=== PATIENT | male | born 1930 | race Caucasian/White ===

== ENCOUNTER 2017-12-06 13:15 | Inpatient (IN) | payer OTHER ==
--- NOTE | 2017-12-06 15:36 | RAD REPORT ---
EXAM DESCRIPTION: RAD - Chest Single View - 12/06/2017 3:27 pm CLINICAL HISTORY: Chest pain. COMPARISON: None. FINDINGS: Portable technique limits examination quality. The lungs are mildly emphysematous but grossly clear. The heart is mildly prominent in size. No displ aced fractures. IMPRESSION: Mild COPD.
[2017-12-06] MEDS ORDERED: FUROSEMIDE 100 MG/10 ML VIAL IV ONE (16:06)
[2017-12-06 16:14] LABS: Absolute Lymphocytes (CBC) 0.7 K/uL (0.7-4.9); Absolute Monocytes 0.7 K/uL (0.1-1.3); Absolute Neutrophil 2.5 K/uL (1.8-8.0); Basophils % 0.4 % (0-1.3); Eosinophils % 3.6 % (0-4.4); Hematocrit 34.5 % (39.6-49.0); Lymphocytes % 17.1 % (15.3-44.8); MCH 34.1 pg (27.0-35.0); MCV 105.1 fL (80-100); MPV 9.7 fL (7.6-11.3); Monocytes % 17.1 % (3.3-12.3); RBC Red Blood Cell Count 3.28 M/uL (4.33-5.43)
[2017-12-06 16:17] LABS: Protime INR 1.94
[2017-12-06 16:19] LABS: Potassium 4.2 mEq/L (3.6-5.0)
[2017-12-06 16:25] LABS: Albumin 4.3 g/dL (3.2-5.5); Bilirubin Direct 0.5 mg/dL (0-0.2); Bilirubin Total 1.6 mg/dL (0.3-1.2); Protein, Total 7.6 g/dL (6.0-8.3)
[2017-12-06 16:30] LABS: CKMB Creatine Kinase MB 3.9 ng/ml (0.3-4.0)
[2017-12-06 17:02] LABS: Urine Blood NEGATIVE (NEG); Urine Glucose NEGATIVE (NEG); Urine Protein NEGATIVE (NEG)
--- NOTE | 2017-12-06 17:49 | ER ---
Nurse's Notes [facility] Name: Kavon Gregg Sr Age: 87 yrs Sex: Male : 1930 Arrival Date: 12/06/2017 Time: 13:17 Bed 20 Private MD: Diagnosis: Acute on chronic combined systolic (congestive) and diastolic (congestive) heart failure Presentation: 12/06 13:25 Presenting complaint: Patient states: I have been having swelling in my penis and la1 testicles for one week but it just keeps getting worse, pt reports he can still urinate, report increasing swelling in TANISHA LE. Transition of care: patient was not received from another setting of care. Onset of symptoms was December 06, 2017. Initial Sepsis Screen: Does the patient meet any 2 criteria? No. Patient's initial sepsis screen is negative. Does the patient have a suspected source of infection? No. Patient's initial sepsis screen is negative. Care prior to arrival: None. 13:25 Method Of Arrival: Ambulatory la1 13:25 Acuity: TEO 3 la1 Historical: - Allergies: 13:27 PENICILLINS; la1 - Home Meds: 14:10 lisinopril 20 mg Oral tab 1 tab once daily [Active]; furosemide 40 mg Oral tab 1 tab rb1 once daily [Active]; carvedilol 3.125 mg oral tab 1 tab 2 times per day [Active]; simvastatin 20 mg Oral tab 1 tab 2 times per day [Active]; pantoprazole 20 mg oral TbEC 1 tab 2 times per day [Active]; warfarin 5 mg Oral tab 1 tab once daily [Active]; Iron CR Oral [Active]; Complete Multivitamin oral oral [Active]; - PMHx: 13:27 Hypertension; CHF; la1 14:10 skin cancer; rb1 - PSHx: 14:10 skin cancer removed left leg; rb1 - Immunization history:: Adult Immunizations up to date. - Social history:: Smoking status: Patient/guardian denies using tobacco. Screenin:10 Abuse screen: Denies threats or abuse. Nutritional screening: No deficits noted. rb1 Tuberculosis screening: No symptoms or risk factors identified. Fall Risk None identified. Assessment: 14:05 General: Appears in no apparent distress. comfortable, Behavior is calm, cooperative. rb1 General: Denies fever. Pain: Denies pain. Neuro: Level of Consciousness is awake, alert, obeys commands, Oriented to person, place, time, situation. Cardiovascular: Capillary refill < 3 seconds is brisk in bilateral fingers. Respiratory: Airway is patent Respiratory effort is even, unlabored, Respiratory pattern is regular, symmetrical. GI: No signs and/or symptoms were reported involving the gastrointestinal system. : Reports feeling bloated. Derm: Skin is pink, warm \T\ dry. Musculoskeletal: Swelling present in right leg and left leg. 14:10 Musculoskeletal: Swelling present in genitalia. rb1 14:20 General: Pt. 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 . 14:45 Reassessment: Family decided to take the pt. to [place]. And to sign out AMA. rb1 15:05 Reassessment: Pt. daughter spoke to the pt. son and they decided to stay here instead rb1 of going to [place]. 15:10 Reassessment: Patient appears in no apparent distress at this time. No changes from rb1 previously documented assessment. Pt. daughter told me that we could start treatment at this point. 16:09 Reassessment: Patient appears in no apparent distress at this time. Patient and/or rb1 family updated on plan of care and expected duration. Pain level reassessed. Patient is alert, oriented x 3, equal unlabored respirations, skin warm/dry/pink. Daughters at bedside. 17:00 Reassessment: Patient appears in no apparent distress at this time. No changes from rb1 previously documented assessment. 17:39 Reassessment: Urine output 1400 ml via Perez. rb1 18:20 Reassessment: Patient appears in no apparent distress at this time. Patient and/or rb1 family updated on plan of care and expected duration. Pain level reassessed. Patient is alert, oriented x 3, equal unlabored respirations, skin warm/dry/pink. Pt. is having dinner with family at the bedside. 19:20 General: Appears in no apparent distress. comfortable, Behavior is calm, cooperative, ao Denies fever. Pain: Denies pain. Neuro: Level of Consciousness is awake, alert, obeys commands, Oriented to person, place, time, situation. Cardiovascular: Capillary refill < 3 seconds is brisk in bilateral fingers. Respiratory: Airway is patent Respiratory effort is even, unlabored, Respiratory pattern is regular, symmetrical. GI: No signs and/or symptoms were reported involving the gastrointestinal system. Abdomen is obese. : Perez in place Urine is. EENT: No signs and/or symptoms were reported regarding the EENT system. Derm: Skin is pink, warm \T\ dry. Musculoskeletal: Swelling present in right leg and left leg. Vital Signs: 13:27 BP 125 / 74; Pulse 90; Resp 19; Temp 97.6; Pulse Ox 100% on R/A; Weight 81.65 kg; la1 Height 5 ft. 9 in. (175.26 cm); 14:30 BP 133 / 74; Pulse 71; Resp 18; Pulse Ox 99% on R/A; Pain 0/10; rb1 15:30 BP 123 / 85; Pulse 69; Resp 16; Pulse Ox 97% on R/A; rb1 16:15 BP 126 / 74; Pulse 71; Resp 17; Pulse Ox 97% on R/A; rb1 17:30 BP 126 / 67; Pulse 63; Resp 16; Pulse Ox 98% on R/A; rb1 18:15 BP 129 / 92; Pulse 69; Resp 18; Pulse Ox 97% ; Pain 0/10; rb1 19:45 BP 118 / 66; Pulse 78; Resp 18; Pulse Ox 75% ; Pain 0/10; ao 13:27 Body Mass Index 26.58 (81.65 kg, 175.26 cm) la1 ED Course: 13:17 Patient arrived in ED. as 13:26 Triage completed. la1 13:27 Arm band placed on right wrist. la1 14:10 Patient has correct armband on for positive identification. Placed in gown. Bed in low rb1 position. Call light in reach. Side rails up X 1. quality assurance monitor final on. Pulse ox on. NIBP on. 14:18 Lee Tran NP is PHCP. pm1 14:18 Jose Antonio Faria MD is Attending Physician. pm1 14:35 Nuria Ag, DAVID is Primary Nurse. rb1 15:24 X-ray completed. Portable x-ray completed in exam room. Patient tolerated procedure ag1 well. 15:27 XRAY Chest (1 view) In Process Unspecified. EDMS 15:52 Initial lab(s) drawn, by me, sent to lab. Urine collected: Perez catheter specimen, jb1 clear, sohan colored, EKG done, by ED staff, reviewed by Jose Antonio Faria MD. Inserted saline lock: 20 gauge in left antecubital area, using aseptic technique. Blood collected. 15:53 Perez cath inserted, using sterile technique, 16 Fr., by me, balloon inflated, to jb1 gravity drainage, urine specimen collected. 17:48 Claudia Zuniga MD is Hospitalizing Provider. pm1 19:00 Report given to DAVID Voss. rb1 19:45 No provider procedures requiring assistance completed. Patient admitted, IV remains in ao place. Administered Medications: 14:15 Drug: Lasix 80 mg {Note: BP 126/74 P71.} Route: IVP; Site: left antecubital; rb1 14:40 Follow up: Response: No adverse reaction rb1 Output: 17:39 Urine: 1400ml (Perez); Total: 1400ml. rb1 Outcome: 17:49 Decision to Hospitalize by Provider. pm1 19:46 Admitted to Tele accompanied by tech, room 408, with chart, Report called to Betsy Tinsley 19:46 Condition: stable 19:57 Patient left the ED. ao Signatures: Dispatcher [employer] EDMS Gregg Mae jb1 Vickie Fowler Lee, RN RN Laura Arzate ag1 Nuria Ag, RN RN Bipin Madera RN RN ao Marinas, Patrick, ADOLPH COMPUTER LABORATORY TECHNICIAN pm1 Corrections: (The following items were deleted from the chart) 16:22 15:10 Reassessment: Pt. daughter told me that we could start treatment at this point. rb1 rb1
--- NOTE | 2017-12-06 17:50 | EDPHYS ---
Physician Documentation [facility] Name: Kavon Gregg Sr Age: 87 yrs Sex: Male : 1930 Arrival Date: 12/06/2017 Time: 13:17 Bed 20 Private MD: ED Physician Jose Antonio Faria HPI: 12/06 14:57 This 87 yrs old Male presents to ER via Ambulatory with complaints of pm1 Testicular Swelling, Penile Swelling. 14:57 The patient has shortness of breath with light activity. Onset: The symptoms/episode pm1 began/occurred 1 week(s) ago. Duration: The symptoms are continuous, and are steadily getting worse. The patient's shortness of breath is aggravated by light activity, is alleviated by nothing. Associated signs and symptoms: Pertinent positives: Swelling to genitalia , Pertinent negatives: chest pain, non-productive cough, productive cough, fever, nausea, vomiting. Severity of symptoms: in the emergency department the symptoms are worse. The patient has not experienced similar symptoms in the past. Historical: - Allergies: 13:27 PENICILLINS; la1 - Home Meds: 14:10 lisinopril 20 mg Oral tab 1 tab once daily [Active]; furosemide 40 mg Oral tab 1 tab rb1 once daily [Active]; carvedilol 3.125 mg oral tab 1 tab 2 times per day [Active]; simvastatin 20 mg Oral tab 1 tab 2 times per day [Active]; pantoprazole 20 mg oral TbEC 1 tab 2 times per day [Active]; warfarin 5 mg Oral tab 1 tab once daily [Active]; Iron CR Oral [Active]; Complete Multivitamin oral oral [Active]; - PMHx: 13:27 Hypertension; CHF; la1 14:10 skin cancer; rb1 - PSHx: 14:10 skin cancer removed left leg; rb1 - Immunization history:: Adult Immunizations up to date. - Social history:: Smoking status: Patient/guardian denies using tobacco. ROS: 17:44 Constitutional: Negative for fever, chills, and weight loss, Eyes: Negative for injury, pm1 pain, redness, and discharge, ENT: Negative for injury, pain, and discharge, Neck: Negative for injury, pain, and swelling. 17:44 Abdomen/GI: Negative for abdominal pain, nausea, vomiting, diarrhea, and constipation, Back: Negative for injury and pain, MS/Extremity: Negative for injury and deformity, Skin: Negative for injury, rash, and discoloration, Neuro: Negative for headache, weakness, numbness, tingling, and seizure. 17:44 Cardiovascular: Positive for edema, Negative for chest pain, palpitations. 17:44 Respiratory: Positive for shortness of breath, Negative for cough, dyspnea on exertion, wheezing. 17:44 : Positive for Swelling to testicles and penis, Negative for burning with urination, penile pain, testicular pain Exam: 17:44 Constitutional: This is a well developed, well nourished patient who is awake, alert, pm1 and in no acute distress. Head/Face: Normocephalic, atraumatic. Eyes: Pupils equal round and reactive to light, extra-ocular motions intact. Lids and lashes normal. Conjunctiva and sclera are non-icteric and not injected. Cornea within normal limits. Periorbital areas with no swelling, redness, or edema. ENT: Nares patent. No nasal discharge, no septal abnormalities noted. Tympanic membranes are normal and external auditory canals are clear. Oropharynx with no redness, swelling, or masses, exudates, or evidence of obstruction, uvula midline. Mucous membranes moist. Neck: Trachea midline, no thyromegaly or masses palpated, and no cervical lymphadenopathy. Supple, full range of motion without nuchal rigidity, or vertebral point tenderness. No Meningismus. Chest/axilla: Normal chest wall appearance and motion. Nontender with no deformity. No lesions are appreciated. 17:44 Abdomen/GI: Soft, non-tender, with normal bowel sounds. No distension or tympany. No guarding or rebound. No evidence of tenderness throughout. Back: No spinal tenderness. No costovertebral tenderness. Full range of motion. Skin: Warm, dry with normal turgor. Normal color with no rashes, no lesions, and no evidence of cellulitis. MS/ Extremity: Pulses equal, no cyanosis. Neurovascular intact. Full, normal range of motion. 17:44 Cardiovascular: Rate: normal, Rhythm: irregular, Edema: pedal edema, that is marked, Edema present to penis and testicles. Trace to lower abdomen. 17:44 Respiratory: the patient does not display signs of respiratory distress, Respirations: normal, Breath sounds: decreased breath sounds, are located in both bases. 17:44 Neuro: Orientation: is normal, Mentation: is normal, Motor: moves all fours, Sensation: is normal, no obvious gross deficits, Gait: is steady, without difficulty, Slow. Vital Signs: 13:27 BP 125 / 74; Pulse 90; Resp 19; Temp 97.6; Pulse Ox 100% on R/A; Weight 81.65 kg; la1 Height 5 ft. 9 in. (175.26 cm); 14:30 BP 133 / 74; Pulse 71; Resp 18; Pulse Ox 99% on R/A; Pain 0/10; rb1 15:30 BP 123 / 85; Pulse 69; Resp 16; Pulse Ox 97% on R/A; rb1 16:15 BP 126 / 74; Pulse 71; Resp 17; Pulse Ox 97% on R/A; rb1 17:30 BP 126 / 67; Pulse 63; Resp 16; Pulse Ox 98% on R/A; rb1 18:15 BP 129 / 92; Pulse 69; Resp 18; Pulse Ox 97% ; Pain 0/10; rb1 19:45 BP 118 / 66; Pulse 78; Resp 18; Pulse Ox 75% ; Pain 0/10; ao 13:27 Body Mass Index 26.58 (81.65 kg, 175.26 cm) la1 MDM: 14:19 Patient medically screened. pm1 16:26 Data reviewed: vital signs. Data interpreted: Pulse oximetry: on room air is 97 %. pm1 Interpretation: normal. 17:48 Physician consultation: Claudia Zuniga MD was called at 17:48, was contacted at 17:48, pm1 regarding admission, patient's condition, and will see patient. 12/06 14:33 Order name: Basic Metabolic Panel pm1 12/06 14:33 Order name: BNP pm1 12/06 14:33 Order name: CBC with Diff pm1 12/06 14:33 Order name: Ckmb pm1 12/06 14:33 Order name: CPK pm1 12/06 14:33 Order name: LFT's pm1 12/06 14:33 Order name: Magnesium pm1 12/06 14:33 Order name: PT-INR; Complete Time: 17:16 pm1 12/06 14:33 Order name: Ptt, Activated; Complete Time: 17:16 pm1 12/06 14:33 Order name: Troponin (emerg Dept Use Only); Complete Time: 17:16 pm1 12/06 14:33 Order name: Basic Metabolic Panel; Complete Time: 17:16 EDMS 12/06 14:33 Order name: BNP B-Type Natriuretic Peptide; Complete Time: 17:16 EDWI 12/06 14:33 Order name: CBC with Automated Diff; Complete Time: 16:26 EDMS 12/06 14:33 Order name: CKMB Creatine Kinase MB; Complete Time: 17:16 EDWI 12/06 14:33 Order name: XRAY Chest (1 view); Complete Time: 16:04 pm1 12/06 14:33 Order name: EKG; Complete Time: 14:33 pm1 12/06 14:33 Order name: Creatine Phosphokinase; Complete Time: 17:16 EDWI 12/06 14:33 Order name: Liver (Hepatic) Function; Complete Time: 17:16 EDWI 12/06 14:33 Order name: Magnesium; Complete Time: 17:16 [facility] 12/06 16:04 Order name: Urine Dipstick--Ancillary (enter results) 12/06 16:04 Order name: Urine Dipstick-Ancillary; Complete Time: 17:16 [facility] 12/06 18:00 Order name: Physical Therapy Consult [facility] 12/06 18:00 Order name: Basic Metabolic Panel [facility] 12/06 18:00 Order name: Basic Metabolic Panel [facility] 12/06 18:00 Order name: Protime (+INR) [facility] 12/06 18:00 Order name: Protime (+INR) [facility] 12/06 18:01 Order name: Echo with Doppler [facility] 12/06 18:01 Order name: CBC with Automated Diff [facility] 12/06 18:01 Order name: CBC with Automated Diff [facility] 12/06 14:33 Order name: Cardiac monitoring; Complete Time: 15:22 pm12/06 14:33 Order name: EKG - Nurse/Tech; Complete Time: 15:22 pm12/06 14:33 Order name: IV Saline Lock; Complete Time: 15:52 pm1 12/06 14:33 Order name: Labs collected and sent; Complete Time: 15:53 pm1 12/06 14:33 Order name: O2 Per Protocol; Complete Time: 15:22 pm12/06 14:33 Order name: O2 Sat Monitoring; Complete Time: 15:22 pm1 12/06 14:33 Order name: Urine Dipstick-Ancillary (obtain specimen); Complete Time: 15:52 pm1 12/06 15:01 Order name: Perez; Complete Time: 15:52 pm1 12/06 18:01 Order name: Heart Healthy EDWI Administered Medications: 14:15 Drug: Lasix 80 mg {Note: BP 126/74 P71.} Route: IVP; Site: left antecubital; rb1 14:40 Follow up: Response: No adverse reaction rb1 Disposition: 12/07 09:16 Co-signature as Attending Physician, Jose Antonio Faria MD I agree with the assessment and cathy plan of care. Disposition: 12/06/17 17:49 Hospitalization ordered by Claudia Zuniga for Inpatient Admission. Preliminary diagnosis is Acute on chronic combined systolic (congestive) and diastolic (congestive) heart failure. - Bed requested for Telemetry/MedSurg (Inpatient). - Status is Inpatient Admission. ao - Condition is Stable. - Problem is new. - Symptoms have improved. UTI on Admission? No Signatures: Dispatcher [employer] [facility] Jose Antonio Faria MD MD cha Attema, Lee RN RN la1 Nuria Ag RN RN rb1 Bipin Kyle RN RN ao Marinas, Patrick, COOKER SULFITE COOKER SULFITE pm1 Roberta Canales RN RN Chasity Grace
[2017-12-06] MEDS ORDERED: ONDANSETRON 4 MG/2 ML VIAL IV PRN (17:53)
[2017-12-06] MEDS ORDERED: ACETAMINOPHEN 500 MG TAB PO PRN (17:53)
[2017-12-06 20:16] VITALS: BMI 26.5
--- NOTE | 2017-12-06 20:42 | P.HP ---
Certification for Inpatient Patient admitted to: Inpatient With expected LOS: >2 Midnights Practitioner: I am a practitioner with admitting privileges, knowledge of patient current condition, hospital course, and medical plan of care. Services: Services provided to patient in accordance with Admission requirements found in Title 42 Section 412.3 of the Code of Federal Regulations Patient History Date of Service: 12/06/17 Reason for admission: CHF exacerbation History of Present Illness: Mr Gregg is an 87 years old male with history of HTN, chronic A.Fib, CHF, who usually has as baseline some degree of lower extremity edema, that at night he put his legs to rest over a pillow, and the next morning the swelling decrease significantly, however, since 1 week ago he has noticed more swelling in his legs, and also the edema progressed to his testes and penis. He denied chest pain. He also noticed more SOB than usual in the last week. No history of fever , chills or cough. His landing scaler is Dr Bacon in [place]. Lab work in ED remarkable for worsening kidney function, elevated trop I 0.07, EKG shows A.Fib at 67 bpm. He is hemodynamically stable. Allergies Penicillins Allergy (Verified 09/11/16 13:57) Rash - Past Medical/Surgical History -: HTN -: CHF -: Chronic A.Fib -: skin cancer romove - Family History Family History: Reviewed- Non-Contributory - Social History Smoking Status: Never smoker Alcohol use: No CD- Drugs: No Place of Residence: Home Review of Systems 10-point ROS is otherwise unremarkable Physical Examination - Vital Signs Temperature: 97.6 F Blood Pressure: 123/73 Pulse: 77 Respirations: 18 Pulse Ox (%): 94 - Physical Exam General: Alert, In no apparent distress HEENT: Atraumatic, PERRLA, Mucous membr. moist/pink, EOMI, Sclerae nonicteric Neck: Supple, 2+ carotid pulse no bruit, No LAD, Without JVD or thyroid abnormality Respiratory: Clear to auscultation bilaterally, Normal air movement Cardiovascular: Normal S1 S2, Edema, Irregular heart rate/rhythm Gastrointestinal: Normal bowel sounds, No tenderness Musculoskeletal: No tenderness, Swelling (LE edema 3+, up to genitalia) Integumentary: No rashes Neurological: Normal speech, Normal strength at 5/5 x4 extr, Normal tone, Normal affect Lymphatics: No axilla or inguinal lymphadenopathy - Studies Laboratory Data (last 24 hrs) 12/06/17 15:50: PT 23.0 H, INR 1.94, APTT 35.3 12/06/17 15:50: WBC 4.0 L, Hgb 11.2 L, Hct 34.5 L, Plt Count 166 12/06/17 15:50: B-Natriuretic Peptide 477 H 12/06/17 15:50: Sodium 137, Potassium 4.2, BUN 31 H, Creatinine 1.85 H, Glucose 101, Magnesium 2.0, Total Bilirubin 1.6 H, AST 35, ALT 25, Alkaline Phosphatase 152 H Assessment and Plan - Problems (Diagnosis) (1) CHF exacerbation Current Visit: Yes Status: Acute Qualifiers: Heart failure type: unspecified Qualified Code(s): I50.9 - Heart failure, unspecified (2) Chronic a-fib Current Visit: Yes Status: Acute (3) HTN (hypertension) Current Visit: Yes Status: Acute Qualifiers: Hypertension type: essential hypertension Qualified Code(s): I10 - Essential (primary) hypertension (4) Acute renal injury Current Visit: Yes Status: Acute - Plan The patient will be admitted to the hospital due to CHF exacerbation. No ECHO in our records, will order one for tomorrow. Will continue with IV Lasix, electrolyte monitor, consult cardiology team for evaluation and recommendations. Continue Coumadin for A.Fib, rate is well controlled. Trop I elevated, likely due to CHF. No chest pain or acute ST-T abnomralities on EKG. - Advance Directives Does patient have a Living Will: No Does patient have a Durable POA for Healthcare: No - Code Status/Comfort Care Code Status Assessed: Yes Code Status: Full Code
[2017-12-06] MEDS ORDERED: METOPROLOL TAR 25 MG TAB PO SCH (21:00)
[2017-12-06] MEDS: CARVEDILOL 3.125 MG TAB PO SCH (23:16)
[2017-12-06 23:35] LABS: Protime INR 1.93
[2017-12-07 05:53] LABS: Absolute Lymphocytes (CBC) 0.7 K/uL (0.7-4.9); Absolute Monocytes 0.9 K/uL (0.1-1.3); Absolute Neutrophil 3.9 K/uL (1.8-8.0); Basophils % 0.4 % (0-1.3); Eosinophils % 2.1 % (0-4.4); Hematocrit 31.9 % (39.6-49.0); Lymphocytes % 12.9 % (15.3-44.8); MCH 34.5 pg (27.0-35.0); MCV 104.6 fL (80-100); MPV 9.6 fL (7.6-11.3); Monocytes % 16.1 % (3.3-12.3); RBC Red Blood Cell Count 3.05 M/uL (4.33-5.43)
[2017-12-07 06:14] LABS: Potassium 3.7 mEq/L (3.6-5.0); Protime INR 1.91
[2017-12-07] MEDS ORDERED: POTASSIUM 25 MEQ EFFERV TAB PO ONE (06:35)
[2017-12-07 06:58] LABS: Blood Morphology Comment NOT SEEN (NOT SEEN); Platelet Estimate ADEQ
--- NOTE | 2017-12-07 07:05 | EKG ---
Test Date: 2017-12-06 Test Time: 15:25:58 Spray Drier Operator Helper: EMT MEASUREMENT RESULTS: Intervals: Rate: 67 RI: QRSD: 74 QT: 416 QTc: 439 [place]: P: RI: QRS: 228 T: 36 INTERPRETIVE STATEMENTS: Atrial fibrillation Right superior axis deviation Low voltage QRS Cannot rule out Anterior infarct, age undetermined Abnormal ECG Compared to ECG 09/11/2016 12:34:46 Right superior axis now present Left-axis deviation no longer present Myocardial infarct finding still present Electronically Signed On 12-07-17 07:04:16 CDT by Chris Delgado
[2017-12-07] MEDS ORDERED: PANTOPRAZOLE 40MG TABLET PO SCH (09:00)
[2017-12-07] MEDS ORDERED: FUROSEMIDE 40 MG/4 ML VIAL IV SCH (09:00)
[2017-12-07] MEDS ORDERED: WARFARIN SODIUM 4 MG TAB PO SCH ×2 (09:00→17:30)
[2017-12-07] MEDS ORDERED: LISINOPRIL 20 MG TAB PO SCH (09:00)
[2017-12-07] MEDS: CARVEDILOL 3.125 MG TAB PO SCH (11:19)
[2017-12-07 12:37] VITALS: BP 110/59; TEMP 98.1
--- NOTE | 2017-12-07 12:38 | ECHO ---
HEIGHT: 5 ft 9 in WEIGHT: 179 lb 8 oz DATE OF STUDY: 12/07/[address]: Claudia Zuniga MD 2-DIMENSIONAL: YES M.MODE: YES DOPPLER: YES COLOR FLOW: YES TDS: NO PORTABLE: NO DEFINITY: NO BUBBLE STUDY: NO DIAGNOSIS: CONGESTIVE HEART FAILURE CARDIAC HISTORY: CATHERIZATION: YES SURGERY: CABG PROSTHETIC VALVE: NO PACEMAKER: NO MEASUREMENTS (cm) DIASTOLIC (NORMALS) SYSTOLIC (NORMALS) IVSd 1.5 (0.6-1.2) LA Diam 4.4 (1.9-4.0) LVEF 65% LVIDd 3.7 (3.5-5.7) LVIDs 2.4 (2.0-3.5) %FS 35% LVPWd 1.3 (0.6-1.2) Ao Diam 2.6 (2.0-3.7) 2 DIMENSIONAL ASSESSMENT: RIGHT ATRIUM: DILATED LEFT ATRIUM: DILATED RIGHT VENTRICLE: DILATED LEFT VENTRICLE: NORMAL TRICUSPID VALVE: NORMAL MITRAL VALVE: NORMAL PULMONIC VALVE: NORMAL AORTIC VALVE: NORMAL PERICARDIAL EFFUSION: NONE AORTIC ROOT: NORMAL LEFT VENTRICULAR WALL MOTION: NORMAL. DOPPLER/COLOR FLOW: MILD AORTIC, MITRAL AND TRICUSPID REGURGITATION. MODERATE PULMONARY HYPERTENSION. ESTIMATED RIGHT VENTRICULAR SYSTOLIC PRESSURE 52mmHg. ESTIMATED RIGHT ATRIAL PRESSURE 15mmHg. COMMENTS: NORMAL LEFT VENTRICULAR EJECTION FRACTION. DILATED LEFT AND RIGHT ATRIUM. DILATED RIGHT VENTRICLE. MILD AORTIC, MITRAL AND TRICUSPID REGURGITATION. MODERATE PULMONARY HYPERTENSION. ATRIAL FIBRILLATION. TECHNOLOGIST: CAMI JACKSON [facility]
[2017-12-07 12:41] VITALS: O2SAT 94
--- NOTE | 2017-12-07 13:36 | CON ---
History Of Present Illness: Mr. Gregg came to the hospital because his feet were swelling more derrek n usual. There was no dyspnea or chest pain. He has chronic atrial fib, chronic diastolic heart yasmin lure. Normally sees Dr. Joshua. Came to our hospital and for the last few weeks he has been notici ng a steady weight gain. He noticed when he took his Lasix, it did not seem to do anything. Home Medications: Coumadin 4 mg a day, simvastatin 20, lisinopril 20, Lasix 40, Coreg 3.125 b.i.d., and Protonix 40. Dr. Joshua in his office manages all the prothrombin times and INRs. Physical Examination: General: He appears to be his stated age of 87, alert, oriented, pleasant, not in distress. Lungs: Clear. Heart: Irregularly irregular. Extremities: 2+ edema. Distal pulses palpable. The patient's electrocardiogram shows atrial fibrillation, 67 beats per minute, pulmonary disease pat tern, right superior axis, poor R-wave progression, possible anterior MS, looks just like EKGs from t he past we have in our hospital. Laboratory Data: Reveals he is mildly anemic. Hemoglobin 11.2. His creatinine is 1.89. His tropon in is 0.07. Blood sugars 101 and 106. Impression: I believe the patient has stable condition of heart failure that got a little bit out of line. He did not have pulmonary edema and at this point with IV diuretics, he has lost a few pounds . His edema has gone down and I would think, he would be ready to be discharged today some time toda y, had an echocardiogram and another dose of IV Lasix. When he goes home, he can be discharged on 80 mg of Lasix a day, see Dr. Joshua, and decide about long-term Lasix dose. He will probably need to be on a sliding scale for Lasix from this point on. I have also recommended he reduce his sodium intake. He did not seem to think, he was eat ing a high sodium diet. SH/MODL Voice ID: [id number] Report ID: [id number]
--- NOTE | 2017-12-07 15:00 | P.DS ---
Admission Date: 12/06/17 Discharge Date: 12/07/17 Discharge Condition: GOOD Reason for Admission: CHF exacerbation Procedures: patient admitted for swelling of the legs. Had a normal echo. Responded well to diuresis. Was seen by Dr. Delgado. His daughter is with him He has another daughter in the room in him. Will have him follow up with Dr. Mcpherson Brief History of Present Illness: Patient was admitted for increased swelling in his legs. No shortness of breath , no PND, no orthopnea. Hospital Course: Patient is doing much better after diuresis. Has good social support. Plan to discharge patient on 80mg of lasix and follow up with Dr. Nuñez and Sylvia Rossi. Vital Signs/Physical Exam: Temp Pulse Resp BP Pulse Ox 98.1 F 80 18 110/59 L 94 12/07/17 12:00 12/07/17 12:00 12/07/17 12:00 12/07/17 12:00 12/07/17 12:00 General: Alert, In no apparent distress HEENT: Atraumatic, PERRLA, EOMI Neck: Supple, JVD not distended Respiratory: Clear to auscultation bilaterally, Normal air movement Cardiovascular: Regular rate/rhythm, Normal S1 S2, Edema (1+, much improved from yesterday) Gastrointestinal: Normal bowel sounds, No tenderness Musculoskeletal: No tenderness Integumentary: No rashes Neurological: Normal speech, Normal tone, Normal affect Lymphatics: No axilla or inguinal lymphadenopathy Laboratory Data at Discharge: WBC 5.6 K/uL (4.3-10.9) D 12/07/17 05:29 Hgb 10.5 g/dL (13.6-17.9) L 12/07/17 05:29 Hct 31.9 % (39.6-49.0) L 12/07/17 05:29 Plt Count 147 K/uL (152-406) L 12/07/17 05:29 PT 22.7 SECONDS (9.5-12.5) H 12/07/17 05:29 INR 1.91 12/07/17 05:29 APTT 35.3 SECONDS (24.3-36.9) 12/06/17 15:50 Sodium 138 mEq/L (135-145) 12/07/17 05:29 Potassium 3.7 mEq/L (3.6-5.0) 12/07/17 05:29 BUN 31 mg/dL (6-20) H 12/07/17 05:29 Creatinine 1.89 mg/dL (0.61-1.24) H 12/07/17 05:29 Glucose 106 mg/dL (65-120) 12/07/17 05:29 Magnesium 2.0 mg/dL (1.8-2.5) 12/06/17 15:50 Total Bilirubin 1.6 mg/dL (0.3-1.2) H 12/06/17 15:50 AST 35 IU/L (10-42) 12/06/17 15:50 ALT 25 IU/L (10-60) 12/06/17 15:50 Alkaline Phosphatase 152 IU/L (42-121) H 12/06/17 15:50 B-Natriuretic Peptide 477 pg/ml (<=100) H 12/06/17 15:50 Home Medications: Carvedilol [Coreg*] 3.125 mg PO BID 12/06/17 Lisinopril 20 mg PO DAILY 12/06/17 Pantoprazole [Protonix Tab*] 20 mg PO DAILY 12/06/17 Simvastatin 20 mg PO DAILY 12/06/17 Warfarin Sodium [Coumadin*] 4 mg PO DAILY 12/06/17 Furosemide [Lasix] 80 mg PO DAILY 30 Days #30 tablet 12/07/17 New Medications: Furosemide [Lasix] 80 mg PO DAILY 30 Days #30 tablet Diet: AHA Activity: Ad tracy Followup: EDWARD MCPHERSON [UNKNOWN] - 1 Week Sylvia Rossi NP [Primary Care Provider] - 1-2 Weeks Time spent managing pt's care (in minutes): 40
[2017-12-07] MEDS ORDERED: ATORVASTATIN 10 MG TAB PO SCH (21:00)
== END 2017-12-07 16:59 | disposition home or self-care (01) | DRG 292 ==
LOC: ER 13:15 → ERHOLD 18:03 → 4TH 19:33
PROVIDERS: ADMIT Family Medicine; ATTEND Internal Medicine
DX: I11.0 Hypertensive heart disease with heart failure (principal); N17.9 Acute kidney failure, unspecified; I50.33 Acute on chronic diastolic (congestive) heart failure; I48.2 Chronic atrial fibrillation; Z79.01 Long term (current) use of anticoagulants
CPT/HCPCS: 36415; 51702; 71045; 80048; 80076; 81003; 82550; 82553; 83735; 83880; 84484; 85025; 85610; 85730; 93005; 93306; 94760; 96374; 97163; 99285

== ENCOUNTER 2017-12-10 11:46 | Inpatient (IN) | payer OTHER ==
[2017-12-10] MEDS ORDERED: ONDANSETRON 4 MG/2 ML VIAL ONE (12:16)
[2017-12-10] MEDS ORDERED: Morphine 2 MG/2 ML SYR ONE ×2 (12:18→14:00)
[2017-12-10 12:43] LABS: Absolute Lymphocytes (CBC) 0.6 K/uL (0.7-4.9); Absolute Monocytes 0.9 K/uL (0.1-1.3); Absolute Neutrophil 4.1 K/uL (1.8-8.0); Basophils % 0.3 % (0-1.3); Eosinophils % 1.4 % (0-4.4); Hematocrit 31.2 % (39.6-49.0); Lymphocytes % 10.4 % (15.3-44.8); MCH 34.6 pg (27.0-35.0); MCV 104.3 fL (80-100); MPV 9.6 fL (7.6-11.3); Monocytes % 15.2 % (3.3-12.3); RBC Red Blood Cell Count 2.99 M/uL (4.33-5.43)
[2017-12-10 12:44] LABS: Protime INR 2.13
--- NOTE | 2017-12-10 13:43 | RAD REPORT ---
EXAM DESCRIPTION: RAD - Pelvis - 12/10/2017 1:38 pm CLINICAL HISTORY: Right hip pain status post fall FINDINGS: A comminuted intertrochanteric fracture involves the right femur with varus angulation pre sent at the fracture site. The lesser trochanter is avulsed. The fracture involves the greater trocha nter. The fracture extends inferiorly 4 centimeters involving the femoral shaft. No dislocation is seen.
--- NOTE | 2017-12-10 13:44 | RAD REPORT ---
EXAM DESCRIPTION: RAD - Femur Right - 12/10/2017 1:38 pm CLINICAL HISTORY: Right leg pain status post fall FINDINGS: A comminuted intertrochanteric fracture involves the right femur with varus angulation pre sent at the fracture site. The lesser trochanter is avulsed. The fracture involves the greater trocha nter. The fracture extends inferiorly 4 centimeters involving the femoral shaft. No dislocation is seen
--- NOTE | 2017-12-10 13:44 | RAD REPORT ---
EXAM DESCRIPTION: RAD - Hip Right 2 View - 12/10/2017 1:38 pm CLINICAL HISTORY: Right hip pain status post fall FINDINGS: A comminuted intertrochanteric fracture involves the right femur with varus angulation pre sent at the fracture site. The lesser trochanter is avulsed. The fracture involves the greater trocha nter. The fracture extends inferiorly 4 centimeters involving the femoral shaft. No dislocation is seen
--- NOTE | 2017-12-10 13:45 | RAD REPORT ---
EXAM DESCRIPTION: Marlin Single View12/10/2017 1:38 pm CLINICAL HISTORY: Chest pain COMPARISON: November 2017 FINDINGS: The lungs appear clear of acute infiltrate. The heart is moderately enlarged IMPRESSION: No acute abnormalities displayed
[2017-12-10] MEDS ORDERED: LORazepam 2 MG/ML VIAL ONE (13:57)
[2017-12-10 13:59] LABS: Blood Morphology Comment NOT SEEN (NOT SEEN); Platelet Estimate ADEQ; Urine White Blood Cell Casts OK
--- NOTE | 2017-12-10 14:25 | ER ---
Nurse's Notes [facility] Name: Kavon Gregg Sr Age: 87 yrs Sex: Male : 1930 Arrival Date: 12/10/2017 Time: 12:07 Bed 8 Private MD: Diagnosis: Intertrochanteric fracture of femur-Right;Other slipping, tripping and stumbling and falls Presentation: 12/10 12:08 Presenting complaint: EMS states: Fell yesterday from a standing position and now c/o R ss hip pain when repositioning. R leg appears shortened and externally rotated. Transition of care: patient was not received from another setting of care. Onset of symptoms was December 10, 2017. Initial Sepsis Screen: Does the patient meet any 2 criteria? No. Patient's initial sepsis screen is negative. Does the patient have a suspected source of infection? No. Patient's initial sepsis screen is negative. Care prior to arrival: Medication(s) given: fentanyl 50 mcg given IVP IV initiated. 20 GA, in the left antecubital area. 12:08 Method Of Arrival: EMS: [facility] 12:08 Acuity: TEO 3 ss Historical: - Allergies: 12:13 PENICILLINS; ss - Home Meds: 15:31 warfarin 5 mg Oral tab 1 tab once daily [Active]; carvedilol 3.125 mg Oral tab 1 tab 2 sg times per day [Active]; Complete Multivitamin Oral [Active]; furosemide 40 mg Oral tab 1 tab once daily [Active]; Iron CR Oral [Active]; lisinopril 20 mg Oral tab 1 tab once daily [Active]; pantoprazole 20 mg Oral TbEC 1 tab 2 times per day [Active]; simvastatin 20 mg Oral tab 1 tab 2 times per day [Active]; - PMHx: 12:13 CHF; Hypertension; skin cancer; ss - PSHx: 12:13 skin cancer removed left leg; L hip repair; ss - Immunization history:: Adult Immunizations. - Social history:: Smoking status: Patient/guardian denies using tobacco. Screenin:20 Abuse screen: Denies threats or abuse. Denies injuries from another. Nutritional sg screening: No deficits noted. Tuberculosis screening: No symptoms or risk factors identified. Never had TB. Fall Risk None identified. Assessment: 12:10 Reassessment: pt son at bedside at this time, awaiting Xray. sg 12:20 General: Appears in no apparent distress. uncomfortable, well groomed, well developed, sg well nourished, Behavior is calm, cooperative, appropriate for age. Pain: Complains of pain in right hip Pain radiates to right leg. Neuro: Level of Consciousness is awake, alert, obeys commands, Oriented to person, place, time, Relief Mate are equal bilaterally Moves all extremities. Full function Gait is steady, Speech is normal, Facial symmetry appears normal. Cardiovascular: Heart tones S1 S2 present Capillary refill is brisk in bilateral fingers toes Patient's skin is warm and dry. Pulses are palpable in right radial artery, right femoral artery, right posterior tibial artery, right dorsalis pedis artery, left radial artery, left femoral artery, left posterior tibial artery and left dorsalis pedis artery Edema is 1+ to right upper thigh, right lower thigh, right midcalf, right ankle, right foot and right toes Chest pain is denied. Respiratory: Airway is patent Respiratory effort is even, unlabored, Respiratory pattern is regular, symmetrical, Breath sounds are clear bilaterally. GI: Abdomen is round non-distended, Bowel sounds present X 4 quads. Reports normal bowel habits, tolerance of fluids, tolerance of food. : Swelling noted on scrotum. EENT: No signs and/or symptoms were reported regarding the EENT system. Derm: Skin is pink, warm \T\ dry. Musculoskeletal: Capillary refill is brisk, in bilateral fingers. toes. Range of motion: limited in right hip right leg noted to shortened and externally rotated Swelling present in right leg. 13:00 Cardiovascular: Heart tones S1 S2 present Chest pain is denied. Respiratory: Airway is sv patent Respiratory effort is even, unlabored, Respiratory pattern is regular, symmetrical. Derm: Skin is pink, warm \T\ dry. Musculoskeletal: Capillary refill is brisk, in bilateral fingers. toes. Swelling present in right leg. 13:10 Reassessment: Xray at bedside at this time. sg 14:00 Reassessment: Patient appears in no apparent distress at this time. No changes from sg previously documented assessment. Patient is alert, oriented x 3, equal unlabored respirations, skin warm/dry/pink. awaiting CT scan, pt to be medicated prior to CT scan, orders received to repeat morphine 2 mg IVP,VS obtained, pt medicated as ordered, see EMAR. 15:00 Reassessment: Patient appears in no apparent distress at this time. No changes from sg previously documented assessment. 16:10 Reassessment: Patient appears in no apparent distress at this time. No changes from sg previously documented assessment. ORTHO Surgeon at bedside with pt at this time. Vital Signs: 12:13 BP 128 / 95; Pulse 83; Resp 18; Pulse Ox 97% on R/A; Weight 83.91 kg; Height 5 ft. 9 ss in. (175.26 cm); Pain 0/10; 13:00 BP 107 / 60; Pulse 81; Resp 17; Pulse Ox 98% on R/A; Pain 0/10; sv 14:00 BP 124 / 70; Pulse 77; Resp 18; Pulse Ox 98% on R/A; Pain 5/10; sg 14:59 BP 116 / 60; Pulse 93; Resp 18; Pulse Ox 94% ; sv 15:55 BP 112 / 62; Pulse 89; Resp 17; Pulse Ox 98% on R/A; Pain 0/10; sg 12:13 Body Mass Index 27.32 (83.91 kg, 175.26 cm) ss [place] Coma Score: 13:00 Eye Response: spontaneous(4). Verbal Response: oriented(5). Motor Response: obeys sg commands(6). Total: 15. 15:55 Eye Response: spontaneous(4). Verbal Response: oriented(5). Motor Response: obeys sg commands(6). Total: 15. Trauma Score (Adult): 13:00 Eye Response: spontaneous(1); Verbal Response: oriented(1); Motor Response: obeys sg commands(2); Systolic BP: > 89 mm Hg(4); Respiratory Rate: 10 to 29 per min(4); [place] Score: 15; Trauma Score: 12 15:55 Eye Response: spontaneous(1); Verbal Response: oriented(1); Motor Response: obeys sg commands(2); Systolic BP: > 89 mm Hg(4); Respiratory Rate: 10 to 29 per min(4); [place] Score: 15; Trauma Score: 12 ED Course: 12:07 Patient arrived in ED. sg 12:07 Jose Antonio Wayne PA is PHCP. cp 12:07 Andrea Jorgensen MD is Attending Physician. cp 12:10 Onel Moreno, RN is Primary Nurse. sg 12:11 Triage completed. ss 12:13 Arm band placed on right wrist. ss 12:20 Patient has correct armband on for positive identification. Bed in low position. Call sg light in reach. Side rails up X2. Adult w/ patient. computer laboratory technician on. Pulse ox on. NIBP on. Head of bed elevated. 12:20 Perez cath inserted, using sterile technique, 16 Fr., by nv, balloon inflated, to sg gravity drainage, urine specimen collected. returned clear yellow urine. 12:20 Initial lab(s) drawn, by ED staff, sent to lab. Maintain EMS IV. Dressing intact. Good sg blood return noted. Site clean \T\ dry. Gauge \T\ site: 20 G in the LAC. Patient maintains SpO2 saturation greater than 95% on room air. 13:38 X-ray completed. Portable x-ray completed in exam room. Patient tolerated procedure sw well. 13:38 XRAY Chest (1 view) In Process Unspecified. EDMS 13:38 XRAY Femur RIGHT In Process Unspecified. EDMS 13:38 XRAY Hip RIGHT 2 view In Process Unspecified. EDMS 13:38 XRAY Pelvis In Process Unspecified. EDMS 14:08 EKG done, by technical designer. reviewed by Andrea Jorgensen MD. tc 14:[address] via stretcher. sg 14:19 CT completed. Patient tolerated procedure well. Patient moved to CT via stretcher. sj Patient moved back from CT. 14:21 CT Head C Spine In Process Unspecified. EDMS 14:23 Vicki Fuentes MD is Hospitalizing Provider. cp 14:29 Warm blanket given. Head of bed elevated. sg 15:24 Diet: Patient given a heart healthy meal tray. sg 16:20 No provider procedures requiring assistance completed. Patient admitted, IV remains in sv place. intact. Administered Medications: 12:20 Drug: morphine 2 mg Route: IVP; Site: left antecubital; sg 13:00 Follow up: Response: No adverse reaction; Pain is decreased sg 12:20 Drug: Zofran 4 mg Route: IVP; Site: left antecubital; sg 13:20 Follow up: Response: No adverse reaction; Nausea is decreased sg 14:05 Drug: morphine 2 mg Route: IVP; Site: left antecubital; sg 15:24 Follow up: Response: No adverse reaction; Pain is decreased sg Outcome: 14:24 Decision to Hospitalize by Provider. cp 16:21 Admitted to Med/surg accompanied by tech, via stretcher, room 410, with chart, Report sv called to Stephen HERNANDEZ 16:21 Condition: stable 16:21 Instructed on the need for admit. 16:46 Patient left the ED. sv Signatures: Dispatcher MedHo Ailsia Stein RN RN sv Onel Moreno RN RN sg Jones, Susan sj Smirch, Shelby, RN RN ss Socorro Rodas, instructor correspondence school EKG Isabell Paez Corey, PA PA cp
--- NOTE | 2017-12-10 14:26 | EDPHYS ---
Physician Documentation [facility] Name: Kavon Gregg Sr Age: 87 yrs Sex: Male : 1930 Arrival Date: 12/10/2017 Time: 12:07 Bed 8 Private MD: ED Physician Andrea Jorgensen HPI: 12/10 12:15 This 87 yrs old Male presents to ER via EMS with complaints of Hip Injury. cp 12:15 The patient or guardian reports decreased range of motion, deformity, an injury, pain. cp that occurred at home, sustained from a fall, while walking. 12:15 The complaints affect the right hip. Onset: The symptoms/episode began/occurred last cp night. 12:15 Associated signs and symptoms: Loss of consciousness: the patient experienced no loss cp of consciousness. Historical: - Allergies: 12:13 PENICILLINS; ss - Home Meds: 15:31 warfarin 5 mg Oral tab 1 tab once daily [Active]; carvedilol 3.125 mg Oral tab 1 tab 2 sg times per day [Active]; Complete Multivitamin Oral [Active]; furosemide 40 mg Oral tab 1 tab once daily [Active]; Iron CR Oral [Active]; lisinopril 20 mg Oral tab 1 tab once daily [Active]; pantoprazole 20 mg Oral TbEC 1 tab 2 times per day [Active]; simvastatin 20 mg Oral tab 1 tab 2 times per day [Active]; - PMHx: 12:13 CHF; Hypertension; skin cancer; ss - PSHx: 12:13 skin cancer removed left leg; L hip repair; ss - Immunization history:: Adult Immunizations. - Social history:: Smoking status: Patient/guardian denies using tobacco. ROS: 12:30 Constitutional: Negative for body aches, chills, fever, poor PO intake. cp 12:30 Eyes: Negative for injury, pain, redness, and discharge. cp 12:30 ENT: Negative for drainage from ear(s), ear pain, sore throat, difficulty swallowing, difficulty handling secretions. 12:30 Neck: Negative for pain with movement, pain at rest, stiffness, bony tenderness. 12:30 Cardiovascular: Positive for edema, Negative for chest pain, palpitations. 12:30 Respiratory: Negative for cough, shortness of breath, wheezing. 12:30 Abdomen/GI: Negative for abdominal pain, nausea, vomiting, and diarrhea, constipation, black/tarry stool, rectal bleeding. 12:30 Back: Negative for pain at rest, pain with movement, radiated pain. 12:30 MS/extremity: Positive for injury or acute deformity, decreased range of motion, pain, of the right hip. 12:30 Neuro: Negative for altered mental status, headache, loss of consciousness, syncope, near syncope, weakness. 12:30 All other systems are negative. Exam: 12:33 Constitutional: The patient appears in no acute distress, alert, awake, cp non-diaphoretic, non-toxic, well developed, well nourished. 12:33 Head/Face: Normocephalic, atraumatic. cp 12:33 Eyes: Periorbital structures: appear normal, Pupils: equal, round, and reactive to light and accomodation, Extraocular movements: intact throughout, Conjunctiva: normal, no exudate, no injection, Sclera: no appreciated abnormality, Lids and lashes: appear normal, bilaterally. 12:33 ENT: External ear(s): are unremarkable, Ear canal(s): are normal, clear, TM's: dullness, bilaterally, Nose: is normal, Mouth: Lips: moist, Oral mucosa: moist, Posterior pharynx: is normal, airway is patent, no erythema, no exudate, Voice: is normal. 12:33 Neck: ROM/movement: is normal, is supple, without pain, no range of motions limitations, no nuchal rigidity. 12:33 Chest/axilla: Inspection: normal, Palpation: is normal, no crepitus, no tenderness. 12:33 Cardiovascular: Rate: normal, Rhythm: irregularly irregular, Edema: mild bilateral lower extremities, JVD: is not appreciated. 12:33 Respiratory: the patient does not display signs of respiratory distress, Respirations: normal, no use of accessory muscles, no retractions, no splinting, no tachypnea, labored breathing, is not present, Breath sounds: decreased breath sounds, that are mild, are located in both bases, stridor, is not appreciated, wheezing: is not appreciated. 12:33 Abdomen/GI: Inspection: abdomen appears normal, Bowel sounds: active, all quadrants, Palpation: abdomen is soft and non-tender, in all quadrants, rebound tenderness, is not appreciated, voluntary guarding, is not appreciated, involuntary guarding, is not appreciated. 12:33 Back: pain, is absent, ROM is normal. 12:33 Musculoskeletal/extremity: Joints: All joints are normal except the right hip displays deformity, limited range of motion, pain at rest, painful range of motion, tenderness. 12:33 Skin: cellulitis, is not appreciated, no rash present. 12:33 Neuro: Orientation: to person, place \T\ time. Mentation: lucid, able to follow commands, Cerebellar function: is grossly normal, Motor: moves all fours, strength is normal. 13:35 ECG was reviewed by the Attending Physician. cp Vital Signs: 12:13 BP 128 / 95; Pulse 83; Resp 18; Pulse Ox 97% on R/A; Weight 83.91 kg; Height 5 ft. 9 ss in. (175.26 cm); Pain 0/10; 13:00 BP 107 / 60; Pulse 81; Resp 17; Pulse Ox 98% on R/A; Pain 0/10; sv 14:00 BP 124 / 70; Pulse 77; Resp 18; Pulse Ox 98% on R/A; Pain 5/10; sg 14:59 BP 116 / 60; Pulse 93; Resp 18; Pulse Ox 94% ; sv 15:55 BP 112 / 62; Pulse 89; Resp 17; Pulse Ox 98% on R/A; Pain 0/10; sg 12:13 Body Mass Index 27.32 (83.91 kg, 175.26 cm) ss [place] Coma Score: 13:00 Eye Response: spontaneous(4). Verbal Response: oriented(5). Motor Response: obeys sg commands(6). Total: 15. 15:55 Eye Response: spontaneous(4). Verbal Response: oriented(5). Motor Response: obeys sg commands(6). Total: 15. Trauma Score (Adult): 13:00 Eye Response: spontaneous(1); Verbal Response: oriented(1); Motor Response: obeys sg commands(2); Systolic BP: > 89 mm Hg(4); Respiratory Rate: 10 to 29 per min(4); [place] Score: 15; Trauma Score: 12 15:55 Eye Response: spontaneous(1); Verbal Response: oriented(1); Motor Response: obeys sg commands(2); Systolic BP: > 89 mm Hg(4); Respiratory Rate: 10 to 29 per min(4); [place] Score: 15; Trauma Score: 12 MDM: 12:13 Patient medically screened. cp 13:00 Differential diagnosis: hip fracture, intertrochanteric fracture, femoral neck cp fracture, femoral shaft fracture, bursitis. 14:30 Data reviewed: vital signs, nurses notes, lab test result(s), EKG, radiologic studies, cp plain films. 14:30 Counseling: I had a detailed discussion with the patient and/or guardian regarding: the cp historical points, exam findings, and any diagnostic results supporting the discharge/admit diagnosis, the need for further work-up and treatment in the hospital. 12/10 12:11 Order name: Basic Metabolic Panel; Complete Time: 16:37 cp 12/10 12:11 Order name: BNP; Complete Time: 13:36 cp 12/10 12:11 Order name: CBC with Diff; Complete Time: 16:37 cp 12/10 13:36 Interpretation: Normal except: RBC 2.99; HGB 10.4; HCT 31.2; MCV 104.3; LYM% 10.4; MN% cp 15.2; LYMA 0.6. 12/10 12:11 Order name: LFT's; Complete Time: 16:37 cp 12/10 12:11 Order name: Magnesium; Complete Time: 16:37 cp 12/10 12:11 Order name: PT-INR; Complete Time: 13:36 cp 12/10 12:11 Order name: Ptt, Activated; Complete Time: 13:36 cp 12/10 12:11 Order name: XRAY Chest (1 view); Complete Time: 16:37 cp 12/10 12:11 Order name: XRAY Femur RIGHT; Complete Time: 16:37 cp 12/10 12:11 Order name: XRAY Hip RIGHT 2 view; Complete Time: 16:37 cp 12/10 12:11 Order name: XRAY Pelvis; Complete Time: 16:37 cp 12/10 12:52 Order name: CBC Smear Scan; Complete Time: 16:37 EDMS 12/10 13:38 Order name: CT Head C Spine; Complete Time: 16:37 cp 12/10 12:11 Order name: EKG; Complete Time: 12:11 cp 12/10 12:11 Order name: Cardiac monitoring; Complete Time: 12:37 cp 12/10 12:11 Order name: EKG - Nurse/Tech; Complete Time: 12:38 cp 12/10 12:11 Order name: IV Saline Lock; Complete Time: 12:37 cp 12/10 12:11 Order name: Labs collected and sent; Complete Time: 12:37 cp 12/10 12:11 Order name: O2 Per Protocol; Complete Time: 12:37 cp 12/10 12:11 Order name: O2 Sat Monitoring; Complete Time: 12:37 cp 12/10 12:11 Order name: Urine Dipstick-Ancillary (obtain specimen); Complete Time: 12:37 12/10 12:40 Order name: Perez; Complete Time: 12:40 12/10 14:43 Order name: Diet Heart Healthy; Complete Time: 14:43 12/10 14:45 Order name: CONS Physician Consult EDND EC:35 Rate is 84 beats/min. Rhythm is irregularly irregular. QRS interval is normal. QT cp interval is normal. No ST changes noted. Interpreted by me. Reviewed by me. Administered Medications: 12:20 Drug: morphine 2 mg Route: IVP; Site: left antecubital; sg 13:00 Follow up: Response: No adverse reaction; Pain is decreased sg 12:20 Drug: Zofran 4 mg Route: IVP; Site: left antecubital; sg 13:20 Follow up: Response: No adverse reaction; Nausea is decreased sg 14:05 Drug: morphine 2 mg Route: IVP; Site: left antecubital; sg 15:24 Follow up: Response: No adverse reaction; Pain is decreased sg Disposition: 12/10/17 14:24 Hospitalization ordered by Vicki Fuentes for Inpatient Admission. Preliminary diagnosis are Intertrochanteric fracture of femur - Right, Other slipping, tripping and stumbling and falls. - Bed requested for Telemetry/MedSurg (Inpatient). - Status is Inpatient Admission. sv - Condition is Stable. - Problem is new. - Symptoms have improved. UTI on Admission? No Addendum: 12/14/2017 12:44 Co-signature as Attending Physician, Andrea Jorgensen MD. g s Signatures: Dispatcher MedHo EDND Risa George, BIJU-Chanda IVY-Alisia Escobar RN RN Onel Malcolm RN RN Stacy Henry RN RN ss Johana Manning Corey, PA PA cp Starr, Gregory, MD MD gs
--- NOTE | 2017-12-10 14:32 | RAD REPORT ---
EXAM DESCRIPTION: CT - Head C Spine Mpr Wo Con - 12/10/2017 2:21 pm CLINICAL HISTORY: Head and neck injury status post fall. Head and neck pain COMPARISON: None. TECHNIQUE: Computed axial tomography of the head and cervical spine was obtained. Sagittal and coronal reconstruction was performed. All CT scans are performed using dose optimization technique as appropriate and may include automated exposure control or mA/KV adjustment according to patient size. FINDINGS: An intracranial bleed is not seen. The ventricles are normal in caliber. An extra-axial fl uid collection is not noted.Fluid within the visualized sinuses and mastoids is not seen A cervical fracture is not visualized. No dislocation is noted. IMPRESSION: No acute intracranial abnormality is seen. A cervical fracture is not visualized. If the patient continues to have symptoms to suggest intracra nial /spinal cord pathology then MRI would be recommended
--- NOTE | 2017-12-10 15:29 | P.HP ---
Certification for Inpatient Patient admitted to: Inpatient With expected LOS: >2 Midnights Practitioner: I am a practitioner with admitting privileges, knowledge of patient current condition, hospital course, and medical plan of care. Services: Services provided to patient in accordance with Admission requirements found in Title 42 Section 412.3 of the Code of Federal Regulations Patient History Date of Service: 12/10/17 Reason for admission: hip fracture History of Present Illness: Mr Gregg is an 87 years old male with history of chronic diastolic CHF, chronic A.Fib anticoagulated with Warfarin who was recently admitted to the hospital due to CHF exacerbation, came to the hospital complaining of right hip pain. The patient was at home yesterday when he tripped and fell to the floor. He landed on the right side. Immediately he start feeling severe right hip pain , and he was unable to bear weight on his right foot. XR report that there is a comminuted intertrochanteric fracture involving the right femur with varus angulation present at the fracture site. The lesser trochanter is avulsed. The fracture involves also the greater trochanter Allergies Penicillins Allergy (Verified 09/11/16 13:57) Rash Home Medications: Carvedilol [Coreg*] 3.125 mg PO BID 12/06/17 Lisinopril 20 mg PO DAILY 12/06/17 Pantoprazole [Protonix Tab*] 20 mg PO DAILY 12/06/17 Simvastatin 20 mg PO DAILY 12/06/17 Warfarin Sodium [Coumadin*] 4 mg PO DAILY 12/06/17 Furosemide [Lasix] 80 mg PO DAILY 30 Days #30 tablet 12/07/17 - Past Medical/Surgical History Diabetic: No -: HTN -: Chronic diastolic CHF -: Chronic A.Fib -: moderate pulmonary HTN -: skin cancer romove -: PROSTATE REMOVAL FROM [place] -: L FX HIP REPAIR -: HERNIA REPAIR - Family History Father -: Heart disease Mother -: Heart disease Brother -: Heart disease Notes: [place] - Social History Smoking Status: Never smoker Alcohol use: Yes CD- Drugs: No Caffeine use: Yes Place of Residence: Home Review of Systems 10-point ROS is otherwise unremarkable Physical Examination - Physical Exam General: Alert, In no apparent distress HEENT: Atraumatic, PERRLA, Mucous membr. moist/pink, EOMI, Sclerae nonicteric Neck: Supple, 2+ carotid pulse no bruit, No LAD, JVD distended Respiratory: Clear to auscultation bilaterally, Normal air movement Cardiovascular: Regular rate/rhythm, Normal S1 S2, No gallops Gastrointestinal: Normal bowel sounds, No tenderness Musculoskeletal: Tenderness (right hip) Integumentary: No rashes Neurological: Normal speech, Normal tone, Normal affect Lymphatics: No axilla or inguinal lymphadenopathy - Studies Laboratory Data (last 24 hrs) 12/10/17 12:28: PT 25.3 H, INR 2.13, APTT 34.4 12/10/17 12:28: WBC 5.6, Hgb 10.4 L, Hct 31.2 L, Plt Count 170 12/10/17 12:28: B-Natriuretic Peptide 394 H Assessment and Plan - Problems (Diagnosis) (1) Closed right hip fracture Current Visit: Yes Status: Acute Qualifiers: Encounter type: initial encounter Qualified Code(s): S72.001A - Fracture of unspecified part of neck of right femur, initial encounter for closed fracture (2) Warfarin-induced coagulopathy Current Visit: Yes Status: Acute (3) Chronic diastolic CHF (congestive heart failure) Current Visit: Yes Status: Acute (4) Chronic a-fib Onset Date: 12/07/17 Current Visit: No Status: Acute (5) HTN (hypertension) Onset Date: 12/07/17 Current Visit: No Status: Acute Qualifiers: Hypertension type: essential hypertension Qualified Code(s): I10 - Essential (primary) hypertension - Plan The patient will be admitted due to right hip fracture. Dr Meyer was consulted as preference of the patient. INR is 2.13, in order to have the patient ready for surgery will order Vitamin K. Will resume his home medication once verified. - Advance Directives Does patient have a Living Will: Yes Does patient have a Durable POA for Healthcare: Yes - Code Status/Comfort Care Code Status Assessed: Yes Code Status: Full Code
--- NOTE | 2017-12-10 15:38 | EKG ---
Test Date: 2017-12-10 Test Time: 13:28:27 Weatherization Coordinator: OBI MEASUREMENT RESULTS: Intervals: Rate: 84 [place]: QRSD: 80 QT: 410 QTc: [address]: P: [place]: QRS: 262 T: 104 INTERPRETIVE STATEMENTS: Atrial fibrillation Right superior axis deviation Low voltage QRS Cannot rule out Inferior infarct, age undetermined Cannot rule out Anterior infarct, age undetermined Abnormal ECG Compared to ECG 12/06/2017 15:25:58 No significant changes Electronically Signed On 12-10-17 15:37:32 CDT by Miguel Christian
[2017-12-10] MEDS ORDERED: VITAMIN K (ADULT) 10 MG/ML IVP SCH ×3 (16:00→18:00)
[2017-12-10 16:18] LABS: Potassium 3.8 mEq/L (3.6-5.0)
[2017-12-10 16:24] LABS: Albumin 3.9 g/dL (3.2-5.5); Bilirubin Direct 0.6 mg/dL (0-0.2); Bilirubin Total 1.8 mg/dL (0.3-1.2); Protein, Total 7.1 g/dL (6.0-8.3)
[2017-12-10] MEDS ORDERED: ACETAMINOPHEN 500 MG TAB PO PRN (17:00)
[2017-12-10] MEDS ORDERED: Morphine 2 MG/2 ML SYR IV PRN (17:00)
[2017-12-10 17:37] VITALS: BMI 27.3
[2017-12-11 06:38] LABS: Potassium 4.1 mEq/L (3.6-5.0)
[2017-12-11 06:41] LABS: Absolute Lymphocytes (CBC) 0.8 K/uL (0.7-4.9); Absolute Monocytes 1.2 K/uL (0.1-1.3); Absolute Neutrophil 3.9 K/uL (1.8-8.0); Basophils % 0.2 % (0-1.3); Eosinophils % 1.6 % (0-4.4); Lymphocytes % 13.7 % (15.3-44.8); MCH 34.4 pg (27.0-35.0); MCV 104.1 fL (80-100); MPV 10.2 fL (7.6-11.3); RBC Red Blood Cell Count 2.89 M/uL (4.33-5.43)
[2017-12-11 07:10] LABS: Protime INR 1.37
[2017-12-11 09:12] LABS: Urine Appearance CLEAR; Urine Bilirubin NEGATIVE (NEG); Urine Blood 1+ (NEG); Urine Color YELLOW; Urine Glucose NEGATIVE (NEG); Urine Protein TRACE (NEG); Urine Specific Gravity 1.015 (1.005-1.030); Urine pH 6.5 (5.0-7.0)
[2017-12-11 09:14] LABS: Urine Microscopic Reflex ORDER UMIC
[2017-12-11 09:27] LABS: Urine Bacteria <20 /HPF (NONE SEEN); Urine Culture Reflex Order REFLEXED; Urine Mucus 1+ /HPF (NONE SEEN)
[2017-12-11] MEDS ORDERED: Ringers Lactate 1,000 ML IV ONE ×2 (13:09→16:28)
[2017-12-11] MEDS ORDERED: LIDOCAINE 2% MPF 5 ML VIAL ONE (14:01)
[2017-12-11] MEDS ORDERED: PROPOFOL 200 MG/20 ML VIAL IV ONE (14:01)
[2017-12-11] MEDS ORDERED: FENTANYL CITR 100 MCG/2 ML ONE (14:01)
[2017-12-11] MEDS ORDERED: CLINDAMYCIN INJ 900 MG in NA CHLORIDE 0.9% 50 ML IV ONE (14:15)
[2017-12-11] MEDS ORDERED: Phenylephrine HCl 10 MG/ML 1 ML VIAL ONE ×2 (14:18→16:00)
[2017-12-11] MEDS ORDERED: DEXAMETHASONE 10 MG/ML VIAL ONE (15:54)
[2017-12-11] MEDS ORDERED: ONDANSETRON 4 MG/2 ML VIAL ONE (15:54)
--- NOTE | 2017-12-11 16:55 | CON ---
Date of Consultation: 12/10/2017 I have seen this patient in the past, however, completely without problem. He underwent reduction an d fixation of a left femoral neck fracture by me at another hospital sometime in the past. He did we ll with that. Unfortunately, he fell this morning injuring his right lower extremity. He was seen a nd examined in the emergency department, was ruled out for other injuries, but x-rays were taken, whi ch demonstrated a complex comminuted intertrochanteric femur fracture with subtrochanteric extension. On speaking with the family, he was ambulatory, but unfortunately tripped. They also relates that he was recently admitted to the hospital for CHF and has been taking water pills and he is also on an ticoagulation. Physical Examination: All his long bones and joints were palpated without pain or crepitation with the exception of his rig ht hip, which is painful with any movement. Review of x-rays do demonstrate a displaced comminuted intertrochanteric femur fracture with subtroch anteric extension. His INR is 2.1. At this time, I have spoken with Mr. Gregg and his family with regarding risks, benefits, and alter natives to different procedures and the plan is for have him be admitted to the hospitalist with plan for intramedullary fixation of this femur fracture when his INR is more normalized and he has been c leared. I also spoke with the hospitalist who admitted him and he said he will give him vitamin K. At this point, our plan will be to obtain a PT, INR in the morning and if it is 1.5 or below, we most likely move forward with intramedullary fixation tomorrow. If it is not 1.5 or below, most likely, we will let him in hopes that the following day his INR will be acceptable and we will be able to com plete his surgery on Thursday. If his INR is still not good Thursday morning, we will most likely move forward with transfusion of fresh frozen pl asma to allow for fixation of his hip. /MODL Voice ID: [id number] Report ID: [id number]
--- NOTE | 2017-12-11 16:55 | P.PN ---
Subjective Date of Service: 12/11/17 Primary Care Provider: unknown Chief Complaint: hip fracture Subjective: Doing well Physical Examination - Vital Signs Temperature: 97.3 F Blood Pressure: 113/60 Pulse: 82 Respirations: 18 Pulse Ox (%): 98 - Physical Exam General: Alert, In no apparent distress, Oriented x3, Cooperative HEENT: Atraumatic Neck: Supple Respiratory: Clear to auscultation bilaterally, Normal air movement Cardiovascular: Irregular heart rate/rhythm (Atrial fibrillation) Gastrointestinal: Normal bowel sounds, Soft and benign, Non-distended, No tenderness, No masses, No rebound, No guarding Musculoskeletal: No erythema, No tenderness, No warmth Integumentary: No tenderness/swelling, No erythema, No warmth, No cyanosis Neurological: Normal speech, Normal strength at 5/5 x4 extr, Normal tone - Studies Medications List Reviewed: Yes Assessment & Plan - Problems (Diagnosis) (1) Chronic anticoagulation Current Visit: Yes Status: Chronic Plan: Patient on chronic anti coagulation. Patient received vitamin K yesterday anticipation for surgery today. (2) Chronic a-fib Onset Date: 12/07/17 Current Visit: Yes Status: Chronic Plan: Will continue with above plan of care. Patient to have surgery today. (3) Chronic diastolic CHF (congestive heart failure) Onset Date: 12/11/17 Current Visit: Yes Status: Chronic Plan: Overall stable. Will continue monitor closely. (4) Closed right hip fracture Onset Date: 12/11/17 Current Visit: Yes Status: Acute Plan: Patient will likely have surgery today. Patient would benefit with inpatient rehab at discharge Qualifiers: Encounter type: initial encounter Qualified Code(s): S72.001A - Fracture of unspecified part of neck of right femur, initial encounter for closed fracture (5) HTN (hypertension) Onset Date: 12/07/17 Current Visit: Yes Status: Chronic Plan: Will continue with medication. Qualifiers: Hypertension type: essential hypertension Qualified Code(s): I10 - Essential (primary) hypertension Discharge Plan: Other (Inpatient rehab) Plan to discharge in: Greater than 2 days Time Spent Managing Pts Care (In Minutes): 55
--- NOTE | 2017-12-11 16:57 | P.BOP ---
Preoperative diagnosis: right complex proximal femur fracture Postoperative diagnosis: same Primary procedure: im lanie fixation of right femur Estimated blood loss: 250 Anesthesia: General Transferred to: Recovery Room Condition: Good
--- NOTE | 2017-12-11 17:36 | RAD REPORT ---
EXAM DESCRIPTION: RAD - Hip In Or - 12/11/2017 4:44 pm FINDINGS: Right hip fluoroscopy performed. Multiple portable C-arm views were obtained during fluoroscopic assisted placement of fracture fixati on hardware. No suspicious or unexpected finding.
[2017-12-11] MEDS ORDERED: WARFARIN SODIUM 4 MG TAB PO SCH (19:00)
[2017-12-11 19:14] LABS: Hematocrit 27.8 % (39.6-49.0)
[2017-12-11] MEDS: WARFARIN SODIUM 4 MG TAB PO SCH (20:57)
[2017-12-11] MEDS: ATORVASTATIN 10 MG TAB PO SCH (20:57)
[2017-12-11] MEDS: CARVEDILOL 3.125 MG TAB PO SCH (20:58)
[2017-12-11] MEDS: CLINDAMYCIN INJ 900 MG in NA CHLORIDE 0.9% 50 ML IV SCH (21:00)
--- NOTE | 2017-12-12 03:59 | OP ---
Date of Procedure: 12/11/2017 Surgeon: Onel Meyer MD Postoperative Diagnosis: Right complex proximal femur fracture. Postop Diagnosis: Right complex proximal femur fracture. Procedure: Right open and closed reduction with intramedullary lanie fixation of the proximal femur. Implant: Long intramedullary nail. Estimated Blood Loss: 250 cc. Complications: There were no complications. Specimen: No pathology specimens sent. Indications For Operation: Mr. Gregg is an 87-year-old gentleman who unfortunately fell from stand ing, injuring his right lower extremity. He was seen in the emergency department, where he was ruled out for other injuries; however, x-rays demonstrated a complex comminuted proximal femur fracture. All risks, benefits, and alternatives to this very challenging fracture were discussed with the patie nt and family. They state they understand things presented and wished to proceed. Description Of Procedure: The patient was taken to the operating room and replaced in supine positio n. General anesthesia obtained by staff. Following this, he was then placed on the fracture table. He was appropriately positioned on the fracture table. Closed reduction maneuvers using the fractur e table were not effective to establish a very good reduction. However, the traditional standard red uction maneuvers were performed. Decision was made to proceed and most likely necessitating an open manipulation reduction. As the right lower extremity was then prepped and draped in the usual steril e fashion for the procedure and draped down the knee as we were anticipating using a longer nail. Fo llowing this, C-arm was used to andrez out the position of the greater trochanter and a vertical incisi on made directly above the greater trochanter. This was taken down through the fascia and divided. Following this, the greater trochanter was palpated with a finger and the 120 degree guide was then p laced with the tip of the guide being positioned at the tip of the greater trochanter. This allowed for visualization of where the cephalomedullary screws would eventually be placed and the decision wa s made to make this incision now. This was taken down carefully through skin, soft tissues. Meticul ous hemostasis maintained. It was down through the fascia and this allowed positioning of a bone cla mp. The bone clamp was used and this combined with rotational traction as well as elevating techniqu es did not really change the position of the fracture. It was felt that most likely he did have inte rposed fracture fragment which was keeping the reduction. This was gently removed using a bone hook, which allowed for better reduction. Decision was made to reduce as well as we could with a bone rigoberto k and proceed with the placement of the guide lanie. This was placed as medial as possible. Unfortuna tely, placing on the medial neck further displaced the fracture. Therefore, it was made as medial as possible, which was still more lateral than and I would, however, it is placed. The guide pin was t hen placed across the fracture. The materials handling coordinator was then used to hopefully ream out some medially to displace down past the fracture site. The bullet-tipped guide reamers were then used to ream to a s ize 11. Therefore, we could comfortably pass the lanie. The lanie was then placed and it significantly displaced the fracture as I anticipated, however, with the use of a Wu as well as the bone hook we were able to maneuver the fracture fragment back down out of flexure and approximate it better. T his allowed for placement of a guide lanie and once it was more or less past the isthmus, it was much m ore easy to control the fracture. With manual traction with the bone hook, 2 cephalomedullary guide pins were then placed to hold the rotation. They were checked under biplanar C-arm radiography. The y appear to hold the reduction as well as we could make it. This was followed by placement of the ce phalomedullary screw. There was some compression done here, however, not much. The derotation screw was then placed above it. The guide was then removed and it appeared to maintain good position of t samy femur or at least as good as we could manage. The rotation was assessed before the placement of t he distal interlock. However, did not know if we could really change at that point, as his lateral w all is intact. We did get the best reduction possible. Attempts were made to confirm rotation as be st as possible and a perfect unga technique was used to place the distal interlocking screw. Follo wing this, wounds were irrigated. Fascia was closed using heavy Vicryl sutures, followed by closure of skin with Vicryl followed by closure of the skin with vesna. The patient was then placed in Aquacel dressing and taken to recovery room. NADIA Voice ID: [id number] Report ID: [id number]
[2017-12-12 05:03] LABS: Protime INR 1.17
[2017-12-12 05:09] LABS: Absolute Lymphocytes (CBC) 0.3 K/uL (0.7-4.9); Absolute Monocytes 0.7 K/uL (0.1-1.3); Hematocrit 25.1 % (39.6-49.0); Lymphocytes % 5.3 % (15.3-44.8); MCH 34.8 pg (27.0-35.0); MPV 10.1 fL (7.6-11.3); Monocytes % 12.1 % (3.3-12.3); RBC Red Blood Cell Count 2.39 M/uL (4.33-5.43)
[2017-12-12 05:17] LABS: Magnesium 2.1 mg/dL (1.8-2.5); Potassium 4.4 mEq/L (3.6-5.0)
[2017-12-12] MEDS: HYDROCODONE/APAP 10/325 TAB PO PRN ×2 (05:42→14:35)
[2017-12-12] MEDS: CLINDAMYCIN INJ 900 MG in NA CHLORIDE 0.9% 50 ML IV SCH (05:42)
[2017-12-12] MEDS ORDERED: HOME MED 1 EA UNK (Simvastatin [Simvastatin] 20 MG) PO SCH (09:00)
[2017-12-12] MEDS: LISINOPRIL 20 MG TAB PO SCH ×2 (09:00→16:53)
[2017-12-12] MEDS: CARVEDILOL 3.125 MG TAB PO SCH ×2 (09:00→21:19)
[2017-12-12] MEDS: FUROSEMIDE 40 MG TABLET PO SCH (09:54)
[2017-12-12] MEDS ORDERED: POLYETHYL GLY 3350 17 GM/DOSE PO PRN (09:56)
[2017-12-12] MEDS: DOCUSATE NA 100 MG CAP PO SCH ×2 (10:51→21:19)
--- NOTE | 2017-12-12 11:18 | RAD REPORT ---
EXAM DESCRIPTION: RAD - Chest Single View - 12/12/2017 6:10 am CLINICAL HISTORY: CHF COMPARISON: 12/10/2017 FINDINGS: Portable technique limits examination quality. Lungs are mildly emphysematous but clear. The heart is moderately enlarged in size. No displaced frac tures. IMPRESSION: Mild COPD.
--- NOTE | 2017-12-12 11:50 | PN ---
Date of Progress Note: 12/12/2017 Subjective: The patient seen and examined, chart reviewed, and case discussed with RN. The patient states he is having some pain with movement. Son at the bedside. Treatment plan explained. All que stions answered. Review of Systems: Negative except as above. Medications: Reviewed. Physical Examination: Vital Signs: Temperature 99.7, heart rate 87, blood pressure 92/64, respirations 16, O2 97% on room air. General: Awake, alert, oriented x3. Elderly male, somewhat in distress due to pain. CV: S1, S2. Peripheral pulses present. Irregularly irregular. Respiratory: Moving air well bilaterally. No wheezing. No stridor. No use of accessory muscles. Gastrointestinal: Abdomen is soft, nontender, nondistended. Positive bowel sounds. Extremities: No clubbing, cyanosis, edema. Musculoskeletal: Right hip incision site clean, dry, intact, bandaged. Neurologic: Nonfocal. Laboratory Data: Sodium 131, potassium 4.4, chloride 101, CO2 28, BUN 34, creatinine 1.65, glucose 1 96, calcium 8.8, magnesium 2.1. WBC 6, H and H 8.3 and 25.1, platelets 127, neutrophils 82.6. INR 1 .17. Chest x-ray, personally reviewed, shows mild COPD. Assessment And Plan: An 87-year-old male with: 1.Closed right hip fracture, initial encounter, status post open reduction and internal fixation. T he patient is doing well. We will continue with deep venous thrombosis prophylaxis. Rehab referral. 2.Chronic diastolic heart failure, compensated. We will continue home medications. 3.Essential hypertension. The patient is currently hypotensive. We will hold blood pressure medica tions. 4.Chronic atrial fibrillation. Restart anticoagulation and monitor INR. 5.Gastrointestinal and deep venous thrombosis prophylaxis addressed. Plan: Rehab referral. CINDY Voice ID: [id number] Report ID: [id number]
[2017-12-12] MEDS: WARFARIN SODIUM 4 MG TAB PO SCH (16:54)
[2017-12-12] MEDS: ATORVASTATIN 10 MG TAB PO SCH (21:19)
[2017-12-13 05:28] LABS: Protime INR 1.28
[2017-12-13 05:29] LABS: Absolute Lymphocytes (CBC) 0.6 K/uL (0.7-4.9); Absolute Monocytes 1.2 K/uL (0.1-1.3); Absolute Neutrophil 4.9 K/uL (1.8-8.0); Basophils % 0.2 % (0-1.3); Eosinophils % 0.3 % (0-4.4); Hematocrit 22.8 % (39.6-49.0); Lymphocytes % 9.3 % (15.3-44.8); MCH 34.6 pg (27.0-35.0); MCV 104.7 fL (80-100); MPV 9.9 fL (7.6-11.3); RBC Red Blood Cell Count 2.18 M/uL (4.33-5.43)
[2017-12-13 05:50] LABS: Magnesium 2.1 mg/dL (1.8-2.5); Potassium 4.2 mEq/L (3.6-5.0)
[2017-12-13 08:56] LABS: Platelet Estimate ADEQ; Urine White Blood Cell Casts OK
[2017-12-13 08:57] LABS: Blood Morphology Comment NOT SEEN (NOT SEEN)
[2017-12-13] MEDS: CARVEDILOL 3.125 MG TAB PO SCH ×2 (09:00→21:00)
[2017-12-13] MEDS: LISINOPRIL 20 MG TAB PO SCH (09:00)
[2017-12-13] MEDS ORDERED: BISACODYL 10 MG RECTAL SUPP PR ONE (09:40)
[2017-12-13] MEDS: DOCUSATE NA 100 MG CAP PO SCH ×2 (10:32→21:01)
[2017-12-13] MEDS: FUROSEMIDE 40 MG TABLET PO SCH (10:33)
[2017-12-13] MEDS: HYDROCODONE/APAP 10/325 TAB PO PRN (10:36)
[2017-12-13 12:41] LABS: Absolute Lymphocytes (CBC) 0.7 K/uL (0.7-4.9); Absolute Monocytes 1.4 K/uL (0.1-1.3); Absolute Neutrophil 5.6 K/uL (1.8-8.0); Basophils % 0.1 % (0-1.3); Hematocrit 22.8 % (39.6-49.0); Lymphocytes % 9.1 % (15.3-44.8); MCH 34.5 pg (27.0-35.0); MCV 103.6 fL (80-100); MPV 9.5 fL (7.6-11.3); Monocytes % 17.6 % (3.3-12.3)
--- NOTE | 2017-12-13 14:15 | PN ---
Date of Progress Note: 12/13/2017 Subjective: The patient seen and examined. Chart reviewed and case discussed with RN. The patient states his pain is well controlled. Review of Systems: Negative except as above. Medications: Reviewed. Physical Examination: Vital Signs: Temperature 97.6, heart rate 83, blood pressure 106/66, respirations 18, O2 97% on room air. General: Awake, alert, oriented x3, in some mild distress due to pain. Elderly male. CV: S1, S2. Irregularly irregular. Peripheral pulses present. Respiratory: Moving air well bilaterally. No wheezing. Gastrointestinal: Abdomen is soft, nontender, and nondistended. Positive bowel sounds. Extremities: No clubbing, cyanosis. Trace pedal edema. Neurologic: Nonfocal. Musculoskeletal: Right hip incision site clean, dry, and intact. Laboratory Data: Sodium 134, potassium 4.2, chloride 101, CO2 29, BUN 40, creatinine 1.57, glucose 1 47, calcium 8.4. WBC 6.8, H and H 7.5 and 22.8, platelets 143. INR 1.28. Chest x-ray 12/12/2017, p ersonally reviewed, shows mild COPD. Assessment: An 87-year-old male with: 1.Closed right hip fracture, initial encounter, status post open reduction and internal fixation. T he patient is doing well. The patient on deep venous thrombosis prophylaxis. We have referral joann fox. 2.Acute anemia. H and H dropped from 8.3 to 7.5, likely related to procedure. We will continue to monitor. We will recheck H and H in the afternoon. May need transfusion if close or below 7. 3.Chronic diastolic heart failure, compensated. We will continue home medications. 4.Essential hypertension. The patient's blood pressure in the hypertensive to normotensive side. W e will monitor. 5.Chronic atrial fibrillation, on anticoagulation. INR subtherapeutic at 1.28. We will need to mon itor closely due to anemia. 6.Gastrointestinal and deep venous thrombosis prophylaxis addressed. Plan: Monitor H and H, transfuse as needed. May need to stop warfarin if continues to have anemia. SA/MODL Voice ID: [id number] Report ID: [id number]
[2017-12-13] MEDS: WARFARIN SODIUM 4 MG TAB PO SCH (17:05)
[2017-12-13] MEDS: ATORVASTATIN 10 MG TAB PO SCH (21:01)
[2017-12-14] MEDS: HYDROCODONE/APAP 10/325 TAB PO PRN ×2 (04:48→13:30)
[2017-12-14 04:50] LABS: Absolute Lymphocytes (CBC) 0.9 K/uL (0.7-4.9); Absolute Monocytes 1.1 K/uL (0.1-1.3); Absolute Neutrophil 4.9 K/uL (1.8-8.0); Basophils % 0.2 % (0-1.3); Eosinophils % 2.6 % (0-4.4); Hematocrit 24.2 % (39.6-49.0); Lymphocytes % 12.8 % (15.3-44.8); MCH 34.5 pg (27.0-35.0); MCV 104.2 fL (80-100); MPV 9.2 fL (7.6-11.3); Monocytes % 14.9 % (3.3-12.3); Protime INR 1.39; RBC Red Blood Cell Count 2.32 M/uL (4.33-5.43)
[2017-12-14 05:15] LABS: Magnesium 2.3 mg/dL (1.8-2.5); Potassium 4.2 mEq/L (3.6-5.0)
--- NOTE | 2017-12-14 08:07 | PN ---
Date of Progress Note: 12/13/2017 Mr. Gregg is seen today. He is alert and oriented. He is not complaining of any significant pain. He is complaining of a little bit of swollen right lower extremity. Also says he has not had a bowel movement. He says he has worked with physical therapy and they have had him sitting up on the side of the bed and also standing, touchdown weightbearing. His dressings are clean, dry, and intact. His heels are nontender. Review of his laboratory reveals that he has hemoglobin of 7.5, which is decreased, but not unexpected as a result from his injury. He has had a slight increase of temperature of 99 yesterday. I do not feel that this represents necessarily any sort of change other than perhaps atelectasis. Assessment: asked nursing to make sure that hospitalist is seen today. There is a probability and consider blood transfusion. Also working on his bowels. Otherwise, he appears to be doing well. /PIO Voice ID: [id number] Report ID: [id number] CINDY
[2017-12-14] MEDS: DOCUSATE NA 100 MG CAP PO SCH ×2 (08:40→21:49)
[2017-12-14] MEDS: LISINOPRIL 20 MG TAB PO SCH (08:40)
[2017-12-14] MEDS: CARVEDILOL 3.125 MG TAB PO SCH ×2 (08:41→21:49)
[2017-12-14] MEDS: FUROSEMIDE 40 MG TABLET PO SCH (08:42)
--- NOTE | 2017-12-14 13:52 | PN ---
Date of Progress Note: 12/14/2017 Subjective: The patient seen and examined. Chart reviewed and case discussed with RN. The patient is doing well. He states that he is working with physical therapy without any significant difficulty . Review of Systems: Negative except as above. Medications: Reviewed. Physical Examination: Vital Signs: Temperature 98.7, heart rate 77, blood pressure 97/60, respirations 18, O2 96% on room air. General: Awake, alert, oriented x3, not in any acute distress, elderly male. CV: S1, S2, irregularly irregular. Peripheral pulses present. Respiratory: Moving air well bilaterally. No wheezing. Gastrointestinal: Abdomen is soft, nontender, and nondistended. Positive bowel sounds. No guarding or rigidity. Extremities: No clubbing, cyanosis. Mild pedal edema. Neurologic: Nonfocal. Musculoskeletal: Right hip incision site clean, dry, and intact. Laboratory Data: Sodium 135, potassium 4.2, chloride 99, CO2 31, BUN 43, creatinine 1.56, glucose 11 1, calcium 8.8, magnesium 2.3. WBC 7.1, H and H 8 and 24.2, platelets 196. Assessment And Plan: An 87-year-old male with: 1.Closed right hip fracture, initial encounter, status post open reduction and internal fixation, do ing well. Continue with deep venous thrombosis prophylaxis. Rehab referral pending. 2.Acute anemia. H and H stable. We will continue to monitor and transfuse if less than 7. 3.Chronic diastolic heart failure, compensated. Continue with home medications. 4.Essential hypertension. The patient is currently hypotensive. We will monitor. 5.Chronic atrial fibrillation, on anticoagulation. Monitor INR, currently subtherapeutic. May need to adjust Coumadin dose. 6.Gastrointestinal and deep venous thrombosis prophylaxis addressed. Plan: Discharge planning. Rehab placement. CINDY Voice ID: [id number] Report ID: [id number]
[2017-12-14] MEDS: WARFARIN SODIUM 4 MG TAB PO SCH (16:14)
[2017-12-14] MEDS: ATORVASTATIN 10 MG TAB PO SCH (21:48)
[2017-12-15 02:32] VITALS: O2SAT 98
[2017-12-15 04:53] LABS: Absolute Lymphocytes (CBC) 0.9 K/uL (0.7-4.9); Absolute Monocytes 0.9 K/uL (0.1-1.3); Absolute Neutrophil 4.2 K/uL (1.8-8.0); Basophils % 0.5 % (0-1.3); Eosinophils % 3.4 % (0-4.4); Hematocrit 24.4 % (39.6-49.0); Lymphocytes % 14.4 % (15.3-44.8); MCV 103.1 fL (80-100); MPV 8.6 fL (7.6-11.3); Monocytes % 14.7 % (3.3-12.3); RBC Red Blood Cell Count 2.37 M/uL (4.33-5.43)
[2017-12-15 05:29] LABS: Protime INR 1.39
[2017-12-15 08:27] VITALS: TEMP 98.1
[2017-12-15] MEDS: CARVEDILOL 3.125 MG TAB PO SCH (09:00)
[2017-12-15] MEDS: LISINOPRIL 20 MG TAB PO SCH (09:00)
[2017-12-15] MEDS: DOCUSATE NA 100 MG CAP PO SCH (09:06)
[2017-12-15] MEDS ORDERED: PANTOPRAZOLE 40MG TABLET PO SCH (11:00)
[2017-12-15] MEDS: HYDROCODONE/APAP 10/325 TAB PO PRN (12:28)
[2017-12-15] MEDS: FUROSEMIDE 40 MG TABLET PO SCH (12:29)
[2017-12-15 12:30] VITALS: BP 100/59
--- NOTE | 2017-12-15 15:04 | PN ---
Date of Progress Note: 12/14/2017 The patient is seen today. His dressing is clean, dry, and intact. His heels are nontender. He now has hemoglobin of 8.0, which is slightly higher than yesterday; however, he is still anemic. We weston l defer that decision to transfuse to the hospitalist. He has had his Perez discontinued. Otherwise , he is doing well. He is taking Coumadin. He is on anticoagulation. He will continue working with Physical Therapy. /PIO Voice ID: [id number] Report ID: [id number]
--- NOTE | 2017-12-16 13:33 | DS ---
Date of Discharge: 12/15/2017 Consultants: Dr. Meyer with Orthopedics. Procedures: On 12/11/2017, right open and closed reduction with intramedullary lanie fixation of the p roximal femur. Postoperative Diagnosis: Right complex proximal femur fracture. Admitting Diagnoses: 1.Right femur fracture, closed initial encounter. 2.Warfarin-induced coagulopathy. 3.Chronic diastolic heart failure. 4.Chronic atrial fibrillation. 5.Essential hypertension. Discharge Diagnoses: 1.Closed right hip fracture, initial encounter, status post open reduction and internal fixation. 2.Anemia, H and H stable. 3.Chronic diastolic heart failure, compensated. 4.Essential hypertension. 5.Chronic atrial fibrillation, on warfarin. INR subtherapeutic. Hospital Course: The patient is an 87-year-old male with history of CHF, atrial fibrillation, on war farin, who comes in with hip fracture. The patient had a mechanical fall and was found to have femur fracture with varus angulation. The patient was seen by Dr. Meyer, who took the patient to the OR for hip surgery as documented above. The patient did well. He did not have a complicated surgery . The patient initially had some coagulopathy, which was reversed. The patient tolerated the proced ure well. His warfarin was resumed. INR is still subtherapeutic at 1.4. The patient did have some drop in his hemoglobin; however, did not require any blood transfusion. Kidney function remained sta ble at his baseline. The patient was then referred for rehab and discharged after being accepted. Medications: As per medication reconciliation list. Diet: Low-sodium fluid-restricted diet, 1500 mL. Activity: As per rehab and Ortho recommendations. Followup: Follow up with primary care physician in 1-2 weeks. Follow up with Orthopedic surgeon, Dr Raf Meyer in 10 days. Return to ER for worsening condition. Total time spent discharging the patient was 37 minutes. Physical Examination: General: Awake, alert, oriented, no acute distress. Elderly male. CV: S1, S2. Irregularly irregular. Peripheral pulses present. Respiratory: Moving air well bilaterally. Abdomen: Soft, nontender, and nondistended. Positive bowel sounds. Extremities: No clubbing, cyanosis, edema. Musculoskeletal: Right hip incision site clean, dry, and intact. Neurologic: Nonfocal. SA/MODL Voice ID: [id number] Report ID: [id number]
== END 2017-12-15 15:30 | DRG 481 ==
LOC: ER 11:46 → ERHOLD 14:42 → 4TH 16:25
PROVIDERS: ADMIT Internal Medicine; ATTEND Family Medicine
PROC: 0T9B70Z Drainage of Bladder with Drainage Device, Via Natural or Artificial Opening (ICD-10-PCS; 2017-12-10)
PROC: 0QS606Z Reposition Right Upper Femur with Intramedullary Internal Fixation Device, Open Approach (ICD-10-PCS; principal; 2017-12-11 12:30)
DX: S72.001A Fracture of unspecified part of neck of right femur, initial encounter for closed fracture (principal); I50.32 Chronic diastolic (congestive) heart failure; D64.9 Anemia, unspecified; I10 Essential (primary) hypertension; I48.2 Chronic atrial fibrillation; I27.20 Pulmonary hypertension, unspecified; W18.30XA Fall on same level, unspecified, initial encounter; Z79.01 Long term (current) use of anticoagulants
CPT/HCPCS: 36415; 51702; 70450; 71045; 72125; 72170; 73530; 80048; 80076; 81003; 81015; 83735; 83880; 85014; 85018; 85025; 85610; 85730; 87086; 87088; 93005; 96374; 96375; 97163; 99285; J1100; J2270; J2370; J2405; J3010; J3430

== ENCOUNTER 2017-12-15 15:31 | Inpatient (IN) | payer OTHER ==
--- NOTE | 2017-12-15 14:24 | R.PREADM ---
SCREENING DATE AND TIME 12/14/2017 16:52 (CDT) ANTICIPATED REHAB ADMISSION DATE 12/16/2017 REFERRING FACILITY [facility] REFERRAL DATE AND TIME 12/14/2017 16:52 (CDT) ACUTE ADMIT DATE 12/10/2017 Previous Rehabilitation(s): No. REFERRING PHYSICIAN Claudia Zuniga REHAB FACILITY [facility] CLINICAL LIAISON Lior Fink PHYSICIAN REVIEWER Dr. Sunday Goldberg M.D. MR# [id number] NAME OLIVA MARCOS ADDRESS [address] [place] [address] PHONE [facility] [id number] DATE OF 1930 AGE 87 SSN# [id number] GENDER male MARITAL STATUS RACE white ADMIT FROM 02 - [facility] PRE-HOSPITAL LIVING SETTING 01 - Home (private home/apt. board/care, assisted living, detention, transitional living) HOME TYPE AND DETAILS Type of home: single family house # of levels in the residence: 1 # of steps within the residence: 0 # of steps to enter the residence: 0 PRE-HOSPITAL LIVING WITH Alone FAMILY SUPPORT No PRIMARY FAMILY CONTACT NAME Carla Jc PRIMARY FAMILY CONTACT PHONE PHONE PRIMARY FAMILY CONTACT ON ADM.? no IS PRIMARY FAMILY CONTACT AUTH. REP.? no 1ST EMERGENCY CONTACT Carla Jc 1ST CONTACT PHONE PHONE 1ST CONTACT ON ADM. no IS 1ST CONTACT AUTH. REP.? no PHONE 2ND CONTACT ON ADM.? no PATIENT EMPLOYMENT STATUS Retired (for age) PATIENT EMPLOYER No Employer PAYOR INFORMATION: 1ST PAYOR NAME Medicare 1ST PAYOR PHONE [phone] 1ST PAYOR INJURY/ILLNESS DUE TO ACCIDENT? No ANOTHER [employer] RESPONSIBLE? No PRIMARY REHAB/ACUTE DIAGNOSIS: Right hip fracture ONSET DATE 12/10/2017 REHAB IMPAIRMENT CATEGORY (RED): 07 Fracture of LE (FracLE) MEETS 60% rule AFFECTED EXTREMITIES: RLE PRIMARY DIAGNOSIS-RELATED SURGERIES: R hip femoral roding COMORBID REHAB/ACUTE DIAGNOSES: - Tier 3 Chronic diastolic (congestive) heart failure [I5032] - N/A HTN, Chronic A. fib, moderate pulmonary HTN, prostate cancer SUMMARY OF ACUTE HOSPITALIZATION: Pt. is a 87 yo Right-handed white male. On 12/10/2017 he was admitted to [facility] with diagnosis Right hip fracture. His impairment category is Orthopaedic Disorders 08 - Unilateral Hip Fracture (08.11). Pre-morbidly, Pt. was independent/mod-I in Transfers Control, Communication, Social Cognition, Self-C are, Locomotion, and Sphincter Control; and he had good Sphincter Control. Currently, he has deficits of Safety Awareness, Transfers Control, Balance, Locomotion, Endurance, an d Self-Care. Pt. is now referred to [facility] for acute in-patient rehabilitation in order to maximize patient's functional independence in activities of daily living, strength, ROM, and mobi lity. Patient has realistic goal of being discharged at assistance level 6-Soren to reside at Home with Fam soumya/Relatives. PAST MEDICAL HISTORY Chronic diastolic (congestive) heart failure [I5032] HTN, Chronic A. fib, moderate pulmonary HTN, prostate cancer PAST SURGICAL HISTORY: L fracture hip repair, hernia repair, prostate removal MEDICATION ALLERGIES: Penicillin ENVIRONMENTAL ALLERGIES: None Known - Substance Allergies None Known - Other Allergies None Known CODE STATUS: Full code WEIGHT/HEIGHT/BMI: WEIGHT 185 lbs HEIGHT 5' 9" BMI 27.3 DIET: - Diet Type Regular - Diet - Solid Texture Regular - Diet - Liquid Texture Regular - Tube Feed N/A SKIN DIAGRAM: Incision on Right hip; extent - small; stage - NS(Not Stageable). Treatment - Per Physician's Orders. REVIEW OF SYSTEMS: - Gen Alert and awake Lying in bed No apparent distress Oriented to: person, time, and place - Vital Signs Temperature: 98.9 F SBP/DBP: 99/64 Pulse: 94 Resp: 18 Vital signs stable, afebrile - CVS RRR VITAL SIGNS Temperature: 98.9 F SBP/DBP: 99/64 Pulse: 94 Resp: 18 Vital signs stable, afebrile CURRENT SPHINCTER CONTROL: Pre-hospital bladder status: continent # of bladder accidents in the last 7 days prior to screenin Pre-hospital bowel status: continent # of bowel accidents in the last 7 days prior to screenin Last Bowel Movement Date: DETAILED CURRENT FUNCTIONAL STATUS: - Bladder accident frequency: Ind - No accidents in the past 7 days - Bowel accident frequency: Ind - No accidents in the past 7 days - Walking score based on distance walked: 1(<=50ft) - Wheelchair score based on distance traveled: 0(N/A) FUNCTIONAL STATUS: - Self-Care A. Eating Ind Ind B. Grooming Ind Soren C. Bathing Ind Ind D. Dressing - Upper Ind Soren E. Dressing - Lower Ind Reza F. Toileting Ind maxA - Sphincter Control G: Bladder control Ind Dep H: Bowel control Ind Ind - Transfers Control I. Bed/Chair/Wheelchair Ind maxA J. Toilet Ind maxA K. Tub/Shower Ind ADNO - Locomotion L. Walk/Wheelchair (C) Soren maxA L. Walk/Wheelchair (W) Soren Ind M. Stairs Soren ADNO - Communication N. Comprehension (B) Soren Soren O. Expression (B) Soren Soren - Social Cognition P. Social Interaction Soren Soren Q. Problem Solving Soren Soren R. Memory Soren Soren - Endurance Fair - Balance Fair - Safety Awareness Fair CURRENT FUNC. DEFICITS: Safety Awareness, Transfers Control, Balance, Locomotion, Endurance, and Self-Care THERAPY NOTES FROM ACUTE CARE: Attached. SPECIAL NEEDS: - Safety Concerns Skin breakdown precautions needed due to skin breakdown risk PRECAUTIONS: - Weight Bearing Precaution TTWB right LE - Fall Precaution Bed and chair alarm PATIENT NEEDS ACTIVE AND ONGOING THERAPEUTIC INTERVENTION OF MULTIPLE THERAPY DISCIPLINES, INCLUDING: - Occupational Therapy Evaluate and Treat. - Physical Therapy Evaluate and Treat. PATIENT NEEDS CLOSE MEDICAL SUPERVISION BY A REHABILITATION PHYSICIAN FOR: Bowel and Bladder Management Coordination of Treatment Team Medical and Co-Morbidity Management Wound Care Pain Management DVT Management PATIENT REQUIRES 24X7 REHAB NURSING FOR MEDICAL AND FUNCTIONAL MGT. OF THE FOLLOWING DEFICITS: ADL's Ambulation Bowel and Bladder Management Cognition Communication Disease Management Medication Management Patient/Family Education Providing Safe Environment Skin Integrity Transfers Pain Management PATIENT REQUIRES INTENSIVE, COORDINATED INTERDISCIPLINARY APPROACH TO REHAB: Arranging Home Equipment/Services Discharge Planning Family Intervention/Training Chemistry Instructor/Case Management PATIENT REHAB POTENTIAL: Expected level of measurable improvement will be of a practical value to patient's functional capacit y or adaptations to impairments Has a viable Discharge Plan Medically appropriate; condition is sufficiently stable to participate in intensive rehab program Patient is able and expected to receive 3 hours of individualized therapy daily on at least 5 of ever y 7 days Patient's prognosis for significant practical improvement within a reasonable period of time appears Good DISCHARGE PLAN: - Estimated Length of Stay (days) 14. - Consensus on plan Discharge plan has been discussed with primary caregiver. Patient/Family is in agreement with the michelle n. Primary caregiver is in agreement with the plan. - Patient/Family Goals Return home with assistance. - Planned Living Setting Upon Discharge Home, to live with Family/Relatives. RECOMMENDED CARE LEVEL: IRF RECOMMENDATION DETAILS: Recommended Admission to Comprehensive Rehabilitation Program to Increase Functional Rains SCREENER'S COMPLETENESS CONFIRMATION: - Screening Confirmation The patient data collection on this preadmission screening form is finished PHYSICIANS REVIEW AND ADMISSION DETERMINATION Admit - Based on my review of the Pre-Admission Screening results, in my medical judgment and experie nce, I concur with the findings and recommend admission to [facility], as this patient requires an IRF level of care. SIGNATURE PANEL: Clinical Liaison - [electronically] signed by Lior Fink on 12/14/2017 at 17:33 (CDT) Physician Reviewer - [electronically] signed by Dr. Sunday Goldberg M.D. on 12/15/2017 at 13:26 (CDT )
[2017-12-15] MEDS ORDERED: POLYETHYL GLY 3350 17 GM/DOSE PO PRN (16:22)
[2017-12-15] MEDS ORDERED: WARFARIN SODIUM 4 MG TAB PO SCH (17:00)
[2017-12-15] MEDS: CARVEDILOL 3.125 MG TAB PO SCH (17:01)
[2017-12-15 18:58] LABS: Urine Appearance CLEAR; Urine Bilirubin NEGATIVE (NEG); Urine Blood NEGATIVE (NEG); Urine Color YELLOW; Urine Glucose NEGATIVE (NEG); Urine Protein NEGATIVE (NEG); Urine Specific Gravity <=1.005 (1.005-1.030)
[2017-12-15 19:33] LABS: Urine Bacteria NONE SEEN /HPF (NONE SEEN); Urine Culture Reflex Order NOT NEEDED; Urine RBC NONE SEEN /HPF (NONE SEEN)
[2017-12-15] MEDS: ATORVASTATIN 10 MG TAB PO SCH (21:18)
[2017-12-15] MEDS: DOCUSATE NA 100 MG CAP PO SCH (21:19)
--- NOTE | 2017-12-16 04:31 | FAST ---
SHIFT START DATE/TIME: 12/15/2017 19:00 (CDT) SHIFT END DATE/TIME: 12/16/2017 07:00 (CDT) NAME OLIVA MARCOS DATE OF : 1930 DATE OF ADMISSION: 12/15/2017 15:31 (CDT) PHONE: AGE: 87 N# [id number] GENDER: Male ENCOUNTER PHYSICIAN: Dr. Sunday Goldberg M.D. ADMISSION DIAGNOSIS: - Orthopaedic Disorders 08 - Unilateral Hip Fracture (08.11) Right hip fracture. EATING: Activity did not occur on this shift EATING - SCORE: 0-UNK GROOMING: Activity did not occur on this shift GROOMING - SCORE: 0-UNK BATHING: Activity did not occur on this shift BATHING - SCORE: 0-UNK DRESSING - UPPER BODY: Patient is not dressing in public clothing ARTICLES SCORE Total number of steps: 0 DRESSING - UPPER BODY - SCORE: 0-UNK DRESSING - LOWER BODY: Patient is not dressing in public clothing ARTICLES SCORE Total number of steps: 0 DRESSING - LOWER BODY - SCORE: 0-UNK TOILETING: TOILETING - STEP 1: Does the patient require assistance with toileting? Yes. TOILETING - STEP 2: Does the patient require the assistance of a helper? Yes. TOILETING - STEP 3: How much assistance does the patient require from the helper? Hands-on assistance from the helper TOILETING - STEP 4: Of the 3 tasks: 1) Adjusting clothing prior to use, 2) Cleansing of perineal area, 3) Adjusting clot mackenzie after use; How many tasks does the patient perform WITHOUT assistance of the helper? Three tasks with steadying assistance from the helper TOILETING - SCORE: 4-MIN BLADDER MANAGEMENT: BLADDER MANAGEMENT - STEP 1: Does the patient control the bladder completely and intentionally without equipment or devices or med ications, and is always continent? No. BLADDER MANAGEMENT - STEP 2: Does the patient require the assistance of a helper? Yes. BLADDER MANAGEMENT - STEP 3: How much assistance does the patient require from the helper? Only set-up of equipment - such as plac ing it within reach of the patient or emptying a device - to maintain either satisfactory voiding pat tern or managing an external device, such as an absorbent pad, ileal device, or catheter BLADDER MANAGEMENT - SCORE: 5-SUP BOWEL MANAGEMENT: Activity did not occur on this shift BOWEL MANAGEMENT - SCORE: 7-IND TRANSFERS: BED, CHAIR, WHEELCHAIR: Activity did not occur on this shift TRANSFERS: BED, CHAIR, WHEELCHAIR - SCORE: 0-UNK TRANSFERS: TOILET: Activity did not occur on this shift TRANSFERS: TOILET - SCORE: 0-UNK TRANSFERS: SHOWER: Activity did not occur on this shift TRANSFERS: SHOWER - SCORE: 0-UNK TRANSFERS: TUB: Activity did not occur on this shift TRANSFERS: TUB - SCORE: 0-UNK LOCOMOTION: WALK: Activity did not occur on this shift LOCOMOTION: WALK - SCORE: 0-UNK LOCOMOTION: WHEELCHAIR: Activity did not occur on this shift LOCOMOTION: WHEELCHAIR - SCORE: 0-UNK COMPREHENSION: COMPREHENSION - STEP 1: Does the patient require help to understand complex and abstract ideas (such as current events, finan paola, discharge planning, medical issues, relationships, etc)? Yes. COMPREHENSION - STEP 2: Does the patient require help to understand questions or statements about basic needs or ideas (such as hunger, thirst, sleep, safety, daily schedule, room location, or discomfort) half or more of the t ana? No. COMPREHENSION - STEP 3: How often does the patient need help to understand directions and conversation about basic needs? Les s than 10% of the time COMPREHENSION - SCORE: 5-SUP EXPRESSION EXPRESSION - STEP 1: Does the patient require help expressing complex and abstract ideas (such as current events, finances , discharge planning, medical issues, relationships, etc)? No. EXPRESSION - STEP 2: Does the patient need extra time, require an assistive device (such as augmentive communication syste m or a communication board), OR does s/he have mild difficulty expressing complex and abstract ideas (including mild dysarthria or mild word-find problems)? No. EXPRESSION - SCORE: 7-IND SOCIAL INTERACTION: SOCIAL INTERACTION - STEP 1: Does the patient require a helper to interact with others in social and therapeutic situations? No. SOCIAL INTERACTION - STEP 2: Does the patient need extra time in social situations, OR does s/he interact with staff, other patien ts, and family members ONLY in structured environments, OR does s/he require medication for social in teraction? No. SOCIAL INTERACTION - SCORE: 7-IND PROBLEM SOLVING: PROBLEM SOLVING - STEP 1: Does the patient need help to solve complex problems such as managing a checking account or confronti ng interpersonal problems? No. PROBLEM SOLVING - STEP 2: Does the patient require extra time to make decisions or solve problems, OR does s/he have slight dif ficulty reading, initiating, or self-correcting in unfamiliar situations? Yes, patient needs extra ti me. PROBLEM SOLVING - SCORE: 6-PORTER MEMORY: MEMORY - STEP 1: Does the patient need help to remember frequently encountered people, daily routines, and executing r equests? No. MEMORY - STEP 2: Does the patient have slight difficulty recognizing frequently encountered people, daily routines, or executing requests without the need for repetition or using self-initiated or environmental cues to remember? Yes. MEMORY - SCORE: 6-PORTER SIGNATURE PANEL: The following modified sections: Eating - Score, Grooming - Score, Dressing - Upper Body - Score, Oniel ssing - Lower Body - Score, Toileting - Score, Bladder Management - Score, Bowel Management - Score, Transfers: Bed, Chair, Wheelchair - Score, Transfers: Toilet - Score, Transfers: Shower - Score, Ann sfers: Tub - Score, Locomotion: Walk - Score, Locomotion: Wheelchair - Score, Comprehension - Score, Expression - Score, Social Interaction - Score, Problem Solving - Score, Memory - Score were [electro nically] signed by Zoey Hancock CNA on ThuDec 16 2017 02:18:48 GMT-0500 (Central Daylight Time)
[2017-12-16] MEDS: CARVEDILOL 3.125 MG TAB PO SCH ×2 (05:09→17:08)
[2017-12-16 06:29] LABS: Absolute Lymphocytes (CBC) 0.8 K/uL (0.7-4.9); Absolute Neutrophil 4.6 K/uL (1.8-8.0); Basophils % 0.4 % (0-1.3); Eosinophils % 2.7 % (0-4.4); Hematocrit 25.8 % (39.6-49.0); Lymphocytes % 12.6 % (15.3-44.8); MCH 34.7 pg (27.0-35.0); MPV 8.3 fL (7.6-11.3)
[2017-12-16 06:40] LABS: Protime INR 1.39
[2017-12-16 07:04] LABS: Magnesium 2.3 mg/dL (1.8-2.5); Potassium 4.1 mEq/L (3.6-5.0); Prealbumin 13.3 mg/dl (18-38)
[2017-12-16] MEDS ORDERED: PANTOPRAZOLE 40MG TABLET PO SCH (07:30)
[2017-12-16] MEDS ORDERED: FUROSEMIDE 40 MG TABLET PO SCH (08:00)
[2017-12-16] MEDS: LISINOPRIL 20 MG TAB PO SCH (08:00)
[2017-12-16] MEDS: HYDROCODONE/APAP 10/325 TAB PO PRN ×2 (08:09→12:38)
[2017-12-16] MEDS: DOCUSATE NA 100 MG CAP PO SCH (08:09)
[2017-12-16] MEDS: PANTOPRAZOLE 40MG TABLET PO SCH (08:10)
[2017-12-16 15:01] LABS: Protime INR 1.36
--- NOTE | 2017-12-16 15:26 | R.HP ---
FACILITY: [facility] ENCOUNTER DATE AND TIME: 12/16/2017 14:25 (CDT) MR#: [id number] NAME OLIVA MARCOS ADDRESS: [address] [place] [address] [address] [facility] CITY: [place]IP [address] PHONE: DATE OF : 1930 AGE: 87 SSN# [id number] GENDER: Male DEXTERITY Right-handed MARITAL STATUS RACE White PRE-HOSPITAL LIVING SETTING 01 - Home (private home/apt. board/care, assisted living, jail, transitional living) PRE-HOSPITAL LIVING WITH Alone ENCOUNTER PHYSICIAN: Dr. Sunday Goldberg M.D. REFERRING DOCTOR: daniel Zuniga DATE OF ADMISSION: 12/15/2017 15:31 (CDT) REFERRING FACILITY [facility] HOME TYPE AND DETAILS: Type of home: single family house # of levels in the residence: 1 # of steps within the residence: 0 # of steps to enter the residence: 0 ADMISSION DIAGNOSIS: Right hip fracture ONSET DATE: 12/10/2017 PRIMARY DIAGNOSIS-RELATED SURGERIES: R hip femoral roding SECONDARY/COMORBID DIAGNOSES (TIERED): - Tier 3 Chronic diastolic (congestive) heart failure [I5032] - N/A HTN, Chronic A. fib, moderate pulmonary HTN, prostate cancer HISTORY OF PRESENT ILLNESS (HPI): Pt. is a 87 yo Right-handed white male. On 12/10/2017 he was admitted to [facility] with diagnosis Right hip fracture. His impairment category is Orthopaedic Disorders 08 - Unilateral Hip Fracture (08.11). Pre-morbidly, Pt. was independent/mod-I in Transfers Control, Communication, Social Cognition, Self-C are, Locomotion, and Sphincter Control; and he had good Sphincter Control. Currently, he has deficits of Safety Awareness, Transfers Control, Balance, Locomotion, Endurance, an d Self-Care. Pt. is now referred to [facility] for acute in-patient rehabilitation in order to maximize patient's functional independence in activities of daily living, strength, ROM, and mobi lity. Patient has realistic goal of being discharged at assistance level 6-Soren to reside at Home with Fam soumya/Relatives. MEDICATION ALLERGIES: Penicillin ENVIRONMENTAL ALLERGIES: None Known - Substance Allergies None Known - Other Allergies None Known PAST MEDICAL HISTORY: Chronic diastolic (congestive) heart failure [I5032] HTN, Chronic A. fib, moderate pulmonary HTN, prostate cancer PAST SURGICAL HISTORY: L fracture hip repair, hernia repair, prostate removal FAMILY HISTORY: Family history is not contributory. SOCIAL HISTORY: - Home Living Alone REVIEW OF SYSTEMS: - Gen No Chills No Fatigue No Fever - Eyes No Double Vision No itchiness - ENMT No Difficulty Swallowing - CVS No Chest Discomfort No Chest Pain No Fatigue No Weight Gain - Resp No Cough No Shortness of Breath - GI Continent No Abdominal Pain No Constipation No Diarrhea - Continent No Kidney Pain No Painful Urination No Urinary Urgency - MSK No Joint Pain No Muscle Cramps No Stiffness - Skin No Itching No Rash No Suspicious Lesions - Neuro No Coordination Difficulty No Difficulty with Concentration No Memory Loss No Seizures No Weakness - Psych No Anxiety No Depression No HIV Exposure No Persistent Infections No Seasonal Allergies - Endo No Cold/Heat Intolerance No Excessive Hunger No Excessive Thirst No Excessive Urination PHYSICAL EXAM - Gen Alert and awake Lying in bed No apparent distress Oriented to: person, time, and place - Vital Signs Temperature: 98.9 F SBP/DBP: 99/64 Pulse: 94 Resp: 18 - Skin No skin breakdown. Normacephalic - Eyes No abnormalities - ENMT No abnormalities - Neck No abnormalities - CVS RRR - Chest Clear - Abd Soft - GI Non distended Deferred - No abnormalities - Ext No significant edema - MSK Unremarkable - Neuro No focal deficits - Psych No abnormalities VITAL SIGNS Temperature: 98.9 F SBP/DBP: 99/64 Pulse: 94 Resp: 18 NURSING: - Shower allowing shower - Skin care per protocol PRECAUTIONS: - Weight Bearing Precaution TTWB right LE - Fall Precaution Bed and chair alarm ACTIVITIES OOB only with supervision FUNCTIONAL STATUS: - Self-Care A. Eating Ind Ind B. Grooming Ind Soren C. Bathing Ind Ind D. Dressing - Upper Ind Soren E. Dressing - Lower Ind Reza F. Toileting Ind maxA - Sphincter Control G: Bladder control Ind Dep H: Bowel control Ind Ind - Transfers Control I. Bed/Chair/Wheelchair Ind maxA J. Toilet Ind maxA K. Tub/Shower Ind ADNO - Locomotion L. Walk/Wheelchair (C) Soren maxA L. Walk/Wheelchair (W) Soren Ind M. Stairs Soren ADNO - Communication N. Comprehension (B) Soren Soren O. Expression (B) Soren Soren - Social Cognition P. Social Interaction Soren Soren Q. Problem Solving Soren Soren R. Memory Soren Soren - Endurance Fair - Balance Fair - Safety Awareness Fair CURRENT [facility]. DEFICITS: Safety Awareness, Transfers Control, Balance, Locomotion, Endurance, and Self-Care ASSESSMENT: Pt. is a 87 yo Right-handed white male.On 12/10/2017 he was admitted to [facility] with diagnosis Right hip fracture.His impairment category is Orthopaedic Disorders 08 - Unilater al Hip Fracture (03.27).Pre-morbidly, Pt. was independent/mod-I in Transfers Control, Communication, Social Cognition, Self-Care, Locomotion, and Sphincter Control; and he had good Sphincter Control.Cur rently, he has deficits of Safety Awareness, Transfers Control, Balance, Locomotion, Endurance, and S elf-Care.Pt. is now referred to [facility] for acute in-patient rehabilitation in order to maximize patient's functional independence in activities of daily living, strength, ROM, and mobility.- Rehab Goal Patient has realistic goal of being discharged at assistance level 6-Soren to reside at Home with Fam soumya/Relatives. REHAB PLAN: - Physical Therapy Decreased range of motion - to improve, our physical therapists will perform initial evaluation of pt 's status upon admission and devise an individualized program for increasing patient's Range of Motio n. Gait dysfunction - to improve, our physical therapists will perform initial evaluation of pt's status upon admission and devise an individualized program for Gait Training, and Wheel Chair mobility Inability to transfer - to improve, our physical therapists will perform initial evaluation of pt's s tatus upon admission and devise an individualized program for Bed mobility Need for home safety evaluation - to improve, our physical therapists will perform initial evaluation of pt's status upon admission and devise an individualized program for Home Evaluation Need in caregiver upon discharge - to improve, our physical therapists will perform initial evaluatio n of pt's status upon admission and devise an individualized program for Caregiver Training New precaution - to improve, our physical therapists will perform initial evaluation of pt's status u michael admission and devise an individualized program for Patient precaution education Edema - to improve, our physical therapists will perform initial evaluation of pt's status upon admi ssion and devise an individualized program for Elevation Training, and Lymphedema Therapy Poor balance - to improve, our physical therapists will perform initial evaluation of pt's status upo n admission and devise an individualized program for Balance Training Poor endurance - to improve, our physical therapists will perform initial evaluation of pt's status u michael admission and devise an individualized program for Endurance Training Weakness - to improve, our physical therapists will perform initial evaluation of pt's status upon ad mission and devise an individualized program for Aquatic Therapy, Neuromuscular Reeducation, and Stre ngthening Achieving independence - to improve, our physical therapists will perform initial evaluation of pt's status upon admission and devise an individualized program for Community Reintegration Activities - Occupational Therapy ADL deficits - to improve, our occupation therapists will perform initial evaluation of pt's status u michael admission and devise an individualized program for Bathing, Bed mobility, Community Reintegration , Cooking, Dressing, Eating, Fine Motor Skills, Grooming, Homemaking, Kitchen Mobility, Laundry, Margie ent Education, Safety Awareness, Splinting - Positioning, Transfers(Toilet, Tub, Shower), and Wheel C hair Management Need for ocular care technician - to improve, our occupation therapists will perform initial evaluation of pt's s tatus upon admission and devise an individualized program for Caregiver Training Weakness - to improve, our occupation therapists will perform initial evaluation of pt's status upon admission and devise an individualized program for Aquatic Therapy, Balance, Endurance, UE ROM, and U E strengthening MEDICAL PLAN: - Anterior Hip Precaution No abduction No active extension No adduction across midline No external rotation No hip flexion >90 degrees No internal rotation - Diet - Liquid Texture Start Regular - Tube Feed Start N/A - Diet Type Start Regular - Posterior Hip Precaution No adduction across midline No external rotation No hip flexion >90 degrees No internal rotation No wheel chair propulsion - Weight Bearing Precaution TTWB right LE - Fall Precaution Bed and chair alarm - Skin care per protocol - Diet - Solid Texture Regular - Shower shower DISCHARGE PLAN: - Estimated Length of Stay (days) 14. - Consensus on plan Discharge plan has been discussed with primary caregiver. Patient/Family is in agreement with the michelle n. Primary caregiver is in agreement with the plan. - Patient/Family Goals Return home with assistance. - Planned Living Setting Upon Discharge Home, to live with Family/Relatives. SIGNATURE PANEL: (CDT)
--- NOTE | 2017-12-16 15:28 | PAPE ---
PATIENT: [facility] MR# [id number] REFERRING DOCTOR daniel Zuniga EVALUATION DATE AND TIME 12/16/2017 14:28 (CDT) NAME OLIVA MARCOS DATE OF 1930 AGE 87 PHONE N# [id number] GENDER male EVALUATING PHYSICIAN Dr. Sunday Goldberg M.D. ADMISSION DIAGNOSIS: Right hip fracture ONSET DATE 12/10/2017 SECONDARY/COMORBID DIAGNOSES TIERED: - Tier 3 Chronic diastolic (congestive) heart failure [I5032] - N/A HTN, Chronic A. fib, moderate pulmonary HTN, prostate cancer POST-ADMISSION FUNCTIONAL/MEDICAL STATUS: - Bladder Same accident frequency: Ind - No accidents in the past 7 days - Bowel Same accident frequency: Ind - No accidents in the past 7 days - Walking Same score based on distance walked: 1(<=50ft) - Wheelchair Same score based on distance traveled: 0(N/A) STATUS CHANGE EVALUATION: No change in Functional or Medical Status is identified compared with Pre-Admission screening. PATIENT NEEDS CLOSE MEDICAL SUPERVISION BY A REHABILITATION PHYSICIAN FOR: Bowel and Bladder Management Coordination of Treatment Team Medical and Co-Morbidity Management Wound Care Pain Management DVT Management PATIENT REQUIRES 24X7 REHAB NURSING FOR MEDICAL AND FUNCTIONAL MGT. OF THE FOLLOWING DEFICITS: ADL's Ambulation Bowel and Bladder Management Cognition Communication Disease Management Medication Management Patient/Family Education Providing Safe Environment Skin Integrity Transfers Pain Management PATIENT REQUIRES INTENSIVE, COORDINATED INTERDISCIPLINARY APPROACH TO REHAB: Arranging Home Equipment/Services Discharge Planning Family Intervention/Training Manager Air/Case Management LIST OF IDENTIFIED AND POTENTIAL PROBLEMS: Alteration in leisure activities Bladder, Incontinence Bowel, Incontinence Infection, Actual or Potential Mobility Impaired Pain, Alteration in Comfort Self Care Deficit Skin Integrity, Actual or Potential Urinary Tract Infection (UTI), Actual or Potential PATIENT COULD BE AT RISK FOR COMPLICATIONS FROM ADVERSE MEDICAL CONDITIONS DUE TO HIS/HER COMORBIDITI ES AND THE RIGORS OF THE INTENSIVE REHABILLITATION PROGRAM. METHODS OR INTERVENTIONS TO AVOID COMPLIC ATIONS INCLUDE: - Deep Vein Thrombosis (DVT) Prophylaxis therapy for prevention . Sequential Compression Device (SCD). TE D Hose. - Bleeding Assess lab values and manage abnormalities. Nursing to teach precautions for anti-coagulation therapy . Wound to be assessed every shift. - Infection Clinical staff to assess and manage the signs and symptoms of infection including fever, redness, war mth, etc. - Urinary Tract Infection - Falls Patient will be evaluated for Fall Precautions and will be placed on Fall Precautions as indicated pe r protocol. - Skin Breakdown Nursing will assess skin daily using assessment tool and will place on Skin Breakdown Precautions as indicated per protocol. - Pain Clinical staff may employ non-medication methods such as massage, distraction, decrease stimulus, etc . as needed. Clinical staff will assess patient's pain level every shift per protocol to assess and e nsure pain management effectiveness. Medications will be given and the pain level re-assessed. PRELIMINARY PLAN OF CARE: - Physical Therapy Patient needs Physical Therapy for a daily minimum of 1.5 hours at least 5 out of 7 days, to improve: Mobility, Strengthening, Transfers, Stretching, ROM, Endurance, Ability to manage stairs, Gait, and Balance. - Rehabilitation Nursing Patient requires 24x7 Rehabilitation Nursing for: Pain Issues, Identifying and preventing risk factor s, Monitoring and reporting current medical conditions, Assisting with ambulation and transfer, Garry ting with all ADL-s, Teaching patients about disease process and medications, Family teaching, Provid ing safe environment, Bowel and Bladder Issues, Skin Integrity, and Medication Management. Patient needs Manager Air and/or Case Management for: Discharge Planning, Arranging Home Equipmen t or Services, and Family Interventions. - Dietary and Nutrition Services Patient needs Dietary and Nutrition Services for: Adequate Nutrition, Nutritional Supplements, and Nu tritional Education. - Occupational Therapy Patient needs Occupational Therapy for a daily minimum of 1.5 hours at least 5 out of 7 days, to impr ove Activities of Daily Living, including: Eating, Grooming, Bathing, Dressing, Toileting, Toilet Tra nsfers, Community Reintegration, Higher functional activities, Adaptive Equipment, Splinting, Househo ld Tasks, and Other activities as determined. POTENTIAL FUNCTIONAL GOALS FOR PATIENT TO ACHIEVE BY DISCHARGE: - Safety Precaution Patient will remain free from falls or injury at time of discharge. - Bed Mobility Patient will perform bed mobility at 4-Reza level of assistance. - Transfers Patient will complete transfers from bed to chair at 4-Reza level of assistance. - Mobility Patient will ambulate 150 ft with 4-Reza level of assistance with RW. PATIENT REHAB POTENTIAL Expected level of measurable improvement will be of a practical value to patient's functional capacit y or adaptations to impairments Has a viable Discharge Plan Medically appropriate; condition is sufficiently stable to participate in intensive rehab program Patient is able and expected to receive 3 hours of individualized therapy daily on at least 5 of ever y 7 days Patient's prognosis for significant practical improvement within a reasonable period of time appears Good DISCHARGE PLAN: - Estimated Length of Stay (days) 14. - Consensus on plan Discharge plan has been discussed with primary caregiver. Patient/Family is in agreement with the michelle n. Primary caregiver is in agreement with the plan. - Patient/Family Goals Return home with assistance. - Planned Living Setting Upon Discharge Home, to live with Family/Relatives. CONCLUSION ON REHABILITATION NECESSITY: I have evaluated patient's pre-admission functional status and, comparing it to the patient's post-ad mission functional status now, I conclude that the pre-admission assessment was accurate. Patient's c ondition on admission supports the medical necessity of admission to IRF. It is safe to proceed with patient's therapy program. SIGNATURE PANEL: (CDT)
--- NOTE | 2017-12-16 16:47 | FAST ---
ENCOUNTER DATE AND TIME: 12/16/2017 08:00 (CDT) NAME OLIVA MARCOS DATE OF : 1930 DATE OF ADMISSION: 12/15/2017 15:31 (CDT) PHONE: AGE: 87 N# [id number] GENDER: Male ENCOUNTER PHYSICIAN: Dr. Sunday Goldberg M.D. ADMISSION DIAGNOSIS: - Orthopaedic Disorders 08 - Unilateral Hip Fracture (08.11) Right hip fracture. EATING: Activity did not occur on this shift EATING - SCORE: 0-UNK GROOMING: Activity did not occur on this shift GROOMING - SCORE: 0-UNK BATHING: Activity did not occur on this shift BATHING - SCORE: 0-UNK DRESSING - UPPER BODY: Activity did not occur on this shift Patient is not dressing in public clothing ARTICLES SCORE Total number of steps: 0 DRESSING - UPPER BODY - SCORE: 0-UNK DRESSING - LOWER BODY: Activity did not occur on this shift Patient is not dressing in public clothing ARTICLES SCORE Total number of steps: 0 DRESSING - LOWER BODY - SCORE: 0-UNK TOILETING: Activity did not occur on this shift TOILETING - SCORE: 0-UNK BLADDER MANAGEMENT: Activity did not occur on this shift BLADDER MANAGEMENT - SCORE: 7-IND BOWEL MANAGEMENT: Activity did not occur on this shift BOWEL MANAGEMENT - SCORE: 7-IND TRANSFERS: BED, CHAIR, WHEELCHAIR: TRANSFERS: BED, CHAIR, WHEELCHAIR - STEP 1: Does the patient require assistance with bed, chair, or wheelchair transfers? Yes. TRANSFERS: BED, CHAIR, WHEELCHAIR - STEP 2: Does the patient require the assistance of a helper? Yes. TRANSFERS: BED, CHAIR, WHEELCHAIR - STEP 3: How much assistance does the patient require from the helper? Lifting of the legs TRANSFERS: BED, CHAIR, WHEELCHAIR - STEP 4: How many legs does the patient require the helper to lift? both legs TRANSFERS: BED, CHAIR, WHEELCHAIR - SCORE: 3-MOD TRANSFERS: TOILET: Activity did not occur on this shift TRANSFERS: TOILET - SCORE: 0-UNK TRANSFERS: SHOWER: Activity did not occur on this shift TRANSFERS: SHOWER - SCORE: 0-UNK TRANSFERS: TUB: Activity did not occur on this shift TRANSFERS: TUB - SCORE: 0-UNK LOCOMOTION: WALK: Activity did not occur on this shift LOCOMOTION: WALK - SCORE: 0-UNK LOCOMOTION: WHEELCHAIR: Activity did not occur on this shift LOCOMOTION: WHEELCHAIR - SCORE: 0-UNK LOCOMOTION: STAIRS: Activity did not occur on this shift LOCOMOTION: STAIRS - SCORE: 0-UNK COMPREHENSION: COMPREHENSION - SCORE: 0-UNK EXPRESSION EXPRESSION - SCORE: 0-UNK SOCIAL INTERACTION: SOCIAL INTERACTION - SCORE: 0-UNK PROBLEM SOLVING: PROBLEM SOLVING - SCORE: 0-UNK MEMORY: MEMORY - SCORE: 0-UNK SIGNATURE PANEL: The following modified sections: Transfers: Bed, Chair, Wheelchair - Score, Transfers: Toilet - Score , Locomotion: Walk - Score, Locomotion: Wheelchair - Score, Locomotion: Stairs - Score were [electron ically] signed by Randy Montgomery PTA on ThuDec 16 2017 15:49:27 GMT-0500 (Central Daylight Time)
[2017-12-16] MEDS: WARFARIN SODIUM 6 MG TAB PO SCH (17:20)
[2017-12-16] MEDS: DOCUSATE NA/SENNA CONC 1 TAB PO SCH (20:29)
[2017-12-16] MEDS: ATORVASTATIN 10 MG TAB PO SCH (20:29)
[2017-12-16] MEDS: MAGNESIUM OXIDE 400 MG TAB PO SCH (20:29)
--- NOTE | 2017-12-17 04:18 | FAST ---
SHIFT START DATE/TIME: 12/16/2017 19:00 (CDT) SHIFT END DATE/TIME: 12/17/2017 07:00 (CDT) NAME OLIVA MARCOS DATE OF : 1930 DATE OF ADMISSION: 12/15/2017 15:31 (CDT) PHONE: AGE: 87 N# [id number] GENDER: Male ENCOUNTER PHYSICIAN: Dr. Sunday Goldberg M.D. ADMISSION DIAGNOSIS: - Orthopaedic Disorders 08 - Unilateral Hip Fracture (08.11) Right hip fracture. EATING: Activity did not occur on this shift EATING - SCORE: 0-UNK GROOMING: Activity did not occur on this shift GROOMING - SCORE: 0-UNK BATHING: Activity did not occur on this shift BATHING - SCORE: 0-UNK DRESSING - UPPER BODY: Patient is not dressing in public clothing ARTICLES SCORE Total number of steps: 0 DRESSING - UPPER BODY - SCORE: 0-UNK DRESSING - LOWER BODY: Patient is not dressing in public clothing ARTICLES SCORE Total number of steps: 0 DRESSING - LOWER BODY - SCORE: 0-UNK TOILETING: TOILETING - STEP 1: Does the patient require assistance with toileting? Yes. TOILETING - STEP 2: Does the patient require the assistance of a helper? Yes. TOILETING - STEP 3: How much assistance does the patient require from the helper? Hands-on assistance from the helper TOILETING - STEP 4: Of the 3 tasks: 1) Adjusting clothing prior to use, 2) Cleansing of perineal area, 3) Adjusting clot mackenzie after use; How many tasks does the patient perform WITHOUT assistance of the helper? Three tasks with steadying assistance from the helper TOILETING - SCORE: 4-MIN BLADDER MANAGEMENT: BLADDER MANAGEMENT - STEP 1: Does the patient control the bladder completely and intentionally without equipment or devices or med ications, and is always continent? No. BLADDER MANAGEMENT - STEP 2: Does the patient require the assistance of a helper? Yes. BLADDER MANAGEMENT - STEP 3: How much assistance does the patient require from the helper? Only set-up of equipment - such as plac ing it within reach of the patient or emptying a device - to maintain either satisfactory voiding pat tern or managing an external device, such as an absorbent pad, ileal device, or catheter BLADDER MANAGEMENT - SCORE: 5-SUP BOWEL MANAGEMENT: BOWEL MANAGEMENT - STEP 1: Does the patient control bowels completely and intentionally without equipment devices or medications AND is always continent? No. BOWEL MANAGEMENT - STEP 2: Does the patient require the assistance of a helper? Yes. BOWEL MANAGEMENT - STEP 3: How much assistance does the patient require from the helper? Patient requires supervision, stand by, cueing, coaxing, or setup of equipment - placing within reach of patient and emptying device / bedpa nd or BSC bucket - to maintain either satisfactory bowel pattern or managing an external device such as an absorbent pad, colostomy bag / ileostomy bag BOWEL MANAGEMENT - SCORE: 5-SUP TRANSFERS: BED, CHAIR, WHEELCHAIR: TRANSFERS: BED, CHAIR, WHEELCHAIR - STEP 1: Does the patient require assistance with bed, chair, or wheelchair transfers? Yes. TRANSFERS: BED, CHAIR, WHEELCHAIR - STEP 2: Does the patient require the assistance of a helper? Yes. TRANSFERS: BED, CHAIR, WHEELCHAIR - STEP 3: How much assistance does the patient require from the helper? Lifting of the legs TRANSFERS: BED, CHAIR, WHEELCHAIR - STEP 4: How many legs does the patient require the helper to lift? both legs TRANSFERS: BED, CHAIR, WHEELCHAIR - SCORE: 3-MOD TRANSFERS: TOILET: Activity did not occur on this shift TRANSFERS: TOILET - SCORE: 0-UNK TRANSFERS: SHOWER: Activity did not occur on this shift TRANSFERS: SHOWER - SCORE: 0-UNK TRANSFERS: TUB: Activity did not occur on this shift TRANSFERS: TUB - SCORE: 0-UNK LOCOMOTION: WALK: Activity did not occur on this shift LOCOMOTION: WALK - SCORE: 0-UNK LOCOMOTION: WHEELCHAIR: Activity did not occur on this shift LOCOMOTION: WHEELCHAIR - SCORE: 0-UNK COMPREHENSION: COMPREHENSION - STEP 1: Does the patient require help to understand complex and abstract ideas (such as current events, finan paola, discharge planning, medical issues, relationships, etc)? Yes. COMPREHENSION - STEP 2: Does the patient require help to understand questions or statements about basic needs or ideas (such as hunger, thirst, sleep, safety, daily schedule, room location, or discomfort) half or more of the t ana? No. COMPREHENSION - STEP 3: How often does the patient need help to understand directions and conversation about basic needs? 10% - 24% of the time COMPREHENSION - SCORE: 4-MIN EXPRESSION EXPRESSION - STEP 1: Does the patient require help expressing complex and abstract ideas (such as current events, finances , discharge planning, medical issues, relationships, etc)? No. EXPRESSION - STEP 2: Does the patient need extra time, require an assistive device (such as augmentive communication syste m or a communication board), OR does s/he have mild difficulty expressing complex and abstract ideas (including mild dysarthria or mild word-find problems)? Yes. EXPRESSION - SCORE: 6-PORTER SOCIAL INTERACTION: SOCIAL INTERACTION - STEP 1: Does the patient require a helper to interact with others in social and therapeutic situations? No. SOCIAL INTERACTION - STEP 2: Does the patient need extra time in social situations, OR does s/he interact with staff, other patien ts, and family members ONLY in structured environments, OR does s/he require medication for social in teraction? Yes, patient needs extra time SOCIAL INTERACTION - SCORE: 6-PORTER PROBLEM SOLVING: PROBLEM SOLVING - STEP 1: Does the patient need help to solve complex problems such as managing a checking account or confronti ng interpersonal problems? Yes. PROBLEM SOLVING - STEP 2: Does the patient solve basic routine problems half or more of the time? Yes. PROBLEM SOLVING - STEP 3: How often does the patient need help to solve basic routine problems? 10%-24% of the time PROBLEM SOLVING - SCORE: 4-MIN MEMORY: MEMORY - STEP 1: Does the patient need help to remember frequently encountered people, daily routines, and executing r equests? No. MEMORY - STEP 2: Does the patient have slight difficulty recognizing frequently encountered people, daily routines, or executing requests without the need for repetition or using self-initiated or environmental cues to remember? Yes. MEMORY - SCORE: 6-PORTER SIGNATURE PANEL: The following modified sections: Eating - Score, Grooming - Score, Dressing - Upper Body - Score, Oniel ssing - Lower Body - Score, Toileting - Score, Bladder Management - Score, Bowel Management - Score, Transfers: Bed, Chair, Wheelchair - Score, Transfers: Toilet - Score, Transfers: Shower - Score, Ann sfers: Tub - Score, Locomotion: Walk - Score, Locomotion: Wheelchair - Score, Comprehension - Score, Expression - Score, Social Interaction - Score, Problem Solving - Score, Memory - Score were [electro nically] signed by Zoey Santi, [facility] on ThuDec 17 2017 03:20:13 GMT-0500 (Central Daylight Time)
[2017-12-17] MEDS: CARVEDILOL 3.125 MG TAB PO SCH ×2 (05:18→17:22)
[2017-12-17 06:19] LABS: Absolute Lymphocytes (CBC) 0.8 K/uL (0.7-4.9); Absolute Monocytes 0.9 K/uL (0.1-1.3); Absolute Neutrophil 3.9 K/uL (1.8-8.0); Basophils % 0.5 % (0-1.3); Eosinophils % 3.7 % (0-4.4); Hematocrit 24.2 % (39.6-49.0); Lymphocytes % 13.7 % (15.3-44.8); MCH 35.7 pg (27.0-35.0); MPV 8.2 fL (7.6-11.3); Monocytes % 15.6 % (3.3-12.3); RBC Red Blood Cell Count 2.38 M/uL (4.33-5.43)
[2017-12-17 06:28] LABS: Protime INR 1.59
[2017-12-17 06:40] LABS: Potassium 4.3 mEq/L (3.6-5.0)
[2017-12-17 07:31] LABS: Blood Morphology Comment NOT SEEN (NOT SEEN); Platelet Estimate ADEQ
[2017-12-17] MEDS: FUROSEMIDE 40 MG TABLET PO SCH (08:00)
[2017-12-17] MEDS: LISINOPRIL 20 MG TAB PO SCH (08:00)
[2017-12-17] MEDS: PANTOPRAZOLE 40MG TABLET PO SCH (08:08)
[2017-12-17] MEDS: HYDROCODONE/APAP 10/325 TAB PO PRN ×2 (08:08→12:54)
[2017-12-17] MEDS: FE SULF/FA/VIT B COMP & C TAB PO SCH (08:08)
[2017-12-17] MEDS: MAGNESIUM OXIDE 400 MG TAB PO SCH ×2 (08:08→20:14)
[2017-12-17] MEDS: FERROUS SULFATE 325 MG TAB PO SCH (08:08)
[2017-12-17] MEDS ORDERED: WARFARIN SODIUM 2 MG TAB PO ONE (17:00)
--- NOTE | 2017-12-17 17:12 | FAST ---
ENCOUNTER DATE AND TIME: 12/17/2017 08:00 (CDT) NAME OLIVA MARCOS DATE OF : 1930 DATE OF ADMISSION: 12/15/2017 15:31 (CDT) PHONE: AGE: 87 N# [id number] GENDER: Male ENCOUNTER PHYSICIAN: Dr. Sunday Goldberg M.D. ADMISSION DIAGNOSIS: - Orthopaedic Disorders 08 - Unilateral Hip Fracture (08.11) Right hip fracture. EATING: Activity did not occur on this shift EATING - SCORE: 0-UNK GROOMING: Activity did not occur on this shift GROOMING - SCORE: 0-UNK BATHING: Activity did not occur on this shift BATHING - SCORE: 0-UNK DRESSING - UPPER BODY: Activity did not occur on this shift ARTICLES SCORE Total number of steps: 0 DRESSING - UPPER BODY - SCORE: 0-UNK DRESSING - LOWER BODY: Activity did not occur on this shift ARTICLES SCORE Total number of steps: 0 DRESSING - LOWER BODY - SCORE: 0-UNK TOILETING: Activity did not occur on this shift TOILETING - SCORE: 0-UNK BLADDER MANAGEMENT: Activity did not occur on this shift BLADDER MANAGEMENT - SCORE: 7-IND BOWEL MANAGEMENT: Activity did not occur on this shift BOWEL MANAGEMENT - SCORE: 7-IND TRANSFERS: BED, CHAIR, WHEELCHAIR: Activity did not occur on this shift TRANSFERS: BED, CHAIR, WHEELCHAIR - SCORE: 0-UNK TRANSFERS: TOILET: Activity did not occur on this shift TRANSFERS: TOILET - SCORE: 0-UNK TRANSFERS: SHOWER: Activity did not occur on this shift TRANSFERS: SHOWER - SCORE: 0-UNK TRANSFERS: TUB: Activity did not occur on this shift TRANSFERS: TUB - SCORE: 0-UNK LOCOMOTION: WALK: Activity did not occur on this shift LOCOMOTION: WALK - SCORE: 0-UNK LOCOMOTION: WHEELCHAIR: Activity did not occur on this shift LOCOMOTION: WHEELCHAIR - SCORE: 0-UNK LOCOMOTION: STAIRS: Activity did not occur on this shift LOCOMOTION: STAIRS - SCORE: 0-UNK COMPREHENSION: COMPREHENSION - STEP 1: Does the patient require help to understand complex and abstract ideas (such as current events, finan paola, discharge planning, medical issues, relationships, etc)? No. COMPREHENSION - STEP 2: Does the patient need extra time, require an assistive device (such as glasses, hearing aids, or an a ugmentative communication system), OR does s/he have mild difficulty expressing complex and abstract ideas (including mild dysarthria or mild word-finding problems)? No. COMPREHENSION - SCORE: 7-IND EXPRESSION EXPRESSION: TYPE: Non-Vocal EXPRESSION - STEP 1: Does the patient require help expressing complex and abstract ideas (such as current events, finances , discharge planning, medical issues, relationships, etc)? No. EXPRESSION - STEP 2: Does the patient need extra time, require an assistive device (such as augmentive communication syste m or a communication board), OR does s/he have mild difficulty expressing complex and abstract ideas (including mild dysarthria or mild word-find problems)? No. EXPRESSION - SCORE: 7-IND SOCIAL INTERACTION: SOCIAL INTERACTION - STEP 1: Does the patient require a helper to interact with others in social and therapeutic situations? No. SOCIAL INTERACTION - STEP 2: Does the patient need extra time in social situations, OR does s/he interact with staff, other patien ts, and family members ONLY in structured environments, OR does s/he require medication for social in teraction? No. SOCIAL INTERACTION - SCORE: 7-IND PROBLEM SOLVING: PROBLEM SOLVING - STEP 1: Does the patient need help to solve complex problems such as managing a checking account or confronti ng interpersonal problems? No. PROBLEM SOLVING - STEP 2: Does the patient require extra time to make decisions or solve problems, OR does s/he have slight dif ficulty reading, initiating, or self-correcting in unfamiliar situations? No. PROBLEM SOLVING - SCORE: 7-IND MEMORY: MEMORY - STEP 1: Does the patient need help to remember frequently encountered people, daily routines, and executing r equests? No. MEMORY - STEP 2: Does the patient have slight difficulty recognizing frequently encountered people, daily routines, or executing requests without the need for repetition or using self-initiated or environmental cues to remember? No. MEMORY - SCORE: 7-IND SIGNATURE PANEL: The following modified sections: Eating - Score, Grooming - Score, Bathing - Score, Dressing - Upper Body - Score, Dressing - Lower Body - Score, Toileting - Score, Transfers: Bed, Chair, Wheelchair - S core, Transfers: Toilet - Score, Transfers: Shower - Score, Transfers: Tub - Score, Comprehension - S core, Expression - Score, Social Interaction - Score, Problem Solving - Score, Memory - Score were [e lectronically] signed by STEPHANIE Dougherty on ThuDec 17 2017 16:14:42 [facility]-0500 (Count includes the [facility] Time)
[2017-12-17] MEDS: WARFARIN SODIUM 6 MG TAB PO SCH (17:21)
--- NOTE | 2017-12-17 17:46 | FAST ---
ENCOUNTER DATE AND TIME: 12/17/2017 08:00 (CDT) NAME OLIVA MARCOS DATE OF : 1930 DATE OF ADMISSION: 12/15/2017 15:31 (CDT) PHONE: AGE: 87 N# [id number] GENDER: Male ENCOUNTER PHYSICIAN: Dr. Sunday Goldberg M.D. ADMISSION DIAGNOSIS: - Orthopaedic Disorders 08 - Unilateral Hip Fracture (08.11) Right hip fracture. EATING: Activity did not occur on this shift EATING - SCORE: 0-UNK GROOMING: Activity did not occur on this shift GROOMING - SCORE: 0-UNK BATHING: Activity did not occur on this shift BATHING - SCORE: 0-UNK DRESSING - UPPER BODY: Activity did not occur on this shift Patient is not dressing in public clothing ARTICLES SCORE Total number of steps: 0 DRESSING - UPPER BODY - SCORE: 0-UNK DRESSING - LOWER BODY: Activity did not occur on this shift Patient is not dressing in public clothing ARTICLES SCORE Total number of steps: 0 DRESSING - LOWER BODY - SCORE: 0-UNK TOILETING: Activity did not occur on this shift TOILETING - SCORE: 0-UNK BLADDER MANAGEMENT: Activity did not occur on this shift BLADDER MANAGEMENT - SCORE: 7-IND BOWEL MANAGEMENT: Activity did not occur on this shift BOWEL MANAGEMENT - SCORE: 7-IND TRANSFERS: BED, CHAIR, WHEELCHAIR: Activity did not occur on this shift TRANSFERS: BED, CHAIR, WHEELCHAIR - SCORE: 0-UNK TRANSFERS: TOILET: Activity did not occur on this shift TRANSFERS: TOILET - SCORE: 0-UNK TRANSFERS: SHOWER: Activity did not occur on this shift TRANSFERS: SHOWER - SCORE: 0-UNK TRANSFERS: TUB: Activity did not occur on this shift TRANSFERS: TUB - SCORE: 0-UNK LOCOMOTION: WALK: Activity did not occur on this shift LOCOMOTION: WALK - SCORE: 0-UNK LOCOMOTION: WHEELCHAIR: LOCOMOTION: WHEELCHAIR - STEP 1: Does the patient need help to go 150 feet in a wheelchair? Yes. LOCOMOTION: WHEELCHAIR - STEP 2: How much assistance does the patient need from the helper? Only supervision, cuing, or coaxing LOCOMOTION: WHEELCHAIR - SCORE: 5-SUP LOCOMOTION: STAIRS: Activity did not occur on this shift LOCOMOTION: STAIRS - SCORE: 0-UNK COMPREHENSION: COMPREHENSION - SCORE: 0-UNK EXPRESSION EXPRESSION - SCORE: 0-UNK SOCIAL INTERACTION: SOCIAL INTERACTION - SCORE: 0-UNK PROBLEM SOLVING: PROBLEM SOLVING - SCORE: 0-UNK MEMORY: MEMORY - SCORE: 0-UNK SIGNATURE PANEL: The following modified sections: Transfers: Bed, Chair, Wheelchair - Score, Transfers: Toilet - Score , Locomotion: Walk - Score, Locomotion: Wheelchair - Score, Locomotion: Stairs - Score were [electron ically] signed by Terrell Collazo PT on ThuDec 17 2017 16:47:51 T-0500 (Central Daylight Time)
[2017-12-17] MEDS: ENSURE HIGH PROTEIN 237 ML CAN PO SCH (20:14)
[2017-12-17] MEDS: ATORVASTATIN 10 MG TAB PO SCH (20:14)
[2017-12-17] MEDS: DOCUSATE NA/SENNA CONC 1 TAB PO SCH (20:16)
--- NOTE | 2017-12-17 20:34 | R.PN ---
ENCOUNTER DATE AND TIME: 12/17/2017 19:30 (CDT) NAME OLIVA MARCOS DATE OF : 1930 DATE OF ADMISSION: 12/15/2017 15:31 (CDT) Right hip fractureCHIEF COMPLAINT: Right hip fracture SUBJECTIVE: Pt denied any Shortness of Breath. Pt denied any depression. Pushed wheelchair 250' with with standby assistance. VITAL SIGNS Temperature: 98.9 F SBP/DBP: 110/55 Pulse: 80 Resp: 16 MEDICATION ALLERGIES: Penicillin ENVIRONMENTAL ALLERGIES: None Known - Substance Allergies None Known - Other Allergies None Known NURSING: - Shower allowing shower - Skin care per protocol PRECAUTIONS: - Weight Bearing Precaution TTWB right LE - Fall Precaution Bed and chair alarm ACTIVITIES OOB only with supervision THERAPIES: - Occupational Therapy Evaluate and Treat. - Physical Therapy Evaluate and Treat. PHYSICAL EXAM - Gen Alert and awake Lying in bed No apparent distress Oriented to: person, time, and place - Vital Signs Temperature: 98.9 F SBP/DBP: 110/55 Pulse: 80 Resp: 16 - Skin No skin breakdown. Normacephalic - Eyes No abnormalities - ENMT No abnormalities - Neck No abnormalities - CVS RRR - Chest Clear - Abd Soft - GI Non distended Deferred - No abnormalities - Ext No significant edema - MSK Unremarkable - Neuro No focal deficits - Psych No abnormalities ASSESSMENT: Pt. is a 87 yo Right-handed white male.On 12/10/2017 he was admitted to [facility] with diagnosis Right hip fracture.His impairment category is Orthopaedic Disorders 08 - Unilater al Hip Fracture (08.11).Pre-morbidly, Pt. was independent/mod-I in Transfers Control, Communication, Social Cognition, Self-Care, Locomotion, and Sphincter Control; and he had good Sphincter Control.Cur rently, he has deficits of Safety Awareness, Transfers Control, Balance, Locomotion, Endurance, and S elf-Care.Pt. is now referred to [facility] for acute in-patient rehabilitation in order to maximize patient's functional independence in activities of daily living, strength, ROM, and mobility.- Rehab Goal Patient has realistic goal of being discharged at assistance level 6-Soren to reside at Home with Fam soumya/Relatives. MDM/PLAN: - Anterior Hip Precaution No abduction No active extension No adduction across midline No external rotation No hip flexion >90 degrees No internal rotation - Physical Therapy Decreased range of motion - to improve, our physical therapists will perform initial evaluation of p t's status upon admission and devise an individualized program for increasing patient's Range of Marciano on. Gait dysfunction - to improve, our physical therapists will perform initial evaluation of pt's statu s upon admission and devise an individualized program for Gait Training, and Wheel Chair mobility Inability to transfer - to improve, our physical therapists will perform initial evaluation of pt's status upon admission and devise an individualized program for Bed mobility Need for home safety evaluation - to improve, our physical therapists will perform initial evaluatio n of pt's status upon admission and devise an individualized program for Home Evaluation Need in caregiver upon discharge - to improve, our physical therapists will perform initial evaluati on of pt's status upon admission and devise an individualized program for Caregiver Training New precaution - to improve, our physical therapists will perform initial evaluation of pt's status upon admission and devise an individualized program for Patient precaution education Edema - to improve, our physical therapists will perform initial evaluation of pt's status upon admis charlie and devise an individualized program for Elevation Training, and Lymphedema Therapy Poor balance - to improve, our physical therapists will perform initial evaluation of pt's status up on admission and devise an individualized program for Balance Training Poor endurance - to improve, our physical therapists will perform initial evaluation of pt's status upon admission and devise an individualized program for Endurance Training Weakness - to improve, our physical therapists will perform initial evaluation of pt's status upon a dmission and devise an individualized program for Aquatic Therapy, Neuromuscular Reeducation, and Str engthening Achieving independence - to improve, our physical therapists will perform initial evaluation of pt's status upon admission and devise an individualized program for Community Reintegration Activities - Diet - Liquid Texture Continue Regular - Tube Feed Continue N/A - Diet Type Continue Regular - Posterior Hip Precaution No adduction across midline No external rotation No hip flexion >90 degrees No internal rotation No wheel chair propulsion - Occupational Therapy ADL deficits - to improve, our occupation therapists will perform initial evaluation of pt's status upon admission and devise an individualized program for Bathing, Bed mobility, Community Reintegratio n, Cooking, Dressing, Eating, Fine Motor Skills, Grooming, Homemaking, Kitchen Mobility, Laundry, Pat ient Education, Safety Awareness, Splinting - Positioning, Transfers(Toilet, Tub, Shower), and Wheel Chair Management Need for certified social workers in health care - to improve, our occupation therapists will perform initial evaluation of pt's status upon admission and devise an individualized program for Caregiver Training Weakness - to improve, our occupation therapists will perform initial evaluation of pt's status upon admission and devise an individualized program for Aquatic Therapy, Balance, Endurance, UE ROM, and UE strengthening - Weight Bearing Precaution TTWB right LE - Fall Precaution Bed and chair alarm - Skin care per protocol - Diet - Solid Texture Continue Regular - Shower allowing shower FUNCTIONAL STATUS: UPDATED AT WEEKLY TEAM CONFERENCE - Bladder Same accident frequency: 7-Ind - No accidents in the past 7 days - Bowel Same accident frequency: 7-Ind - No accidents in the past 7 days - Walking Same score based on distance walked: 1(<=50ft) - Wheelchair Same score based on distance traveled: 0(N/A) FUNCTIONAL STATUS: - Self-Care A. Eating Ind B. Grooming Soren C. Bathing Ind D. Dressing - Upper Soren E. Dressing - Lower Reza F. Toileting maxA - Sphincter Control G: Bladder control Dep H: Bowel control Ind - Transfers Control I. Bed/Chair/Wheelchair maxA J. Toilet maxA K. Tub/Shower ADNO - Locomotion L. Walk/Wheelchair (C) maxA L. Walk/Wheelchair (W) Ind M. Stairs ADNO - Communication N. Comprehension (B) Soren O. Expression (B) Soren - Social Cognition P. Social Interaction Soren Q. Problem Solving Soren R. Memory Soren - Endurance Fair - Balance Fair - Safety Awareness Fair CURRENT FUNC. DEFICITS: Safety Awareness, Transfers Control, Balance, Locomotion, Endurance, and Self-Care SIGNATURE PANEL: (CDT)
[2017-12-18] MEDS: HYDROCODONE/APAP 10/325 TAB PO PRN ×3 (02:46→21:08)
--- NOTE | 2017-12-18 03:11 | FAST ---
SHIFT START DATE/TIME: 12/17/2017 19:00 (CDT) SHIFT END DATE/TIME: 12/18/2017 07:00 (CDT) NAME OLIVA MARCOS DATE OF : 1930 DATE OF ADMISSION: 12/15/2017 15:31 (CDT) PHONE: AGE: 87 N# [id number] GENDER: Male ENCOUNTER PHYSICIAN: Dr. Sunday Goldberg M.D. ADMISSION DIAGNOSIS: - Orthopaedic Disorders 08 - Unilateral Hip Fracture (08.11) Right hip fracture. EATING: Activity did not occur on this shift EATING - SCORE: 0-UNK GROOMING: Activity did not occur on this shift GROOMING - SCORE: 0-UNK BATHING: Activity did not occur on this shift BATHING - SCORE: 0-UNK DRESSING - UPPER BODY: Patient is not dressing in public clothing ARTICLES SCORE Total number of steps: 0 DRESSING - UPPER BODY - SCORE: 0-UNK DRESSING - LOWER BODY: Patient is not dressing in public clothing ARTICLES SCORE Total number of steps: 0 DRESSING - LOWER BODY - SCORE: 0-UNK TOILETING: TOILETING - STEP 1: Does the patient require assistance with toileting? Yes. TOILETING - STEP 2: Does the patient require the assistance of a helper? Yes. TOILETING - STEP 3: How much assistance does the patient require from the helper? Hands-on assistance from the helper TOILETING - STEP 4: Of the 3 tasks: 1) Adjusting clothing prior to use, 2) Cleansing of perineal area, 3) Adjusting clot mackenzie after use; How many tasks does the patient perform WITHOUT assistance of the helper? Three tasks with steadying assistance from the helper TOILETING - SCORE: 4-MIN BLADDER MANAGEMENT: BLADDER MANAGEMENT - STEP 1: Does the patient control the bladder completely and intentionally without equipment or devices or med ications, and is always continent? No. BLADDER MANAGEMENT - STEP 2: Does the patient require the assistance of a helper? Yes. BLADDER MANAGEMENT - STEP 3: How much assistance does the patient require from the helper? Only set-up of equipment - such as plac ing it within reach of the patient or emptying a device - to maintain either satisfactory voiding pat tern or managing an external device, such as an absorbent pad, ileal device, or catheter BLADDER MANAGEMENT - SCORE: 5-SUP BOWEL MANAGEMENT: BOWEL MANAGEMENT - STEP 1: Does the patient control bowels completely and intentionally without equipment devices or medications AND is always continent? No. BOWEL MANAGEMENT - STEP 2: Does the patient require the assistance of a helper? Yes. BOWEL MANAGEMENT - STEP 3: How much assistance does the patient require from the helper? Patient requires moderate assistance - performs 50% to 74% of bowel management tasks BOWEL MANAGEMENT - SCORE: 3-MOD TRANSFERS: BED, CHAIR, WHEELCHAIR: TRANSFERS: BED, CHAIR, WHEELCHAIR - STEP 1: Does the patient require assistance with bed, chair, or wheelchair transfers? Yes. TRANSFERS: BED, CHAIR, WHEELCHAIR - STEP 2: Does the patient require the assistance of a helper? Yes. TRANSFERS: BED, CHAIR, WHEELCHAIR - STEP 3: How much assistance does the patient require from the helper? Lifting of the legs TRANSFERS: BED, CHAIR, WHEELCHAIR - STEP 4: How many legs does the patient require the helper to lift? both legs TRANSFERS: BED, CHAIR, WHEELCHAIR - SCORE: 3-MOD TRANSFERS: TOILET: TRANSFERS: TOILET - STEP 1: Does the patient require assistance with toilet transfers? Yes. TRANSFERS: TOILET - STEP 2: Does the patient require the assistance of a helper? Yes. TRANSFERS: TOILET - STEP 3: How much assistance does the patient require from the helper? Patient performs half or more of the tr ansferring tasks TRANSFERS: TOILET - STEP 4: Does the patient need only incidental help such as contact guard or steadying during toilet transfer? No. Patient needs more than incidental help TRANSFERS: TOILET - SCORE: 3-MOD TRANSFERS: SHOWER: Activity did not occur on this shift TRANSFERS: SHOWER - SCORE: 0-UNK TRANSFERS: TUB: Activity did not occur on this shift TRANSFERS: TUB - SCORE: 0-UNK LOCOMOTION: WALK: Activity did not occur on this shift LOCOMOTION: WALK - SCORE: 0-UNK LOCOMOTION: WHEELCHAIR: Activity did not occur on this shift LOCOMOTION: WHEELCHAIR - SCORE: 0-UNK COMPREHENSION: COMPREHENSION - STEP 1: Does the patient require help to understand complex and abstract ideas (such as current events, finan paola, discharge planning, medical issues, relationships, etc)? Yes. COMPREHENSION - STEP 2: Does the patient require help to understand questions or statements about basic needs or ideas (such as hunger, thirst, sleep, safety, daily schedule, room location, or discomfort) half or more of the t ana? No. COMPREHENSION - STEP 3: How often does the patient need help to understand directions and conversation about basic needs? Les s than 10% of the time COMPREHENSION - SCORE: 5-SUP EXPRESSION EXPRESSION - STEP 1: Does the patient require help expressing complex and abstract ideas (such as current events, finances , discharge planning, medical issues, relationships, etc)? No. EXPRESSION - STEP 2: Does the patient need extra time, require an assistive device (such as augmentive communication syste m or a communication board), OR does s/he have mild difficulty expressing complex and abstract ideas (including mild dysarthria or mild word-find problems)? No. EXPRESSION - SCORE: 7-IND SOCIAL INTERACTION: SOCIAL INTERACTION - STEP 1: Does the patient require a helper to interact with others in social and therapeutic situations? No. SOCIAL INTERACTION - STEP 2: Does the patient need extra time in social situations, OR does s/he interact with staff, other patien ts, and family members ONLY in structured environments, OR does s/he require medication for social in teraction? No. SOCIAL INTERACTION - SCORE: 7-IND PROBLEM SOLVING: PROBLEM SOLVING - STEP 1: Does the patient need help to solve complex problems such as managing a checking account or confronti ng interpersonal problems? No. PROBLEM SOLVING - STEP 2: Does the patient require extra time to make decisions or solve problems, OR does s/he have slight dif ficulty reading, initiating, or self-correcting in unfamiliar situations? Yes, patient needs extra ti me. PROBLEM SOLVING - SCORE: 6-PORTER MEMORY: MEMORY - STEP 1: Does the patient need help to remember frequently encountered people, daily routines, and executing r equests? No. MEMORY - STEP 2: Does the patient have slight difficulty recognizing frequently encountered people, daily routines, or executing requests without the need for repetition or using self-initiated or environmental cues to remember? No. MEMORY - SCORE: 7-IND SIGNATURE PANEL: The following modified sections: Eating - Score, Grooming - Score, Dressing - Upper Body - Score, Oniel ssing - Lower Body - Score, Toileting - Score, Bladder Management - Score, Bowel Management - Score, Transfers: Bed, Chair, Wheelchair - Score, Transfers: Toilet - Score, Transfers: Shower - Score, Ann sfers: Tub - Score, Locomotion: Walk - Score, Locomotion: Wheelchair - Score, Comprehension - Score, Expression - Score, Social Interaction - Score, Problem Solving - Score, Memory - Score were [electro nically] signed by Zoey Hancock CNA on ThuDec 18 2017 02:13:12 GMT-0500 (Central Daylight Time)
[2017-12-18] MEDS: CARVEDILOL 3.125 MG TAB PO SCH ×2 (05:28→17:09)
[2017-12-18 07:22] LABS: Protime INR 1.91
[2017-12-18] MEDS: LISINOPRIL 20 MG TAB PO SCH (08:00)
[2017-12-18] MEDS: PANTOPRAZOLE 40MG TABLET PO SCH (08:30)
[2017-12-18] MEDS: FUROSEMIDE 40 MG TABLET PO SCH (08:33)
[2017-12-18] MEDS: FE SULF/FA/VIT B COMP & C TAB PO SCH (08:33)
[2017-12-18] MEDS: ENSURE HIGH PROTEIN 237 ML CAN PO SCH ×2 (08:33→21:02)
[2017-12-18] MEDS: MAGNESIUM OXIDE 400 MG TAB PO SCH ×2 (08:33→21:01)
[2017-12-18] MEDS: FERROUS SULFATE 325 MG TAB PO SCH (08:33)
--- NOTE | 2017-12-18 09:53 | P.RH.PN ---
Estimated Length of Stay: 11 Expected Discharge Date: 12/25/17 Discharge Disposition Plan: Home Family Support: Yes Vital Signs: Last Vital Signs Temp 97.6 F 12/18/17 08:00 Pulse 77 12/18/17 08:33 Resp 16 12/18/17 08:00 BP 106/59 L 12/18/17 08:33 Pulse Ox 96 12/18/17 08:00 Laboratory: Laboratory Last Values WBC 5.9 K/uL (4.3-10.9) 12/17/17 05:53 RBC 2.38 M/uL (4.33-5.43) L 12/17/17 05:53 Hgb 8.5 g/dL (13.6-17.9) L 12/17/17 05:53 Hct 24.2 % (39.6-49.0) L 12/17/17 05:53 MCV 102.0 fL (80-100) H 12/17/17 05:53 MCH 35.7 pg (27.0-35.0) H 12/17/17 05:53 MCHC 35.0 g/dL (32.0-36.0) 12/17/17 05:53 RDW 13.2 % (12.1-15.2) 12/17/17 05:53 Plt Count 282 K/uL (152-406) 12/17/17 05:53 MPV 8.2 fL (7.6-11.3) 12/17/17 05:53 Neutrophils % 66.5 % (41.7-73.7) 12/17/17 05:53 Lymphocytes % 13.7 % (15.3-44.8) L 12/17/17 05:53 Monocytes % 15.6 % (3.3-12.3) H 12/17/17 05:53 Eosinophils % 3.7 % (0-4.4) 12/17/17 05:53 Basophils % 0.5 % (0-1.3) 12/17/17 05:53 Absolute Neutrophils 3.9 K/uL (1.8-8.0) 12/17/17 05:53 Segmented Neutrophils 69 % (40-80) 12/17/17 05:53 Absolute Lymphocytes 0.8 K/uL (0.7-4.9) 12/17/17 05:53 Lymphocytes 19 % (15-42) 12/17/17 05:53 Monocytes 10 % (0-10) 12/17/17 05:53 Absolute Monocytes 0.9 K/uL (0.1-1.3) 12/17/17 05:53 Eosinophils 2 % (0-3) 12/17/17 05:53 Absolute Eosinophils 0.2 K/uL (0-0.5) 12/17/17 05:53 Absolute Basophils 0.0 K/uL (0-0.5) 12/17/17 05:53 Morphology Comment Not seen (NOT SEEN) 12/17/17 05:53 PT 22.7 SECONDS (9.5-12.5) H 12/18/17 06:16 INR 1.91 12/18/17 06:16 Sodium 131 mEq/L (135-145) L 12/17/17 05:55 Potassium 4.3 mEq/L (3.6-5.0) 12/17/17 05:55 Chloride 93 mEq/L (101-111) L 12/17/17 05:55 Carbon Dioxide 32 mEq/L (21-31) H 12/17/17 05:55 BUN 40 mg/dL (6-20) H 12/17/17 05:55 Creatinine 1.55 mg/dL (0.61-1.24) H 12/17/17 05:55 Estimated GFR 43 mL/min (=/>90) L 12/17/17 05:55 Glucose 113 mg/dL (65-120) 12/17/17 05:55 POC Glucose 138 mg/dl (65-120) H 12/16/17 16:20 Calcium 8.8 mg/dL (8.5-10.5) 12/17/17 05:55 Magnesium 2.3 mg/dL (1.8-2.5) 12/16/17 06:06 Albumin 3.0 g/dL (3.2-5.5) L 12/16/17 06:06 Prealbumin 13.3 mg/dl (18-38) L 12/16/17 06:06 Urine Color Yellow 12/15/17 17:30 Urine Appearance Clear 12/15/17 17:30 Urine pH 7.0 (5.0-7.0) 12/15/17 17:30 Ur Specific [place] <=1.005 (1.005-1.030) 12/15/17 17:30 Urine Ketones Negative (NEG) 12/15/17 17:30 Urine Blood Negative (NEG) 12/15/17 17:30 Urine Nitrite Negative (NEG) 12/15/17 17:30 Urine Bilirubin Negative (NEG) 12/15/17 17:30 Urine Urobilinogen 1.0 mg/dL (0.2-1.0) 12/15/17 17:30 Ur Leukocyte Esterase Negative (NEG) 12/15/17 17:30 Urine RBC None seen /HPF (NONE SEEN) 12/15/17 17:30 Urine WBC None seen /HPF (<5) 12/15/17 17:30 Ur Squamous Epith Cells <5 /HPF (NONE SEEN) 12/15/17 17:30 Urine Bacteria None seen /HPF (NONE SEEN) 12/15/17 17:30 Urine Culture Reflexed Not needed 12/15/17 17:30 Urine Glucose Negative (NEG) 12/15/17 17:30 Urine Total Protein Negative (NEG) 12/15/17 17:30 Weight: 173 lb 8 oz Wound Present: No Closed Surgical Incision Present: Yes Negative Pressure Wound Therapy Present: No Physician Update: Hgb is low at 8.5. Patient is taking hemocyte plus and ferrous sulfate. Also on high protein supplement. He is making slow progress with physical therapy due to upper body weakness and easy fatigue. Will work on upper body strength. He will likely still require 24 hour care at discharge at home due ti his weight bearing status and current level of functioning. Will reevaluate his progress in the next week. He will require a wheelchair at home due to his weigth bearing status, poor balance, decreased endurance and high fall risk. His is able to manipulate a standard wheelchair with standby assistance. Therefore, a wheelchair will be recommended at discharge home. Pain Issues: on Lyons 10/325mg Q4 PRN Functional Improvement: pt is demonstrating improvement. pt continues to rapidly fatigue and requires assist for safety during functional mobility. Skilled PT services continue to be necessary. Functional Improvement Occupational Therapy: PATIENT HAS GREAT REHAB POTENTIAL AND IS VERY MOTIVATED TO PARTICIPATE IN THERAPY. Summary: Patient's care plan and fci goals have been reviewed and revised as necessary. Please see the Rehabilitation Signature page for all necessary signatures.
--- NOTE | 2017-12-18 14:21 | RAD REPORT ---
EXAM DESCRIPTION: RAD - Barium Swallow Modified - 12/18/2017 2:10 pm CLINICAL HISTORY: Dysphagia COMPARISON: None. TECHNIQUE: The patient was given liquid, semi-solid and solid forms of barium. Lateral view fluorosc opic imaging was performed in conjunction with [facility]. FINDINGS: LARYNGEAL PENETRATION CLEARED ASPIRATION COUGH WITH THIN LIQUIDS PHARYNGEAL RESIDUE - VALLECULAR PYRIFORM POSTERIOR WALL REDUCED OPENING OF THE UES BACK FLOW INTO THE PHARYNX SIGNIFICANT ESPHAGEAL STASIS PILL REMAINED IN ESPHAGUS AFTER SEVERAL SWALLOWS
--- NOTE | 2017-12-18 16:13 | FAST ---
ENCOUNTER DATE AND TIME: 12/18/2017 08:00 (CDT) NAME OLIVA MARCOS DATE OF : 1930 DATE OF ADMISSION: 12/15/2017 15:31 (CDT) PHONE: AGE: 87 N# [id number] GENDER: Male ENCOUNTER PHYSICIAN: Dr. Sunday Goldberg M.D. ADMISSION DIAGNOSIS: - Orthopaedic Disorders 08 - Unilateral Hip Fracture (08.11) Right hip fracture. EATING: Activity did not occur on this shift EATING - SCORE: 0-UNK GROOMING: Activity did not occur on this shift GROOMING - SCORE: 0-UNK BATHING: Activity did not occur on this shift BATHING - SCORE: 0-UNK DRESSING - UPPER BODY: Activity did not occur on this shift Patient is not dressing in public clothing ARTICLES SCORE Total number of steps: 0 DRESSING - UPPER BODY - SCORE: 0-UNK DRESSING - LOWER BODY: Activity did not occur on this shift Patient is not dressing in public clothing ARTICLES SCORE Total number of steps: 0 DRESSING - LOWER BODY - SCORE: 0-UNK TOILETING: Activity did not occur on this shift TOILETING - SCORE: 0-UNK BLADDER MANAGEMENT: Activity did not occur on this shift BLADDER MANAGEMENT - SCORE: 7-IND BOWEL MANAGEMENT: Activity did not occur on this shift BOWEL MANAGEMENT - SCORE: 7-IND TRANSFERS: BED, CHAIR, WHEELCHAIR: Activity did not occur on this shift TRANSFERS: BED, CHAIR, WHEELCHAIR - SCORE: 0-UNK TRANSFERS: TOILET: Activity did not occur on this shift TRANSFERS: TOILET - SCORE: 0-UNK TRANSFERS: SHOWER: Activity did not occur on this shift TRANSFERS: SHOWER - SCORE: 0-UNK TRANSFERS: TUB: Activity did not occur on this shift TRANSFERS: TUB - SCORE: 0-UNK LOCOMOTION: WALK: Activity did not occur on this shift LOCOMOTION: WALK - SCORE: 0-UNK LOCOMOTION: WHEELCHAIR: Activity did not occur on this shift LOCOMOTION: WHEELCHAIR - SCORE: 0-UNK LOCOMOTION: STAIRS: Activity did not occur on this shift LOCOMOTION: STAIRS - SCORE: 0-UNK COMPREHENSION: COMPREHENSION - STEP 1: Does the patient require help to understand complex and abstract ideas (such as current events, finan paola, discharge planning, medical issues, relationships, etc)? Yes. COMPREHENSION - STEP 2: Does the patient require help to understand questions or statements about basic needs or ideas (such as hunger, thirst, sleep, safety, daily schedule, room location, or discomfort) half or more of the t ana? No. COMPREHENSION - STEP 3: How often does the patient need help to understand directions and conversation about basic needs? 10% - 24% of the time COMPREHENSION - SCORE: 4-MIN EXPRESSION EXPRESSION - STEP 1: Does the patient require help expressing complex and abstract ideas (such as current events, finances , discharge planning, medical issues, relationships, etc)? No. EXPRESSION - STEP 2: Does the patient need extra time, require an assistive device (such as augmentive communication syste m or a communication board), OR does s/he have mild difficulty expressing complex and abstract ideas (including mild dysarthria or mild word-find problems)? Yes. EXPRESSION - SCORE: 6-PORTER SOCIAL INTERACTION: SOCIAL INTERACTION - STEP 1: Does the patient require a helper to interact with others in social and therapeutic situations? No. SOCIAL INTERACTION - STEP 2: Does the patient need extra time in social situations, OR does s/he interact with staff, other patien ts, and family members ONLY in structured environments, OR does s/he require medication for social in teraction? Yes, patient needs extra time SOCIAL INTERACTION - SCORE: 6-PORTER PROBLEM SOLVING: PROBLEM SOLVING - STEP 1: Does the patient need help to solve complex problems such as managing a checking account or confronti ng interpersonal problems? Yes. PROBLEM SOLVING - STEP 2: Does the patient solve basic routine problems half or more of the time? Yes. PROBLEM SOLVING - STEP 3: How often does the patient need help to solve basic routine problems? 10%-24% of the time PROBLEM SOLVING - SCORE: 4-MIN MEMORY: MEMORY - STEP 1: Does the patient need help to remember frequently encountered people, daily routines, and executing r equests? Yes. MEMORY - STEP 2: How often does the patient need help to remember frequently encountered people, daily routines, and e xecuting requests? 10% - 24% of the time MEMORY - SCORE: 4-MIN SIGNATURE PANEL: The following modified sections: Comprehension - Score, Expression - Score, Social Interaction - Scor e, Problem Solving - Score, Memory - Score were [electronically] signed by ST Jane thu 15:15:57 T-0500 (Central Daylight Time)
--- NOTE | 2017-12-18 16:27 | FAST ---
ENCOUNTER DATE AND TIME: 12/18/2017 08:00 (CDT) NAME OLIVA MARCOS DATE OF : 1930 DATE OF ADMISSION: 12/15/2017 15:31 (CDT) PHONE: AGE: 87 N# [id number] GENDER: Male ENCOUNTER PHYSICIAN: Dr. Sunday Goldberg M.D. ADMISSION DIAGNOSIS: - Orthopaedic Disorders 08 - Unilateral Hip Fracture (08.11) Right hip fracture. EATING: Activity did not occur on this shift EATING - SCORE: 0-UNK GROOMING: Activity did not occur on this shift GROOMING - SCORE: 0-UNK BATHING: Activity did not occur on this shift BATHING - SCORE: 0-UNK DRESSING - UPPER BODY: Activity did not occur on this shift Patient is not dressing in public clothing ARTICLES SCORE Total number of steps: 0 DRESSING - UPPER BODY - SCORE: 0-UNK DRESSING - LOWER BODY: Activity did not occur on this shift Patient is not dressing in public clothing ARTICLES SCORE Total number of steps: 0 DRESSING - LOWER BODY - SCORE: 0-UNK TOILETING: Activity did not occur on this shift TOILETING - SCORE: 0-UNK BLADDER MANAGEMENT: Activity did not occur on this shift BLADDER MANAGEMENT - SCORE: 7-IND BOWEL MANAGEMENT: Activity did not occur on this shift BOWEL MANAGEMENT - SCORE: 7-IND TRANSFERS: BED, CHAIR, WHEELCHAIR: TRANSFERS: BED, CHAIR, WHEELCHAIR - STEP 1: Does the patient require assistance with bed, chair, or wheelchair transfers? Yes. TRANSFERS: BED, CHAIR, WHEELCHAIR - STEP 2: Does the patient require the assistance of a helper? Yes. TRANSFERS: BED, CHAIR, WHEELCHAIR - STEP 3: How much assistance does the patient require from the helper? Lifting of the patient TRANSFERS: BED, CHAIR, WHEELCHAIR - STEP 4: Does the helper lift the patient ONLY up? ONLY down? Up AND Down? ONLY up. TRANSFERS: BED, CHAIR, WHEELCHAIR - SCORE: 3-MOD TRANSFERS: TOILET: Activity did not occur on this shift TRANSFERS: TOILET - SCORE: 0-UNK TRANSFERS: SHOWER: Activity did not occur on this shift TRANSFERS: SHOWER - SCORE: 0-UNK TRANSFERS: TUB: Activity did not occur on this shift TRANSFERS: TUB - SCORE: 0-UNK LOCOMOTION: WALK: Activity did not occur on this shift LOCOMOTION: WALK - SCORE: 0-UNK LOCOMOTION: WHEELCHAIR: LOCOMOTION: WHEELCHAIR - STEP 1: Does the patient need help to go 150 feet in a wheelchair? Yes. LOCOMOTION: WHEELCHAIR - STEP 2: How much assistance does the patient need from the helper? Only supervision, cuing, or coaxing LOCOMOTION: WHEELCHAIR - SCORE: 5-SUP LOCOMOTION: STAIRS: Activity did not occur on this shift LOCOMOTION: STAIRS - SCORE: 0-UNK COMPREHENSION: COMPREHENSION - SCORE: 0-UNK EXPRESSION EXPRESSION - SCORE: 0-UNK SOCIAL INTERACTION: SOCIAL INTERACTION - SCORE: 0-UNK PROBLEM SOLVING: PROBLEM SOLVING - SCORE: 0-UNK MEMORY: MEMORY - SCORE: 0-UNK SIGNATURE PANEL: The following modified sections: Transfers: Bed, Chair, Wheelchair - Score, Transfers: Toilet - Score , Locomotion: Walk - Score, Locomotion: Wheelchair - Score, Locomotion: Stairs - Score were [electron icakerrie] signed by Terrell Collazo PT on ThuDec 18 2017 15:29:33 T-0500 (Central Daylight Time)
--- NOTE | 2017-12-18 16:51 | FAST ---
ENCOUNTER DATE AND TIME: 12/18/2017 08:00 (CDT) NAME OLIVA MARCOS DATE OF : 1930 DATE OF ADMISSION: 12/15/2017 15:31 (CDT) PHONE: AGE: 87 N# [id number] GENDER: Male ENCOUNTER PHYSICIAN: Dr. Sunday Goldberg M.D. ADMISSION DIAGNOSIS: - Orthopaedic Disorders 08 - Unilateral Hip Fracture (08.11) Right hip fracture. EATING: Activity did not occur on this shift EATING - SCORE: 0-UNK GROOMING: Wash, rinse, and dry face Wash, rinse, and dry hands GROOMING - STEP 1: Does the patient require assistance when grooming? No. GROOMING - SCORE: 7-IND BATHING: Abdomen Buttocks Chest Left arm Left lower leg and foot Left upper leg Perineal area Right arm Right lower leg and foot Right upper leg BATHING - STEP 1: Does the patient require assistance when bathing? Yes. BATHING - STEP 2: Does the patient require the assistance of a helper? Yes. BATHING - STEP 3: How much assistance does the patient require from the helper? Only incidental help such as placement of a wash cloth in his/her hand a few times as s/he bathes OR help to bathe just one or two areas of the body BATHING - SCORE: 4-MIN DRESSING - UPPER BODY: T-shirt/pullover shirt (four steps) ARTICLES SCORE Total number of steps: 4 DRESSING - UPPER BODY - STEP 1: Does the patient require help when dressing above the waist? No. DRESSING - UPPER BODY - SCORE: 7-IND DRESSING - LOWER BODY: Sock - Left foot (one step) Sock - Right foot (one step) Underwear (three steps) ARTICLES SCORE Total number of steps: 5 DRESSING - LOWER BODY - STEP 1: Does the patient require help when dressing below the waist? Yes. DRESSING - LOWER BODY - STEP 2: Does the patient require the assistance of a helper? Yes. DRESSING - LOWER BODY - STEP 3: Does the helper touch the patient while dressing? Yes. DRESSING - LOWER BODY - STEP 4: How many of the total steps does the patient complete on his/her own? 2 DRESSING - LOWER BODY - STEP 5: Does patient require total assistance for dressing below the waist such as the helper holding clothin g and performing basically all the activities? No. DRESSING - LOWER BODY - SCORE: 2-MAX TOILETING: Activity did not occur on this shift TOILETING - SCORE: 0-UNK BLADDER MANAGEMENT: Activity did not occur on this shift BLADDER MANAGEMENT - SCORE: 7-IND BOWEL MANAGEMENT: Activity did not occur on this shift BOWEL MANAGEMENT - SCORE: 7-IND TRANSFERS: BED, CHAIR, WHEELCHAIR: Activity did not occur on this shift TRANSFERS: BED, CHAIR, WHEELCHAIR - SCORE: 0-UNK TRANSFERS: TOILET: Activity did not occur on this shift TRANSFERS: TOILET - SCORE: 0-UNK TRANSFERS: SHOWER: Activity did not occur on this shift TRANSFERS: SHOWER - SCORE: 0-UNK TRANSFERS: TUB: TRANSFERS: TUB - STEP 1: Does the patient require assistance with tub transfers? Yes. TRANSFERS: TUB - STEP 2: Does the patient require the assistance of a helper? Yes. TRANSFERS: TUB - STEP 3: How much assistance does the patient require from the helper? More than incidental help TRANSFERS: TUB - STEP 4: How much more help does the patient require from the helper? [place] lifts patient up out of the wheel chair AND down onto the tub bench TRANSFERS: TUB - SCORE: 2-MAX LOCOMOTION: WALK: Activity did not occur on this shift LOCOMOTION: WALK - SCORE: 0-UNK LOCOMOTION: WHEELCHAIR: Activity did not occur on this shift LOCOMOTION: WHEELCHAIR - SCORE: 0-UNK LOCOMOTION: STAIRS: Activity did not occur on this shift LOCOMOTION: STAIRS - SCORE: 0-UNK COMPREHENSION: COMPREHENSION - STEP 1: Does the patient require help to understand complex and abstract ideas (such as current events, finan paola, discharge planning, medical issues, relationships, etc)? No. COMPREHENSION - STEP 2: Does the patient need extra time, require an assistive device (such as glasses, hearing aids, or an a ugmentative communication system), OR does s/he have mild difficulty expressing complex and abstract ideas (including mild dysarthria or mild word-finding problems)? Yes. COMPREHENSION - SCORE: 6-PORTER EXPRESSION EXPRESSION: TYPE: Non-Vocal EXPRESSION - STEP 1: Does the patient require help expressing complex and abstract ideas (such as current events, finances , discharge planning, medical issues, relationships, etc)? No. EXPRESSION - STEP 2: Does the patient need extra time, require an assistive device (such as augmentive communication syste m or a communication board), OR does s/he have mild difficulty expressing complex and abstract ideas (including mild dysarthria or mild word-find problems)? No. EXPRESSION - SCORE: 7-IND SOCIAL INTERACTION: SOCIAL INTERACTION - STEP 1: Does the patient require a helper to interact with others in social and therapeutic situations? No. SOCIAL INTERACTION - STEP 2: Does the patient need extra time in social situations, OR does s/he interact with staff, other patien ts, and family members ONLY in structured environments, OR does s/he require medication for social in teraction? No. SOCIAL INTERACTION - SCORE: 7-IND PROBLEM SOLVING: PROBLEM SOLVING - STEP 1: Does the patient need help to solve complex problems such as managing a checking account or confronti ng interpersonal problems? Yes. PROBLEM SOLVING - STEP 2: Does the patient solve basic routine problems half or more of the time? Yes. PROBLEM SOLVING - STEP 3: How often does the patient need help to solve basic routine problems? Less than 10% of the time PROBLEM SOLVING - SCORE: 5-SUP MEMORY: MEMORY - STEP 1: Does the patient need help to remember frequently encountered people, daily routines, and executing r equests? Yes. MEMORY - STEP 2: How often does the patient need help to remember frequently encountered people, daily routines, and e xecuting requests? Less than 10% of the time MEMORY - SCORE: 5-SUP SIGNATURE PANEL: The following modified sections: Eating - Score, Grooming - Score, Bathing - Score, Dressing - Upper Body - Score, Dressing - Lower Body - Score, Toileting - Score, Transfers: Bed, Chair, Wheelchair - S core, Transfers: Toilet - Score, Transfers: Shower - Score, Transfers: Tub - Score, Comprehension - S core, Expression - Score, Social Interaction - Score, Problem Solving - Score, Memory - Score were [e lectronically] signed by STEPHANIE Dougherty on ThuDec 18 2017 15:53:23 T-0500 ([facility] Time)
[2017-12-18] MEDS: WARFARIN SODIUM 6 MG TAB PO SCH (17:16)
--- NOTE | 2017-12-18 20:06 | RAD REPORT ---
EXAM DESCRIPTION: RAD - Chest Pa And Lat (2 Views) - 12/18/2017 7:46 pm CLINICAL HISTORY: Shortness of breath COMPARISON: 12/12/2017 FINDINGS: The lungs are hyperexpanded compatible with COPD. No evidence of aspiration or focal infil trate. The heart is mildly enlarged in size. Diffuse osteopenia is seen. A small amount contrast is s een in the stomach. IMPRESSION: Diffuse COPD.
[2017-12-18] MEDS: PROMOD 30 ML DOSE PO SCH (21:03)
[2017-12-18] MEDS: ATORVASTATIN 10 MG TAB PO SCH (21:03)
[2017-12-18] MEDS: DOCUSATE NA/SENNA CONC 1 TAB PO SCH (21:03)
--- NOTE | 2017-12-19 03:11 | FAST ---
SHIFT START DATE/TIME: 12/18/2017 19:00 (CDT) SHIFT END DATE/TIME: 12/19/2017 07:00 (CDT) NAME OLIVA MARCOS DATE OF : 1930 DATE OF ADMISSION: 12/15/2017 15:31 (CDT) PHONE: AGE: 87 N# [id number] GENDER: Male ENCOUNTER PHYSICIAN: Dr. Sunday Goldberg M.D. ADMISSION DIAGNOSIS: - Orthopaedic Disorders 08 - Unilateral Hip Fracture (08.11) Right hip fracture. EATING: Activity did not occur on this shift EATING - SCORE: 0-UNK GROOMING: Activity did not occur on this shift GROOMING - SCORE: 0-UNK BATHING: Activity did not occur on this shift BATHING - SCORE: 0-UNK DRESSING - UPPER BODY: Patient is not dressing in public clothing ARTICLES SCORE Total number of steps: 0 DRESSING - UPPER BODY - SCORE: 0-UNK DRESSING - LOWER BODY: Patient is not dressing in public clothing ARTICLES SCORE Total number of steps: 0 DRESSING - LOWER BODY - SCORE: 0-UNK TOILETING: TOILETING - STEP 1: Does the patient require assistance with toileting? Yes. TOILETING - STEP 2: Does the patient require the assistance of a helper? Yes. TOILETING - STEP 3: How much assistance does the patient require from the helper? Hands-on assistance from the helper TOILETING - STEP 4: Of the 3 tasks: 1) Adjusting clothing prior to use, 2) Cleansing of perineal area, 3) Adjusting clot m[place] after use; How many tasks does the patient perform WITHOUT assistance of the helper? Three tasks with steadying assistance from the helper TOILETING - SCORE: 4-MIN BLADDER MANAGEMENT: BLADDER MANAGEMENT - STEP 1: Does the patient control the bladder completely and intentionally without equipment or devices or med ications, and is always continent? No. BLADDER MANAGEMENT - STEP 2: Does the patient require the assistance of a helper? Yes. BLADDER MANAGEMENT - STEP 3: How much assistance does the patient require from the helper? Only set-up of equipment - such as plac ing it within reach of the patient or emptying a device - to maintain either satisfactory voiding pat tern or managing an external device, such as an absorbent pad, ileal device, or catheter BLADDER MANAGEMENT - SCORE: 5-SUP BLADDER MANAGEMENT - FREQUENCY OF ACCIDENTS: BLADDER MANAGEMENT(FA) - STEP 1: How many accidents has the patient had during the current shift? 1 BOWEL MANAGEMENT: Activity did not occur on this shift BOWEL MANAGEMENT - SCORE: 7-IND TRANSFERS: BED, CHAIR, WHEELCHAIR: TRANSFERS: BED, CHAIR, WHEELCHAIR - STEP 1: Does the patient require assistance with bed, chair, or wheelchair transfers? Yes. TRANSFERS: BED, CHAIR, WHEELCHAIR - STEP 2: Does the patient require the assistance of a helper? Yes. TRANSFERS: BED, CHAIR, WHEELCHAIR - STEP 3: How much assistance does the patient require from the helper? Lifting of the legs TRANSFERS: BED, CHAIR, WHEELCHAIR - STEP 4: How many legs does the patient require the helper to lift? both legs TRANSFERS: BED, CHAIR, WHEELCHAIR - SCORE: 3-MOD TRANSFERS: TOILET: Activity did not occur on this shift TRANSFERS: TOILET - SCORE: 0-UNK TRANSFERS: SHOWER: Activity did not occur on this shift TRANSFERS: SHOWER - SCORE: 0-UNK TRANSFERS: TUB: Activity did not occur on this shift TRANSFERS: TUB - SCORE: 0-UNK LOCOMOTION: WALK: Activity did not occur on this shift LOCOMOTION: WALK - SCORE: 0-UNK LOCOMOTION: WHEELCHAIR: Activity did not occur on this shift LOCOMOTION: WHEELCHAIR - SCORE: 0-UNK COMPREHENSION: COMPREHENSION: TYPE: Both COMPREHENSION - STEP 1: Does the patient require help to understand complex and abstract ideas (such as current events, finan paola, discharge planning, medical issues, relationships, etc)? Yes. COMPREHENSION - STEP 2: Does the patient require help to understand questions or statements about basic needs or ideas (such as hunger, thirst, sleep, safety, daily schedule, room location, or discomfort) half or more of the t ana? No. COMPREHENSION - STEP 3: How often does the patient need help to understand directions and conversation about basic needs? Les s than 10% of the time COMPREHENSION - SCORE: 5-SUP EXPRESSION EXPRESSION: TYPE: Both EXPRESSION - STEP 1: Does the patient require help expressing complex and abstract ideas (such as current events, finances , discharge planning, medical issues, relationships, etc)? No. EXPRESSION - STEP 2: Does the patient need extra time, require an assistive device (such as augmentive communication syste m or a communication board), OR does s/he have mild difficulty expressing complex and abstract ideas (including mild dysarthria or mild word-find problems)? No. EXPRESSION - SCORE: 7-IND SOCIAL INTERACTION: SOCIAL INTERACTION - STEP 1: Does the patient require a helper to interact with others in social and therapeutic situations? No. SOCIAL INTERACTION - STEP 2: Does the patient need extra time in social situations, OR does s/he interact with staff, other patien ts, and family members ONLY in structured environments, OR does s/he require medication for social in teraction? No. SOCIAL INTERACTION - SCORE: 7-IND PROBLEM SOLVING: PROBLEM SOLVING - STEP 1: Does the patient need help to solve complex problems such as managing a checking account or confronti ng interpersonal problems? No. PROBLEM SOLVING - STEP 2: Does the patient require extra time to make decisions or solve problems, OR does s/he have slight dif ficulty reading, initiating, or self-correcting in unfamiliar situations? Yes, patient needs extra ti me. PROBLEM SOLVING - SCORE: 6-PORTER MEMORY: MEMORY - STEP 1: Does the patient need help to remember frequently encountered people, daily routines, and executing r equests? No. MEMORY - STEP 2: Does the patient have slight difficulty recognizing frequently encountered people, daily routines, or executing requests without the need for repetition or using self-initiated or environmental cues to remember? No. MEMORY - SCORE: 7-IND
[2017-12-19] MEDS: CARVEDILOL 3.125 MG TAB PO SCH ×2 (05:02→17:24)
[2017-12-19 06:30] LABS: Protime INR 2.15
[2017-12-19] MEDS: PANTOPRAZOLE 40MG TABLET PO SCH (06:32)
[2017-12-19] MEDS: HYDROCODONE/APAP 10/325 TAB PO PRN ×3 (06:32→20:42)
[2017-12-19] MEDS: LISINOPRIL 20 MG TAB PO SCH (08:00)
[2017-12-19] MEDS: ENSURE HIGH PROTEIN 237 ML CAN PO SCH ×2 (08:00→20:44)
[2017-12-19] MEDS: MAGNESIUM OXIDE 400 MG TAB PO SCH ×2 (08:07→20:43)
[2017-12-19] MEDS: FERROUS SULFATE 325 MG TAB PO SCH (08:07)
[2017-12-19] MEDS: FE SULF/FA/VIT B COMP & C TAB PO SCH (08:07)
[2017-12-19] MEDS: FUROSEMIDE 40 MG TABLET PO SCH ×2 (08:08→19:00)
[2017-12-19] MEDS: PROMOD 30 ML DOSE PO SCH ×2 (08:09→20:44)
--- NOTE | 2017-12-19 09:21 | FAST ---
ENCOUNTER DATE AND TIME: 12/19/2017 08:00 (CDT) NAME OLIVA MARCOS DATE OF : 1930 DATE OF ADMISSION: 12/15/2017 15:31 (CDT) PHONE: AGE: 87 N# [id number] GENDER: Male ENCOUNTER PHYSICIAN: Dr. Sunday Goldberg M.D. ADMISSION DIAGNOSIS: - Orthopaedic Disorders 08 - Unilateral Hip Fracture (08.11) Right hip fracture. EATING: Activity did not occur on this shift EATING - SCORE: 0-UNK GROOMING: Comb/brush hair Oral care Wash, rinse, and dry face Wash, rinse, and dry hands GROOMING - STEP 1: Does the patient require assistance when grooming? No. GROOMING - SCORE: 7-IND BATHING: Activity did not occur on this shift BATHING - SCORE: 0-UNK DRESSING - UPPER BODY: T-shirt/pullover shirt (four steps) ARTICLES SCORE Total number of steps: 4 DRESSING - UPPER BODY - STEP 1: Does the patient require help when dressing above the waist? No. DRESSING - UPPER BODY - SCORE: 7-IND DRESSING - LOWER BODY: Elastic waist pants (three steps) ARTICLES SCORE Total number of steps: 3 DRESSING - LOWER BODY - STEP 1: Does the patient require help when dressing below the waist? Yes. DRESSING - LOWER BODY - STEP 2: Does the patient require the assistance of a helper? Yes. DRESSING - LOWER BODY - STEP 3: Does the helper touch the patient while dressing? Yes. DRESSING - LOWER BODY - STEP 4: How many of the total steps does the patient complete on his/her own? 2 DRESSING - LOWER BODY - SCORE: 3-MOD TOILETING: Activity did not occur on this shift TOILETING - SCORE: 0-UNK BLADDER MANAGEMENT: Activity did not occur on this shift BLADDER MANAGEMENT - SCORE: 7-IND BOWEL MANAGEMENT: Activity did not occur on this shift BOWEL MANAGEMENT - SCORE: 7-IND TRANSFERS: BED, CHAIR, WHEELCHAIR: TRANSFERS: BED, CHAIR, WHEELCHAIR - STEP 1: Does the patient require assistance with bed, chair, or wheelchair transfers? Yes. TRANSFERS: BED, CHAIR, WHEELCHAIR - STEP 2: Does the patient require the assistance of a helper? Yes. TRANSFERS: BED, CHAIR, WHEELCHAIR - STEP 3: How much assistance does the patient require from the helper? Steadying/guiding assistance TRANSFERS: BED, CHAIR, WHEELCHAIR - SCORE: 4-MIN TRANSFERS: TOILET: Activity did not occur on this shift TRANSFERS: TOILET - SCORE: 0-UNK TRANSFERS: SHOWER: Activity did not occur on this shift TRANSFERS: SHOWER - SCORE: 0-UNK TRANSFERS: TUB: Activity did not occur on this shift TRANSFERS: TUB - SCORE: 0-UNK LOCOMOTION: WALK: Activity did not occur on this shift LOCOMOTION: WALK - SCORE: 0-UNK LOCOMOTION: WHEELCHAIR: LOCOMOTION: WHEELCHAIR - STEP 1: Does the patient need help to go 150 feet in a wheelchair? No. LOCOMOTION: WHEELCHAIR - SCORE: 6-PORTER LOCOMOTION: STAIRS: Activity did not occur on this shift LOCOMOTION: STAIRS - SCORE: 0-UNK COMPREHENSION: COMPREHENSION: TYPE: Both COMPREHENSION - STEP 1: Does the patient require help to understand complex and abstract ideas (such as current events, finan paola, discharge planning, medical issues, relationships, etc)? No. COMPREHENSION - STEP 2: Does the patient need extra time, require an assistive device (such as glasses, hearing aids, or an a ugmentative communication system), OR does s/he have mild difficulty expressing complex and abstract ideas (including mild dysarthria or mild word-finding problems)? No. COMPREHENSION - SCORE: 7-IND EXPRESSION EXPRESSION: TYPE: Both EXPRESSION - STEP 1: Does the patient require help expressing complex and abstract ideas (such as current events, finances , discharge planning, medical issues, relationships, etc)? No. EXPRESSION - STEP 2: Does the patient need extra time, require an assistive device (such as augmentive communication syste m or a communication board), OR does s/he have mild difficulty expressing complex and abstract ideas (including mild dysarthria or mild word-find problems)? No. EXPRESSION - SCORE: 7-IND SOCIAL INTERACTION: SOCIAL INTERACTION - STEP 1: Does the patient require a helper to interact with others in social and therapeutic situations? No. SOCIAL INTERACTION - STEP 2: Does the patient need extra time in social situations, OR does s/he interact with staff, other patien ts, and family members ONLY in structured environments, OR does s/he require medication for social in teraction? No. SOCIAL INTERACTION - SCORE: 7-IND PROBLEM SOLVING: PROBLEM SOLVING - STEP 1: Does the patient need help to solve complex problems such as managing a checking account or confronti ng interpersonal problems? No. PROBLEM SOLVING - STEP 2: Does the patient require extra time to make decisions or solve problems, OR does s/he have slight dif ficulty reading, initiating, or self-correcting in unfamiliar situations? No. PROBLEM SOLVING - SCORE: 7-IND MEMORY: MEMORY - STEP 1: Does the patient need help to remember frequently encountered people, daily routines, and executing r equests? No. MEMORY - STEP 2: Does the patient have slight difficulty recognizing frequently encountered people, daily routines, or executing requests without the need for repetition or using self-initiated or environmental cues to remember? No. MEMORY - SCORE: 7-IND SIGNATURE PANEL: The following modified sections: Eating - Score, Grooming - Score, Bathing - Score, Dressing - Upper Body - Score, Dressing - Lower Body - Score, Toileting - Score, Bladder Management - Score, Transfers : Bed, Chair, Wheelchair - Score, Transfers: Toilet - Score, Transfers: Shower - Score, Transfers: Tu b - Score, Locomotion: Wheelchair - Score, Comprehension - Score, Expression - Score, Social Interact ion - Score, Problem Solving - Score, Memory - Score were [electronically] signed by Chanda Iniguez on Sat Dec 19 2017 08:23:26 T-0500 ([place] Day[place] Time)
--- NOTE | 2017-12-19 11:05 | FAST ---
SHIFT START DATE/TIME: 12/19/2017 07:00 (CDT) SHIFT END DATE/TIME: 12/19/2017 19:00 (CDT) NAME OLIVA MARCOS DATE OF : 1930 DATE OF ADMISSION: 12/15/2017 15:31 (CDT) PHONE: AGE: 87 [facility]# [id number] GENDER: Male ENCOUNTER PHYSICIAN: Dr. Sunday Goldberg M.D. ADMISSION DIAGNOSIS: - Orthopaedic Disorders 08 - Unilateral Hip Fracture (08.11) Right hip fracture. EATING: EATING - STEP 1: Does the patient require assistance when eating? Yes. EATING - STEP 2: Does the patient require the assistance of a helper? No, patient only requires an assistive device, O R s/he takes more than reasonable time to eat, OR there is a safety concern, OR s/he requires modifie d food consistency EATING - SCORE: 6-PORTER GROOMING: Comb/brush hair Oral care Wash, rinse, and dry face Wash, rinse, and dry hands GROOMING - STEP 1: Does the patient require assistance when grooming? Yes. GROOMING - STEP 2: Does the patient require the assistance of a helper? No. The patient only requires an assistive devic e, OR takes more than reasonable time to groom, OR there is a concern for safety as the patient groom s GROOMING - SCORE: 6-PORTER BATHING: Activity did not occur on this shift BATHING - SCORE: 0-UNK DRESSING - UPPER BODY: Activity did not occur on this shift ARTICLES SCORE Total number of steps: 0 DRESSING - UPPER BODY - SCORE: 0-UNK DRESSING - LOWER BODY: Activity did not occur on this shift ARTICLES SCORE Total number of steps: 0 DRESSING - LOWER BODY - SCORE: 0-UNK TOILETING: TOILETING - STEP 1: Does the patient require assistance with toileting? Yes. TOILETING - STEP 2: Does the patient require the assistance of a helper? Yes. TOILETING - STEP 3: How much assistance does the patient require from the helper? Hands-on assistance from the helper TOILETING - STEP 4: Of the 3 tasks: 1) Adjusting clothing prior to use, 2) Cleansing of perineal area, 3) Adjusting clot mackenzie after use; How many tasks does the patient perform WITHOUT assistance of the helper? Three tasks with steadying assistance from the helper TOILETING - SCORE: 4-MIN BLADDER MANAGEMENT: BLADDER MANAGEMENT - STEP 1: Does the patient control the bladder completely and intentionally without equipment or devices or med ications, and is always continent? No. BLADDER MANAGEMENT - STEP 2: Does the patient require the assistance of a helper? No, patient requires and independently uses an a ssistive device, such as a urinal, bedpan, bedside commode, catheter, absorbent pad, or collecting de vice BLADDER MANAGEMENT - SCORE: 6-PORTER BOWEL MANAGEMENT: BOWEL MANAGEMENT - STEP 1: Does the patient control bowels completely and intentionally without equipment devices or medications AND is always continent? No. BOWEL MANAGEMENT - STEP 2: Does the patient require the assistance of a helper? No, patient requires and manages independently a n assistive device such as a bedpan, bedside commode, absorbent pad, incontinent device, or collectin g device BOWEL MANAGEMENT - SCORE: 6-PORTER TRANSFERS: BED, CHAIR, WHEELCHAIR: TRANSFERS: BED, CHAIR, WHEELCHAIR - STEP 1: Does the patient require assistance with bed, chair, or wheelchair transfers? Yes. TRANSFERS: BED, CHAIR, WHEELCHAIR - STEP 2: Does the patient require the assistance of a helper? Yes. TRANSFERS: BED, CHAIR, WHEELCHAIR - STEP 3: How much assistance does the patient require from the helper? Steadying/guiding assistance TRANSFERS: BED, CHAIR, WHEELCHAIR - SCORE: 4-MIN TRANSFERS: TOILET: TRANSFERS: TOILET - STEP 1: Does the patient require assistance with toilet transfers? Yes. TRANSFERS: TOILET - STEP 2: Does the patient require the assistance of a helper? Yes. TRANSFERS: TOILET - STEP 3: How much assistance does the patient require from the helper? Patient performs half or more of the tr ansferring tasks TRANSFERS: TOILET - STEP 4: Does the patient need only incidental help such as contact guard or steadying during toilet transfer? Yes. TRANSFERS: TOILET - SCORE: 4-MIN TRANSFERS: SHOWER: Activity did not occur on this shift TRANSFERS: SHOWER - SCORE: 0-UNK TRANSFERS: TUB: Activity did not occur on this shift TRANSFERS: TUB - SCORE: 0-UNK LOCOMOTION: WALK: Activity did not occur on this shift LOCOMOTION: WALK - SCORE: 0-UNK LOCOMOTION: WHEELCHAIR: Activity did not occur on this shift LOCOMOTION: WHEELCHAIR - SCORE: 0-UNK COMPREHENSION: COMPREHENSION - STEP 1: Does the patient require help to understand complex and abstract ideas (such as current events, finan paola, discharge planning, medical issues, relationships, etc)? No. COMPREHENSION - STEP 2: Does the patient need extra time, require an assistive device (such as glasses, hearing aids, or an a ugmentative communication system), OR does s/he have mild difficulty expressing complex and abstract ideas (including mild dysarthria or mild word-finding problems)? Yes. COMPREHENSION - SCORE: 6-PORTER EXPRESSION EXPRESSION - STEP 1: Does the patient require help expressing complex and abstract ideas (such as current events, finances , discharge planning, medical issues, relationships, etc)? No. EXPRESSION - STEP 2: Does the patient need extra time, require an assistive device (such as augmentive communication syste m or a communication board), OR does s/he have mild difficulty expressing complex and abstract ideas (including mild dysarthria or mild word-find problems)? Yes. EXPRESSION - SCORE: 6-PORTER SOCIAL INTERACTION: SOCIAL INTERACTION - STEP 1: Does the patient require a helper to interact with others in social and therapeutic situations? No. SOCIAL INTERACTION - STEP 2: Does the patient need extra time in social situations, OR does s/he interact with staff, other patien ts, and family members ONLY in structured environments, OR does s/he require medication for social in teraction? Yes, patient needs extra time SOCIAL INTERACTION - SCORE: 6-PORTER PROBLEM SOLVING: PROBLEM SOLVING - STEP 1: Does the patient need help to solve complex problems such as managing a checking account or confronti ng interpersonal problems? No. PROBLEM SOLVING - STEP 2: Does the patient require extra time to make decisions or solve problems, OR does s/he have slight dif ficulty reading, initiating, or self-correcting in unfamiliar situations? Yes, patient needs extra ti me. PROBLEM SOLVING - SCORE: 6-PORTER MEMORY: MEMORY - STEP 1: Does the patient need help to remember frequently encountered people, daily routines, and executing r equests? No. MEMORY - STEP 2: Does the patient have slight difficulty recognizing frequently encountered people, daily routines, or executing requests without the need for repetition or using self-initiated or environmental cues to remember? Yes. MEMORY - SCORE: 6-PORTER SIGNATURE PANEL: The following modified sections: Eating - Score, Grooming - Score, Bathing - Score, Dressing - Upper Body - Score, Dressing - Lower Body - Score, Toileting - Score, Bladder Management - Score, Bowel Man agement - Score, Transfers: Bed, Chair, Wheelchair - Score, Transfers: Toilet - Score, Transfers: Melissa wer - Score, Transfers: Tub - Score, Locomotion: Walk - Score, Locomotion: Wheelchair - Score, Compre hension - Score, Expression - Score, Social Interaction - Score, Problem Solving - Score, Memory - Sc ore were [electronically] signed by Jonah Figueroa on ThuDec 19 2017 10:06:53 GMT-0500 (Central Daylight Time)
--- NOTE | 2017-12-19 13:23 | FAST ---
ENCOUNTER DATE AND TIME: 12/19/2017 08:00 (CDT) NAME OLIVA MARCOS DATE OF : 1930 DATE OF ADMISSION: 12/15/2017 15:31 (CDT) PHONE: AGE: 87 N# [id number] GENDER: Male ENCOUNTER PHYSICIAN: Dr. Sunday Goldberg M.D. ADMISSION DIAGNOSIS: - Orthopaedic Disorders 08 - Unilateral Hip Fracture (08.11) Right hip fracture. EATING: Activity did not occur on this shift EATING - SCORE: 0-UNK GROOMING: Activity did not occur on this shift GROOMING - SCORE: 0-UNK BATHING: Activity did not occur on this shift BATHING - SCORE: 0-UNK DRESSING - UPPER BODY: Activity did not occur on this shift Patient is not dressing in public clothing ARTICLES SCORE Total number of steps: 0 DRESSING - UPPER BODY - SCORE: 0-UNK DRESSING - LOWER BODY: Activity did not occur on this shift Patient is not dressing in public clothing ARTICLES SCORE Total number of steps: 0 DRESSING - LOWER BODY - SCORE: 0-UNK TOILETING: Activity did not occur on this shift TOILETING - SCORE: 0-UNK BLADDER MANAGEMENT: Activity did not occur on this shift BLADDER MANAGEMENT - SCORE: 7-IND BOWEL MANAGEMENT: Activity did not occur on this shift BOWEL MANAGEMENT - SCORE: 7-IND TRANSFERS: BED, CHAIR, WHEELCHAIR: TRANSFERS: BED, CHAIR, WHEELCHAIR - STEP 1: Does the patient require assistance with bed, chair, or wheelchair transfers? Yes. TRANSFERS: BED, CHAIR, WHEELCHAIR - STEP 2: Does the patient require the assistance of a helper? Yes. TRANSFERS: BED, CHAIR, WHEELCHAIR - STEP 3: How much assistance does the patient require from the helper? Steadying/guiding assistance TRANSFERS: BED, CHAIR, WHEELCHAIR - SCORE: 4-MIN TRANSFERS: TOILET: TRANSFERS: TOILET - STEP 1: Does the patient require assistance with toilet transfers? Yes. TRANSFERS: TOILET - STEP 2: Does the patient require the assistance of a helper? Yes. TRANSFERS: TOILET - STEP 3: How much assistance does the patient require from the helper? Patient performs half or more of the tr ansferring tasks TRANSFERS: TOILET - STEP 4: Does the patient need only incidental help such as contact guard or steadying during toilet transfer? Yes. TRANSFERS: TOILET - SCORE: 4-MIN TRANSFERS: SHOWER: Activity did not occur on this shift TRANSFERS: SHOWER - SCORE: 0-UNK TRANSFERS: TUB: Activity did not occur on this shift TRANSFERS: TUB - SCORE: 0-UNK LOCOMOTION: WALK: LOCOMOTION: WALK - STEP 1: Does the patient need help to walk 150 feet? Yes. LOCOMOTION: WALK - STEP 2: How much assistance does the patient require to walk a minimum of 150 feet? Only incidental help such as contact guarding or steadying LOCOMOTION: WALK - SCORE: 4-MIN LOCOMOTION: WHEELCHAIR: LOCOMOTION: WHEELCHAIR - STEP 1: Does the patient need help to go 150 feet in a wheelchair? Yes. LOCOMOTION: WHEELCHAIR - STEP 2: How much assistance does the patient need from the helper? Only supervision, cuing, or coaxing LOCOMOTION: WHEELCHAIR - SCORE: 5-SUP LOCOMOTION: STAIRS: Activity did not occur on this shift LOCOMOTION: STAIRS - SCORE: 0-UNK COMPREHENSION: COMPREHENSION - SCORE: 0-UNK EXPRESSION EXPRESSION - SCORE: 0-UNK SOCIAL INTERACTION: SOCIAL INTERACTION - SCORE: 0-UNK PROBLEM SOLVING: PROBLEM SOLVING - SCORE: 0-UNK MEMORY: MEMORY - SCORE: 0-UNK SIGNATURE PANEL: The following modified sections: Transfers: Bed, Chair, Wheelchair - Score, Transfers: Toilet - Score , Locomotion: Walk - Score, Locomotion: Wheelchair - Score, Locomotion: Stairs - Score were [rito miguel] signed by Nuria Briceno PTA on Sat Dec 19 2017 12:25:04 GMT-0500 (Central Daylight Time)
[2017-12-19] MEDS: WARFARIN SODIUM 6 MG TAB PO SCH (17:24)
[2017-12-19] MEDS: ATORVASTATIN 10 MG TAB PO SCH (20:43)
[2017-12-19] MEDS: DOCUSATE NA/SENNA CONC 1 TAB PO SCH (20:45)
--- NOTE | 2017-12-20 05:10 | FAST ---
SHIFT START DATE/TIME: 12/19/2017 19:00 (CDT) SHIFT END DATE/TIME: 12/20/2017 07:00 (CDT) NAME OLIVA MARCOS DATE OF : 1930 DATE OF ADMISSION: 12/15/2017 15:31 (CDT) PHONE: AGE: 87 N# [id number] GENDER: Male ENCOUNTER PHYSICIAN: Dr. Sunday Goldberg M.D. ADMISSION DIAGNOSIS: - Orthopaedic Disorders 08 - Unilateral Hip Fracture (08.11) Right hip fracture. EATING: EATING - STEP 1: Does the patient require assistance when eating? Yes. EATING - STEP 2: Does the patient require the assistance of a helper? Yes. EATING - STEP 3: Does the patient perform half or more of the eating tasks? Yes. EATING - STEP 4: Does the patient need only supervision, cuing, coaxing OR help to apply an orthosis OR help to cut fo od, open containers, pour liquids, or butter bread? Yes. EATING - SCORE: 5-SUP GROOMING: Comb/brush hair Oral care Wash, rinse, and dry face Wash, rinse, and dry hands GROOMING - STEP 1: Does the patient require assistance when grooming? Yes. GROOMING - STEP 2: Does the patient require the assistance of a helper? Yes. GROOMING - STEP 3: How much assistance does the patient require from the helper? Only prior equipment preparation/set up from the helper GROOMING - SCORE: 5-SUP BATHING: Activity did not occur on this shift BATHING - SCORE: 0-UNK DRESSING - UPPER BODY: Patient is not dressing in public clothing ARTICLES SCORE Total number of steps: 0 DRESSING - UPPER BODY - SCORE: 0-UNK DRESSING - LOWER BODY: Patient is not dressing in public clothing ARTICLES SCORE Total number of steps: 0 DRESSING - LOWER BODY - SCORE: 0-UNK TOILETING: TOILETING - STEP 1: Does the patient require assistance with toileting? Yes. TOILETING - STEP 2: Does the patient require the assistance of a helper? Yes. TOILETING - STEP 3: How much assistance does the patient require from the helper? Hands-on assistance from the helper TOILETING - STEP 4: Of the 3 tasks: 1) Adjusting clothing prior to use, 2) Cleansing of perineal area, 3) Adjusting clot mackenzie after use; How many tasks does the patient perform WITHOUT assistance of the helper? Three tasks with steadying assistance from the helper TOILETING - SCORE: 4-MIN BLADDER MANAGEMENT: BLADDER MANAGEMENT - STEP 1: Does the patient control the bladder completely and intentionally without equipment or devices or med ications, and is always continent? No. BLADDER MANAGEMENT - STEP 2: Does the patient require the assistance of a helper? Yes. BLADDER MANAGEMENT - STEP 3: How much assistance does the patient require from the helper? Patient requires contact assistance fro m the helper BLADDER MANAGEMENT - STEP 4: How much contact assistance does the patient require from the helper? Patient requires minimal assist ance to maintain an external device - by positioning, and the patient performs 75% or more of bladder management tasks, while the helper provides less than 25% of the assistance to position patient on / off bedpan BLADDER MANAGEMENT - SCORE: 4-MIN BLADDER MANAGEMENT - FREQUENCY OF ACCIDENTS: BLADDER MANAGEMENT(FA) - STEP 1: How many accidents has the patient had during the current shift? 0 BOWEL MANAGEMENT: Activity did not occur on this shift BOWEL MANAGEMENT - SCORE: 7-IND TRANSFERS: BED, CHAIR, WHEELCHAIR: Activity did not occur on this shift TRANSFERS: BED, CHAIR, WHEELCHAIR - SCORE: 0-UNK TRANSFERS: TOILET: Activity did not occur on this shift TRANSFERS: TOILET - SCORE: 0-UNK TRANSFERS: SHOWER: Activity did not occur on this shift TRANSFERS: SHOWER - SCORE: 0-UNK TRANSFERS: TUB: Activity did not occur on this shift TRANSFERS: TUB - SCORE: 0-UNK LOCOMOTION: WALK: Activity did not occur on this shift LOCOMOTION: WALK - SCORE: 0-UNK LOCOMOTION: WHEELCHAIR: Activity did not occur on this shift LOCOMOTION: WHEELCHAIR - SCORE: 0-UNK COMPREHENSION: COMPREHENSION: TYPE: Both COMPREHENSION - STEP 1: Does the patient require help to understand complex and abstract ideas (such as current events, finan paola, discharge planning, medical issues, relationships, etc)? No. COMPREHENSION - STEP 2: Does the patient need extra time, require an assistive device (such as glasses, hearing aids, or an a ugmentative communication system), OR does s/he have mild difficulty expressing complex and abstract ideas (including mild dysarthria or mild word-finding problems)? Yes. COMPREHENSION - SCORE: 6-PORTER EXPRESSION EXPRESSION: TYPE: Both EXPRESSION - STEP 1: Does the patient require help expressing complex and abstract ideas (such as current events, finances , discharge planning, medical issues, relationships, etc)? No. EXPRESSION - STEP 2: Does the patient need extra time, require an assistive device (such as augmentive communication syste m or a communication board), OR does s/he have mild difficulty expressing complex and abstract ideas (including mild dysarthria or mild word-find problems)? Yes. EXPRESSION - SCORE: 6-PORTER SOCIAL INTERACTION: SOCIAL INTERACTION - STEP 1: Does the patient require a helper to interact with others in social and therapeutic situations? No. SOCIAL INTERACTION - STEP 2: Does the patient need extra time in social situations, OR does s/he interact with staff, other patien ts, and family members ONLY in structured environments, OR does s/he require medication for social in teraction? Yes, patient needs extra time SOCIAL INTERACTION - SCORE: 6-PORTER PROBLEM SOLVING: PROBLEM SOLVING - STEP 1: Does the patient need help to solve complex problems such as managing a checking account or confronti ng interpersonal problems? No. PROBLEM SOLVING - STEP 2: Does the patient require extra time to make decisions or solve problems, OR does s/he have slight dif ficulty reading, initiating, or self-correcting in unfamiliar situations? Yes, patient needs extra ti me. PROBLEM SOLVING - SCORE: 6-PORTER MEMORY: MEMORY - STEP 1: Does the patient need help to remember frequently encountered people, daily routines, and executing r equests? No. MEMORY - STEP 2: Does the patient have slight difficulty recognizing frequently encountered people, daily routines, or executing requests without the need for repetition or using self-initiated or environmental cues to remember? Yes. MEMORY - SCORE: 6-PORTER SIGNATURE PANEL: The following modified sections: Eating - Score, Grooming - Score, Bathing - Score, Dressing - Upper Body - Score, Dressing - Lower Body - Score, Toileting - Score, Bladder Management - Score, Bowel Man agement - Score, Transfers: Bed, Chair, Wheelchair - Score, Transfers: Toilet - Score, Transfers: Melissa wer - Score, Transfers: Tub - Score, Locomotion: Walk - Score, Locomotion: Wheelchair - Score, Compre hension - Score, Expression - Score, Social Interaction - Score, Problem Solving - Score, Memory - Sc ore were [electronically] signed by Aileen Vargas C.N.A. on ThuDec 20 2017 04:12:48 GMT-0500 ( Central Daylight Time)
[2017-12-20] MEDS: CARVEDILOL 3.125 MG TAB PO SCH (05:32)
[2017-12-20 06:32] LABS: Protime INR 2.54
[2017-12-20] MEDS: HYDROCODONE/APAP 10/325 TAB PO PRN ×2 (07:52→18:36)
[2017-12-20] MEDS: FE SULF/FA/VIT B COMP & C TAB PO SCH (07:52)
[2017-12-20] MEDS: FERROUS SULFATE 325 MG TAB PO SCH (07:53)
[2017-12-20] MEDS: MAGNESIUM OXIDE 400 MG TAB PO SCH ×2 (07:53→20:37)
[2017-12-20] MEDS: PANTOPRAZOLE 40MG TABLET PO SCH (07:54)
[2017-12-20] MEDS: LISINOPRIL 20 MG TAB PO SCH ×2 (07:54→13:00)
[2017-12-20] MEDS: ENSURE HIGH PROTEIN 237 ML CAN PO SCH ×2 (07:54→20:00)
[2017-12-20] MEDS: FUROSEMIDE 40 MG TABLET PO SCH (07:55)
[2017-12-20] MEDS: PROMOD 30 ML DOSE PO SCH ×3 (07:56→20:00)
--- NOTE | 2017-12-20 16:07 | FAST ---
SHIFT START DATE/TIME: 12/20/2017 07:00 (CDT) SHIFT END DATE/TIME: 12/20/2017 19:00 (CDT) NAME OLIVA MARCOS DATE OF : 1930 DATE OF ADMISSION: 12/15/2017 15:31 (CDT) PHONE: AGE: 87 N# [id number] GENDER: Male ENCOUNTER PHYSICIAN: Dr. Sundya Goldberg M.D. ADMISSION DIAGNOSIS: - Orthopaedic Disorders 08 - Unilateral Hip Fracture (08.11) Right hip fracture. EATING: EATING - STEP 1: Does the patient require assistance when eating? Yes. EATING - STEP 2: Does the patient require the assistance of a helper? Yes. EATING - STEP 3: Does the patient perform half or more of the eating tasks? Yes. EATING - STEP 4: Does the patient need only supervision, cuing, coaxing OR help to apply an orthosis OR help to cut fo od, open containers, pour liquids, or butter bread? Yes. EATING - SCORE: 5-SUP GROOMING: Activity did not occur on this shift Comb/brush hair Oral care Wash, rinse, and dry face Wash, rinse, and dry hands GROOMING - SCORE: 0-UNK BATHING: Activity did not occur on this shift BATHING - SCORE: 0-UNK DRESSING - UPPER BODY: Patient is not dressing in public clothing ARTICLES SCORE Total number of steps: 0 DRESSING - UPPER BODY - SCORE: 0-UNK DRESSING - LOWER BODY: Patient is not dressing in public clothing ARTICLES SCORE Total number of steps: 0 DRESSING - LOWER BODY - SCORE: 0-UNK TOILETING: TOILETING - STEP 1: Does the patient require assistance with toileting? Yes. TOILETING - STEP 2: Does the patient require the assistance of a helper? Yes. TOILETING - STEP 3: How much assistance does the patient require from the helper? Hands-on assistance from the helper TOILETING - STEP 4: Of the 3 tasks: 1) Adjusting clothing prior to use, 2) Cleansing of perineal area, 3) Adjusting clot mackenzie after use; How many tasks does the patient perform WITHOUT assistance of the helper? Two tasks TOILETING - SCORE: 3-MOD BLADDER MANAGEMENT: BLADDER MANAGEMENT - STEP 1: Does the patient control the bladder completely and intentionally without equipment or devices or med ications, and is always continent? No. BLADDER MANAGEMENT - STEP 2: Does the patient require the assistance of a helper? No, patient requires and independently uses an a ssistive device, such as a urinal, bedpan, bedside commode, catheter, absorbent pad, or collecting de vice BLADDER MANAGEMENT - SCORE: 6-PORTER BOWEL MANAGEMENT: Activity did not occur on this shift BOWEL MANAGEMENT - SCORE: 7-IND TRANSFERS: BED, CHAIR, WHEELCHAIR: TRANSFERS: BED, CHAIR, WHEELCHAIR - STEP 1: Does the patient require assistance with bed, chair, or wheelchair transfers? Yes. TRANSFERS: BED, CHAIR, WHEELCHAIR - STEP 2: Does the patient require the assistance of a helper? Yes. TRANSFERS: BED, CHAIR, WHEELCHAIR - STEP 3: How much assistance does the patient require from the helper? Steadying/guiding assistance TRANSFERS: BED, CHAIR, WHEELCHAIR - SCORE: 4-MIN TRANSFERS: TOILET: TRANSFERS: TOILET - STEP 1: Does the patient require assistance with toilet transfers? Yes. TRANSFERS: TOILET - STEP 2: Does the patient require the assistance of a helper? Yes. TRANSFERS: TOILET - STEP 3: How much assistance does the patient require from the helper? Patient performs half or more of the tr ansferring tasks TRANSFERS: TOILET - STEP 4: Does the patient need only incidental help such as contact guard or steadying during toilet transfer? No. Patient needs more than incidental help TRANSFERS: TOILET - SCORE: 3-MOD TRANSFERS: SHOWER: Activity did not occur on this shift TRANSFERS: SHOWER - SCORE: 0-UNK TRANSFERS: TUB: Activity did not occur on this shift TRANSFERS: TUB - SCORE: 0-UNK LOCOMOTION: WALK: Activity did not occur on this shift LOCOMOTION: WALK - SCORE: 0-UNK LOCOMOTION: WHEELCHAIR: Activity did not occur on this shift LOCOMOTION: WHEELCHAIR - SCORE: 0-UNK COMPREHENSION: COMPREHENSION - STEP 1: Does the patient require help to understand complex and abstract ideas (such as current events, finan paola, discharge planning, medical issues, relationships, etc)? No. COMPREHENSION - STEP 2: Does the patient need extra time, require an assistive device (such as glasses, hearing aids, or an a ugmentative communication system), OR does s/he have mild difficulty expressing complex and abstract ideas (including mild dysarthria or mild word-finding problems)? Yes. COMPREHENSION - SCORE: 6-PORTER EXPRESSION EXPRESSION - STEP 1: Does the patient require help expressing complex and abstract ideas (such as current events, finances , discharge planning, medical issues, relationships, etc)? No. EXPRESSION - STEP 2: Does the patient need extra time, require an assistive device (such as augmentive communication syste m or a communication board), OR does s/he have mild difficulty expressing complex and abstract ideas (including mild dysarthria or mild word-find problems)? No. EXPRESSION - SCORE: 7-IND SOCIAL INTERACTION: SOCIAL INTERACTION - STEP 1: Does the patient require a helper to interact with others in social and therapeutic situations? No. SOCIAL INTERACTION - STEP 2: Does the patient need extra time in social situations, OR does s/he interact with staff, other patien ts, and family members ONLY in structured environments, OR does s/he require medication for social in teraction? No. SOCIAL INTERACTION - SCORE: 7-IND PROBLEM SOLVING: PROBLEM SOLVING - STEP 1: Does the patient need help to solve complex problems such as managing a checking account or confronti ng interpersonal problems? No. PROBLEM SOLVING - STEP 2: Does the patient require extra time to make decisions or solve problems, OR does s/he have slight dif ficulty reading, initiating, or self-correcting in unfamiliar situations? Yes, patient needs extra ti me. PROBLEM SOLVING - SCORE: 6-PORTER MEMORY: MEMORY - STEP 1: Does the patient need help to remember frequently encountered people, daily routines, and executing r equests? No. MEMORY - STEP 2: Does the patient have slight difficulty recognizing frequently encountered people, daily routines, or executing requests without the need for repetition or using self-initiated or environmental cues to remember? Yes. MEMORY - SCORE: 6-PORTER SIGNATURE PANEL: The following modified sections: Eating - Score, Grooming - Score, Bathing - Score, Dressing - Upper Body - Score, Dressing - Lower Body - Score, Toileting - Score, Bladder Management - Score, Bowel Man agement - Score, Transfers: Bed, Chair, Wheelchair - Score, Transfers: Toilet - Score, Transfers: Melissa wer - Score, Transfers: Tub - Score, Locomotion: Walk - Score, Locomotion: Wheelchair - Score, Compre hension - Score, Expression - Score, Social Interaction - Score, Problem Solving - Score, Memory - Sc ore were [electronically] signed by Jonah Figueroa on ThuDec 20 2017 15:09:16 GMT-0500 (Central Daylight Time)
[2017-12-20] MEDS: WARFARIN SODIUM 6 MG TAB PO SCH (16:38)
[2017-12-20] MEDS: DOCUSATE NA/SENNA CONC 1 TAB PO SCH (20:38)
[2017-12-20] MEDS: ATORVASTATIN 10 MG TAB PO SCH (20:38)
[2017-12-20] MEDS ORDERED: PANTOPRAZOLE 40MG TABLET PO ONE (20:51)
--- NOTE | 2017-12-21 04:06 | FAST ---
SHIFT START DATE/TIME: 12/20/2017 19:00 (CDT) SHIFT END DATE/TIME: 12/21/2017 07:00 (CDT) NAME OLIVA MARCOS DATE OF : 1930 DATE OF ADMISSION: 12/15/2017 15:31 (CDT) PHONE: AGE: 87 N# [id number] GENDER: Male ENCOUNTER PHYSICIAN: Dr. Sunday Goldberg M.D. ADMISSION DIAGNOSIS: - Orthopaedic Disorders 08 - Unilateral Hip Fracture (08.11) Right hip fracture. EATING: EATING - STEP 1: Does the patient require assistance when eating? Yes. EATING - STEP 2: Does the patient require the assistance of a helper? Yes. EATING - STEP 3: Does the patient perform half or more of the eating tasks? Yes. EATING - STEP 4: Does the patient need only supervision, cuing, coaxing OR help to apply an orthosis OR help to cut fo od, open containers, pour liquids, or butter bread? Yes. EATING - SCORE: 5-SUP GROOMING: Comb/brush hair Oral care Wash, rinse, and dry face Wash, rinse, and dry hands GROOMING - STEP 1: Does the patient require assistance when grooming? Yes. GROOMING - STEP 2: Does the patient require the assistance of a helper? Yes. GROOMING - STEP 3: How much assistance does the patient require from the helper? Only prior equipment preparation/set up from the helper GROOMING - SCORE: 5-SUP BATHING: Activity did not occur on this shift BATHING - SCORE: 0-UNK DRESSING - UPPER BODY: Patient is not dressing in public clothing ARTICLES SCORE Total number of steps: 0 DRESSING - UPPER BODY - SCORE: 0-UNK DRESSING - LOWER BODY: Patient is not dressing in public clothing ARTICLES SCORE Total number of steps: 0 DRESSING - LOWER BODY - SCORE: 0-UNK TOILETING: TOILETING - STEP 1: Does the patient require assistance with toileting? Yes. TOILETING - STEP 2: Does the patient require the assistance of a helper? Yes. TOILETING - STEP 3: How much assistance does the patient require from the helper? Only supervision TOILETING - SCORE: 5-SUP BLADDER MANAGEMENT: BLADDER MANAGEMENT - STEP 1: Does the patient control the bladder completely and intentionally without equipment or devices or med ications, and is always continent? No. BLADDER MANAGEMENT - STEP 2: Does the patient require the assistance of a helper? Yes. BLADDER MANAGEMENT - STEP 3: How much assistance does the patient require from the helper? Only set-up of equipment - such as plac ing it within reach of the patient or emptying a device - to maintain either satisfactory voiding pat tern or managing an external device, such as an absorbent pad, ileal device, or catheter BLADDER MANAGEMENT - SCORE: 5-SUP BLADDER MANAGEMENT - FREQUENCY OF ACCIDENTS: BLADDER MANAGEMENT(FA) - STEP 1: How many accidents has the patient had during the current shift? 0 BOWEL MANAGEMENT: Activity did not occur on this shift BOWEL MANAGEMENT - SCORE: 7-IND TRANSFERS: BED, CHAIR, WHEELCHAIR: TRANSFERS: BED, CHAIR, WHEELCHAIR - STEP 1: Does the patient require assistance with bed, chair, or wheelchair transfers? Yes. TRANSFERS: BED, CHAIR, WHEELCHAIR - STEP 2: Does the patient require the assistance of a helper? Yes. TRANSFERS: BED, CHAIR, WHEELCHAIR - STEP 3: How much assistance does the patient require from the helper? Lifting of the legs TRANSFERS: BED, CHAIR, WHEELCHAIR - STEP 4: How many legs does the patient require the helper to lift? both legs TRANSFERS: BED, CHAIR, WHEELCHAIR - SCORE: 3-MOD TRANSFERS: TOILET: Activity did not occur on this shift TRANSFERS: TOILET - SCORE: 0-UNK TRANSFERS: SHOWER: Activity did not occur on this shift TRANSFERS: SHOWER - SCORE: 0-UNK TRANSFERS: TUB: Activity did not occur on this shift TRANSFERS: TUB - SCORE: 0-UNK LOCOMOTION: WALK: Activity did not occur on this shift LOCOMOTION: WALK - SCORE: 0-UNK LOCOMOTION: WHEELCHAIR: Activity did not occur on this shift LOCOMOTION: WHEELCHAIR - SCORE: 0-UNK COMPREHENSION: COMPREHENSION: TYPE: Both COMPREHENSION - STEP 1: Does the patient require help to understand complex and abstract ideas (such as current events, finan paola, discharge planning, medical issues, relationships, etc)? No. COMPREHENSION - STEP 2: Does the patient need extra time, require an assistive device (such as glasses, hearing aids, or an a ugmentative communication system), OR does s/he have mild difficulty expressing complex and abstract ideas (including mild dysarthria or mild word-finding problems)? Yes. COMPREHENSION - SCORE: 6-PORTER EXPRESSION EXPRESSION: TYPE: Both EXPRESSION - STEP 1: Does the patient require help expressing complex and abstract ideas (such as current events, finances , discharge planning, medical issues, relationships, etc)? No. EXPRESSION - STEP 2: Does the patient need extra time, require an assistive device (such as augmentive communication syste m or a communication board), OR does s/he have mild difficulty expressing complex and abstract ideas (including mild dysarthria or mild word-find problems)? Yes. EXPRESSION - SCORE: 6-PORTER SOCIAL INTERACTION: SOCIAL INTERACTION - STEP 1: Does the patient require a helper to interact with others in social and therapeutic situations? No. SOCIAL INTERACTION - STEP 2: Does the patient need extra time in social situations, OR does s/he interact with staff, other patien ts, and family members ONLY in structured environments, OR does s/he require medication for social in teraction? Yes, patient needs extra time SOCIAL INTERACTION - SCORE: 6-PORTER PROBLEM SOLVING: PROBLEM SOLVING - STEP 1: Does the patient need help to solve complex problems such as managing a checking account or confronti ng interpersonal problems? No. PROBLEM SOLVING - STEP 2: Does the patient require extra time to make decisions or solve problems, OR does s/he have slight dif ficulty reading, initiating, or self-correcting in unfamiliar situations? Yes, patient needs extra ti me. PROBLEM SOLVING - SCORE: 6-PORTER MEMORY: MEMORY - STEP 1: Does the patient need help to remember frequently encountered people, daily routines, and executing r equests? No. MEMORY - STEP 2: Does the patient have slight difficulty recognizing frequently encountered people, daily routines, or executing requests without the need for repetition or using self-initiated or environmental cues to remember? Yes. MEMORY - SCORE: 6-PORTER SIGNATURE PANEL: The following modified sections: Eating - Score, Grooming - Score, Bathing - Score, Dressing - Upper Body - Score, Dressing - Lower Body - Score, Toileting - Score, Bladder Management - Score, Bowel Man agement - Score, Transfers: Bed, Chair, Wheelchair - Score, Transfers: Toilet - Score, Transfers: Melissa wer - Score, Transfers: Tub - Score, Locomotion: Walk - Score, Locomotion: Wheelchair - Score, Compre hension - Score, Expression - Score, Social Interaction - Score, Problem Solving - Score, Memory - Sc ore were [electronically] signed by Aileen Vargas C.N.A. on ThuDec 21 2017 02:40:09 GMT-0500 ( Central Daylight Time)
[2017-12-21 06:32] LABS: Protime INR 2.78
[2017-12-21] MEDS: PROMOD 30 ML DOSE PO SCH (07:40)
[2017-12-21] MEDS: LISINOPRIL 20 MG TAB PO SCH (08:00)
[2017-12-21] MEDS: ENSURE HIGH PROTEIN 237 ML CAN PO SCH ×2 (08:00→20:50)
[2017-12-21] MEDS: FE SULF/FA/VIT B COMP & C TAB PO SCH (08:08)
[2017-12-21] MEDS: MAGNESIUM OXIDE 400 MG TAB PO SCH ×2 (08:08→20:50)
[2017-12-21] MEDS: HYDROCODONE/APAP 10/325 TAB PO PRN ×3 (08:09→20:49)
[2017-12-21] MEDS: FUROSEMIDE 40 MG TABLET PO SCH (08:09)
[2017-12-21] MEDS: FERROUS SULFATE 325 MG TAB PO SCH (08:09)
--- NOTE | 2017-12-21 13:28 | RAD REPORT ---
EXAM DESCRIPTION: RAD - Esophagram Only - 12/21/2017 1:13 pm CLINICAL HISTORY: Dysphagia COMPARISON: None. FINDINGS: Patient shows normal bolus formation and normal initiation swallowing. No aspiration was o bserved on this examination. There was some mild pooling of contrast in the valleculae and piriform s inuses. There is a mild decrease in primary peristalsis. No tertiary contractions or esophageal spasm observed. No intrinsic esophageal mass or stricture. No delay in transit of contrast across an other logan unremarkable GE junction. IMPRESSION: Mild decrease in primary peristalsis. Mild pooling of contrast in the valleculae and piriform sinuses.
--- NOTE | 2017-12-21 15:16 | FAST ---
ENCOUNTER DATE AND TIME: 12/21/2017 08:00 (CDT) NAME OLIVA MARCOS DATE OF : 1930 DATE OF ADMISSION: 12/15/2017 15:31 (CDT) PHONE: AGE: 87 N# [id number] GENDER: Male ENCOUNTER PHYSICIAN: Dr. Sunday Goldberg M.D. ADMISSION DIAGNOSIS: - Orthopaedic Disorders 08 - Unilateral Hip Fracture (08.11) Right hip fracture. EATING: Activity did not occur on this shift EATING - SCORE: 0-UNK GROOMING: Comb/brush hair Wash, rinse, and dry face Wash, rinse, and dry hands GROOMING - STEP 1: Does the patient require assistance when grooming? No. GROOMING - SCORE: 7-IND BATHING: Abdomen Buttocks Chest Left arm Left lower leg and foot Left upper leg Perineal area Right arm Right lower leg and foot Right upper leg BATHING - STEP 1: Does the patient require assistance when bathing? Yes. BATHING - STEP 2: Does the patient require the assistance of a helper? Yes. BATHING - STEP 3: How much assistance does the patient require from the helper? Only supervision, cuing, coaxing, instr uctions, encouragement BATHING - SCORE: 5-SUP DRESSING - UPPER BODY: T-shirt/pullover shirt (four steps) ARTICLES SCORE Total number of steps: 4 DRESSING - UPPER BODY - STEP 1: Does the patient require help when dressing above the waist? No. DRESSING - UPPER BODY - SCORE: 7-IND DRESSING - LOWER BODY: Elastic waist pants (three steps) Sock - Left foot (one step) Sock - Right foot (one step) Underwear (three steps) ARTICLES SCORE Total number of steps: 8 DRESSING - LOWER BODY - STEP 1: Does the patient require help when dressing below the waist? Yes. DRESSING - LOWER BODY - STEP 2: Does the patient require the assistance of a helper? Yes. DRESSING - LOWER BODY - STEP 3: Does the helper touch the patient while dressing? No. DRESSING - LOWER BODY - SCORE: 5-SUP TOILETING: Activity did not occur on this shift TOILETING - SCORE: 0-UNK BLADDER MANAGEMENT: Activity did not occur on this shift BLADDER MANAGEMENT - SCORE: 7-IND BOWEL MANAGEMENT: Activity did not occur on this shift BOWEL MANAGEMENT - SCORE: 7-IND TRANSFERS: BED, CHAIR, WHEELCHAIR: Activity did not occur on this shift TRANSFERS: BED, CHAIR, WHEELCHAIR - SCORE: 0-UNK TRANSFERS: TOILET: Activity did not occur on this shift TRANSFERS: TOILET - SCORE: 0-UNK TRANSFERS: SHOWER: TRANSFERS: SHOWER - STEP 1: Does the patient require assistance with shower transfers? Yes. TRANSFERS: SHOWER - STEP 2: Does the patient require the assistance of a helper? Yes. TRANSFERS: SHOWER - STEP 3: How much assistance does the patient require from the helper? Only incidental help such as contact gu arding or steadying during shower transfers, or help to lift one leg into the shower TRANSFERS: SHOWER - SCORE: 4-MIN TRANSFERS: TUB: Activity did not occur on this shift TRANSFERS: TUB - SCORE: 0-UNK LOCOMOTION: WALK: Activity did not occur on this shift LOCOMOTION: WALK - SCORE: 0-UNK LOCOMOTION: WHEELCHAIR: Activity did not occur on this shift LOCOMOTION: WHEELCHAIR - SCORE: 0-UNK LOCOMOTION: STAIRS: Activity did not occur on this shift LOCOMOTION: STAIRS - SCORE: 0-UNK COMPREHENSION: COMPREHENSION - STEP 1: Does the patient require help to understand complex and abstract ideas (such as current events, finan paola, discharge planning, medical issues, relationships, etc)? No. COMPREHENSION - STEP 2: Does the patient need extra time, require an assistive device (such as glasses, hearing aids, or an a ugmentative communication system), OR does s/he have mild difficulty expressing complex and abstract ideas (including mild dysarthria or mild word-finding problems)? No. COMPREHENSION - SCORE: 7-IND EXPRESSION EXPRESSION: TYPE: Non-Vocal EXPRESSION - STEP 1: Does the patient require help expressing complex and abstract ideas (such as current events, finances , discharge planning, medical issues, relationships, etc)? No. EXPRESSION - STEP 2: Does the patient need extra time, require an assistive device (such as augmentive communication syste m or a communication board), OR does s/he have mild difficulty expressing complex and abstract ideas (including mild dysarthria or mild word-find problems)? No. EXPRESSION - SCORE: 7-IND SOCIAL INTERACTION: SOCIAL INTERACTION - STEP 1: Does the patient require a helper to interact with others in social and therapeutic situations? No. SOCIAL INTERACTION - STEP 2: Does the patient need extra time in social situations, OR does s/he interact with staff, other patien ts, and family members ONLY in structured environments, OR does s/he require medication for social in teraction? No. SOCIAL INTERACTION - SCORE: 7-IND PROBLEM SOLVING: PROBLEM SOLVING - STEP 1: Does the patient need help to solve complex problems such as managing a checking account or confronti ng interpersonal problems? No. PROBLEM SOLVING - STEP 2: Does the patient require extra time to make decisions or solve problems, OR does s/he have slight dif ficulty reading, initiating, or self-correcting in unfamiliar situations? No. PROBLEM SOLVING - SCORE: 7-IND MEMORY: MEMORY - STEP 1: Does the patient need help to remember frequently encountered people, daily routines, and executing r equests? No. MEMORY - STEP 2: Does the patient have slight difficulty recognizing frequently encountered people, daily routines, or executing requests without the need for repetition or using self-initiated or environmental cues to remember? No. MEMORY - SCORE: 7-IND SIGNATURE PANEL: The following modified sections: Eating - Score, Grooming - Score, Bathing - Score, Dressing - Upper Body - Score, Dressing - Lower Body - Score, Toileting - Score, Transfers: Bed, Chair, Wheelchair - S core, Transfers: Toilet - Score, Transfers: Shower - Score, Transfers: Tub - Score, Comprehension - S core, Expression - Score, Social Interaction - Score, Problem Solving - Score, Memory - Score were [e lectronically] signed by STEPHANIE Dougherty on ThuDec 21 2017 14:18:47 T-0500 ([facility])
--- NOTE | 2017-12-21 15:19 | FAST ---
SHIFT START DATE/TIME: 12/21/2017 07:00 (CDT) SHIFT END DATE/TIME: 12/21/2017 19:00 (CDT) NAME OLIVA MARCOS DATE OF : 1930 DATE OF ADMISSION: 12/15/2017 15:31 (CDT) PHONE: AGE: 87 N# [id number] GENDER: Male ENCOUNTER PHYSICIAN: Dr. Sunday Goldberg M.D. ADMISSION DIAGNOSIS: - Orthopaedic Disorders 08 - Unilateral Hip Fracture (08.11) Right hip fracture. EATING: EATING - STEP 1: Does the patient require assistance when eating? Yes. EATING - STEP 2: Does the patient require the assistance of a helper? Yes. EATING - STEP 3: Does the patient perform half or more of the eating tasks? Yes. EATING - STEP 4: Does the patient need only supervision, cuing, coaxing OR help to apply an orthosis OR help to cut fo od, open containers, pour liquids, or butter bread? Yes. EATING - SCORE: 5-SUP GROOMING: Comb/brush hair Wash, rinse, and dry face Wash, rinse, and dry hands GROOMING - STEP 1: Does the patient require assistance when grooming? Yes. GROOMING - STEP 2: Does the patient require the assistance of a helper? No. The patient only requires an assistive devic e, OR takes more than reasonable time to groom, OR there is a concern for safety as the patient groom s GROOMING - SCORE: 6-PORTER BATHING: Activity did not occur on this shift BATHING - SCORE: 0-UNK DRESSING - UPPER BODY: Activity did not occur on this shift ARTICLES SCORE Total number of steps: 0 DRESSING - UPPER BODY - SCORE: 0-UNK DRESSING - LOWER BODY: Activity did not occur on this shift ARTICLES SCORE Total number of steps: 0 DRESSING - LOWER BODY - SCORE: 0-UNK TOILETING: TOILETING - STEP 1: Does the patient require assistance with toileting? Yes. TOILETING - STEP 2: Does the patient require the assistance of a helper? Yes. TOILETING - STEP 3: How much assistance does the patient require from the helper? Only supervision TOILETING - SCORE: 5-SUP BLADDER MANAGEMENT: BLADDER MANAGEMENT - STEP 1: Does the patient control the bladder completely and intentionally without equipment or devices or med ications, and is always continent? No. BLADDER MANAGEMENT - STEP 2: Does the patient require the assistance of a helper? No, patient only requires extra time BLADDER MANAGEMENT - SCORE: 6-PORTER BLADDER MANAGEMENT - FREQUENCY OF ACCIDENTS: BLADDER MANAGEMENT(FA) - STEP 1: How many accidents has the patient had during the current shift? 0 BOWEL MANAGEMENT: Activity did not occur on this shift BOWEL MANAGEMENT - SCORE: 7-IND BOWEL MANAGEMENT - FREQUENCY OF ACCIDENTS: BOWEL MANAGEMENT(FA) - STEP 1: How many accidents has the patient had during the current shift? 0 TRANSFERS: BED, CHAIR, WHEELCHAIR: TRANSFERS: BED, CHAIR, WHEELCHAIR - STEP 1: Does the patient require assistance with bed, chair, or wheelchair transfers? Yes. TRANSFERS: BED, CHAIR, WHEELCHAIR - STEP 2: Does the patient require the assistance of a helper? Yes. TRANSFERS: BED, CHAIR, WHEELCHAIR - STEP 3: How much assistance does the patient require from the helper? Steadying/guiding assistance TRANSFERS: BED, CHAIR, WHEELCHAIR - SCORE: 4-MIN TRANSFERS: TOILET: TRANSFERS: TOILET - STEP 1: Does the patient require assistance with toilet transfers? Yes. TRANSFERS: TOILET - STEP 2: Does the patient require the assistance of a helper? Yes. TRANSFERS: TOILET - STEP 3: How much assistance does the patient require from the helper? Patient performs half or more of the tr ansferring tasks TRANSFERS: TOILET - STEP 4: Does the patient need only incidental help such as contact guard or steadying during toilet transfer? No. Patient needs more than incidental help TRANSFERS: TOILET - SCORE: 3-MOD TRANSFERS: SHOWER: Activity did not occur on this shift TRANSFERS: SHOWER - SCORE: 0-UNK TRANSFERS: TUB: Activity did not occur on this shift TRANSFERS: TUB - SCORE: 0-UNK LOCOMOTION: WALK: Activity did not occur on this shift LOCOMOTION: WALK - SCORE: 0-UNK LOCOMOTION: WHEELCHAIR: LOCOMOTION: WHEELCHAIR - STEP 1: Does the patient need help to go 150 feet in a wheelchair? Yes. LOCOMOTION: WHEELCHAIR - STEP 2: How much assistance does the patient need from the helper? Only supervision, cuing, or coaxing LOCOMOTION: WHEELCHAIR - SCORE: 5-SUP COMPREHENSION: COMPREHENSION: TYPE: Both COMPREHENSION - STEP 1: Does the patient require help to understand complex and abstract ideas (such as current events, finan paola, discharge planning, medical issues, relationships, etc)? No. COMPREHENSION - STEP 2: Does the patient need extra time, require an assistive device (such as glasses, hearing aids, or an a ugmentative communication system), OR does s/he have mild difficulty expressing complex and abstract ideas (including mild dysarthria or mild word-finding problems)? Yes. COMPREHENSION - SCORE: 6-PORTER EXPRESSION EXPRESSION: TYPE: Both EXPRESSION - STEP 1: Does the patient require help expressing complex and abstract ideas (such as current events, finances , discharge planning, medical issues, relationships, etc)? No. EXPRESSION - STEP 2: Does the patient need extra time, require an assistive device (such as augmentive communication syste m or a communication board), OR does s/he have mild difficulty expressing complex and abstract ideas (including mild dysarthria or mild word-find problems)? Yes. EXPRESSION - SCORE: 6-PORTER SOCIAL INTERACTION: SOCIAL INTERACTION - STEP 1: Does the patient require a helper to interact with others in social and therapeutic situations? No. SOCIAL INTERACTION - STEP 2: Does the patient need extra time in social situations, OR does s/he interact with staff, other patien ts, and family members ONLY in structured environments, OR does s/he require medication for social in teraction? Yes, patient needs extra time SOCIAL INTERACTION - SCORE: 6-PORTER PROBLEM SOLVING: PROBLEM SOLVING - STEP 1: Does the patient need help to solve complex problems such as managing a checking account or confronti ng interpersonal problems? No. PROBLEM SOLVING - STEP 2: Does the patient require extra time to make decisions or solve problems, OR does s/he have slight dif ficulty reading, initiating, or self-correcting in unfamiliar situations? Yes, patient needs extra ti me. PROBLEM SOLVING - SCORE: 6-PORTER MEMORY: MEMORY - STEP 1: Does the patient need help to remember frequently encountered people, daily routines, and executing r equests? No. MEMORY - STEP 2: Does the patient have slight difficulty recognizing frequently encountered people, daily routines, or executing requests without the need for repetition or using self-initiated or environmental cues to remember? Yes. MEMORY - SCORE: 6-PORTER SIGNATURE PANEL: The following modified sections: Eating - Score, Grooming - Score, Bathing - Score, Dressing - Upper Body - Score, Dressing - Lower Body - Score, Toileting - Score, Bladder Management - Score, Bowel Man agement - Score, Transfers: Bed, Chair, Wheelchair - Score, Transfers: Toilet - Score, Transfers: Melissa wer - Score, Transfers: Tub - Score, Locomotion: Walk - Score, Locomotion: Wheelchair - Score, Compre hension - Score, Expression - Score, Social Interaction - Score, Problem Solving - Score, Memory - Sc ore were [electronically] signed by Min [email or web address] on ThuDec 21 2017 14:21:18 T-0500 (Centra [place] Daylight Time)
[2017-12-21] MEDS: WARFARIN SODIUM 6 MG TAB PO SCH (17:31)
--- NOTE | 2017-12-21 17:48 | FAST ---
ENCOUNTER DATE AND TIME: 12/21/2017 08:00 (CDT) NAME OLIVA MARCOS DATE OF : 1930 DATE OF ADMISSION: 12/15/2017 15:31 (CDT) PHONE: AGE: 87 N# [id number] GENDER: Male ENCOUNTER PHYSICIAN: Dr. Sunday Goldberg M.D. ADMISSION DIAGNOSIS: - Orthopaedic Disorders 08 - Unilateral Hip Fracture (08.11) Right hip fracture. EATING: Activity did not occur on this shift EATING - SCORE: 0-UNK GROOMING: Activity did not occur on this shift GROOMING - SCORE: 0-UNK BATHING: Activity did not occur on this shift BATHING - SCORE: 0-UNK DRESSING - UPPER BODY: Activity did not occur on this shift Patient is not dressing in public clothing ARTICLES SCORE Total number of steps: 0 DRESSING - UPPER BODY - SCORE: 0-UNK DRESSING - LOWER BODY: Activity did not occur on this shift Patient is not dressing in public clothing ARTICLES SCORE Total number of steps: 0 DRESSING - LOWER BODY - SCORE: 0-UNK TOILETING: Activity did not occur on this shift TOILETING - SCORE: 0-UNK BLADDER MANAGEMENT: Activity did not occur on this shift BLADDER MANAGEMENT - SCORE: 7-IND BOWEL MANAGEMENT: Activity did not occur on this shift BOWEL MANAGEMENT - SCORE: 7-IND TRANSFERS: BED, CHAIR, WHEELCHAIR: Activity did not occur on this shift TRANSFERS: BED, CHAIR, WHEELCHAIR - SCORE: 0-UNK TRANSFERS: TOILET: Activity did not occur on this shift TRANSFERS: TOILET - SCORE: 0-UNK TRANSFERS: SHOWER: Activity did not occur on this shift TRANSFERS: SHOWER - SCORE: 0-UNK TRANSFERS: TUB: Activity did not occur on this shift TRANSFERS: TUB - SCORE: 0-UNK LOCOMOTION: WALK: Activity did not occur on this shift LOCOMOTION: WALK - SCORE: 0-UNK LOCOMOTION: WHEELCHAIR: Activity did not occur on this shift LOCOMOTION: WHEELCHAIR - SCORE: 0-UNK LOCOMOTION: STAIRS: Activity did not occur on this shift LOCOMOTION: STAIRS - SCORE: 0-UNK COMPREHENSION: COMPREHENSION - STEP 1: Does the patient require help to understand complex and abstract ideas (such as current events, finan paola, discharge planning, medical issues, relationships, etc)? Yes. COMPREHENSION - STEP 2: Does the patient require help to understand questions or statements about basic needs or ideas (such as hunger, thirst, sleep, safety, daily schedule, room location, or discomfort) half or more of the t ana? No. COMPREHENSION - STEP 3: How often does the patient need help to understand directions and conversation about basic needs? Les s than 10% of the time COMPREHENSION - SCORE: 5-SUP EXPRESSION EXPRESSION - STEP 1: Does the patient require help expressing complex and abstract ideas (such as current events, finances , discharge planning, medical issues, relationships, etc)? Yes. EXPRESSION - STEP 2: Does the patient require help to express basic necessities or ideas (such as hunger, thirst, sleep, s afety, daily schedule, room location, or discomfort) half or more of the time? No. EXPRESSION - STEP 3: How often does the patient need help to express directions and conversation about basic needs? Less t fairchild 10% of the time EXPRESSION - SCORE: 5-SUP SOCIAL INTERACTION: SOCIAL INTERACTION - STEP 1: Does the patient require a helper to interact with others in social and therapeutic situations? No. SOCIAL INTERACTION - STEP 2: Does the patient need extra time in social situations, OR does s/he interact with staff, other patien ts, and family members ONLY in structured environments, OR does s/he require medication for social in teraction? Yes, patient needs extra time SOCIAL INTERACTION - SCORE: 6-PORTER PROBLEM SOLVING: PROBLEM SOLVING - STEP 1: Does the patient need help to solve complex problems such as managing a checking account or confronti ng interpersonal problems? Yes. PROBLEM SOLVING - STEP 2: Does the patient solve basic routine problems half or more of the time? Yes. PROBLEM SOLVING - STEP 3: How often does the patient need help to solve basic routine problems? 10%-24% of the time PROBLEM SOLVING - SCORE: 4-MIN MEMORY: MEMORY - STEP 1: Does the patient need help to remember frequently encountered people, daily routines, and executing r equests? Yes. MEMORY - STEP 2: How often does the patient need help to remember frequently encountered people, daily routines, and e xecuting requests? 25% - 49% of the time MEMORY - SCORE: 3-MOD SIGNATURE PANEL: The following modified sections: Comprehension - Score, Expression - Score, Social Interaction - Scor e, Problem Solving - Score, Memory - Score were [electronically] signed by KAYLEY Escudero on Thu 16:50:31 GMT-0500 (Central Daylight Time)
[2017-12-21] MEDS: ATORVASTATIN 10 MG TAB PO SCH (20:50)
[2017-12-21] MEDS: PANTOPRAZOLE 40MG TABLET PO SCH (20:50)
[2017-12-21] MEDS: DOCUSATE NA/SENNA CONC 1 TAB PO SCH (20:56)
--- NOTE | 2017-12-21 21:47 | R.PN ---
ENCOUNTER DATE AND TIME: 12/21/2017 20:46 (CDT) NAME OLIVA MARCOS DATE OF : 1930 DATE OF ADMISSION: 12/15/2017 15:31 (CDT) Right hip fractureCHIEF COMPLAINT: Right hip fracture SUBJECTIVE: Pt denied any Shortness of Breath. Pt denied any depression. Pushed wheelchair 500' with with standby assistance. VITAL SIGNS Temperature: 98.9 F SBP/DBP: 107/61 Pulse: 69 Resp: 16 MEDICATION ALLERGIES: Penicillin ENVIRONMENTAL ALLERGIES: None Known - Substance Allergies None Known - Other Allergies None Known NURSING: - Shower allowing shower - Skin care per protocol PRECAUTIONS: - Weight Bearing Precaution TTWB right LE - Fall Precaution Bed and chair alarm ACTIVITIES OOB only with supervision THERAPIES: - Occupational Therapy Evaluate and Treat. - Physical Therapy Evaluate and Treat. PHYSICAL EXAM - Gen Alert and awake Lying in bed No apparent distress Oriented to: person, time, and place - Vital Signs Temperature: 98.9 F SBP/DBP: 110/55 Pulse: 80 Resp: 16 - Skin No skin breakdown. Normacephalic - Eyes No abnormalities - ENMT No abnormalities - Neck No abnormalities - CVS RRR - Chest Clear - Abd Soft - GI Non distended Deferred - No abnormalities - Ext No significant edema - MSK Unremarkable - Neuro No focal deficits - Psych No abnormalities ASSESSMENT: Pt. is a 87 yo Right-handed white male.On 12/10/2017 he was admitted to [facility] with diagnosis Right hip fracture.His impairment category is Orthopaedic Disorders 08 - Unilater al Hip Fracture (08.11).Pre-morbidly, Pt. was independent/mod-I in Transfers Control, Communication, Social Cognition, Self-Care, Locomotion, and Sphincter Control; and he had good Sphincter Control.Cur rently, he has deficits of Safety Awareness, Transfers Control, Balance, Locomotion, Endurance, and S elf-Care.Pt. is now referred to [facility] for acute in-patient rehabilitation in order to maximize patient's functional independence in activities of daily living, strength, ROM, and mobility.- Rehab Goal Patient has realistic goal of being discharged at assistance level 6-Soren to reside at Home with Fam soumya/Relatives. MDM/PLAN: - Anterior Hip Precaution No abduction No active extension No adduction across midline No external rotation No hip flexion >90 degrees No internal rotation - Physical Therapy Decreased range of motion - to improve, our physical therapists will perform initial evaluation of p t's status upon admission and devise an individualized program for increasing patient's Range of Marciano on. Gait dysfunction - to improve, our physical therapists will perform initial evaluation of pt's statu s upon admission and devise an individualized program for Gait Training, and Wheel Chair mobility Inability to transfer - to improve, our physical therapists will perform initial evaluation of pt's status upon admission and devise an individualized program for Bed mobility Need for home safety evaluation - to improve, our physical therapists will perform initial evaluatio n of pt's status upon admission and devise an individualized program for Home Evaluation Need in caregiver upon discharge - to improve, our physical therapists will perform initial evaluati on of pt's status upon admission and devise an individualized program for Caregiver Training New precaution - to improve, our physical therapists will perform initial evaluation of pt's status upon admission and devise an individualized program for Patient precaution education Edema - to improve, our physical therapists will perform initial evaluation of pt's status upon admi ssion and devise an individualized program for Elevation Training, and Lymphedema Therapy Poor balance - to improve, our physical therapists will perform initial evaluation of pt's status up on admission and devise an individualized program for Balance Training Poor endurance - to improve, our physical therapists will perform initial evaluation of pt's status upon admission and devise an individualized program for Endurance Training Weakness - to improve, our physical therapists will perform initial evaluation of pt's status upon a dmission and devise an individualized program for Aquatic Therapy, Neuromuscular Reeducation, and Str engthening Achieving independence - to improve, our physical therapists will perform initial evaluation of pt's status upon admission and devise an individualized program for Community Reintegration Activities - Diet - Liquid Texture Continue Regular - Tube Feed Continue N/A - Diet Type Continue Regular - Posterior Hip Precaution No adduction across midline No external rotation No hip flexion >90 degrees No internal rotation No wheel chair propulsion - Occupational Therapy ADL deficits - to improve, our occupation therapists will perform initial evaluation of pt's status upon admission and devise an individualized program for Bathing, Bed mobility, Community Reintegratio n, Cooking, Dressing, Eating, Fine Motor Skills, Grooming, Homemaking, Kitchen Mobility, Laundry, Pat ient Education, Safety Awareness, Splinting - Positioning, Transfers(Toilet, Tub, Shower), and Wheel Chair Management Need for home health care worker - to improve, our occupation therapists will perform initial evaluation of pt's status upon admission and devise an individualized program for Caregiver Training Weakness - to improve, our occupation therapists will perform initial evaluation of pt's status upon admission and devise an individualized program for Aquatic Therapy, Balance, Endurance, UE ROM, and UE strengthening - Weight Bearing Precaution TTWB right LE - Fall Precaution Bed and chair alarm - Skin care per protocol - Diet - Solid Texture Continue Regular - Shower allowing shower FUNCTIONAL STATUS: UPDATED AT WEEKLY TEAM CONFERENCE - Bladder Same accident frequency: 7-Ind - No accidents in the past 7 days - Bowel Same accident frequency: 7-Ind - No accidents in the past 7 days - Walking Same score based on distance walked: 1(<=50ft) - Wheelchair Same score based on distance traveled: 0(N/A) FUNCTIONAL STATUS: - Self-Care A. Eating Ind B. Grooming Soren C. Bathing Ind D. Dressing - Upper Soren E. Dressing - Lower Reza F. Toileting maxA - Sphincter Control G: Bladder control Dep H: Bowel control Ind - Transfers Control I. Bed/Chair/Wheelchair maxA J. Toilet maxA K. Tub/Shower ADNO - Locomotion L. Walk/Wheelchair (C) maxA L. Walk/Wheelchair (W) Ind M. Stairs ADNO - Communication N. Comprehension (B) Soren O. Expression (B) Soren - Social Cognition P. Social Interaction Soren Q. Problem Solving Soren R. Memory Soren - Endurance Fair - Balance Fair - Safety Awareness Fair CURRENT FUNC. DEFICITS: Safety Awareness, Transfers Control, Balance, Locomotion, Endurance, and Self-Care SIGNATURE PANEL: (CDT)
--- NOTE | 2017-12-22 03:07 | FAST ---
SHIFT START DATE/TIME: 12/21/2017 19:00 (CDT) SHIFT END DATE/TIME: 12/22/2017 07:00 (CDT) NAME OLIVA MARCOS DATE OF : 1930 DATE OF ADMISSION: 12/15/2017 15:31 (CDT) PHONE: AGE: 87 N# [id number] GENDER: Male ENCOUNTER PHYSICIAN: Dr. Sunday Goldberg M.D. ADMISSION DIAGNOSIS: - Orthopaedic Disorders 08 - Unilateral Hip Fracture (08.11) Right hip fracture. EATING: Activity did not occur on this shift EATING - SCORE: 0-UNK GROOMING: Activity did not occur on this shift GROOMING - SCORE: 0-UNK BATHING: Activity did not occur on this shift BATHING - SCORE: 0-UNK DRESSING - UPPER BODY: Patient is not dressing in public clothing ARTICLES SCORE Total number of steps: 0 DRESSING - UPPER BODY - SCORE: 0-UNK DRESSING - LOWER BODY: Patient is not dressing in public clothing ARTICLES SCORE Total number of steps: 0 DRESSING - LOWER BODY - SCORE: 0-UNK TOILETING: TOILETING - STEP 1: Does the patient require assistance with toileting? Yes. TOILETING - STEP 2: Does the patient require the assistance of a helper? Yes. TOILETING - STEP 3: How much assistance does the patient require from the helper? Hands-on assistance from the helper TOILETING - STEP 4: Of the 3 tasks: 1) Adjusting clothing prior to use, 2) Cleansing of perineal area, 3) Adjusting clot mackenzie after use; How many tasks does the patient perform WITHOUT assistance of the helper? Three tasks with steadying assistance from the helper TOILETING - SCORE: 4-MIN BLADDER MANAGEMENT: BLADDER MANAGEMENT - STEP 1: Does the patient control the bladder completely and intentionally without equipment or devices or med ications, and is always continent? No. BLADDER MANAGEMENT - STEP 2: Does the patient require the assistance of a helper? Yes. BLADDER MANAGEMENT - STEP 3: How much assistance does the patient require from the helper? Only set-up of equipment - such as plac ing it within reach of the patient or emptying a device - to maintain either satisfactory voiding pat tern or managing an external device, such as an absorbent pad, ileal device, or catheter BLADDER MANAGEMENT - SCORE: 5-SUP BOWEL MANAGEMENT: Activity did not occur on this shift BOWEL MANAGEMENT - SCORE: 7-IND TRANSFERS: BED, CHAIR, WHEELCHAIR: Activity did not occur on this shift TRANSFERS: BED, CHAIR, WHEELCHAIR - SCORE: 0-UNK TRANSFERS: TOILET: Activity did not occur on this shift TRANSFERS: TOILET - SCORE: 0-UNK TRANSFERS: SHOWER: Activity did not occur on this shift TRANSFERS: SHOWER - SCORE: 0-UNK TRANSFERS: TUB: Activity did not occur on this shift TRANSFERS: TUB - SCORE: 0-UNK LOCOMOTION: WALK: Activity did not occur on this shift LOCOMOTION: WALK - SCORE: 0-UNK LOCOMOTION: WHEELCHAIR: Activity did not occur on this shift LOCOMOTION: WHEELCHAIR - SCORE: 0-UNK COMPREHENSION: COMPREHENSION - STEP 1: Does the patient require help to understand complex and abstract ideas (such as current events, finan paola, discharge planning, medical issues, relationships, etc)? No. COMPREHENSION - STEP 2: Does the patient need extra time, require an assistive device (such as glasses, hearing aids, or an a ugmentative communication system), OR does s/he have mild difficulty expressing complex and abstract ideas (including mild dysarthria or mild word-finding problems)? Yes. COMPREHENSION - SCORE: 6-PORTER EXPRESSION EXPRESSION - STEP 1: Does the patient require help expressing complex and abstract ideas (such as current events, finances , discharge planning, medical issues, relationships, etc)? No. EXPRESSION - STEP 2: Does the patient need extra time, require an assistive device (such as augmentive communication syste m or a communication board), OR does s/he have mild difficulty expressing complex and abstract ideas (including mild dysarthria or mild word-find problems)? No. EXPRESSION - SCORE: 7-IND SOCIAL INTERACTION: SOCIAL INTERACTION - STEP 1: Does the patient require a helper to interact with others in social and therapeutic situations? No. SOCIAL INTERACTION - STEP 2: Does the patient need extra time in social situations, OR does s/he interact with staff, other patien ts, and family members ONLY in structured environments, OR does s/he require medication for social in teraction? No. SOCIAL INTERACTION - SCORE: 7-IND PROBLEM SOLVING: PROBLEM SOLVING - STEP 1: Does the patient need help to solve complex problems such as managing a checking account or confronti ng interpersonal problems? No. PROBLEM SOLVING - STEP 2: Does the patient require extra time to make decisions or solve problems, OR does s/he have slight dif ficulty reading, initiating, or self-correcting in unfamiliar situations? Yes, patient needs extra ti me. PROBLEM SOLVING - SCORE: 6-PORTER MEMORY: MEMORY - STEP 1: Does the patient need help to remember frequently encountered people, daily routines, and executing r equests? No. MEMORY - STEP 2: Does the patient have slight difficulty recognizing frequently encountered people, daily routines, or executing requests without the need for repetition or using self-initiated or environmental cues to remember? Yes. MEMORY - SCORE: 6-PORTER SIGNATURE PANEL: The following modified sections: Eating - Score, Grooming - Score, Dressing - Upper Body - Score, Oniel ssing - Lower Body - Score, Toileting - Score, Bladder Management - Score, Bowel Management - Score, Transfers: Bed, Chair, Wheelchair - Score, Transfers: Toilet - Score, Transfers: Shower - Score, Ann sfers: Tub - Score, Locomotion: Walk - Score, Locomotion: Wheelchair - Score, Comprehension - Score, Expression - Score, Social Interaction - Score, Problem Solving - Score, Memory - Score were [electro nically] signed by Zoey Hancock CNA on ThuDec 22 2017 02:09:43 T-0500 ([facility] Daylight Time)
[2017-12-22 06:36] LABS: Protime INR 2.5
[2017-12-22] MEDS: LISINOPRIL 20 MG TAB PO SCH (08:00)
[2017-12-22] MEDS: ENSURE HIGH PROTEIN 237 ML CAN PO SCH ×2 (08:00→20:12)
[2017-12-22] MEDS: HYDROCODONE/APAP 10/325 TAB PO PRN ×2 (08:20→21:21)
[2017-12-22] MEDS: FE SULF/FA/VIT B COMP & C TAB PO SCH (08:20)
[2017-12-22] MEDS: MAGNESIUM OXIDE 400 MG TAB PO SCH ×2 (08:20→20:12)
[2017-12-22] MEDS: FUROSEMIDE 40 MG TABLET PO SCH (08:20)
[2017-12-22] MEDS: FERROUS SULFATE 325 MG TAB PO SCH (08:20)
--- NOTE | 2017-12-22 11:40 | FAST ---
ENCOUNTER DATE AND TIME: 12/16/2017 08:00 (CDT) NAME OLIVA MARCOS DATE OF : 1930 DATE OF ADMISSION: 12/15/2017 15:31 (CDT) PHONE: AGE: 87 N# [id number] GENDER: Male ENCOUNTER PHYSICIAN: Dr. Sunday Goldberg M.D. ADMISSION DIAGNOSIS: - Orthopaedic Disorders 08 - Unilateral Hip Fracture (08.11) Right hip fracture. EATING: EATING - STEP 1: Does the patient require assistance when eating? No. EATING - SCORE: 7-IND GROOMING: Comb/brush hair Oral care Wash, rinse, and dry face Wash, rinse, and dry hands GROOMING - STEP 1: Does the patient require assistance when grooming? No. GROOMING - SCORE: 7-IND BATHING: Abdomen Buttocks Chest Left arm Left lower leg and foot Left upper leg Perineal area Right arm Right lower leg and foot Right upper leg BATHING - STEP 1: Does the patient require assistance when bathing? Yes. BATHING - STEP 2: Does the patient require the assistance of a helper? Yes. BATHING - STEP 3: How much assistance does the patient require from the helper? More than just incidental help BATHING - STEP 4: What percent of the body parts did the patient bathe WITHOUT the helper? Less than half of the body p arts BATHING - SCORE: 2-MAX DRESSING - UPPER BODY: T-shirt/pullover shirt (four steps) ARTICLES SCORE Total number of steps: 4 DRESSING - UPPER BODY - STEP 1: Does the patient require help when dressing above the waist? Yes. DRESSING - UPPER BODY - STEP 2: Does the patient require the assistance of a helper? Yes. DRESSING - UPPER BODY - STEP 3: Does the helper touch the patient while dressing? No. DRESSING - UPPER BODY - SCORE: 5-SUP DRESSING - LOWER BODY: Sock - Left foot (one step) Sock - Right foot (one step) Underwear (three steps) ARTICLES SCORE Total number of steps: 5 DRESSING - LOWER BODY - STEP 1: Does the patient require help when dressing below the waist? Yes. DRESSING - LOWER BODY - STEP 2: Does the patient require the assistance of a helper? Yes. DRESSING - LOWER BODY - STEP 3: Does the helper touch the patient while dressing? Yes. DRESSING - LOWER BODY - STEP 4: How many of the total steps does the patient complete on his/her own? 0 DRESSING - LOWER BODY - STEP 5: Does patient require total assistance for dressing below the waist such as the helper holding clothin g and performing basically all the activities? Yes. DRESSING - LOWER BODY - SCORE: 1-DEP TOILETING: TOILETING - STEP 1: Does the patient require assistance with toileting? Yes. TOILETING - STEP 2: Does the patient require the assistance of a helper? Yes. TOILETING - STEP 3: How much assistance does the patient require from the helper? Hands-on assistance from the helper TOILETING - STEP 4: Of the 3 tasks: 1) Adjusting clothing prior to use, 2) Cleansing of perineal area, 3) Adjusting clot mackenzie after use; How many tasks does the patient perform WITHOUT assistance of the helper? No tasks; h elper performs all three tasks TOILETING - SCORE: 1-DEP BLADDER MANAGEMENT: Activity did not occur on this shift BLADDER MANAGEMENT - SCORE: 7-IND BOWEL MANAGEMENT: Activity did not occur on this shift BOWEL MANAGEMENT - SCORE: 7-IND TRANSFERS: BED, CHAIR, WHEELCHAIR: Activity did not occur on this shift TRANSFERS: BED, CHAIR, WHEELCHAIR - SCORE: 0-UNK TRANSFERS: TOILET: TRANSFERS: TOILET - STEP 1: Does the patient require assistance with toilet transfers? Yes. TRANSFERS: TOILET - STEP 2: Does the patient require the assistance of a helper? Yes. TRANSFERS: TOILET - STEP 3: How much assistance does the patient require from the helper? Patient performs less than half of the transferring tasks TRANSFERS: TOILET - STEP 4: Does the patient require total assistance for the toilet transfer such as the helper doing basically all the lifting? No. TRANSFERS: TOILET - SCORE: 2-MAX TRANSFERS: SHOWER: TRANSFERS: SHOWER - STEP 1: Does the patient require assistance with shower transfers? Yes. TRANSFERS: SHOWER - STEP 2: Does the patient require the assistance of a helper? Yes. TRANSFERS: SHOWER - STEP 3: How much assistance does the patient require from the helper? More than incidental help TRANSFERS: SHOWER - STEP 4: How much more help does the patient require from the helper? Lifting the patient up AND down from the wheelchair onto the shower chair TRANSFERS: SHOWER - SCORE: 2-MAX TRANSFERS: TUB: Activity did not occur on this shift TRANSFERS: TUB - SCORE: 0-UNK LOCOMOTION: WALK: Activity did not occur on this shift LOCOMOTION: WALK - SCORE: 0-UNK LOCOMOTION: WHEELCHAIR: Activity did not occur on this shift LOCOMOTION: WHEELCHAIR - SCORE: 0-UNK LOCOMOTION: STAIRS: Activity did not occur on this shift LOCOMOTION: STAIRS - SCORE: 0-UNK COMPREHENSION: COMPREHENSION: TYPE: Both COMPREHENSION - STEP 1: Does the patient require help to understand complex and abstract ideas (such as current events, finan paola, discharge planning, medical issues, relationships, etc)? Yes. COMPREHENSION - STEP 2: Does the patient require help to understand questions or statements about basic needs or ideas (such as hunger, thirst, sleep, safety, daily schedule, room location, or discomfort) half or more of the t ana? No. COMPREHENSION - STEP 3: How often does the patient need help to understand directions and conversation about basic needs? Les s than 10% of the time COMPREHENSION - SCORE: 5-SUP EXPRESSION EXPRESSION: TYPE: Both EXPRESSION - STEP 1: Does the patient require help expressing complex and abstract ideas (such as current events, finances , discharge planning, medical issues, relationships, etc)? Yes. EXPRESSION - STEP 2: Does the patient require help to express basic necessities or ideas (such as hunger, thirst, sleep, s afety, daily schedule, room location, or discomfort) half or more of the time? No. EXPRESSION - STEP 3: How often does the patient need help to express directions and conversation about basic needs? Less t [place] 10% of the time EXPRESSION - SCORE: 5-SUP SOCIAL INTERACTION: SOCIAL INTERACTION - STEP 1: Does the patient require a helper to interact with others in social and therapeutic situations? No. SOCIAL INTERACTION - STEP 2: Does the patient need extra time in social situations, OR does s/he interact with staff, other patien ts, and family members ONLY in structured environments, OR does s/he require medication for social in teraction? Yes, patient needs extra time SOCIAL INTERACTION - SCORE: 6-PORTER PROBLEM SOLVING: PROBLEM SOLVING - STEP 1: Does the patient need help to solve complex problems such as managing a checking account or confronti ng interpersonal problems? Yes. PROBLEM SOLVING - STEP 2: Does the patient solve basic routine problems half or more of the time? Yes. PROBLEM SOLVING - STEP 3: How often does the patient need help to solve basic routine problems? Less than 10% of the time PROBLEM SOLVING - SCORE: 5-SUP MEMORY: MEMORY - STEP 1: Does the patient need help to remember frequently encountered people, daily routines, and executing r equests? Yes. MEMORY - STEP 2: How often does the patient need help to remember frequently encountered people, daily routines, and e xecuting requests? Less than 10% of the time MEMORY - SCORE: 5-SUP SIGNATURE PANEL: The following modified sections: Eating - Score, Grooming - Score, Bathing - Score, Dressing - Upper Body - Score, Dressing - Lower Body - Score, Toileting - Score, Transfers: Bed, Chair, Wheelchair - S core, Transfers: Toilet - Score, Transfers: Tub - Score, Transfers: Shower - Score, Comprehension - S core, Expression - Score, Social Interaction - Score, Problem Solving - Score, Memory - Score were [e lectronically] signed by Janeth Ortega OT on ThuDec 22 2017 10:42:44 T-0500 ([facility])
--- NOTE | 2017-12-22 16:03 | FAST ---
ENCOUNTER DATE AND TIME: 12/21/2017 08:00 (CDT) NAME OLIVA MARCOS DATE OF : 1930 DATE OF ADMISSION: 12/15/2017 15:31 (CDT) PHONE: AGE: 87 N# [id number] GENDER: Male ENCOUNTER PHYSICIAN: Dr. Sunday Goldberg M.D. ADMISSION DIAGNOSIS: - Orthopaedic Disorders 08 - Unilateral Hip Fracture (08.11) Right hip fracture. EATING: Activity did not occur on this shift EATING - SCORE: 0-UNK GROOMING: Activity did not occur on this shift GROOMING - SCORE: 0-UNK BATHING: Activity did not occur on this shift BATHING - SCORE: 0-UNK DRESSING - UPPER BODY: Activity did not occur on this shift Patient is not dressing in public clothing ARTICLES SCORE Total number of steps: 0 DRESSING - UPPER BODY - SCORE: 0-UNK DRESSING - LOWER BODY: Activity did not occur on this shift Patient is not dressing in public clothing ARTICLES SCORE Total number of steps: 0 DRESSING - LOWER BODY - SCORE: 0-UNK TOILETING: Activity did not occur on this shift TOILETING - SCORE: 0-UNK BLADDER MANAGEMENT: Activity did not occur on this shift BLADDER MANAGEMENT - SCORE: 7-IND BOWEL MANAGEMENT: Activity did not occur on this shift BOWEL MANAGEMENT - SCORE: 7-IND TRANSFERS: BED, CHAIR, WHEELCHAIR: TRANSFERS: BED, CHAIR, WHEELCHAIR - STEP 1: Does the patient require assistance with bed, chair, or wheelchair transfers? Yes. TRANSFERS: BED, CHAIR, WHEELCHAIR - STEP 2: Does the patient require the assistance of a helper? Yes. TRANSFERS: BED, CHAIR, WHEELCHAIR - STEP 3: How much assistance does the patient require from the helper? Steadying/guiding assistance TRANSFERS: BED, CHAIR, WHEELCHAIR - SCORE: 4-MIN TRANSFERS: TOILET: Activity did not occur on this shift TRANSFERS: TOILET - SCORE: 0-UNK TRANSFERS: SHOWER: Activity did not occur on this shift TRANSFERS: SHOWER - SCORE: 0-UNK TRANSFERS: TUB: Activity did not occur on this shift TRANSFERS: TUB - SCORE: 0-UNK LOCOMOTION: WALK: Patient walks less than 50 feet LOCOMOTION: WALK - SCORE: 1-DEP LOCOMOTION: WHEELCHAIR: LOCOMOTION: WHEELCHAIR - STEP 1: Does the patient need help to go 150 feet in a wheelchair? Yes. LOCOMOTION: WHEELCHAIR - STEP 2: How much assistance does the patient need from the helper? Only supervision, cuing, or coaxing LOCOMOTION: WHEELCHAIR - SCORE: 5-SUP LOCOMOTION: STAIRS: Activity did not occur on this shift LOCOMOTION: STAIRS - SCORE: 0-UNK COMPREHENSION: COMPREHENSION - SCORE: 0-UNK EXPRESSION EXPRESSION - SCORE: 0-UNK SOCIAL INTERACTION: SOCIAL INTERACTION - SCORE: 0-UNK PROBLEM SOLVING: PROBLEM SOLVING - SCORE: 0-UNK MEMORY: MEMORY - SCORE: 0-UNK SIGNATURE PANEL: The following modified sections: Transfers: Bed, Chair, Wheelchair - Score, Transfers: Toilet - Score , Locomotion: Walk - Score, Locomotion: Wheelchair - Score, Locomotion: Stairs - Score were [electron myriam] signed by Randy Montgomery PTA on ThuDec 22 2017 15:05:59 GMT-0500 (Central Daylight Time)
--- NOTE | 2017-12-22 16:22 | FAST ---
SHIFT START DATE/TIME: 12/22/2017 07:00 (CDT) SHIFT END DATE/TIME: 12/22/2017 19:00 (CDT) NAME OLIVA MARCOS DATE OF : 1930 DATE OF ADMISSION: 12/15/2017 15:31 (CDT) PHONE: AGE: 87 N# [id number] GENDER: Male ENCOUNTER PHYSICIAN: Dr. Sunady Goldberg M.D. ADMISSION DIAGNOSIS: - Orthopaedic Disorders 08 - Unilateral Hip Fracture (08.11) Right hip fracture. EATING: EATING - STEP 1: Does the patient require assistance when eating? Yes. EATING - STEP 2: Does the patient require the assistance of a helper? Yes. EATING - STEP 3: Does the patient perform half or more of the eating tasks? Yes. EATING - STEP 4: Does the patient need only supervision, cuing, coaxing OR help to apply an orthosis OR help to cut fo od, open containers, pour liquids, or butter bread? Yes. EATING - SCORE: 5-SUP GROOMING: Comb/brush hair Oral care Wash, rinse, and dry face Wash, rinse, and dry hands GROOMING - STEP 1: Does the patient require assistance when grooming? Yes. GROOMING - STEP 2: Does the patient require the assistance of a helper? No. The patient only requires an assistive devic e, OR takes more than reasonable time to groom, OR there is a concern for safety as the patient groom s GROOMING - SCORE: 6-PORTER BATHING: Activity did not occur on this shift BATHING - SCORE: 0-UNK DRESSING - UPPER BODY: Activity did not occur on this shift ARTICLES SCORE Total number of steps: 0 DRESSING - UPPER BODY - SCORE: 0-UNK DRESSING - LOWER BODY: Activity did not occur on this shift ARTICLES SCORE Total number of steps: 0 DRESSING - LOWER BODY - SCORE: 0-UNK TOILETING: TOILETING - STEP 1: Does the patient require assistance with toileting? Yes. TOILETING - STEP 2: Does the patient require the assistance of a helper? Yes. TOILETING - STEP 3: How much assistance does the patient require from the helper? Only supervision TOILETING - SCORE: 5-SUP BLADDER MANAGEMENT: BLADDER MANAGEMENT - STEP 1: Does the patient control the bladder completely and intentionally without equipment or devices or med ications, and is always continent? No. BLADDER MANAGEMENT - STEP 2: Does the patient require the assistance of a helper? No, patient requires and independently uses an a ssistive device, such as a urinal, bedpan, bedside commode, catheter, absorbent pad, or collecting de vice BLADDER MANAGEMENT - SCORE: 6-PORTER BLADDER MANAGEMENT - FREQUENCY OF ACCIDENTS: BLADDER MANAGEMENT(FA) - STEP 1: How many accidents has the patient had during the current shift? 0 BOWEL MANAGEMENT: Activity did not occur on this shift BOWEL MANAGEMENT - SCORE: 7-IND BOWEL MANAGEMENT - FREQUENCY OF ACCIDENTS: BOWEL MANAGEMENT(FA) - STEP 1: How many accidents has the patient had during the current shift? 0 TRANSFERS: BED, CHAIR, WHEELCHAIR: TRANSFERS: BED, CHAIR, WHEELCHAIR - STEP 1: Does the patient require assistance with bed, chair, or wheelchair transfers? Yes. TRANSFERS: BED, CHAIR, WHEELCHAIR - STEP 2: Does the patient require the assistance of a helper? Yes. TRANSFERS: BED, CHAIR, WHEELCHAIR - STEP 3: How much assistance does the patient require from the helper? Steadying/guiding assistance TRANSFERS: BED, CHAIR, WHEELCHAIR - SCORE: 4-MIN TRANSFERS: TOILET: TRANSFERS: TOILET - STEP 1: Does the patient require assistance with toilet transfers? Yes. TRANSFERS: TOILET - STEP 2: Does the patient require the assistance of a helper? Yes. TRANSFERS: TOILET - STEP 3: How much assistance does the patient require from the helper? Patient performs half or more of the tr ansferring tasks TRANSFERS: TOILET - STEP 4: Does the patient need only incidental help such as contact guard or steadying during toilet transfer? Yes. TRANSFERS: TOILET - SCORE: 4-MIN TRANSFERS: SHOWER: Activity did not occur on this shift TRANSFERS: SHOWER - SCORE: 0-UNK TRANSFERS: TUB: Activity did not occur on this shift TRANSFERS: TUB - SCORE: 0-UNK LOCOMOTION: WALK: Activity did not occur on this shift LOCOMOTION: WALK - SCORE: 0-UNK LOCOMOTION: WHEELCHAIR: LOCOMOTION: WHEELCHAIR - STEP 1: Does the patient need help to go 150 feet in a wheelchair? Yes. LOCOMOTION: WHEELCHAIR - STEP 2: How much assistance does the patient need from the helper? Only supervision, cuing, or coaxing LOCOMOTION: WHEELCHAIR - SCORE: 5-SUP COMPREHENSION: COMPREHENSION: TYPE: Both COMPREHENSION - STEP 1: Does the patient require help to understand complex and abstract ideas (such as current events, finan paola, discharge planning, medical issues, relationships, etc)? No. COMPREHENSION - STEP 2: Does the patient need extra time, require an assistive device (such as glasses, hearing aids, or an a ugmentative communication system), OR does s/he have mild difficulty expressing complex and abstract ideas (including mild dysarthria or mild word-finding problems)? Yes. COMPREHENSION - SCORE: 6-PORTER EXPRESSION EXPRESSION: TYPE: Vocal EXPRESSION - STEP 1: Does the patient require help expressing complex and abstract ideas (such as current events, finances , discharge planning, medical issues, relationships, etc)? No. EXPRESSION - STEP 2: Does the patient need extra time, require an assistive device (such as augmentive communication syste m or a communication board), OR does s/he have mild difficulty expressing complex and abstract ideas (including mild dysarthria or mild word-find problems)? Yes. EXPRESSION - SCORE: 6-PORTER SOCIAL INTERACTION: SOCIAL INTERACTION - STEP 1: Does the patient require a helper to interact with others in social and therapeutic situations? No. SOCIAL INTERACTION - STEP 2: Does the patient need extra time in social situations, OR does s/he interact with staff, other patien ts, and family members ONLY in structured environments, OR does s/he require medication for social in teraction? No. SOCIAL INTERACTION - SCORE: 7-IND PROBLEM SOLVING: PROBLEM SOLVING - STEP 1: Does the patient need help to solve complex problems such as managing a checking account or confronti ng interpersonal problems? No. PROBLEM SOLVING - STEP 2: Does the patient require extra time to make decisions or solve problems, OR does s/he have slight dif ficulty reading, initiating, or self-correcting in unfamiliar situations? Yes, patient needs extra ti me. PROBLEM SOLVING - SCORE: 6-PORTER MEMORY: MEMORY - STEP 1: Does the patient need help to remember frequently encountered people, daily routines, and executing r equests? No. MEMORY - STEP 2: Does the patient have slight difficulty recognizing frequently encountered people, daily routines, or executing requests without the need for repetition or using self-initiated or environmental cues to remember? Yes. MEMORY - SCORE: 6-PORTER SIGNATURE PANEL: The following modified sections: Eating - Score, Grooming - Score, Bathing - Score, Dressing - Upper Body - Score, Dressing - Lower Body - Score, Toileting - Score, Bladder Management - Score, Bowel Man agement - Score, Transfers: Bed, Chair, Wheelchair - Score, Transfers: Toilet - Score, Transfers: Melissa wer - Score, Transfers: Tub - Score, Locomotion: Walk - Score, Locomotion: Wheelchair - Score, Compre hension - Score, Expression - Score, Social Interaction - Score, Problem Solving - Score, Memory - Sc ore were [electronically] signed by Min [email or web address] on ThuDec 22 2017 15:24:50 GMT-0500 ([facility] [place])
[2017-12-22] MEDS: WARFARIN SODIUM 6 MG TAB PO SCH (17:03)
--- NOTE | 2017-12-22 17:32 | FAST ---
ENCOUNTER DATE AND TIME: 12/22/2017 08:00 (CDT) NAME OLIVA MARCOS DATE OF : 1930 DATE OF ADMISSION: 12/15/2017 15:31 (CDT) PHONE: AGE: 87 N# [id number] GENDER: Male ENCOUNTER PHYSICIAN: Dr. Sunday Goldberg M.D. ADMISSION DIAGNOSIS: - Orthopaedic Disorders 08 - Unilateral Hip Fracture (08.11) Right hip fracture. EATING: Activity did not occur on this shift EATING - SCORE: 0-UNK GROOMING: Activity did not occur on this shift GROOMING - SCORE: 0-UNK BATHING: Activity did not occur on this shift BATHING - SCORE: 0-UNK DRESSING - UPPER BODY: Activity did not occur on this shift Patient is not dressing in public clothing ARTICLES SCORE Total number of steps: 0 DRESSING - UPPER BODY - SCORE: 0-UNK DRESSING - LOWER BODY: Activity did not occur on this shift Patient is not dressing in public clothing ARTICLES SCORE Total number of steps: 0 DRESSING - LOWER BODY - SCORE: 0-UNK TOILETING: Activity did not occur on this shift TOILETING - SCORE: 0-UNK BLADDER MANAGEMENT: Activity did not occur on this shift BLADDER MANAGEMENT - SCORE: 7-IND BOWEL MANAGEMENT: Activity did not occur on this shift BOWEL MANAGEMENT - SCORE: 7-IND TRANSFERS: BED, CHAIR, WHEELCHAIR: Activity did not occur on this shift TRANSFERS: BED, CHAIR, WHEELCHAIR - SCORE: 0-UNK TRANSFERS: TOILET: Activity did not occur on this shift TRANSFERS: TOILET - SCORE: 0-UNK TRANSFERS: SHOWER: Activity did not occur on this shift TRANSFERS: SHOWER - SCORE: 0-UNK TRANSFERS: TUB: Activity did not occur on this shift TRANSFERS: TUB - SCORE: 0-UNK LOCOMOTION: WALK: Activity did not occur on this shift LOCOMOTION: WALK - SCORE: 0-UNK LOCOMOTION: WHEELCHAIR: Activity did not occur on this shift LOCOMOTION: WHEELCHAIR - SCORE: 0-UNK LOCOMOTION: STAIRS: Activity did not occur on this shift LOCOMOTION: STAIRS - SCORE: 0-UNK COMPREHENSION: COMPREHENSION - STEP 1: Does the patient require help to understand complex and abstract ideas (such as current events, finan paola, discharge planning, medical issues, relationships, etc)? Yes. COMPREHENSION - STEP 2: Does the patient require help to understand questions or statements about basic needs or ideas (such as hunger, thirst, sleep, safety, daily schedule, room location, or discomfort) half or more of the t ana? No. COMPREHENSION - STEP 3: How often does the patient need help to understand directions and conversation about basic needs? Les s than 10% of the time COMPREHENSION - SCORE: 5-SUP EXPRESSION EXPRESSION - STEP 1: Does the patient require help expressing complex and abstract ideas (such as current events, finances , discharge planning, medical issues, relationships, etc)? No. EXPRESSION - STEP 2: Does the patient need extra time, require an assistive device (such as augmentive communication syste m or a communication board), OR does s/he have mild difficulty expressing complex and abstract ideas (including mild dysarthria or mild word-find problems)? Yes. EXPRESSION - SCORE: 6-PORTER SOCIAL INTERACTION: SOCIAL INTERACTION - STEP 1: Does the patient require a helper to interact with others in social and therapeutic situations? No. SOCIAL INTERACTION - STEP 2: Does the patient need extra time in social situations, OR does s/he interact with staff, other patien ts, and family members ONLY in structured environments, OR does s/he require medication for social in teraction? Yes, patient needs extra time SOCIAL INTERACTION - SCORE: 6-PORTER PROBLEM SOLVING: PROBLEM SOLVING - STEP 1: Does the patient need help to solve complex problems such as managing a checking account or confronti ng interpersonal problems? Yes. PROBLEM SOLVING - STEP 2: Does the patient solve basic routine problems half or more of the time? Yes. PROBLEM SOLVING - STEP 3: How often does the patient need help to solve basic routine problems? 10%-24% of the time PROBLEM SOLVING - SCORE: 4-MIN MEMORY: MEMORY - STEP 1: Does the patient need help to remember frequently encountered people, daily routines, and executing r equests? Yes. MEMORY - STEP 2: How often does the patient need help to remember frequently encountered people, daily routines, and e xecuting requests? 25% - 49% of the time MEMORY - SCORE: 3-MOD SIGNATURE PANEL: The following modified sections: Comprehension - Score, Expression - Score, Social Interaction - Scor e, Problem Solving - Score, Memory - Score were [electronically] signed by KAYLEY Escudero on Thu 16:33:56 GMT-0500 (Central Daylight Time)
[2017-12-22] MEDS: CARVEDILOL 3.125 MG TAB PO SCH (17:37)
--- NOTE | 2017-12-22 18:02 | FAST ---
ENCOUNTER DATE AND TIME: 12/22/2017 08:00 (CDT) NAME OLIVA MARCOS DATE OF : 1930 DATE OF ADMISSION: 12/15/2017 15:31 (CDT) PHONE: AGE: 87 N# [id number] GENDER: Male ENCOUNTER PHYSICIAN: Dr. Sunday Goldberg M.D. ADMISSION DIAGNOSIS: - Orthopaedic Disorders 08 - Unilateral Hip Fracture (08.11) Right hip fracture. EATING: Activity did not occur on this shift EATING - SCORE: 0-UNK GROOMING: Activity did not occur on this shift GROOMING - SCORE: 0-UNK BATHING: Activity did not occur on this shift BATHING - SCORE: 0-UNK DRESSING - UPPER BODY: Activity did not occur on this shift Patient is not dressing in public clothing ARTICLES SCORE Total number of steps: 0 DRESSING - UPPER BODY - SCORE: 0-UNK DRESSING - LOWER BODY: Activity did not occur on this shift Patient is not dressing in public clothing ARTICLES SCORE Total number of steps: 0 DRESSING - LOWER BODY - SCORE: 0-UNK TOILETING: Activity did not occur on this shift TOILETING - SCORE: 0-UNK BLADDER MANAGEMENT: Activity did not occur on this shift BLADDER MANAGEMENT - SCORE: 7-IND BOWEL MANAGEMENT: Activity did not occur on this shift BOWEL MANAGEMENT - SCORE: 7-IND TRANSFERS: BED, CHAIR, WHEELCHAIR: TRANSFERS: BED, CHAIR, WHEELCHAIR - STEP 1: Does the patient require assistance with bed, chair, or wheelchair transfers? Yes. TRANSFERS: BED, CHAIR, WHEELCHAIR - STEP 2: Does the patient require the assistance of a helper? Yes. TRANSFERS: BED, CHAIR, WHEELCHAIR - STEP 3: How much assistance does the patient require from the helper? Steadying/guiding assistance TRANSFERS: BED, CHAIR, WHEELCHAIR - SCORE: 4-MIN TRANSFERS: TOILET: Activity did not occur on this shift TRANSFERS: TOILET - SCORE: 0-UNK TRANSFERS: SHOWER: Activity did not occur on this shift TRANSFERS: SHOWER - SCORE: 0-UNK TRANSFERS: TUB: Activity did not occur on this shift TRANSFERS: TUB - SCORE: 0-UNK LOCOMOTION: WALK: Patient walks less than 50 feet LOCOMOTION: WALK - SCORE: 1-DEP LOCOMOTION: WHEELCHAIR: LOCOMOTION: WHEELCHAIR - STEP 1: Does the patient need help to go 150 feet in a wheelchair? Yes. LOCOMOTION: WHEELCHAIR - STEP 2: How much assistance does the patient need from the helper? Only supervision, cuing, or coaxing LOCOMOTION: WHEELCHAIR - SCORE: 5-SUP LOCOMOTION: STAIRS: Activity did not occur on this shift LOCOMOTION: STAIRS - SCORE: 0-UNK COMPREHENSION: COMPREHENSION - SCORE: 0-UNK EXPRESSION EXPRESSION - SCORE: 0-UNK SOCIAL INTERACTION: SOCIAL INTERACTION - SCORE: 0-UNK PROBLEM SOLVING: PROBLEM SOLVING - SCORE: 0-UNK MEMORY: MEMORY - SCORE: 0-UNK SIGNATURE PANEL: The following modified sections: Transfers: Bed, Chair, Wheelchair - Score, Transfers: Toilet - Score , Locomotion: Walk - Score, Locomotion: Wheelchair - Score, Locomotion: Stairs - Score were [electron myriam] signed by Terrell Collazo PT on ThuDec 22 2017 17:05:13 T-0500 (Central Daylight Time)
--- NOTE | 2017-12-22 19:21 | R.PN ---
ENCOUNTER DATE AND TIME: 12/22/2017 18:19 (CDT) NAME OLIVA MARCOS DATE OF : 1930 DATE OF ADMISSION: 12/15/2017 15:31 (CDT) Right hip fractureCHIEF COMPLAINT: Right hip fracture SUBJECTIVE: Pt denied any Shortness of Breath. Pt denied any depression. Pushed wheelchair 250' with with contact guard assistance. Ambulated 74' with contact guard assistan ce using a rolling walker. VITAL SIGNS Temperature: 98.9 F SBP/DBP: 111/58 Pulse: 86 Resp: 16 MEDICATION ALLERGIES: Penicillin ENVIRONMENTAL ALLERGIES: None Known - Substance Allergies None Known - Other Allergies None Known NURSING: - Shower allowing shower - Skin care per protocol PRECAUTIONS: - Weight Bearing Precaution TTWB right LE - Fall Precaution Bed and chair alarm ACTIVITIES OOB only with supervision THERAPIES: - Occupational Therapy Evaluate and Treat. - Physical Therapy Evaluate and Treat. PHYSICAL EXAM - Gen Alert and awake Lying in bed No apparent distress Oriented to: person, time, and place - Skin No skin breakdown. Normacephalic - Eyes No abnormalities - ENMT No abnormalities - Neck No abnormalities - CVS RRR - Chest Clear - Abd Soft - GI Non distended Deferred - No abnormalities - Ext No significant edema - MSK Unremarkable - Neuro No focal deficits - Psych No abnormalities ASSESSMENT: Pt. is a 87 yo Right-handed white male.On 12/10/2017 he was admitted to [facility] with diagnosis Right hip fracture.His impairment category is Orthopaedic Disorders 08 - Unilater al Hip Fracture (08.11).Pre-morbidly, Pt. was independent/mod-I in Transfers Control, Communication, Social Cognition, Self-Care, Locomotion, and Sphincter Control; and he had good Sphincter Control.Cur rently, he has deficits of Safety Awareness, Transfers Control, Balance, Locomotion, Endurance, and S elf-Care.Pt. is now referred to [facility] for acute in-patient rehabilitation in order to maximize patient's functional independence in activities of daily living, strength, ROM, and mobility.- Rehab Goal Patient has realistic goal of being discharged at assistance level 6-Soren to reside at Home with Fam soumya/Relatives. MDM/PLAN: - Anterior Hip Precaution No abduction No active extension No adduction across midline No external rotation No hip flexion >90 degrees No internal rotation - Physical Therapy Decreased range of motion - to improve, our physical therapists will perform initial evaluation of p t's status upon admission and devise an individualized program for increasing patient's Range of Marciano on. Gait dysfunction - to improve, our physical therapists will perform initial evaluation of pt's statu s upon admission and devise an individualized program for Gait Training, and Wheel Chair mobility Inability to transfer - to improve, our physical therapists will perform initial evaluation of pt's status upon admission and devise an individualized program for Bed mobility Need for home safety evaluation - to improve, our physical therapists will perform initial evaluatio n of pt's status upon admission and devise an individualized program for Home Evaluation Need in caregiver upon discharge - to improve, our physical therapists will perform initial evaluati on of pt's status upon admission and devise an individualized program for Caregiver Training New precaution - to improve, our physical therapists will perform initial evaluation of pt's status upon admission and devise an individualized program for Patient precaution education Edema - to improve, our physical therapists will perform initial evaluation of pt's status upon admi ssion and devise an individualized program for Elevation Training, and Lymphedema Therapy Poor balance - to improve, our physical therapists will perform initial evaluation of pt's status up on admission and devise an individualized program for Balance Training Poor endurance - to improve, our physical therapists will perform initial evaluation of pt's status upon admission and devise an individualized program for Endurance Training Weakness - to improve, our physical therapists will perform initial evaluation of pt's status upon a dmission and devise an individualized program for Aquatic Therapy, Neuromuscular Reeducation, and Str engthening Achieving independence - to improve, our physical therapists will perform initial evaluation of pt's status upon admission and devise an individualized program for Community Reintegration Activities - Diet - Liquid Texture Continue Regular - Tube Feed Continue N/A - Diet Type Continue Regular - Posterior Hip Precaution No adduction across midline No external rotation No hip flexion >90 degrees No internal rotation No wheel chair propulsion - Occupational Therapy ADL deficits - to improve, our occupation therapists will perform initial evaluation of pt's status upon admission and devise an individualized program for Bathing, Bed mobility, Community Reintegratio n, Cooking, Dressing, Eating, Fine Motor Skills, Grooming, Homemaking, Kitchen Mobility, Laundry, Pat ient Education, Safety Awareness, Splinting - Positioning, Transfers(Toilet, Tub, Shower), and Wheel Chair Management Need for child care worker - to improve, our occupation therapists will perform initial evaluation of pt's status upon admission and devise an individualized program for Caregiver Training Weakness - to improve, our occupation therapists will perform initial evaluation of pt's status upon admission and devise an individualized program for Aquatic Therapy, Balance, Endurance, UE ROM, and UE strengthening - Weight Bearing Precaution TTWB right LE - Fall Precaution Bed and chair alarm - Skin care per protocol - Diet - Solid Texture Continue Regular - Shower allowing shower FUNCTIONAL STATUS: UPDATED AT WEEKLY TEAM CONFERENCE - Bladder Same accident frequency: 7-Ind - No accidents in the past 7 days - Bowel Same accident frequency: 7-Ind - No accidents in the past 7 days - Walking Same score based on distance walked: 1(<=50ft) - Wheelchair Same score based on distance traveled: 0(N/A) FUNCTIONAL STATUS: - Self-Care A. Eating Ind B. Grooming Soren C. Bathing Ind D. Dressing - Upper Soren E. Dressing - Lower Reza F. Toileting maxA - Sphincter Control G: Bladder control Dep H: Bowel control Ind - Transfers Control I. Bed/Chair/Wheelchair maxA J. Toilet maxA K. Tub/Shower ADNO - Locomotion L. Walk/Wheelchair (C) maxA L. Walk/Wheelchair (W) Ind M. Stairs ADNO - Communication N. Comprehension (B) Soren O. Expression (B) Soren - Social Cognition P. Social Interaction Soren Q. Problem Solving Soren R. Memory Soren - Endurance Fair - Balance Fair - Safety Awareness Fair CURRENT FUNC. DEFICITS: Safety Awareness, Transfers Control, Balance, Locomotion, Endurance, and Self-Care SIGNATURE PANEL: (CDT)
[2017-12-22] MEDS: PANTOPRAZOLE 40MG TABLET PO SCH (20:12)
[2017-12-22] MEDS: ATORVASTATIN 10 MG TAB PO SCH (20:12)
[2017-12-22] MEDS: DOCUSATE NA/SENNA CONC 1 TAB PO SCH (20:16)
--- NOTE | 2017-12-23 03:09 | FAST ---
SHIFT START DATE/TIME: 12/22/2017 19:00 (CDT) SHIFT END DATE/TIME: 12/23/2017 07:00 (CDT) NAME OLIVA MARCOS DATE OF : 1930 DATE OF ADMISSION: 12/15/2017 15:31 (CDT) PHONE: AGE: 87 [facility]# [id number] GENDER: Male ENCOUNTER PHYSICIAN: Dr. Sunday Goldberg M.D. ADMISSION DIAGNOSIS: - Orthopaedic Disorders 08 - Unilateral Hip Fracture (08.11) Right hip fracture. EATING: Activity did not occur on this shift EATING - SCORE: 0-UNK GROOMING: Wash, rinse, and dry hands GROOMING - STEP 1: Does the patient require assistance when grooming? Yes. GROOMING - STEP 2: Does the patient require the assistance of a helper? Yes. GROOMING - STEP 3: How much assistance does the patient require from the helper? Cuing, coaxing, instructions, or encour agement for completion of grooming GROOMING - SCORE: 5-SUP BATHING: Activity did not occur on this shift BATHING - SCORE: 0-UNK DRESSING - UPPER BODY: Patient is not dressing in public clothing ARTICLES SCORE Total number of steps: 0 DRESSING - UPPER BODY - SCORE: 0-UNK DRESSING - LOWER BODY: Patient is not dressing in public clothing ARTICLES SCORE Total number of steps: 0 DRESSING - LOWER BODY - SCORE: 0-UNK TOILETING: TOILETING - STEP 1: Does the patient require assistance with toileting? Yes. TOILETING - STEP 2: Does the patient require the assistance of a helper? Yes. TOILETING - STEP 3: How much assistance does the patient require from the helper? Only supervision TOILETING - SCORE: 5-SUP BLADDER MANAGEMENT: BLADDER MANAGEMENT - STEP 1: Does the patient control the bladder completely and intentionally without equipment or devices or med ications, and is always continent? No. BLADDER MANAGEMENT - STEP 2: Does the patient require the assistance of a helper? Yes. BLADDER MANAGEMENT - STEP 3: How much assistance does the patient require from the helper? Only set-up of equipment - such as plac ing it within reach of the patient or emptying a device - to maintain either satisfactory voiding pat tern or managing an external device, such as an absorbent pad, ileal device, or catheter BLADDER MANAGEMENT - SCORE: 5-SUP BOWEL MANAGEMENT: Activity did not occur on this shift BOWEL MANAGEMENT - SCORE: 7-IND TRANSFERS: BED, CHAIR, WHEELCHAIR: Activity did not occur on this shift TRANSFERS: BED, CHAIR, WHEELCHAIR - SCORE: 0-UNK TRANSFERS: TOILET: Activity did not occur on this shift TRANSFERS: TOILET - SCORE: 0-UNK TRANSFERS: SHOWER: Activity did not occur on this shift TRANSFERS: SHOWER - SCORE: 0-UNK TRANSFERS: TUB: Activity did not occur on this shift TRANSFERS: TUB - SCORE: 0-UNK LOCOMOTION: WALK: Activity did not occur on this shift LOCOMOTION: WALK - SCORE: 0-UNK LOCOMOTION: WHEELCHAIR: Activity did not occur on this shift LOCOMOTION: WHEELCHAIR - SCORE: 0-UNK COMPREHENSION: COMPREHENSION - STEP 1: Does the patient require help to understand complex and abstract ideas (such as current events, finan paola, discharge planning, medical issues, relationships, etc)? No. COMPREHENSION - STEP 2: Does the patient need extra time, require an assistive device (such as glasses, hearing aids, or an a ugmentative communication system), OR does s/he have mild difficulty expressing complex and abstract ideas (including mild dysarthria or mild word-finding problems)? Yes. COMPREHENSION - SCORE: 6-PORTER EXPRESSION EXPRESSION - STEP 1: Does the patient require help expressing complex and abstract ideas (such as current events, finances , discharge planning, medical issues, relationships, etc)? No. EXPRESSION - STEP 2: Does the patient need extra time, require an assistive device (such as augmentive communication syste m or a communication board), OR does s/he have mild difficulty expressing complex and abstract ideas (including mild dysarthria or mild word-find problems)? No. EXPRESSION - SCORE: 7-IND SOCIAL INTERACTION: SOCIAL INTERACTION - STEP 1: Does the patient require a helper to interact with others in social and therapeutic situations? No. SOCIAL INTERACTION - STEP 2: Does the patient need extra time in social situations, OR does s/he interact with staff, other patien ts, and family members ONLY in structured environments, OR does s/he require medication for social in teraction? No. SOCIAL INTERACTION - SCORE: 7-IND PROBLEM SOLVING: PROBLEM SOLVING - STEP 1: Does the patient need help to solve complex problems such as managing a checking account or confronti ng interpersonal problems? No. PROBLEM SOLVING - STEP 2: Does the patient require extra time to make decisions or solve problems, OR does s/he have slight dif ficulty reading, initiating, or self-correcting in unfamiliar situations? Yes, patient needs extra ti me. PROBLEM SOLVING - SCORE: 6-PORTER MEMORY: MEMORY - STEP 1: Does the patient need help to remember frequently encountered people, daily routines, and executing r equests? No. MEMORY - STEP 2: Does the patient have slight difficulty recognizing frequently encountered people, daily routines, or executing requests without the need for repetition or using self-initiated or environmental cues to remember? Yes. MEMORY - SCORE: 6-PORTER SIGNATURE PANEL: The following modified sections: Eating - Score, Grooming - Score, Dressing - Upper Body - Score, Oniel ssing - Lower Body - Score, Toileting - Score, Bladder Management - Score, Bowel Management - Score, Transfers: Bed, Chair, Wheelchair - Score, Transfers: Toilet - Score, Transfers: Shower - Score, Ann sfers: Tub - Score, Locomotion: Walk - Score, Locomotion: Wheelchair - Score, Comprehension - Score, Expression - Score, Social Interaction - Score, Problem Solving - Score, Memory - Score were [electro nically] signed by Zoey Hancock CNA on ThuDec 23 2017 02:10:57 T-0500 (Central Daylight Time)
[2017-12-23] MEDS: CARVEDILOL 3.125 MG TAB PO SCH ×2 (05:29→17:12)
[2017-12-23 05:54] LABS: Protime INR 2.64
[2017-12-23] MEDS: HYDROCODONE/APAP 10/325 TAB PO PRN ×2 (07:12→20:27)
[2017-12-23] MEDS: LISINOPRIL 10 MG TAB PO SCH (07:36)
[2017-12-23] MEDS: FUROSEMIDE 40 MG TABLET PO SCH (08:00)
[2017-12-23] MEDS: ENSURE HIGH PROTEIN 237 ML CAN PO SCH (08:01)
[2017-12-23] MEDS: FERROUS SULFATE 325 MG TAB PO SCH (08:01)
[2017-12-23] MEDS: FE SULF/FA/VIT B COMP & C TAB PO SCH (08:01)
[2017-12-23] MEDS: MAGNESIUM OXIDE 400 MG TAB PO SCH ×2 (08:01→20:27)
--- NOTE | 2017-12-23 13:01 | FAST ---
ENCOUNTER DATE AND TIME: 12/23/2017 08:00 (CDT) NAME OLIVA MARCOS DATE OF : 1930 DATE OF ADMISSION: 12/15/2017 15:31 (CDT) PHONE: AGE: 87 N# [id number] GENDER: Male ENCOUNTER PHYSICIAN: Dr. Sunday Goldberg M.D. ADMISSION DIAGNOSIS: - Orthopaedic Disorders 08 - Unilateral Hip Fracture (08.11) Right hip fracture. EATING: Activity did not occur on this shift EATING - SCORE: 0-UNK GROOMING: Activity did not occur on this shift GROOMING - SCORE: 0-UNK BATHING: Activity did not occur on this shift BATHING - SCORE: 0-UNK DRESSING - UPPER BODY: Activity did not occur on this shift Patient is not dressing in public clothing ARTICLES SCORE Total number of steps: 0 DRESSING - UPPER BODY - SCORE: 0-UNK DRESSING - LOWER BODY: Activity did not occur on this shift Patient is not dressing in public clothing ARTICLES SCORE Total number of steps: 0 DRESSING - LOWER BODY - SCORE: 0-UNK TOILETING: Activity did not occur on this shift TOILETING - SCORE: 0-UNK BLADDER MANAGEMENT: Activity did not occur on this shift BLADDER MANAGEMENT - SCORE: 7-IND BOWEL MANAGEMENT: Activity did not occur on this shift BOWEL MANAGEMENT - SCORE: 7-IND TRANSFERS: BED, CHAIR, WHEELCHAIR: Activity did not occur on this shift TRANSFERS: BED, CHAIR, WHEELCHAIR - SCORE: 0-UNK TRANSFERS: TOILET: Activity did not occur on this shift TRANSFERS: TOILET - SCORE: 0-UNK TRANSFERS: SHOWER: Activity did not occur on this shift TRANSFERS: SHOWER - SCORE: 0-UNK TRANSFERS: TUB: Activity did not occur on this shift TRANSFERS: TUB - SCORE: 0-UNK LOCOMOTION: WALK: Activity did not occur on this shift LOCOMOTION: WALK - SCORE: 0-UNK LOCOMOTION: WHEELCHAIR: Activity did not occur on this shift LOCOMOTION: WHEELCHAIR - SCORE: 0-UNK LOCOMOTION: STAIRS: Activity did not occur on this shift LOCOMOTION: STAIRS - SCORE: 0-UNK COMPREHENSION: COMPREHENSION - STEP 1: Does the patient require help to understand complex and abstract ideas (such as current events, finan paola, discharge planning, medical issues, relationships, etc)? No. COMPREHENSION - STEP 2: Does the patient need extra time, require an assistive device (such as glasses, hearing aids, or an a ugmentative communication system), OR does s/he have mild difficulty expressing complex and abstract ideas (including mild dysarthria or mild word-finding problems)? Yes. COMPREHENSION - SCORE: 6-PORTER EXPRESSION EXPRESSION - STEP 1: Does the patient require help expressing complex and abstract ideas (such as current events, finances , discharge planning, medical issues, relationships, etc)? No. EXPRESSION - STEP 2: Does the patient need extra time, require an assistive device (such as augmentive communication syste m or a communication board), OR does s/he have mild difficulty expressing complex and abstract ideas (including mild dysarthria or mild word-find problems)? Yes. EXPRESSION - SCORE: 6-PORTER SOCIAL INTERACTION: SOCIAL INTERACTION - STEP 1: Does the patient require a helper to interact with others in social and therapeutic situations? No. SOCIAL INTERACTION - STEP 2: Does the patient need extra time in social situations, OR does s/he interact with staff, other patien ts, and family members ONLY in structured environments, OR does s/he require medication for social in teraction? No. SOCIAL INTERACTION - SCORE: 7-IND PROBLEM SOLVING: PROBLEM SOLVING - STEP 1: Does the patient need help to solve complex problems such as managing a checking account or confronti ng interpersonal problems? Yes. PROBLEM SOLVING - STEP 2: Does the patient solve basic routine problems half or more of the time? Yes. PROBLEM SOLVING - STEP 3: How often does the patient need help to solve basic routine problems? Less than 10% of the time PROBLEM SOLVING - SCORE: 5-SUP MEMORY: MEMORY - STEP 1: Does the patient need help to remember frequently encountered people, daily routines, and executing r equests? Yes. MEMORY - STEP 2: How often does the patient need help to remember frequently encountered people, daily routines, and e xecuting requests? 10% - 24% of the time MEMORY - SCORE: 4-MIN SIGNATURE PANEL: The following modified sections: Comprehension - Score, Expression - Score, Social Interaction - Scor e, Problem Solving - Score, Memory - Score were [electronically] signed by KAYLEY Escudero on Thu 12:03:50 GMT-0500 (Central Daylight Time)
--- NOTE | 2017-12-23 15:09 | FAST ---
SHIFT START DATE/TIME: 12/23/2017 07:00 (CDT) SHIFT END DATE/TIME: 12/23/2017 19:00 (CDT) NAME OLIVA MARCOS DATE OF : 1930 DATE OF ADMISSION: 12/15/2017 15:31 (CDT) PHONE: AGE: 87 N# [id number] GENDER: Male ENCOUNTER PHYSICIAN: Dr. Sunday Goldberg M.D. ADMISSION DIAGNOSIS: - Orthopaedic Disorders 08 - Unilateral Hip Fracture (08.11) Right hip fracture. EATING: EATING - STEP 1: Does the patient require assistance when eating? Yes. EATING - STEP 2: Does the patient require the assistance of a helper? Yes. EATING - STEP 3: Does the patient perform half or more of the eating tasks? Yes. EATING - STEP 4: Does the patient need only supervision, cuing, coaxing OR help to apply an orthosis OR help to cut fo od, open containers, pour liquids, or butter bread? Yes. EATING - SCORE: 5-SUP GROOMING: Comb/brush hair Oral care Wash, rinse, and dry face Wash, rinse, and dry hands GROOMING - STEP 1: Does the patient require assistance when grooming? Yes. GROOMING - STEP 2: Does the patient require the assistance of a helper? No. The patient only requires an assistive devic e, OR takes more than reasonable time to groom, OR there is a concern for safety as the patient groom s GROOMING - SCORE: 6-PORTER BATHING: Activity did not occur on this shift BATHING - SCORE: 0-UNK DRESSING - UPPER BODY: Activity did not occur on this shift ARTICLES SCORE Total number of steps: 0 DRESSING - UPPER BODY - SCORE: 0-UNK DRESSING - LOWER BODY: Activity did not occur on this shift ARTICLES SCORE Total number of steps: 0 DRESSING - LOWER BODY - SCORE: 0-UNK TOILETING: TOILETING - STEP 1: Does the patient require assistance with toileting? Yes. TOILETING - STEP 2: Does the patient require the assistance of a helper? Yes. TOILETING - STEP 3: How much assistance does the patient require from the helper? Only supervision TOILETING - SCORE: 5-SUP BLADDER MANAGEMENT: BLADDER MANAGEMENT - STEP 1: Does the patient control the bladder completely and intentionally without equipment or devices or med ications, and is always continent? No. BLADDER MANAGEMENT - STEP 2: Does the patient require the assistance of a helper? Yes. BLADDER MANAGEMENT - STEP 3: How much assistance does the patient require from the helper? Only set-up of equipment - such as plac ing it within reach of the patient or emptying a device - to maintain either satisfactory voiding pat tern or managing an external device, such as an absorbent pad, ileal device, or catheter BLADDER MANAGEMENT - SCORE: 5-SUP BLADDER MANAGEMENT - FREQUENCY OF ACCIDENTS: BLADDER MANAGEMENT(FA) - STEP 1: How many accidents has the patient had during the current shift? 0 BOWEL MANAGEMENT: BOWEL MANAGEMENT - STEP 1: Does the patient control bowels completely and intentionally without equipment devices or medications AND is always continent? No. BOWEL MANAGEMENT - STEP 2: Does the patient require the assistance of a helper? No, patient requires and manages independently a n assistive device such as a bedpan, bedside commode, absorbent pad, incontinent device, or collectin g device BOWEL MANAGEMENT - SCORE: 6-PORTER BOWEL MANAGEMENT - FREQUENCY OF ACCIDENTS: BOWEL MANAGEMENT(FA) - STEP 1: How many accidents has the patient had during the current shift? 0 TRANSFERS: BED, CHAIR, WHEELCHAIR: TRANSFERS: BED, CHAIR, WHEELCHAIR - STEP 1: Does the patient require assistance with bed, chair, or wheelchair transfers? Yes. TRANSFERS: BED, CHAIR, WHEELCHAIR - STEP 2: Does the patient require the assistance of a helper? No. Patient only requires an assistive device fo r bed, chair, wheelchair transfers such as a sliding board, grab bar, or brace, OR s/he takes more th an reasonable time, OR there is a safety concern when s/he performs the transfers TRANSFERS: BED, CHAIR, WHEELCHAIR - SCORE: 6-PORTER TRANSFERS: TOILET: TRANSFERS: TOILET - STEP 1: Does the patient require assistance with toilet transfers? Yes. TRANSFERS: TOILET - STEP 2: Does the patient require the assistance of a helper? Yes. TRANSFERS: TOILET - STEP 3: How much assistance does the patient require from the helper? Only supervision, cuing, coaxing, OR he lp to set out transfer equipment or to lock brakes and/or lift foot rests TRANSFERS: TOILET - SCORE: 5-SUP TRANSFERS: SHOWER: Activity did not occur on this shift TRANSFERS: SHOWER - SCORE: 0-UNK TRANSFERS: TUB: Activity did not occur on this shift TRANSFERS: TUB - SCORE: 0-UNK LOCOMOTION: WALK: Activity did not occur on this shift LOCOMOTION: WALK - SCORE: 0-UNK LOCOMOTION: WHEELCHAIR: LOCOMOTION: WHEELCHAIR - STEP 1: Does the patient need help to go 150 feet in a wheelchair? Yes. LOCOMOTION: WHEELCHAIR - STEP 2: How much assistance does the patient need from the helper? Only supervision, cuing, or coaxing LOCOMOTION: WHEELCHAIR - SCORE: 5-SUP COMPREHENSION: COMPREHENSION: TYPE: Both COMPREHENSION - STEP 1: Does the patient require help to understand complex and abstract ideas (such as current events, finan paola, discharge planning, medical issues, relationships, etc)? No. COMPREHENSION - STEP 2: Does the patient need extra time, require an assistive device (such as glasses, hearing aids, or an a ugmentative communication system), OR does s/he have mild difficulty expressing complex and abstract ideas (including mild dysarthria or mild word-finding problems)? Yes. COMPREHENSION - SCORE: 6-PORTER EXPRESSION EXPRESSION: TYPE: Both EXPRESSION - STEP 1: Does the patient require help expressing complex and abstract ideas (such as current events, finances , discharge planning, medical issues, relationships, etc)? No. EXPRESSION - STEP 2: Does the patient need extra time, require an assistive device (such as augmentive communication syste m or a communication board), OR does s/he have mild difficulty expressing complex and abstract ideas (including mild dysarthria or mild word-find problems)? Yes. EXPRESSION - SCORE: 6-PORTER SOCIAL INTERACTION: SOCIAL INTERACTION - STEP 1: Does the patient require a helper to interact with others in social and therapeutic situations? No. SOCIAL INTERACTION - STEP 2: Does the patient need extra time in social situations, OR does s/he interact with staff, other patien ts, and family members ONLY in structured environments, OR does s/he require medication for social in teraction? No. SOCIAL INTERACTION - SCORE: 7-IND PROBLEM SOLVING: PROBLEM SOLVING - STEP 1: Does the patient need help to solve complex problems such as managing a checking account or confronti ng interpersonal problems? No. PROBLEM SOLVING - STEP 2: Does the patient require extra time to make decisions or solve problems, OR does s/he have slight dif ficulty reading, initiating, or self-correcting in unfamiliar situations? Yes, patient needs extra ti me. PROBLEM SOLVING - SCORE: 6-PORTER MEMORY: MEMORY - STEP 1: Does the patient need help to remember frequently encountered people, daily routines, and executing r equests? No. MEMORY - STEP 2: Does the patient have slight difficulty recognizing frequently encountered people, daily routines, or executing requests without the need for repetition or using self-initiated or environmental cues to remember? Yes. MEMORY - SCORE: 6-PORTER SIGNATURE PANEL: The following modified sections: Eating - Score, Grooming - Score, Bathing - Score, Dressing - Upper Body - Score, Dressing - Lower Body - Score, Toileting - Score, Bladder Management - Score, Bowel Man agement - Score, Transfers: Bed, Chair, Wheelchair - Score, Transfers: Toilet - Score, Transfers: Melissa wer - Score, Transfers: Tub - Score, Locomotion: Walk - Score, Locomotion: Wheelchair - Score, Compre hension - Score, Expression - Score, Social Interaction - Score, Problem Solving - Score, Memory - Sc ore were [electronically] signed by Lesia Sapp [email or web address] on ThuDec 23 2017 14:12:08 GMT-0500 (Centra l Daylight Time)
--- NOTE | 2017-12-23 15:42 | FAST ---
ENCOUNTER DATE AND TIME: 12/23/2017 08:00 (CDT) NAME OLIVA MARCOS DATE OF : 1930 DATE OF ADMISSION: 12/15/2017 15:31 (CDT) PHONE: AGE: 87 N# [id number] GENDER: Male ENCOUNTER PHYSICIAN: Dr. Sunday Goldberg M.D. ADMISSION DIAGNOSIS: - Orthopaedic Disorders 08 - Unilateral Hip Fracture (08.11) Right hip fracture. EATING: Activity did not occur on this shift EATING - SCORE: 0-UNK GROOMING: Comb/brush hair Oral care Wash, rinse, and dry face Wash, rinse, and dry hands GROOMING - STEP 1: Does the patient require assistance when grooming? No. GROOMING - SCORE: 7-IND BATHING: Abdomen Buttocks Chest Left arm Left lower leg and foot Left upper leg Perineal area Right arm Right lower leg and foot Right upper leg BATHING - STEP 1: Does the patient require assistance when bathing? Yes. BATHING - STEP 2: Does the patient require the assistance of a helper? Yes. BATHING - STEP 3: How much assistance does the patient require from the helper? Only incidental help such as placement of a wash cloth in his/her hand a few times as s/he bathes OR help to bathe just one or two areas of the body BATHING - SCORE: 4-MIN DRESSING - UPPER BODY: T-shirt/pullover shirt (four steps) ARTICLES SCORE Total number of steps: 4 DRESSING - UPPER BODY - STEP 1: Does the patient require help when dressing above the waist? No. DRESSING - UPPER BODY - SCORE: 7-IND DRESSING - LOWER BODY: Elastic waist pants (three steps) Sock - Left foot (one step) Sock - Right foot (one step) Tied or buckled shoe - Left foot (two steps) ARTICLES SCORE Total number of steps: 7 DRESSING - LOWER BODY - STEP 1: Does the patient require help when dressing below the waist? Yes. DRESSING - LOWER BODY - STEP 2: Does the patient require the assistance of a helper? Yes. DRESSING - LOWER BODY - STEP 3: Does the helper touch the patient while dressing? Yes. DRESSING - LOWER BODY - STEP 4: How many of the total steps does the patient complete on his/her own? 4 DRESSING - LOWER BODY - SCORE: 3-MOD TOILETING: Activity did not occur on this shift TOILETING - SCORE: 0-UNK BLADDER MANAGEMENT: Activity did not occur on this shift BLADDER MANAGEMENT - SCORE: 7-IND BOWEL MANAGEMENT: Activity did not occur on this shift BOWEL MANAGEMENT - SCORE: 7-IND TRANSFERS: BED, CHAIR, WHEELCHAIR: Activity did not occur on this shift TRANSFERS: BED, CHAIR, WHEELCHAIR - SCORE: 0-UNK TRANSFERS: TOILET: Activity did not occur on this shift TRANSFERS: TOILET - SCORE: 0-UNK TRANSFERS: SHOWER: Activity did not occur on this shift TRANSFERS: SHOWER - SCORE: 0-UNK TRANSFERS: TUB: TRANSFERS: TUB - STEP 1: Does the patient require assistance with tub transfers? Yes. TRANSFERS: TUB - STEP 2: Does the patient require the assistance of a helper? Yes. TRANSFERS: TUB - STEP 3: How much assistance does the patient require from the helper? More than incidental help TRANSFERS: TUB - STEP 4: How much more help does the patient require from the helper? [place] lifts patient up out of the wheel chair AND down onto the tub bench TRANSFERS: TUB - SCORE: 2-MAX LOCOMOTION: WALK: Activity did not occur on this shift LOCOMOTION: WALK - SCORE: 0-UNK LOCOMOTION: WHEELCHAIR: Activity did not occur on this shift LOCOMOTION: WHEELCHAIR - SCORE: 0-UNK LOCOMOTION: STAIRS: Activity did not occur on this shift LOCOMOTION: STAIRS - SCORE: 0-UNK COMPREHENSION: COMPREHENSION: TYPE: Both COMPREHENSION - STEP 1: Does the patient require help to understand complex and abstract ideas (such as current events, finan paola, discharge planning, medical issues, relationships, etc)? No. COMPREHENSION - STEP 2: Does the patient need extra time, require an assistive device (such as glasses, hearing aids, or an a ugmentative communication system), OR does s/he have mild difficulty expressing complex and abstract ideas (including mild dysarthria or mild word-finding problems)? Yes. COMPREHENSION - SCORE: 6-PORTER EXPRESSION EXPRESSION: TYPE: Both EXPRESSION - STEP 1: Does the patient require help expressing complex and abstract ideas (such as current events, finances , discharge planning, medical issues, relationships, etc)? No. EXPRESSION - STEP 2: Does the patient need extra time, require an assistive device (such as augmentive communication syste m or a communication board), OR does s/he have mild difficulty expressing complex and abstract ideas (including mild dysarthria or mild word-find problems)? No. EXPRESSION - SCORE: 7-IND SOCIAL INTERACTION: SOCIAL INTERACTION - STEP 1: Does the patient require a helper to interact with others in social and therapeutic situations? No. SOCIAL INTERACTION - STEP 2: Does the patient need extra time in social situations, OR does s/he interact with staff, other patien ts, and family members ONLY in structured environments, OR does s/he require medication for social in teraction? No. SOCIAL INTERACTION - SCORE: 7-IND PROBLEM SOLVING: PROBLEM SOLVING - STEP 1: Does the patient need help to solve complex problems such as managing a checking account or confronti ng interpersonal problems? No. PROBLEM SOLVING - STEP 2: Does the patient require extra time to make decisions or solve problems, OR does s/he have slight dif ficulty reading, initiating, or self-correcting in unfamiliar situations? Yes, patient needs extra ti me. PROBLEM SOLVING - SCORE: 6-PORTER MEMORY: MEMORY - STEP 1: Does the patient need help to remember frequently encountered people, daily routines, and executing r equests? No. MEMORY - STEP 2: Does the patient have slight difficulty recognizing frequently encountered people, daily routines, or executing requests without the need for repetition or using self-initiated or environmental cues to remember? Yes. MEMORY - SCORE: 6-PORTER SIGNATURE PANEL: The following modified sections: Eating - Score, Grooming - Score, Bathing - Score, Dressing - Upper Body - Score, Dressing - Lower Body - Score, Toileting - Score, Transfers: Bed, Chair, Wheelchair - S core, Transfers: Toilet - Score, Transfers: Shower - Score, Transfers: Tub - Score, Comprehension - S core, Expression - Score, Social Interaction - Score, Problem Solving - Score, Memory - Score were [e lectronically] signed by Janeth Ortega OT on ThuDec 23 2017 14:45:00 GMT-0500 (Central Daylight T ana)
--- NOTE | 2017-12-23 16:45 | FAST ---
ENCOUNTER DATE AND TIME: 12/23/2017 08:00 (CDT) NAME OLIVA MARCOS DATE OF : 1930 DATE OF ADMISSION: 12/15/2017 15:31 (CDT) PHONE: AGE: 87 N# [id number] GENDER: Male ENCOUNTER PHYSICIAN: Dr. Sunday Goldberg M.D. ADMISSION DIAGNOSIS: - Orthopaedic Disorders 08 - Unilateral Hip Fracture (08.11) Right hip fracture. EATING: Activity did not occur on this shift EATING - SCORE: 0-UNK GROOMING: Activity did not occur on this shift GROOMING - SCORE: 0-UNK BATHING: Activity did not occur on this shift BATHING - SCORE: 0-UNK DRESSING - UPPER BODY: Activity did not occur on this shift Patient is not dressing in public clothing ARTICLES SCORE Total number of steps: 0 DRESSING - UPPER BODY - SCORE: 0-UNK DRESSING - LOWER BODY: Activity did not occur on this shift Patient is not dressing in public clothing ARTICLES SCORE Total number of steps: 0 DRESSING - LOWER BODY - SCORE: 0-UNK TOILETING: Activity did not occur on this shift TOILETING - SCORE: 0-UNK BLADDER MANAGEMENT: Activity did not occur on this shift BLADDER MANAGEMENT - SCORE: 7-IND BOWEL MANAGEMENT: Activity did not occur on this shift BOWEL MANAGEMENT - SCORE: 7-IND TRANSFERS: BED, CHAIR, WHEELCHAIR: TRANSFERS: BED, CHAIR, WHEELCHAIR - STEP 1: Does the patient require assistance with bed, chair, or wheelchair transfers? Yes. TRANSFERS: BED, CHAIR, WHEELCHAIR - STEP 2: Does the patient require the assistance of a helper? Yes. TRANSFERS: BED, CHAIR, WHEELCHAIR - STEP 3: How much assistance does the patient require from the helper? Steadying/guiding assistance TRANSFERS: BED, CHAIR, WHEELCHAIR - SCORE: 4-MIN TRANSFERS: TOILET: Activity did not occur on this shift TRANSFERS: TOILET - SCORE: 0-UNK TRANSFERS: SHOWER: Activity did not occur on this shift TRANSFERS: SHOWER - SCORE: 0-UNK TRANSFERS: TUB: Activity did not occur on this shift TRANSFERS: TUB - SCORE: 0-UNK LOCOMOTION: WALK: LOCOMOTION: WALK - STEP 1: Does the patient need help to walk 150 feet? Yes. LOCOMOTION: WALK - STEP 2: How much assistance does the patient require to walk a minimum of 150 feet? Patient walks less than 1 50 feet - but more than 50 feet - with the assistance of only one helper LOCOMOTION: WALK - SCORE: 2-MAX LOCOMOTION: WHEELCHAIR: LOCOMOTION: WHEELCHAIR - STEP 1: Does the patient need help to go 150 feet in a wheelchair? Yes. LOCOMOTION: WHEELCHAIR - STEP 2: How much assistance does the patient need from the helper? Only supervision, cuing, or coaxing LOCOMOTION: WHEELCHAIR - SCORE: 5-SUP LOCOMOTION: STAIRS: Activity did not occur on this shift LOCOMOTION: STAIRS - SCORE: 0-UNK COMPREHENSION: COMPREHENSION - SCORE: 0-UNK EXPRESSION EXPRESSION - SCORE: 0-UNK SOCIAL INTERACTION: SOCIAL INTERACTION - SCORE: 0-UNK PROBLEM SOLVING: PROBLEM SOLVING - SCORE: 0-UNK MEMORY: MEMORY - SCORE: 0-UNK SIGNATURE PANEL: The following modified sections: Transfers: Bed, Chair, Wheelchair - Score, Transfers: Toilet - Score , Locomotion: Walk - Score, Locomotion: Wheelchair - Score, Locomotion: Stairs - Score were [electron icakerrie] signed by Randy Montgomery PTA on ThuDec 23 2017 15:48:03 GMT-0500 (Central Daylight Time)
[2017-12-23] MEDS: WARFARIN SODIUM 6 MG TAB PO SCH (17:08)
--- NOTE | 2017-12-23 18:56 | R.PN ---
ENCOUNTER DATE AND TIME: 12/23/2017 17:56 (CDT) NAME OLIVA MARCOS DATE OF : 1930 DATE OF ADMISSION: 12/15/2017 15:31 (CDT) Right hip fractureCHIEF COMPLAINT: Right hip fracture SUBJECTIVE: Pt denied any Shortness of Breath. Pt denied any depression. Pushed wheelchair 250' with with standby assistance. Ambulated 153' with contact guard assistance us ing a rolling walker. VITAL SIGNS Temperature: 97 F SBP/DBP: 116/74 Pulse: 80 Resp: 16 MEDICATION ALLERGIES: Penicillin ENVIRONMENTAL ALLERGIES: None Known - Substance Allergies None Known - Other Allergies None Known NURSING: - Shower allowing shower - Skin care per protocol PRECAUTIONS: - Weight Bearing Precaution TTWB right LE - Fall Precaution Bed and chair alarm ACTIVITIES OOB only with supervision THERAPIES: - Occupational Therapy Evaluate and Treat. - Physical Therapy Evaluate and Treat. PHYSICAL EXAM - Gen Alert and awake Lying in bed No apparent distress Oriented to: person, time, and place - Skin No skin breakdown. Normacephalic - Eyes No abnormalities - ENMT No abnormalities - Neck No abnormalities - CVS RRR - Chest Clear - Abd Soft - GI Non distended Deferred - No abnormalities - Ext No significant edema - MSK Unremarkable - Neuro No focal deficits - Psych No abnormalities ASSESSMENT: Pt. is a 87 yo Right-handed white male.On 12/10/2017 he was admitted to [facility] with diagnosis Right hip fracture.His impairment category is Orthopaedic Disorders 08 - Unilater al Hip Fracture (08.11).Pre-morbidly, Pt. was independent/mod-I in Transfers Control, Communication, Social Cognition, Self-Care, Locomotion, and Sphincter Control; and he had good Sphincter Control.Cur rently, he has deficits of Safety Awareness, Transfers Control, Balance, Locomotion, Endurance, and S elf-Care.Pt. is now referred to [facility] for acute in-patient rehabilitation in order to maximize patient's functional independence in activities of daily living, strength, ROM, and mobility.- Rehab Goal Patient has realistic goal of being discharged at assistance level 6-Soren to reside at Home with Fam soumya/Relatives. MDM/PLAN: - Anterior Hip Precaution No abduction No active extension No adduction across midline No external rotation No hip flexion >90 degrees No internal rotation - Physical Therapy Decreased range of motion - to improve, our physical therapists will perform initial evaluation of p t's status upon admission and devise an individualized program for increasing patient's Range of Marciano on. Gait dysfunction - to improve, our physical therapists will perform initial evaluation of pt's statu s upon admission and devise an individualized program for Gait Training, and Wheel Chair mobility Inability to transfer - to improve, our physical therapists will perform initial evaluation of pt's status upon admission and devise an individualized program for Bed mobility Need for home safety evaluation - to improve, our physical therapists will perform initial evaluatio n of pt's status upon admission and devise an individualized program for Home Evaluation Need in caregiver upon discharge - to improve, our physical therapists will perform initial evaluati on of pt's status upon admission and devise an individualized program for Caregiver Training New precaution - to improve, our physical therapists will perform initial evaluation of pt's status upon admission and devise an individualized program for Patient precaution education Edema - to improve, our physical therapists will perform initial evaluation of pt's status upon admi ssion and devise an individualized program for Elevation Training, and Lymphedema Therapy Poor balance - to improve, our physical therapists will perform initial evaluation of pt's status up on admission and devise an individualized program for Balance Training Poor endurance - to improve, our physical therapists will perform initial evaluation of pt's status upon admission and devise an individualized program for Endurance Training Weakness - to improve, our physical therapists will perform initial evaluation of pt's status upon a dmission and devise an individualized program for Aquatic Therapy, Neuromuscular Reeducation, and Str engthening Achieving independence - to improve, our physical therapists will perform initial evaluation of pt's status upon admission and devise an individualized program for Community Reintegration Activities - Diet - Liquid Texture Continue Regular - Tube Feed Continue N/A - Diet Type Continue Regular - Posterior Hip Precaution No adduction across midline No external rotation No hip flexion >90 degrees No internal rotation No wheel chair propulsion - Occupational Therapy ADL deficits - to improve, our occupation therapists will perform initial evaluation of pt's status upon admission and devise an individualized program for Bathing, Bed mobility, Community Reintegratio n, Cooking, Dressing, Eating, Fine Motor Skills, Grooming, Homemaking, Kitchen Mobility, Laundry, Pat ient Education, Safety Awareness, Splinting - Positioning, Transfers(Toilet, Tub, Shower), and Wheel Chair Management Need for career development manager - to improve, our occupation therapists will perform initial evaluation of pt's status upon admission and devise an individualized program for Caregiver Training Weakness - to improve, our occupation therapists will perform initial evaluation of pt's status upon admission and devise an individualized program for Aquatic Therapy, Balance, Endurance, UE ROM, and UE strengthening - Weight Bearing Precaution TTWB right LE - Fall Precaution Bed and chair alarm - Skin care per protocol - Diet - Solid Texture Continue Regular - Shower allowing shower FUNCTIONAL STATUS: UPDATED AT WEEKLY TEAM CONFERENCE - Bladder Same accident frequency: 7-Ind - No accidents in the past 7 days - Bowel Same accident frequency: 7-Ind - No accidents in the past 7 days - Walking Same score based on distance walked: 1(<=50ft) - Wheelchair Same score based on distance traveled: 0(N/A) FUNCTIONAL STATUS: - Self-Care A. Eating Ind B. Grooming Soren C. Bathing Ind D. Dressing - Upper Soren E. Dressing - Lower Reza F. Toileting maxA - Sphincter Control G: Bladder control Dep H: Bowel control Ind - Transfers Control I. Bed/Chair/Wheelchair maxA J. Toilet maxA K. Tub/Shower ADNO - Locomotion L. Walk/Wheelchair (C) maxA L. Walk/Wheelchair (W) Ind M. Stairs ADNO - Communication N. Comprehension (B) Soren O. Expression (B) Soren - Social Cognition P. Social Interaction Soren Q. Problem Solving Soren R. Memory Soren - Endurance Fair - Balance Fair - Safety Awareness Fair CURRENT FUNC. DEFICITS: Safety Awareness, Transfers Control, Balance, Locomotion, Endurance, and Self-Care SIGNATURE PANEL: (CDT)
[2017-12-23] MEDS: DOCUSATE NA/SENNA CONC 1 TAB PO SCH (20:26)
[2017-12-23] MEDS: ENSURE ENLIVE 237 ML CAN PO SCH (20:26)
[2017-12-23] MEDS: ATORVASTATIN 10 MG TAB PO SCH (20:27)
[2017-12-23] MEDS: PANTOPRAZOLE 40MG TABLET PO SCH (20:27)
--- NOTE | 2017-12-24 05:07 | FAST ---
SHIFT START DATE/TIME: 12/23/2017 19:00 (CDT) SHIFT END DATE/TIME: 12/24/2017 07:00 (CDT) NAME OLIVA MARCOS DATE OF : 1930 DATE OF ADMISSION: 12/15/2017 15:31 (CDT) PHONE: AGE: 87 N# [id number] GENDER: Male ENCOUNTER PHYSICIAN: Dr. Sunday Goldberg M.D. ADMISSION DIAGNOSIS: - Orthopaedic Disorders 08 - Unilateral Hip Fracture (08.11) Right hip fracture. EATING: EATING - STEP 1: Does the patient require assistance when eating? Yes. EATING - STEP 2: Does the patient require the assistance of a helper? No, patient only requires an assistive device, O R s/he takes more than reasonable time to eat, OR there is a safety concern, OR s/he requires modifie d food consistency EATING - SCORE: 6-PORTER GROOMING: Oral care Wash, rinse, and dry face Wash, rinse, and dry hands GROOMING - STEP 1: Does the patient require assistance when grooming? Yes. GROOMING - STEP 2: Does the patient require the assistance of a helper? Yes. GROOMING - STEP 3: How much assistance does the patient require from the helper? Only prior equipment preparation/set up from the helper GROOMING - SCORE: 5-SUP BATHING: Activity did not occur on this shift BATHING - SCORE: 0-UNK DRESSING - UPPER BODY: Patient is not dressing in public clothing ARTICLES SCORE Total number of steps: 0 DRESSING - UPPER BODY - SCORE: 0-UNK DRESSING - LOWER BODY: Patient is not dressing in public clothing ARTICLES SCORE Total number of steps: 0 DRESSING - LOWER BODY - SCORE: 0-UNK TOILETING: TOILETING - STEP 1: Does the patient require assistance with toileting? Yes. TOILETING - STEP 2: Does the patient require the assistance of a helper? Yes. TOILETING - STEP 3: How much assistance does the patient require from the helper? Only supervision TOILETING - SCORE: 5-SUP BLADDER MANAGEMENT: BLADDER MANAGEMENT - STEP 1: Does the patient control the bladder completely and intentionally without equipment or devices or med ications, and is always continent? No. BLADDER MANAGEMENT - STEP 2: Does the patient require the assistance of a helper? Yes. BLADDER MANAGEMENT - STEP 3: How much assistance does the patient require from the helper? Only set-up of equipment - such as plac ing it within reach of the patient or emptying a device - to maintain either satisfactory voiding pat tern or managing an external device, such as an absorbent pad, ileal device, or catheter BLADDER MANAGEMENT - SCORE: 5-SUP BLADDER MANAGEMENT - FREQUENCY OF ACCIDENTS: BLADDER MANAGEMENT(FA) - STEP 1: How many accidents has the patient had during the current shift? 1 BOWEL MANAGEMENT: Activity did not occur on this shift BOWEL MANAGEMENT - SCORE: 7-IND TRANSFERS: BED, CHAIR, WHEELCHAIR: TRANSFERS: BED, CHAIR, WHEELCHAIR - STEP 1: Does the patient require assistance with bed, chair, or wheelchair transfers? Yes. TRANSFERS: BED, CHAIR, WHEELCHAIR - STEP 2: Does the patient require the assistance of a helper? Yes. TRANSFERS: BED, CHAIR, WHEELCHAIR - STEP 3: How much assistance does the patient require from the helper? Steadying/guiding assistance TRANSFERS: BED, CHAIR, WHEELCHAIR - SCORE: 4-MIN TRANSFERS: TOILET: Activity did not occur on this shift TRANSFERS: TOILET - SCORE: 0-UNK TRANSFERS: SHOWER: Activity did not occur on this shift TRANSFERS: SHOWER - SCORE: 0-UNK TRANSFERS: TUB: Activity did not occur on this shift TRANSFERS: TUB - SCORE: 0-UNK LOCOMOTION: WALK: Activity did not occur on this shift LOCOMOTION: WALK - SCORE: 0-UNK LOCOMOTION: WHEELCHAIR: Activity did not occur on this shift LOCOMOTION: WHEELCHAIR - SCORE: 0-UNK COMPREHENSION: COMPREHENSION: TYPE: Both COMPREHENSION - STEP 1: Does the patient require help to understand complex and abstract ideas (such as current events, finan paola, discharge planning, medical issues, relationships, etc)? No. COMPREHENSION - STEP 2: Does the patient need extra time, require an assistive device (such as glasses, hearing aids, or an a ugmentative communication system), OR does s/he have mild difficulty expressing complex and abstract ideas (including mild dysarthria or mild word-finding problems)? Yes. COMPREHENSION - SCORE: 6-PORTER EXPRESSION EXPRESSION: TYPE: Both EXPRESSION - STEP 1: Does the patient require help expressing complex and abstract ideas (such as current events, finances , discharge planning, medical issues, relationships, etc)? No. EXPRESSION - STEP 2: Does the patient need extra time, require an assistive device (such as augmentive communication syste m or a communication board), OR does s/he have mild difficulty expressing complex and abstract ideas (including mild dysarthria or mild word-find problems)? Yes. EXPRESSION - SCORE: 6-PORTER SOCIAL INTERACTION: SOCIAL INTERACTION - STEP 1: Does the patient require a helper to interact with others in social and therapeutic situations? No. SOCIAL INTERACTION - STEP 2: Does the patient need extra time in social situations, OR does s/he interact with staff, other patien ts, and family members ONLY in structured environments, OR does s/he require medication for social in teraction? Yes, patient needs extra time SOCIAL INTERACTION - SCORE: 6-PORTER PROBLEM SOLVING: PROBLEM SOLVING - STEP 1: Does the patient need help to solve complex problems such as managing a checking account or confronti ng interpersonal problems? No. PROBLEM SOLVING - STEP 2: Does the patient require extra time to make decisions or solve problems, OR does s/he have slight dif ficulty reading, initiating, or self-correcting in unfamiliar situations? Yes, patient needs extra ti me. PROBLEM SOLVING - SCORE: 6-PORTER MEMORY: MEMORY - STEP 1: Does the patient need help to remember frequently encountered people, daily routines, and executing r equests? No. MEMORY - STEP 2: Does the patient have slight difficulty recognizing frequently encountered people, daily routines, or executing requests without the need for repetition or using self-initiated or environmental cues to remember? Yes. MEMORY - SCORE: 6-PORTER SIGNATURE PANEL: The following modified sections: Eating - Score, Grooming - Score, Bathing - Score, Dressing - Upper Body - Score, Dressing - Lower Body - Score, Toileting - Score, Bladder Management - Score, Bowel Man agement - Score, Transfers: Bed, Chair, Wheelchair - Score, Transfers: Toilet - Score, Transfers: Melissa wer - Score, Transfers: Tub - Score, Locomotion: Walk - Score, Locomotion: Wheelchair - Score, Compre hension - Score, Expression - Score, Social Interaction - Score, Problem Solving - Score, Memory - Sc ore were [electronically] signed by Aileen Vargas C.N.ARaf on ThuDec 24 2017 04:09:40 GMT-0500 ( Central Daylight Time)
[2017-12-24] MEDS: CARVEDILOL 3.125 MG TAB PO SCH ×2 (05:08→17:05)
[2017-12-24 06:19] LABS: Protime INR 2.78
[2017-12-24 06:21] LABS: Absolute Monocytes 0.9 K/uL (0.1-1.3); Absolute Neutrophil 3.1 K/uL (1.8-8.0); Basophils % 0.6 % (0-1.3); Eosinophils % 3.6 % (0-4.4); Hematocrit 26.2 % (39.6-49.0); Lymphocytes % 18.3 % (15.3-44.8); MCH 34.6 pg (27.0-35.0); MCV 103.2 fL (80-100); MPV 7.9 fL (7.6-11.3); Monocytes % 17.7 % (3.3-12.3); RBC Red Blood Cell Count 2.54 M/uL (4.33-5.43)
[2017-12-24 06:59] LABS: Albumin 3.1 g/dL (3.2-5.5); Potassium 4.9 mEq/L (3.6-5.0); Prealbumin 16.5 mg/dl (18-38)
[2017-12-24] MEDS: LISINOPRIL 10 MG TAB PO SCH (08:00)
[2017-12-24] MEDS: HYDROCODONE/APAP 10/325 TAB PO PRN ×2 (08:00→20:15)
[2017-12-24] MEDS: FE SULF/FA/VIT B COMP & C TAB PO SCH (08:01)
[2017-12-24] MEDS: FERROUS SULFATE 325 MG TAB PO SCH (08:01)
[2017-12-24] MEDS: MAGNESIUM OXIDE 400 MG TAB PO SCH ×2 (08:02→20:15)
[2017-12-24] MEDS: FUROSEMIDE 40 MG TABLET PO SCH (08:02)
[2017-12-24] MEDS: ENSURE ENLIVE 237 ML CAN PO SCH ×2 (08:11→20:15)
[2017-12-24 09:24] LABS: Blood Morphology Comment NOT SEEN (NOT SEEN); Platelet Estimate ADEQ
--- NOTE | 2017-12-24 14:16 | FAST ---
SHIFT START DATE/TIME: 12/24/2017 07:00 (CDT) SHIFT END DATE/TIME: 12/24/2017 19:00 (CDT) NAME OLIVA MARCOS DATE OF : 1930 DATE OF ADMISSION: 12/15/2017 15:31 (CDT) PHONE: AGE: 87 N# [id number] GENDER: Male ENCOUNTER PHYSICIAN: Dr. Sunday Goldberg M.D. ADMISSION DIAGNOSIS: - Orthopaedic Disorders 08 - Unilateral Hip Fracture (08.11) Right hip fracture. EATING: EATING - STEP 1: Does the patient require assistance when eating? Yes. EATING - STEP 2: Does the patient require the assistance of a helper? No, patient only requires an assistive device, O R s/he takes more than reasonable time to eat, OR there is a safety concern, OR s/he requires modifie d food consistency EATING - SCORE: 6-PORTER GROOMING: Comb/brush hair Oral care GROOMING - STEP 1: Does the patient require assistance when grooming? Yes. GROOMING - STEP 2: Does the patient require the assistance of a helper? No. The patient only requires an assistive devic e, OR takes more than reasonable time to groom, OR there is a concern for safety as the patient groom s GROOMING - SCORE: 6-PORTER BATHING: Activity did not occur on this shift BATHING - SCORE: 0-UNK DRESSING - UPPER BODY: Activity did not occur on this shift ARTICLES SCORE Total number of steps: 0 DRESSING - UPPER BODY - SCORE: 0-UNK DRESSING - LOWER BODY: Activity did not occur on this shift ARTICLES SCORE Total number of steps: 0 DRESSING - LOWER BODY - SCORE: 0-UNK TOILETING: TOILETING - STEP 1: Does the patient require assistance with toileting? Yes. TOILETING - STEP 2: Does the patient require the assistance of a helper? Yes. TOILETING - STEP 3: How much assistance does the patient require from the helper? Hands-on assistance from the helper TOILETING - STEP 4: Of the 3 tasks: 1) Adjusting clothing prior to use, 2) Cleansing of perineal area, 3) Adjusting clot mackenzie after use; How many tasks does the patient perform WITHOUT assistance of the helper? Two tasks TOILETING - SCORE: 3-MOD BLADDER MANAGEMENT: BLADDER MANAGEMENT - STEP 1: Does the patient control the bladder completely and intentionally without equipment or devices or med ications, and is always continent? No. BLADDER MANAGEMENT - STEP 2: Does the patient require the assistance of a helper? No, patient requires and independently uses an a ssistive device, such as a urinal, bedpan, bedside commode, catheter, absorbent pad, or collecting de vice BLADDER MANAGEMENT - SCORE: 6-PORTER BOWEL MANAGEMENT: BOWEL MANAGEMENT - STEP 1: Does the patient control bowels completely and intentionally without equipment devices or medications AND is always continent? No. BOWEL MANAGEMENT - STEP 2: Does the patient require the assistance of a helper? No, patient requires and manages independently a n assistive device such as a bedpan, bedside commode, absorbent pad, incontinent device, or collectin g device BOWEL MANAGEMENT - SCORE: 6-PORTER TRANSFERS: BED, CHAIR, WHEELCHAIR: TRANSFERS: BED, CHAIR, WHEELCHAIR - STEP 1: Does the patient require assistance with bed, chair, or wheelchair transfers? Yes. TRANSFERS: BED, CHAIR, WHEELCHAIR - STEP 2: Does the patient require the assistance of a helper? Yes. TRANSFERS: BED, CHAIR, WHEELCHAIR - STEP 3: How much assistance does the patient require from the helper? Steadying/guiding assistance TRANSFERS: BED, CHAIR, WHEELCHAIR - SCORE: 4-MIN TRANSFERS: TOILET: TRANSFERS: TOILET - STEP 1: Does the patient require assistance with toilet transfers? Yes. TRANSFERS: TOILET - STEP 2: Does the patient require the assistance of a helper? Yes. TRANSFERS: TOILET - STEP 3: How much assistance does the patient require from the helper? Patient performs half or more of the tr ansferring tasks TRANSFERS: TOILET - STEP 4: Does the patient need only incidental help such as contact guard or steadying during toilet transfer? Yes. TRANSFERS: TOILET - SCORE: 4-MIN TRANSFERS: SHOWER: Activity did not occur on this shift TRANSFERS: SHOWER - SCORE: 0-UNK TRANSFERS: TUB: TRANSFERS: TUB - STEP 1: Does the patient require assistance with tub transfers? Yes. TRANSFERS: TUB - STEP 2: Does the patient require the assistance of a helper? Yes. TRANSFERS: TUB - STEP 3: How much assistance does the patient require from the helper? Incidental help such as contact guardin g or steadying, OR help to lift one leg into the tub TRANSFERS: TUB - SCORE: 4-MIN LOCOMOTION: WALK: Activity did not occur on this shift LOCOMOTION: WALK - SCORE: 0-UNK LOCOMOTION: WHEELCHAIR: Activity did not occur on this shift LOCOMOTION: WHEELCHAIR - SCORE: 0-UNK COMPREHENSION: COMPREHENSION - STEP 1: Does the patient require help to understand complex and abstract ideas (such as current events, finan paola, discharge planning, medical issues, relationships, etc)? No. COMPREHENSION - STEP 2: Does the patient need extra time, require an assistive device (such as glasses, hearing aids, or an a ugmentative communication system), OR does s/he have mild difficulty expressing complex and abstract ideas (including mild dysarthria or mild word-finding problems)? Yes. COMPREHENSION - SCORE: 6-PORTER EXPRESSION EXPRESSION - STEP 1: Does the patient require help expressing complex and abstract ideas (such as current events, finances , discharge planning, medical issues, relationships, etc)? No. EXPRESSION - STEP 2: Does the patient need extra time, require an assistive device (such as augmentive communication syste m or a communication board), OR does s/he have mild difficulty expressing complex and abstract ideas (including mild dysarthria or mild word-find problems)? Yes. EXPRESSION - SCORE: 6-PORTER SOCIAL INTERACTION: SOCIAL INTERACTION - STEP 1: Does the patient require a helper to interact with others in social and therapeutic situations? No. SOCIAL INTERACTION - STEP 2: Does the patient need extra time in social situations, OR does s/he interact with staff, other patien ts, and family members ONLY in structured environments, OR does s/he require medication for social in teraction? Yes, patient needs extra time SOCIAL INTERACTION - SCORE: 6-PORTER PROBLEM SOLVING: PROBLEM SOLVING - STEP 1: Does the patient need help to solve complex problems such as managing a checking account or confronti ng interpersonal problems? No. PROBLEM SOLVING - STEP 2: Does the patient require extra time to make decisions or solve problems, OR does s/he have slight dif ficulty reading, initiating, or self-correcting in unfamiliar situations? Yes, patient needs extra ti me. PROBLEM SOLVING - SCORE: 6-PORTER MEMORY: MEMORY - STEP 1: Does the patient need help to remember frequently encountered people, daily routines, and executing r equests? No. MEMORY - STEP 2: Does the patient have slight difficulty recognizing frequently encountered people, daily routines, or executing requests without the need for repetition or using self-initiated or environmental cues to remember? No. MEMORY - SCORE: 7-IND SIGNATURE PANEL: The following modified sections: Eating - Score, Grooming - Score, Bathing - Score, Dressing - Upper Body - Score, Dressing - Lower Body - Score, Toileting - Score, Bladder Management - Score, Bowel Man agement - Score, Transfers: Bed, Chair, Wheelchair - Score, Transfers: Toilet - Score, Transfers: Melissa wer - Score, Transfers: Tub - Score, Locomotion: Walk - Score, Locomotion: Wheelchair - Score, Compre hension - Score, Expression - Score, Social Interaction - Score, Problem Solving - Score, Memory - Sc ore were [electronically] signed by Jonah Figueroa on ThuDec 24 2017 13:18:28 GMT-0500 (Central Daylight Time)
--- NOTE | 2017-12-24 14:51 | FAST ---
ENCOUNTER DATE AND TIME: 12/24/2017 08:00 (CDT) NAME OLIVA MARCOS DATE OF : 1930 DATE OF ADMISSION: 12/15/2017 15:31 (CDT) PHONE: AGE: 87 N# [id number] GENDER: Male ENCOUNTER PHYSICIAN: Dr. Sunday Goldberg M.D. ADMISSION DIAGNOSIS: - Orthopaedic Disorders 08 - Unilateral Hip Fracture (08.11) Right hip fracture. EATING: Activity did not occur on this shift EATING - SCORE: 0-UNK GROOMING: Activity did not occur on this shift GROOMING - SCORE: 0-UNK BATHING: Activity did not occur on this shift BATHING - SCORE: 0-UNK DRESSING - UPPER BODY: Activity did not occur on this shift ARTICLES SCORE Total number of steps: 0 DRESSING - UPPER BODY - SCORE: 0-UNK DRESSING - LOWER BODY: Activity did not occur on this shift ARTICLES SCORE Total number of steps: 0 DRESSING - LOWER BODY - SCORE: 0-UNK TOILETING: Activity did not occur on this shift TOILETING - SCORE: 0-UNK BLADDER MANAGEMENT: Activity did not occur on this shift BLADDER MANAGEMENT - SCORE: 7-IND BOWEL MANAGEMENT: Activity did not occur on this shift BOWEL MANAGEMENT - SCORE: 7-IND TRANSFERS: BED, CHAIR, WHEELCHAIR: Activity did not occur on this shift TRANSFERS: BED, CHAIR, WHEELCHAIR - SCORE: 0-UNK TRANSFERS: TOILET: Activity did not occur on this shift TRANSFERS: TOILET - SCORE: 0-UNK TRANSFERS: SHOWER: Activity did not occur on this shift TRANSFERS: SHOWER - SCORE: 0-UNK TRANSFERS: TUB: Activity did not occur on this shift TRANSFERS: TUB - SCORE: 0-UNK LOCOMOTION: WALK: Activity did not occur on this shift LOCOMOTION: WALK - SCORE: 0-UNK LOCOMOTION: WHEELCHAIR: Activity did not occur on this shift LOCOMOTION: WHEELCHAIR - SCORE: 0-UNK LOCOMOTION: STAIRS: Activity did not occur on this shift LOCOMOTION: STAIRS - SCORE: 0-UNK COMPREHENSION: COMPREHENSION - STEP 1: Does the patient require help to understand complex and abstract ideas (such as current events, finan paola, discharge planning, medical issues, relationships, etc)? No. COMPREHENSION - STEP 2: Does the patient need extra time, require an assistive device (such as glasses, hearing aids, or an a ugmentative communication system), OR does s/he have mild difficulty expressing complex and abstract ideas (including mild dysarthria or mild word-finding problems)? Yes. COMPREHENSION - SCORE: 6-PORTER EXPRESSION EXPRESSION: TYPE: Non-Vocal EXPRESSION - STEP 1: Does the patient require help expressing complex and abstract ideas (such as current events, finances , discharge planning, medical issues, relationships, etc)? No. EXPRESSION - STEP 2: Does the patient need extra time, require an assistive device (such as augmentive communication syste m or a communication board), OR does s/he have mild difficulty expressing complex and abstract ideas (including mild dysarthria or mild word-find problems)? No. EXPRESSION - SCORE: 7-IND SOCIAL INTERACTION: SOCIAL INTERACTION - STEP 1: Does the patient require a helper to interact with others in social and therapeutic situations? No. SOCIAL INTERACTION - STEP 2: Does the patient need extra time in social situations, OR does s/he interact with staff, other patien ts, and family members ONLY in structured environments, OR does s/he require medication for social in teraction? No. SOCIAL INTERACTION - SCORE: 7-IND PROBLEM SOLVING: PROBLEM SOLVING - STEP 1: Does the patient need help to solve complex problems such as managing a checking account or confronti ng interpersonal problems? No. PROBLEM SOLVING - STEP 2: Does the patient require extra time to make decisions or solve problems, OR does s/he have slight dif ficulty reading, initiating, or self-correcting in unfamiliar situations? Yes, patient needs extra ti me. PROBLEM SOLVING - SCORE: 6-PORTER MEMORY: MEMORY - STEP 1: Does the patient need help to remember frequently encountered people, daily routines, and executing r equests? No. MEMORY - STEP 2: Does the patient have slight difficulty recognizing frequently encountered people, daily routines, or executing requests without the need for repetition or using self-initiated or environmental cues to remember? Yes. MEMORY - SCORE: 6-PORTER SIGNATURE PANEL: The following modified sections: Eating - Score, Grooming - Score, Bathing - Score, Dressing - Upper Body - Score, Dressing - Lower Body - Score, Toileting - Score, Transfers: Bed, Chair, Wheelchair - S core, Transfers: Toilet - Score, Transfers: Shower - Score, Transfers: Tub - Score, Comprehension - S core, Expression - Score, Social Interaction - Score, Problem Solving - Score, Memory - Score were [e lectronically] signed by STEPHANIE Dougherty on ThuDec 24 2017 13:53:44 [facility]-0500 ([facility] Time)
--- NOTE | 2017-12-24 16:02 | FAST ---
ENCOUNTER DATE AND TIME: 12/24/2017 08:00 (CDT) NAME OLIVA MARCOS DATE OF : 1930 DATE OF ADMISSION: 12/15/2017 15:31 (CDT) PHONE: AGE: 87 N# [id number] GENDER: Male ENCOUNTER PHYSICIAN: Dr. Sunday Goldberg M.D. ADMISSION DIAGNOSIS: - Orthopaedic Disorders 08 - Unilateral Hip Fracture (08.11) Right hip fracture. EATING: Activity did not occur on this shift EATING - SCORE: 0-UNK GROOMING: Activity did not occur on this shift GROOMING - SCORE: 0-UNK BATHING: Activity did not occur on this shift BATHING - SCORE: 0-UNK DRESSING - UPPER BODY: Activity did not occur on this shift Patient is not dressing in public clothing ARTICLES SCORE Total number of steps: 0 DRESSING - UPPER BODY - SCORE: 0-UNK DRESSING - LOWER BODY: Activity did not occur on this shift Patient is not dressing in public clothing ARTICLES SCORE Total number of steps: 0 DRESSING - LOWER BODY - SCORE: 0-UNK TOILETING: Activity did not occur on this shift TOILETING - SCORE: 0-UNK BLADDER MANAGEMENT: Activity did not occur on this shift BLADDER MANAGEMENT - SCORE: 7-IND BOWEL MANAGEMENT: Activity did not occur on this shift BOWEL MANAGEMENT - SCORE: 7-IND TRANSFERS: BED, CHAIR, WHEELCHAIR: TRANSFERS: BED, CHAIR, WHEELCHAIR - STEP 1: Does the patient require assistance with bed, chair, or wheelchair transfers? Yes. TRANSFERS: BED, CHAIR, WHEELCHAIR - STEP 2: Does the patient require the assistance of a helper? Yes. TRANSFERS: BED, CHAIR, WHEELCHAIR - STEP 3: How much assistance does the patient require from the helper? Only supervision TRANSFERS: BED, CHAIR, WHEELCHAIR - SCORE: 5-SUP TRANSFERS: TOILET: Activity did not occur on this shift TRANSFERS: TOILET - SCORE: 0-UNK TRANSFERS: SHOWER: Activity did not occur on this shift TRANSFERS: SHOWER - SCORE: 0-UNK TRANSFERS: TUB: Activity did not occur on this shift TRANSFERS: TUB - SCORE: 0-UNK LOCOMOTION: WALK: LOCOMOTION: WALK - STEP 1: Does the patient need help to walk 150 feet? Yes. LOCOMOTION: WALK - STEP 2: How much assistance does the patient require to walk a minimum of 150 feet? Patient walks less than 1 50 feet - but more than 50 feet - with the assistance of only one helper LOCOMOTION: WALK - SCORE: 2-MAX LOCOMOTION: WHEELCHAIR: LOCOMOTION: WHEELCHAIR - STEP 1: Does the patient need help to go 150 feet in a wheelchair? No. LOCOMOTION: WHEELCHAIR - SCORE: 6-PORTER LOCOMOTION: STAIRS: Activity did not occur on this shift LOCOMOTION: STAIRS - SCORE: 0-UNK COMPREHENSION: COMPREHENSION - SCORE: 0-UNK EXPRESSION EXPRESSION - SCORE: 0-UNK SOCIAL INTERACTION: SOCIAL INTERACTION - SCORE: 0-UNK PROBLEM SOLVING: PROBLEM SOLVING - SCORE: 0-UNK MEMORY: MEMORY - SCORE: 0-UNK SIGNATURE PANEL: The following modified sections: Transfers: Bed, Chair, Wheelchair - Score, Transfers: Toilet - Score , Locomotion: Walk - Score, Locomotion: Wheelchair - Score, Locomotion: Stairs - Score were [electron ically] signed by Randy Montgomery PTA on ThuDec 24 2017 15:04:22 T-0500 (Central Daylight Time)
--- NOTE | 2017-12-24 16:08 | R.PN ---
ENCOUNTER DATE AND TIME: 12/24/2017 15:08 (CDT) NAME OLIVA MARCOS DATE OF : 1930 DATE OF ADMISSION: 12/15/2017 15:31 (CDT) Right hip fractureCHIEF COMPLAINT: Right hip fracture SUBJECTIVE: Pt denied any Shortness of Breath. Pt denied any depression. Pushed wheelchair 250' with with modified independence. Ambulated 288' with standby assistance using a rolling walker. VITAL SIGNS Temperature: 97 F SBP/DBP: 107/65 Pulse: 75 Resp: 16 MEDICATION ALLERGIES: Penicillin ENVIRONMENTAL ALLERGIES: None Known - Substance Allergies None Known - Other Allergies None Known NURSING: - Shower allowing shower - Skin care per protocol PRECAUTIONS: - Weight Bearing Precaution TTWB right LE - Fall Precaution Bed and chair alarm ACTIVITIES OOB only with supervision THERAPIES: - Occupational Therapy Evaluate and Treat. - Physical Therapy Evaluate and Treat. PHYSICAL EXAM - Gen Alert and awake Lying in bed No apparent distress Oriented to: person, time, and place - Skin No skin breakdown. Normacephalic - Eyes No abnormalities - ENMT No abnormalities - Neck No abnormalities - CVS RRR - Chest Clear - Abd Soft - GI Non distended Deferred - No abnormalities - Ext No significant edema - MSK Unremarkable - Neuro No focal deficits - Psych No abnormalities ASSESSMENT: Pt. is a 87 yo Right-handed white male.On 12/10/2017 he was admitted to [facility] with diagnosis Right hip fracture.His impairment category is Orthopaedic Disorders 08 - Unilater al Hip Fracture (08.11).Pre-morbidly, Pt. was independent/mod-I in Transfers Control, Communication, Social Cognition, Self-Care, Locomotion, and Sphincter Control; and he had good Sphincter Control.Cur rently, he has deficits of Safety Awareness, Transfers Control, Balance, Locomotion, Endurance, and S elf-Care.Pt. is now referred to [facility] for acute in-patient rehabilitation in order to maximize patient's functional independence in activities of daily living, strength, ROM, and mobility.- Rehab Goal Patient has realistic goal of being discharged at assistance level 6-Soren to reside at Home with Fam soumya/Relatives. MDM/PLAN: - Anterior Hip Precaution No abduction No active extension No adduction across midline No external rotation No hip flexion >90 degrees No internal rotation - Physical Therapy Decreased range of motion - to improve, our physical therapists will perform initial evaluation of p t's status upon admission and devise an individualized program for increasing patient's Range of Marciano on. Gait dysfunction - to improve, our physical therapists will perform initial evaluation of pt's statu s upon admission and devise an individualized program for Gait Training, and Wheel Chair mobility Inability to transfer - to improve, our physical therapists will perform initial evaluation of pt's status upon admission and devise an individualized program for Bed mobility Need for home safety evaluation - to improve, our physical therapists will perform initial evaluatio n of pt's status upon admission and devise an individualized program for Home Evaluation Need in caregiver upon discharge - to improve, our physical therapists will perform initial evaluati on of pt's status upon admission and devise an individualized program for Caregiver Training New precaution - to improve, our physical therapists will perform initial evaluation of pt's status upon admission and devise an individualized program for Patient precaution education Edema - to improve, our physical therapists will perform initial evaluation of pt's status upon admi ssion and devise an individualized program for Elevation Training, and Lymphedema Therapy Poor balance - to improve, our physical therapists will perform initial evaluation of pt's status up on admission and devise an individualized program for Balance Training Poor endurance - to improve, our physical therapists will perform initial evaluation of pt's status upon admission and devise an individualized program for Endurance Training Weakness - to improve, our physical therapists will perform initial evaluation of pt's status upon a dmission and devise an individualized program for Aquatic Therapy, Neuromuscular Reeducation, and Str engthening Achieving independence - to improve, our physical therapists will perform initial evaluation of pt's status upon admission and devise an individualized program for Community Reintegration Activities - Diet - Liquid Texture Continue Regular - Tube Feed Continue N/A - Diet Type Continue Regular - Posterior Hip Precaution No adduction across midline No external rotation No hip flexion >90 degrees No internal rotation No wheel chair propulsion - Occupational Therapy ADL deficits - to improve, our occupation therapists will perform initial evaluation of pt's status upon admission and devise an individualized program for Bathing, Bed mobility, Community Reintegratio n, Cooking, Dressing, Eating, Fine Motor Skills, Grooming, Homemaking, Kitchen Mobility, Laundry, Pat ient Education, Safety Awareness, Splinting - Positioning, Transfers(Toilet, Tub, Shower), and Wheel Chair Management Need for child care cook - to improve, our occupation therapists will perform initial evaluation of pt's status upon admission and devise an individualized program for Caregiver Training Weakness - to improve, our occupation therapists will perform initial evaluation of pt's status upon admission and devise an individualized program for Aquatic Therapy, Balance, Endurance, UE ROM, and UE strengthening - Weight Bearing Precaution TTWB right LE - Fall Precaution Bed and chair alarm - Skin care per protocol - Diet - Solid Texture Continue Regular - Shower allowing shower FUNCTIONAL STATUS: UPDATED AT WEEKLY TEAM CONFERENCE - Bladder Same accident frequency: 7-Ind - No accidents in the past 7 days - Bowel Same accident frequency: 7-Ind - No accidents in the past 7 days - Walking Same score based on distance walked: 1(<=50ft) - Wheelchair Same score based on distance traveled: 0(N/A) FUNCTIONAL STATUS: - Self-Care A. Eating Ind B. Grooming Soren C. Bathing Ind D. Dressing - Upper Soren E. Dressing - Lower Reza F. Toileting maxA - Sphincter Control G: Bladder control Dep H: Bowel control Ind - Transfers Control I. Bed/Chair/Wheelchair maxA J. Toilet maxA K. Tub/Shower ADNO - Locomotion L. Walk/Wheelchair (C) maxA L. Walk/Wheelchair (W) Ind M. Stairs ADNO - Communication N. Comprehension (B) Soren O. Expression (B) Soren - Social Cognition P. Social Interaction Soren Q. Problem Solving Soren R. Memory Soren - Endurance Fair - Balance Fair - Safety Awareness Fair CURRENT FUNC. DEFICITS: Safety Awareness, Transfers Control, Balance, Locomotion, Endurance, and Self-Care SIGNATURE PANEL: (CDT)
[2017-12-24] MEDS: WARFARIN SODIUM 6 MG TAB PO SCH (17:05)
[2017-12-24] MEDS: DOCUSATE NA/SENNA CONC 1 TAB PO SCH (20:15)
[2017-12-24] MEDS: ATORVASTATIN 10 MG TAB PO SCH (20:15)
[2017-12-24] MEDS: PANTOPRAZOLE 40MG TABLET PO SCH (20:15)
--- NOTE | 2017-12-25 04:28 | FAST ---
SHIFT START DATE/TIME: 12/24/2017 19:00 (CDT) SHIFT END DATE/TIME: 12/25/2017 07:00 (CDT) NAME OLIVA MARCOS DATE OF : 1930 DATE OF ADMISSION: 12/15/2017 15:31 (CDT) PHONE: AGE: 87 N# [id number] GENDER: Male ENCOUNTER PHYSICIAN: Dr. Sunday Goldberg M.D. ADMISSION DIAGNOSIS: - Orthopaedic Disorders 08 - Unilateral Hip Fracture (08.11) Right hip fracture. EATING: EATING - STEP 1: Does the patient require assistance when eating? Yes. EATING - STEP 2: Does the patient require the assistance of a helper? Yes. EATING - STEP 3: Does the patient perform half or more of the eating tasks? Yes. EATING - STEP 4: Does the patient need only supervision, cuing, coaxing OR help to apply an orthosis OR help to cut fo od, open containers, pour liquids, or butter bread? Yes. EATING - SCORE: 5-SUP GROOMING: Comb/brush hair Oral care Wash, rinse, and dry face Wash, rinse, and dry hands GROOMING - STEP 1: Does the patient require assistance when grooming? Yes. GROOMING - STEP 2: Does the patient require the assistance of a helper? Yes. GROOMING - STEP 3: How much assistance does the patient require from the helper? Only prior equipment preparation/set up from the helper GROOMING - SCORE: 5-SUP BATHING: Activity did not occur on this shift BATHING - SCORE: 0-UNK DRESSING - UPPER BODY: Patient is not dressing in public clothing ARTICLES SCORE Total number of steps: 0 DRESSING - UPPER BODY - SCORE: 0-UNK DRESSING - LOWER BODY: Patient is not dressing in public clothing ARTICLES SCORE Total number of steps: 0 DRESSING - LOWER BODY - SCORE: 0-UNK TOILETING: TOILETING - STEP 1: Does the patient require assistance with toileting? Yes. TOILETING - STEP 2: Does the patient require the assistance of a helper? Yes. TOILETING - STEP 3: How much assistance does the patient require from the helper? Only supervision TOILETING - SCORE: 5-SUP BLADDER MANAGEMENT: BLADDER MANAGEMENT - STEP 1: Does the patient control the bladder completely and intentionally without equipment or devices or med ications, and is always continent? No. BLADDER MANAGEMENT - STEP 2: Does the patient require the assistance of a helper? Yes. BLADDER MANAGEMENT - STEP 3: How much assistance does the patient require from the helper? Only set-up of equipment - such as plac ing it within reach of the patient or emptying a device - to maintain either satisfactory voiding pat tern or managing an external device, such as an absorbent pad, ileal device, or catheter BLADDER MANAGEMENT - SCORE: 5-SUP BLADDER MANAGEMENT - FREQUENCY OF ACCIDENTS: BLADDER MANAGEMENT(FA) - STEP 1: How many accidents has the patient had during the current shift? 0 BOWEL MANAGEMENT: Activity did not occur on this shift BOWEL MANAGEMENT - SCORE: 7-IND TRANSFERS: BED, CHAIR, WHEELCHAIR: TRANSFERS: BED, CHAIR, WHEELCHAIR - STEP 1: Does the patient require assistance with bed, chair, or wheelchair transfers? Yes. TRANSFERS: BED, CHAIR, WHEELCHAIR - STEP 2: Does the patient require the assistance of a helper? Yes. TRANSFERS: BED, CHAIR, WHEELCHAIR - STEP 3: How much assistance does the patient require from the helper? Only supervision TRANSFERS: BED, CHAIR, WHEELCHAIR - SCORE: 5-SUP TRANSFERS: TOILET: TRANSFERS: TOILET - STEP 1: Does the patient require assistance with toilet transfers? Yes. TRANSFERS: TOILET - STEP 2: Does the patient require the assistance of a helper? Yes. TRANSFERS: TOILET - STEP 3: How much assistance does the patient require from the helper? Only supervision, cuing, coaxing, OR he lp to set out transfer equipment or to lock brakes and/or lift foot rests TRANSFERS: TOILET - SCORE: 5-SUP TRANSFERS: SHOWER: Activity did not occur on this shift TRANSFERS: SHOWER - SCORE: 0-UNK TRANSFERS: TUB: Activity did not occur on this shift TRANSFERS: TUB - SCORE: 0-UNK LOCOMOTION: WALK: Activity did not occur on this shift LOCOMOTION: WALK - SCORE: 0-UNK LOCOMOTION: WHEELCHAIR: Activity did not occur on this shift LOCOMOTION: WHEELCHAIR - SCORE: 0-UNK COMPREHENSION: COMPREHENSION: TYPE: Both COMPREHENSION - STEP 1: Does the patient require help to understand complex and abstract ideas (such as current events, finan paola, discharge planning, medical issues, relationships, etc)? No. COMPREHENSION - STEP 2: Does the patient need extra time, require an assistive device (such as glasses, hearing aids, or an a ugmentative communication system), OR does s/he have mild difficulty expressing complex and abstract ideas (including mild dysarthria or mild word-finding problems)? Yes. COMPREHENSION - SCORE: 6-PORTER EXPRESSION EXPRESSION: TYPE: Both EXPRESSION - STEP 1: Does the patient require help expressing complex and abstract ideas (such as current events, finances , discharge planning, medical issues, relationships, etc)? No. EXPRESSION - STEP 2: Does the patient need extra time, require an assistive device (such as augmentive communication syste m or a communication board), OR does s/he have mild difficulty expressing complex and abstract ideas (including mild dysarthria or mild word-find problems)? Yes. EXPRESSION - SCORE: 6-PORTER SOCIAL INTERACTION: SOCIAL INTERACTION - STEP 1: Does the patient require a helper to interact with others in social and therapeutic situations? No. SOCIAL INTERACTION - STEP 2: Does the patient need extra time in social situations, OR does s/he interact with staff, other patien ts, and family members ONLY in structured environments, OR does s/he require medication for social in teraction? No. SOCIAL INTERACTION - SCORE: 7-IND PROBLEM SOLVING: PROBLEM SOLVING - STEP 1: Does the patient need help to solve complex problems such as managing a checking account or confronti ng interpersonal problems? No. PROBLEM SOLVING - STEP 2: Does the patient require extra time to make decisions or solve problems, OR does s/he have slight dif ficulty reading, initiating, or self-correcting in unfamiliar situations? Yes, patient needs extra ti me. PROBLEM SOLVING - SCORE: 6-PORTER MEMORY: MEMORY - STEP 1: Does the patient need help to remember frequently encountered people, daily routines, and executing r equests? No. MEMORY - STEP 2: Does the patient have slight difficulty recognizing frequently encountered people, daily routines, or executing requests without the need for repetition or using self-initiated or environmental cues to remember? Yes. MEMORY - SCORE: 6-PORTER SIGNATURE PANEL: The following modified sections: Eating - Score, Grooming - Score, Bathing - Score, Dressing - Upper Body - Score, Dressing - Lower Body - Score, Toileting - Score, Bladder Management - Score, Bowel Man agement - Score, Transfers: Bed, Chair, Wheelchair - Score, Transfers: Toilet - Score, Transfers: Melissa wer - Score, Transfers: Tub - Score, Locomotion: Walk - Score, Locomotion: Wheelchair - Score, Compre hension - Score, Expression - Score, Social Interaction - Score, Problem Solving - Score, Memory - Sc ore were [electronically] signed by Min HernandezNGael on ThuDec 25 2017 03:30:48 GMT-0500 ( Central Daylight Time)
[2017-12-25] MEDS: CARVEDILOL 3.125 MG TAB PO SCH ×2 (05:07→17:37)
[2017-12-25 06:33] LABS: Protime INR 2.92
[2017-12-25] MEDS: HYDROCODONE/APAP 10/325 TAB PO PRN ×2 (07:02→18:38)
[2017-12-25] MEDS: LISINOPRIL 10 MG TAB PO SCH (08:00)
[2017-12-25] MEDS: FE SULF/FA/VIT B COMP & C TAB PO SCH (08:13)
[2017-12-25] MEDS: FERROUS SULFATE 325 MG TAB PO SCH (08:13)
[2017-12-25] MEDS: MAGNESIUM OXIDE 400 MG TAB PO SCH ×2 (08:13→20:40)
[2017-12-25] MEDS: FUROSEMIDE 40 MG TABLET PO SCH (08:13)
[2017-12-25] MEDS: ENSURE ENLIVE 237 ML CAN PO SCH ×2 (08:14→20:40)
--- NOTE | 2017-12-25 09:41 | P.RH.PN ---
Estimated Length of Stay: 15 Expected Discharge Date: 12/29/17 Discharge Disposition Plan: Home Family Support: Yes [facility] Goal: Mobility, Transfers, Self Care Vital Signs: Last Vital Signs Temp 97.4 F 12/25/17 08:37 Pulse 80 12/25/17 08:37 Resp 14 12/25/17 08:37 BP 103/61 12/25/17 08:37 Pulse Ox 97 12/25/17 08:37 Laboratory: Laboratory Last Values WBC 5.2 K/uL (4.3-10.9) 12/24/17 05:50 RBC 2.54 M/uL (4.33-5.43) L 12/24/17 05:50 Hgb 8.8 g/dL (13.6-17.9) L 12/24/17 05:50 Hct 26.2 % (39.6-49.0) L 12/24/17 05:50 MCV 103.2 fL (80-100) H 12/24/17 05:50 MCH 34.6 pg (27.0-35.0) 12/24/17 05:50 MCHC 33.5 g/dL (32.0-36.0) 12/24/17 05:50 RDW 14.0 % (12.1-15.2) 12/24/17 05:50 Plt Count 411 K/uL (152-406) H D 12/24/17 05:50 MPV 7.9 fL (7.6-11.3) 12/24/17 05:50 Neutrophils % 59.8 % (41.7-73.7) 12/24/17 05:50 Lymphocytes % 18.3 % (15.3-44.8) 12/24/17 05:50 Monocytes % 17.7 % (3.3-12.3) H 12/24/17 05:50 Eosinophils % 3.6 % (0-4.4) 12/24/17 05:50 Basophils % 0.6 % (0-1.3) 12/24/17 05:50 Absolute Neutrophils 3.1 K/uL (1.8-8.0) 12/24/17 05:50 Segmented Neutrophils 56 % (40-80) 12/24/17 05:50 Absolute Lymphocytes 1.0 K/uL (0.7-4.9) 12/24/17 05:50 Lymphocytes 18 % (15-42) 12/24/17 05:50 Monocytes 23 % (0-10) H 12/24/17 05:50 Absolute Monocytes 0.9 K/uL (0.1-1.3) 12/24/17 05:50 Eosinophils 3 % (0-3) 12/24/17 05:50 Absolute Eosinophils 0.2 K/uL (0-0.5) 12/24/17 05:50 Absolute Basophils 0.0 K/uL (0-0.5) 12/24/17 05:50 Morphology Comment Not seen (NOT SEEN) 12/24/17 05:50 PT 34.8 SECONDS (9.5-12.5) H 12/25/17 06:01 INR 2.92 12/25/17 06:01 Sodium 136 mEq/L (135-145) 12/24/17 05:50 Potassium 4.9 mEq/L (3.6-5.0) 12/24/17 05:50 Chloride 98 mEq/L (101-111) L 12/24/17 05:50 Carbon Dioxide 32 mEq/L (21-31) H 12/24/17 05:50 BUN 36 mg/dL (6-20) H 12/24/17 05:50 Creatinine 1.39 mg/dL (0.61-1.24) H 12/24/17 05:50 Estimated GFR 48 mL/min (=/>90) L 12/24/17 05:50 Glucose 105 mg/dL (65-120) 12/24/17 05:50 POC Glucose 138 mg/dl (65-120) H 12/16/17 16:20 Calcium 9.8 mg/dL (8.5-10.5) D 12/24/17 05:50 Magnesium 2.0 mg/dL (1.8-2.5) 12/24/17 05:50 Albumin 3.1 g/dL (3.2-5.5) L 12/24/17 05:50 Prealbumin 16.5 mg/dl (18-38) L 12/24/17 05:50 Urine Color Yellow 12/15/17 17:30 Urine Appearance Clear 12/15/17 17:30 Urine pH 7.0 (5.0-7.0) 12/15/17 17:30 Ur Specific [place] <=1.005 (1.005-1.030) 12/15/17 17:30 Urine Ketones Negative (NEG) 12/15/17 17:30 Urine Blood Negative (NEG) 12/15/17 17:30 Urine Nitrite Negative (NEG) 12/15/17 17:30 Urine Bilirubin Negative (NEG) 12/15/17 17:30 Urine Urobilinogen 1.0 mg/dL (0.2-1.0) 12/15/17 17:30 Ur Leukocyte Esterase Negative (NEG) 12/15/17 17:30 Urine RBC None seen /HPF (NONE SEEN) 12/15/17 17:30 Urine WBC None seen /HPF (<5) 12/15/17 17:30 Ur Squamous Epith Cells <5 /HPF (NONE SEEN) 12/15/17 17:30 Urine Bacteria None seen /HPF (NONE SEEN) 12/15/17 17:30 Urine Culture Reflexed Not needed 12/15/17 17:30 Urine Glucose Negative (NEG) 12/15/17 17:30 Urine Total Protein Negative (NEG) 12/15/17 17:30 Weight: 166 lb 6.4 oz Wound Present: No Closed Surgical Incision Present: Yes Negative Pressure Wound Therapy Present: No Physician Update: He is making fair overall progress but he continues to put more weight than recommended in the right leg after hip surgery. He will most likely require chcf due to his continued need for contact guard to moderate assistance with some ADLs and mobilization. Medical Issues: hgb- 8.8 on Hemocyte plus and Feosol Pain Issues: on [place] 10/325mg Q4H PRN Functional Improvement: Patient has met all short-term goals at this time and is progressing well toward long-term goals. Patient presents w/ positive attitude toward therapy. Functional Improvement Occupational Therapy: Pt can benifit with further therapy to address pt's UB strength for all adl and functional transfers while maintaining TDWB. Cont to educate and train pt on energy conservation techniques and safety for LB dressing tasks. Cont with the POC and the goals by the supervising OTR. Speech Therapy Update: Pt. complying 100% with all therapy tasks and reports independent practice 3 times daily. Pt. requires only one initial cue to utilize dysphagia strategies (i.e. swallow twice, alternate liquids and solids) with meals. Hiccups were initially suspected to be causing some of the deficit in deglutition. Hiccups have subsided for the past 2 days. Pt. making excellent progress toward all goals. Summary: Patient's care plan and [facility] goals have been reviewed and revised as necessary. Please see the Rehabilitation Signature page for all necessary signatures.
--- NOTE | 2017-12-25 11:52 | FAST ---
SHIFT START DATE/TIME: 12/25/2017 07:00 (CDT) SHIFT END DATE/TIME: 12/25/2017 19:00 (CDT) NAME OLIVA MARCOS DATE OF : 1930 DATE OF ADMISSION: 12/15/2017 15:31 (CDT) PHONE: AGE: 87 [facility]# [id number] GENDER: Male ENCOUNTER PHYSICIAN: Dr. Sunday Goldberg M.D. ADMISSION DIAGNOSIS: - Orthopaedic Disorders 08 - Unilateral Hip Fracture (08.11) Right hip fracture. EATING: EATING - STEP 1: Does the patient require assistance when eating? Yes. EATING - STEP 2: Does the patient require the assistance of a helper? No, patient only requires an assistive device, O R s/he takes more than reasonable time to eat, OR there is a safety concern, OR s/he requires modifie d food consistency EATING - SCORE: 6-PORTER GROOMING: Comb/brush hair Oral care Wash, rinse, and dry face Wash, rinse, and dry hands GROOMING - STEP 1: Does the patient require assistance when grooming? Yes. GROOMING - STEP 2: Does the patient require the assistance of a helper? No. The patient only requires an assistive devic e, OR takes more than reasonable time to groom, OR there is a concern for safety as the patient groom s GROOMING - SCORE: 6-PORTER BATHING: Activity did not occur on this shift BATHING - SCORE: 0-UNK DRESSING - UPPER BODY: Activity did not occur on this shift ARTICLES SCORE Total number of steps: 0 DRESSING - UPPER BODY - SCORE: 0-UNK DRESSING - LOWER BODY: Activity did not occur on this shift ARTICLES SCORE Total number of steps: 0 DRESSING - LOWER BODY - SCORE: 0-UNK TOILETING: TOILETING - STEP 1: Does the patient require assistance with toileting? Yes. TOILETING - STEP 2: Does the patient require the assistance of a helper? Yes. TOILETING - STEP 3: How much assistance does the patient require from the helper? Hands-on assistance from the helper TOILETING - STEP 4: Of the 3 tasks: 1) Adjusting clothing prior to use, 2) Cleansing of perineal area, 3) Adjusting clot mackenzie after use; How many tasks does the patient perform WITHOUT assistance of the helper? Three tasks with steadying assistance from the helper TOILETING - SCORE: 4-MIN BLADDER MANAGEMENT: BLADDER MANAGEMENT - STEP 1: Does the patient control the bladder completely and intentionally without equipment or devices or med ications, and is always continent? No. BLADDER MANAGEMENT - STEP 2: Does the patient require the assistance of a helper? No, patient requires and independently uses an a ssistive device, such as a urinal, bedpan, bedside commode, catheter, absorbent pad, or collecting de vice BLADDER MANAGEMENT - SCORE: 6-PORTER BOWEL MANAGEMENT: BOWEL MANAGEMENT - STEP 1: Does the patient control bowels completely and intentionally without equipment devices or medications AND is always continent? No. BOWEL MANAGEMENT - STEP 2: Does the patient require the assistance of a helper? No, patient requires and manages independently a n assistive device such as a bedpan, bedside commode, absorbent pad, incontinent device, or collectin g device BOWEL MANAGEMENT - SCORE: 6-PORTER TRANSFERS: BED, CHAIR, WHEELCHAIR: TRANSFERS: BED, CHAIR, WHEELCHAIR - STEP 1: Does the patient require assistance with bed, chair, or wheelchair transfers? Yes. TRANSFERS: BED, CHAIR, WHEELCHAIR - STEP 2: Does the patient require the assistance of a helper? Yes. TRANSFERS: BED, CHAIR, WHEELCHAIR - STEP 3: How much assistance does the patient require from the helper? Steadying/guiding assistance TRANSFERS: BED, CHAIR, WHEELCHAIR - SCORE: 4-MIN TRANSFERS: TOILET: TRANSFERS: TOILET - STEP 1: Does the patient require assistance with toilet transfers? Yes. TRANSFERS: TOILET - STEP 2: Does the patient require the assistance of a helper? Yes. TRANSFERS: TOILET - STEP 3: How much assistance does the patient require from the helper? Only supervision, cuing, coaxing, OR he lp to set out transfer equipment or to lock brakes and/or lift foot rests TRANSFERS: TOILET - SCORE: 5-SUP TRANSFERS: SHOWER: Activity did not occur on this shift TRANSFERS: SHOWER - SCORE: 0-UNK TRANSFERS: TUB: Activity did not occur on this shift TRANSFERS: TUB - SCORE: 0-UNK LOCOMOTION: WALK: Activity did not occur on this shift LOCOMOTION: WALK - SCORE: 0-UNK LOCOMOTION: WHEELCHAIR: Activity did not occur on this shift LOCOMOTION: WHEELCHAIR - SCORE: 0-UNK COMPREHENSION: COMPREHENSION - SCORE: 0-UNK EXPRESSION EXPRESSION - SCORE: 0-UNK SOCIAL INTERACTION: SOCIAL INTERACTION - SCORE: 0-UNK PROBLEM SOLVING: PROBLEM SOLVING - SCORE: 0-UNK MEMORY: MEMORY - SCORE: 0-UNK SIGNATURE PANEL: The following modified sections: Eating - Score, Grooming - Score, Bathing - Score, Dressing - Upper Body - Score, Dressing - Lower Body - Score, Toileting - Score, Bladder Management - Score, Bowel Man agement - Score, Transfers: Bed, Chair, Wheelchair - Score, Transfers: Toilet - Score, Transfers: Melissa wer - Score, Transfers: Tub - Score, Locomotion: Walk - Score, Locomotion: Wheelchair - Score, Compre hension - Score, Expression - Score, Social Interaction - Score, Problem Solving - Score, Memory - Sc ore were [electronically] signed by Jonah Figueroa on ThuDec 25 2017 10:55:16 GMT-0500 (Central Daylight Time)
--- NOTE | 2017-12-25 15:50 | FAST ---
ENCOUNTER DATE AND TIME: 12/25/2017 08:00 (CDT) NAME OLIVA MARCOS DATE OF : 1930 DATE OF ADMISSION: 12/15/2017 15:31 (CDT) PHONE: AGE: 87 N# [id number] GENDER: Male ENCOUNTER PHYSICIAN: Dr. Sunday Goldberg M.D. ADMISSION DIAGNOSIS: - Orthopaedic Disorders 08 - Unilateral Hip Fracture (08.11) Right hip fracture. EATING: Activity did not occur on this shift EATING - SCORE: 0-UNK GROOMING: Activity did not occur on this shift GROOMING - SCORE: 0-UNK BATHING: Activity did not occur on this shift BATHING - SCORE: 0-UNK DRESSING - UPPER BODY: Activity did not occur on this shift Patient is not dressing in public clothing ARTICLES SCORE Total number of steps: 0 DRESSING - UPPER BODY - SCORE: 0-UNK DRESSING - LOWER BODY: Activity did not occur on this shift Patient is not dressing in public clothing ARTICLES SCORE Total number of steps: 0 DRESSING - LOWER BODY - SCORE: 0-UNK TOILETING: Activity did not occur on this shift TOILETING - SCORE: 0-UNK BLADDER MANAGEMENT: Activity did not occur on this shift BLADDER MANAGEMENT - SCORE: 7-IND BOWEL MANAGEMENT: Activity did not occur on this shift BOWEL MANAGEMENT - SCORE: 7-IND TRANSFERS: BED, CHAIR, WHEELCHAIR: TRANSFERS: BED, CHAIR, WHEELCHAIR - STEP 1: Does the patient require assistance with bed, chair, or wheelchair transfers? Yes. TRANSFERS: BED, CHAIR, WHEELCHAIR - STEP 2: Does the patient require the assistance of a helper? Yes. TRANSFERS: BED, CHAIR, WHEELCHAIR - STEP 3: How much assistance does the patient require from the helper? Only supervision TRANSFERS: BED, CHAIR, WHEELCHAIR - SCORE: 5-SUP TRANSFERS: TOILET: Activity did not occur on this shift TRANSFERS: TOILET - SCORE: 0-UNK TRANSFERS: SHOWER: Activity did not occur on this shift TRANSFERS: SHOWER - SCORE: 0-UNK TRANSFERS: TUB: Activity did not occur on this shift TRANSFERS: TUB - SCORE: 0-UNK LOCOMOTION: WALK: LOCOMOTION: WALK - STEP 1: Does the patient need help to walk 150 feet? Yes. LOCOMOTION: WALK - STEP 2: How much assistance does the patient require to walk a minimum of 150 feet? Patient walks less than 1 50 feet - but more than 50 feet - with the assistance of only one helper LOCOMOTION: WALK - SCORE: 2-MAX LOCOMOTION: WHEELCHAIR: Activity did not occur on this shift LOCOMOTION: WHEELCHAIR - SCORE: 0-UNK LOCOMOTION: STAIRS: Activity did not occur on this shift LOCOMOTION: STAIRS - SCORE: 0-UNK COMPREHENSION: COMPREHENSION - SCORE: 0-UNK EXPRESSION EXPRESSION - SCORE: 0-UNK SOCIAL INTERACTION: SOCIAL INTERACTION - SCORE: 0-UNK PROBLEM SOLVING: PROBLEM SOLVING - SCORE: 0-UNK MEMORY: MEMORY - SCORE: 0-UNK SIGNATURE PANEL: The following modified sections: Transfers: Bed, Chair, Wheelchair - Score, Transfers: Toilet - Score , Locomotion: Walk - Score, Locomotion: Wheelchair - Score, Locomotion: Stairs - Score were [rito miguel] signed by Terrell Collazo PT on ThuDec 25 2017 14:52:18 T-0500 (Central Daylight Time)
--- NOTE | 2017-12-25 16:23 | FAST ---
ENCOUNTER DATE AND TIME: 12/25/2017 08:00 (CDT) NAME OLIVA MARCOS DATE OF : 1930 DATE OF ADMISSION: 12/15/2017 15:31 (CDT) PHONE: AGE: 87 N# [id number] GENDER: Male ENCOUNTER PHYSICIAN: Dr. Sunday Goldberg M.D. ADMISSION DIAGNOSIS: - Orthopaedic Disorders 08 - Unilateral Hip Fracture (08.11) Right hip fracture. EATING: Activity did not occur on this shift EATING - SCORE: 0-UNK GROOMING: Activity did not occur on this shift GROOMING - SCORE: 0-UNK BATHING: Activity did not occur on this shift BATHING - SCORE: 0-UNK DRESSING - UPPER BODY: Activity did not occur on this shift Patient is not dressing in public clothing ARTICLES SCORE Total number of steps: 0 DRESSING - UPPER BODY - SCORE: 0-UNK DRESSING - LOWER BODY: Activity did not occur on this shift Patient is not dressing in public clothing ARTICLES SCORE Total number of steps: 0 DRESSING - LOWER BODY - SCORE: 0-UNK TOILETING: Activity did not occur on this shift TOILETING - SCORE: 0-UNK BLADDER MANAGEMENT: Activity did not occur on this shift BLADDER MANAGEMENT - SCORE: 7-IND BOWEL MANAGEMENT: Activity did not occur on this shift BOWEL MANAGEMENT - SCORE: 7-IND TRANSFERS: BED, CHAIR, WHEELCHAIR: Activity did not occur on this shift TRANSFERS: BED, CHAIR, WHEELCHAIR - SCORE: 0-UNK TRANSFERS: TOILET: Activity did not occur on this shift TRANSFERS: TOILET - SCORE: 0-UNK TRANSFERS: SHOWER: Activity did not occur on this shift TRANSFERS: SHOWER - SCORE: 0-UNK TRANSFERS: TUB: Activity did not occur on this shift TRANSFERS: TUB - SCORE: 0-UNK LOCOMOTION: WALK: Activity did not occur on this shift LOCOMOTION: WALK - SCORE: 0-UNK LOCOMOTION: WHEELCHAIR: Activity did not occur on this shift LOCOMOTION: WHEELCHAIR - SCORE: 0-UNK LOCOMOTION: STAIRS: Activity did not occur on this shift LOCOMOTION: STAIRS - SCORE: 0-UNK COMPREHENSION: COMPREHENSION - STEP 1: Does the patient require help to understand complex and abstract ideas (such as current events, finan paola, discharge planning, medical issues, relationships, etc)? No. COMPREHENSION - STEP 2: Does the patient need extra time, require an assistive device (such as glasses, hearing aids, or an a ugmentative communication system), OR does s/he have mild difficulty expressing complex and abstract ideas (including mild dysarthria or mild word-finding problems)? No. COMPREHENSION - SCORE: 7-IND EXPRESSION EXPRESSION - STEP 1: Does the patient require help expressing complex and abstract ideas (such as current events, finances , discharge planning, medical issues, relationships, etc)? No. EXPRESSION - STEP 2: Does the patient need extra time, require an assistive device (such as augmentive communication syste m or a communication board), OR does s/he have mild difficulty expressing complex and abstract ideas (including mild dysarthria or mild word-find problems)? No. EXPRESSION - SCORE: 7-IND SOCIAL INTERACTION: SOCIAL INTERACTION - STEP 1: Does the patient require a helper to interact with others in social and therapeutic situations? No. SOCIAL INTERACTION - STEP 2: Does the patient need extra time in social situations, OR does s/he interact with staff, other patien ts, and family members ONLY in structured environments, OR does s/he require medication for social in teraction? No. SOCIAL INTERACTION - SCORE: 7-IND PROBLEM SOLVING: PROBLEM SOLVING - STEP 1: Does the patient need help to solve complex problems such as managing a checking account or confronti ng interpersonal problems? No. PROBLEM SOLVING - STEP 2: Does the patient require extra time to make decisions or solve problems, OR does s/he have slight dif ficulty reading, initiating, or self-correcting in unfamiliar situations? Yes, patient needs extra ti me. PROBLEM SOLVING - SCORE: 6-PORTER MEMORY: MEMORY - STEP 1: Does the patient need help to remember frequently encountered people, daily routines, and executing r equests? Yes. MEMORY - STEP 2: How often does the patient need help to remember frequently encountered people, daily routines, and e xecuting requests? Less than 10% of the time MEMORY - SCORE: 5-SUP SIGNATURE PANEL: The following modified sections: Comprehension - Score, Expression - Score, Social Interaction - Scor e, Problem Solving - Score, Memory - Score were [electronically] signed by KAYLEY Escudero on Thu 15:26:13 T-0500 (Central Daylight Time)
--- NOTE | 2017-12-25 16:27 | FAST ---
ENCOUNTER DATE AND TIME: 12/24/2017 08:00 (CDT) NAME OLIVA MARCOS DATE OF : 1930 DATE OF ADMISSION: 12/15/2017 15:31 (CDT) PHONE: AGE: 87 N# [id number] GENDER: Male ENCOUNTER PHYSICIAN: Dr. Sunday Goldberg M.D. ADMISSION DIAGNOSIS: - Orthopaedic Disorders 08 - Unilateral Hip Fracture (08.11) Right hip fracture. EATING: Activity did not occur on this shift EATING - SCORE: 0-UNK GROOMING: Activity did not occur on this shift GROOMING - SCORE: 0-UNK BATHING: Activity did not occur on this shift BATHING - SCORE: 0-UNK DRESSING - UPPER BODY: Activity did not occur on this shift Patient is not dressing in public clothing ARTICLES SCORE Total number of steps: 0 DRESSING - UPPER BODY - SCORE: 0-UNK DRESSING - LOWER BODY: Activity did not occur on this shift Patient is not dressing in public clothing ARTICLES SCORE Total number of steps: 0 DRESSING - LOWER BODY - SCORE: 0-UNK TOILETING: Activity did not occur on this shift TOILETING - SCORE: 0-UNK BLADDER MANAGEMENT: Activity did not occur on this shift BLADDER MANAGEMENT - SCORE: 7-IND BOWEL MANAGEMENT: Activity did not occur on this shift BOWEL MANAGEMENT - SCORE: 7-IND TRANSFERS: BED, CHAIR, WHEELCHAIR: Activity did not occur on this shift TRANSFERS: BED, CHAIR, WHEELCHAIR - SCORE: 0-UNK TRANSFERS: TOILET: Activity did not occur on this shift TRANSFERS: TOILET - SCORE: 0-UNK TRANSFERS: SHOWER: Activity did not occur on this shift TRANSFERS: SHOWER - SCORE: 0-UNK TRANSFERS: TUB: Activity did not occur on this shift TRANSFERS: TUB - SCORE: 0-UNK LOCOMOTION: WALK: Activity did not occur on this shift LOCOMOTION: WALK - SCORE: 0-UNK LOCOMOTION: WHEELCHAIR: Activity did not occur on this shift LOCOMOTION: WHEELCHAIR - SCORE: 0-UNK LOCOMOTION: STAIRS: Activity did not occur on this shift LOCOMOTION: STAIRS - SCORE: 0-UNK COMPREHENSION: COMPREHENSION - STEP 1: Does the patient require help to understand complex and abstract ideas (such as current events, finan paola, discharge planning, medical issues, relationships, etc)? No. COMPREHENSION - STEP 2: Does the patient need extra time, require an assistive device (such as glasses, hearing aids, or an a ugmentative communication system), OR does s/he have mild difficulty expressing complex and abstract ideas (including mild dysarthria or mild word-finding problems)? No. COMPREHENSION - SCORE: 7-IND EXPRESSION EXPRESSION - STEP 1: Does the patient require help expressing complex and abstract ideas (such as current events, finances , discharge planning, medical issues, relationships, etc)? No. EXPRESSION - STEP 2: Does the patient need extra time, require an assistive device (such as augmentive communication syste m or a communication board), OR does s/he have mild difficulty expressing complex and abstract ideas (including mild dysarthria or mild word-find problems)? No. EXPRESSION - SCORE: 7-IND SOCIAL INTERACTION: SOCIAL INTERACTION - STEP 1: Does the patient require a helper to interact with others in social and therapeutic situations? No. SOCIAL INTERACTION - STEP 2: Does the patient need extra time in social situations, OR does s/he interact with staff, other patien ts, and family members ONLY in structured environments, OR does s/he require medication for social in teraction? No. SOCIAL INTERACTION - SCORE: 7-IND PROBLEM SOLVING: PROBLEM SOLVING - STEP 1: Does the patient need help to solve complex problems such as managing a checking account or confronti ng interpersonal problems? No. PROBLEM SOLVING - STEP 2: Does the patient require extra time to make decisions or solve problems, OR does s/he have slight dif ficulty reading, initiating, or self-correcting in unfamiliar situations? No. PROBLEM SOLVING - SCORE: 7-IND MEMORY: MEMORY - STEP 1: Does the patient need help to remember frequently encountered people, daily routines, and executing r equests? Yes. MEMORY - STEP 2: How often does the patient need help to remember frequently encountered people, daily routines, and e xecuting requests? Less than 10% of the time MEMORY - SCORE: 5-SUP SIGNATURE PANEL: The following modified sections: Comprehension - Score, Expression - Score, Social Interaction - Scor e, Problem Solving - Score, Memory - Score were [electronically] signed by KAYLEY Escudero on Thu 15:29:10 GMT-0500 (Central Daylight Time)
--- NOTE | 2017-12-25 17:01 | FAST ---
ENCOUNTER DATE AND TIME: 12/25/2017 08:00 (CDT) NAME OLIVA MARCOS DATE OF : 1930 DATE OF ADMISSION: 12/15/2017 15:31 (CDT) PHONE: AGE: 87 N# [id number] GENDER: Male ENCOUNTER PHYSICIAN: Dr. Sunday Goldberg M.D. ADMISSION DIAGNOSIS: - Orthopaedic Disorders 08 - Unilateral Hip Fracture (08.11) Right hip fracture. EATING: Activity did not occur on this shift EATING - SCORE: 0-UNK GROOMING: Comb/brush hair Patient shaved Wash, rinse, and dry face Wash, rinse, and dry hands GROOMING - STEP 1: Does the patient require assistance when grooming? No. GROOMING - SCORE: 7-IND BATHING: Abdomen Buttocks Chest Left arm Left lower leg and foot Left upper leg Perineal area Right arm Right lower leg and foot Right upper leg BATHING - STEP 1: Does the patient require assistance when bathing? Yes. BATHING - STEP 2: Does the patient require the assistance of a helper? Yes. BATHING - STEP 3: How much assistance does the patient require from the helper? Only incidental help such as placement of a wash cloth in his/her hand a few times as s/he bathes OR help to bathe just one or two areas of the body BATHING - SCORE: 4-MIN DRESSING - UPPER BODY: T-shirt/pullover shirt (four steps) ARTICLES SCORE Total number of steps: 4 DRESSING - UPPER BODY - STEP 1: Does the patient require help when dressing above the waist? No. DRESSING - UPPER BODY - SCORE: 7-IND DRESSING - LOWER BODY: Elastic waist pants (three steps) Slip-on shoe - Left foot (one step) Sock - Left foot (one step) ARTICLES SCORE Total number of steps: 5 DRESSING - LOWER BODY - STEP 1: Does the patient require help when dressing below the waist? Yes. DRESSING - LOWER BODY - STEP 2: Does the patient require the assistance of a helper? Yes. DRESSING - LOWER BODY - STEP 3: Does the helper touch the patient while dressing? Yes. DRESSING - LOWER BODY - STEP 4: How many of the total steps does the patient complete on his/her own? 5 DRESSING - LOWER BODY - SCORE: 4-MIN TOILETING: TOILETING - STEP 1: Does the patient require assistance with toileting? Yes. TOILETING - STEP 2: Does the patient require the assistance of a helper? Yes. TOILETING - STEP 3: How much assistance does the patient require from the helper? Only supervision TOILETING - SCORE: 5-SUP BLADDER MANAGEMENT: Activity did not occur on this shift BLADDER MANAGEMENT - SCORE: 7-IND BOWEL MANAGEMENT: Activity did not occur on this shift BOWEL MANAGEMENT - SCORE: 7-IND TRANSFERS: BED, CHAIR, WHEELCHAIR: Activity did not occur on this shift TRANSFERS: BED, CHAIR, WHEELCHAIR - SCORE: 0-UNK TRANSFERS: TOILET: TRANSFERS: TOILET - STEP 1: Does the patient require assistance with toilet transfers? Yes. TRANSFERS: TOILET - STEP 2: Does the patient require the assistance of a helper? Yes. TRANSFERS: TOILET - STEP 3: How much assistance does the patient require from the helper? Only supervision, cuing, coaxing, OR he lp to set out transfer equipment or to lock brakes and/or lift foot rests TRANSFERS: TOILET - SCORE: 5-SUP TRANSFERS: SHOWER: Activity did not occur on this shift TRANSFERS: SHOWER - SCORE: 0-UNK TRANSFERS: TUB: TRANSFERS: TUB - STEP 1: Does the patient require assistance with tub transfers? Yes. TRANSFERS: TUB - STEP 2: Does the patient require the assistance of a helper? Yes. TRANSFERS: TUB - STEP 3: How much assistance does the patient require from the helper? More than incidental help TRANSFERS: TUB - STEP 4: How much more help does the patient require from the helper? [place] lifts the patient either up OR do wn TRANSFERS: TUB - SCORE: 3-MOD LOCOMOTION: WALK: Activity did not occur on this shift LOCOMOTION: WALK - SCORE: 0-UNK LOCOMOTION: WHEELCHAIR: Activity did not occur on this shift LOCOMOTION: WHEELCHAIR - SCORE: 0-UNK LOCOMOTION: STAIRS: Activity did not occur on this shift LOCOMOTION: STAIRS - SCORE: 0-UNK COMPREHENSION: COMPREHENSION - STEP 1: Does the patient require help to understand complex and abstract ideas (such as current events, finan paola, discharge planning, medical issues, relationships, etc)? No. COMPREHENSION - STEP 2: Does the patient need extra time, require an assistive device (such as glasses, hearing aids, or an a ugmentative communication system), OR does s/he have mild difficulty expressing complex and abstract ideas (including mild dysarthria or mild word-finding problems)? No. COMPREHENSION - SCORE: 7-IND EXPRESSION EXPRESSION: TYPE: Non-Vocal EXPRESSION - STEP 1: Does the patient require help expressing complex and abstract ideas (such as current events, finances , discharge planning, medical issues, relationships, etc)? No. EXPRESSION - STEP 2: Does the patient need extra time, require an assistive device (such as augmentive communication syste m or a communication board), OR does s/he have mild difficulty expressing complex and abstract ideas (including mild dysarthria or mild word-find problems)? No. EXPRESSION - SCORE: 7-IND SOCIAL INTERACTION: SOCIAL INTERACTION - STEP 1: Does the patient require a helper to interact with others in social and therapeutic situations? No. SOCIAL INTERACTION - STEP 2: Does the patient need extra time in social situations, OR does s/he interact with staff, other patien ts, and family members ONLY in structured environments, OR does s/he require medication for social in teraction? No. SOCIAL INTERACTION - SCORE: 7-IND PROBLEM SOLVING: PROBLEM SOLVING - STEP 1: Does the patient need help to solve complex problems such as managing a checking account or confronti ng interpersonal problems? No. PROBLEM SOLVING - STEP 2: Does the patient require extra time to make decisions or solve problems, OR does s/he have slight dif ficulty reading, initiating, or self-correcting in unfamiliar situations? No. PROBLEM SOLVING - SCORE: 7-IND MEMORY: MEMORY - STEP 1: Does the patient need help to remember frequently encountered people, daily routines, and executing r equests? No. MEMORY - STEP 2: Does the patient have slight difficulty recognizing frequently encountered people, daily routines, or executing requests without the need for repetition or using self-initiated or environmental cues to remember? No. MEMORY - SCORE: 7-IND SIGNATURE PANEL: The following modified sections: Eating - Score, Grooming - Score, Bathing - Score, Dressing - Upper Body - Score, Dressing - Lower Body - Score, Toileting - Score, Transfers: Bed, Chair, Wheelchair - S core, Transfers: Toilet - Score, Transfers: Shower - Score, Transfers: Tub - Score, Comprehension - S core, Expression - Score, Social Interaction - Score, Problem Solving - Score, Memory - Score were [e lectronically] signed by STEPHANIE Dougherty on ThuDec 25 2017 16:03:09 [facility]-0500 ([facility] Time)
[2017-12-25] MEDS: WARFARIN SODIUM 6 MG TAB PO SCH (17:37)
[2017-12-25] MEDS: DOCUSATE NA/SENNA CONC 1 TAB PO SCH (20:40)
[2017-12-25] MEDS: PANTOPRAZOLE 40MG TABLET PO SCH (20:40)
[2017-12-25] MEDS: ATORVASTATIN 10 MG TAB PO SCH (20:40)
--- NOTE | 2017-12-26 03:39 | FAST ---
SHIFT START DATE/TIME: 12/25/2017 19:00 (CDT) SHIFT END DATE/TIME: 12/26/2017 07:00 (CDT) NAME OLIVA MARCOS DATE OF : 1930 DATE OF ADMISSION: 12/15/2017 15:31 (CDT) PHONE: AGE: 87 [facility]# [id number] GENDER: Male ENCOUNTER PHYSICIAN: Dr. Sunday Goldberg M.D. ADMISSION DIAGNOSIS: - Orthopaedic Disorders 08 - Unilateral Hip Fracture (08.11) Right hip fracture. EATING: Activity did not occur on this shift EATING - SCORE: 0-UNK GROOMING: Oral care Wash, rinse, and dry face Wash, rinse, and dry hands GROOMING - STEP 1: Does the patient require assistance when grooming? Yes. GROOMING - STEP 2: Does the patient require the assistance of a helper? Yes. GROOMING - STEP 3: How much assistance does the patient require from the helper? Cuing, coaxing, instructions, or encour agement for completion of grooming GROOMING - SCORE: 5-SUP BATHING: Activity did not occur on this shift BATHING - SCORE: 0-UNK DRESSING - UPPER BODY: Patient is not dressing in public clothing ARTICLES SCORE Total number of steps: 0 DRESSING - UPPER BODY - SCORE: 0-UNK DRESSING - LOWER BODY: Patient is not dressing in public clothing ARTICLES SCORE Total number of steps: 0 DRESSING - LOWER BODY - SCORE: 0-UNK TOILETING: TOILETING - STEP 1: Does the patient require assistance with toileting? Yes. TOILETING - STEP 2: Does the patient require the assistance of a helper? Yes. TOILETING - STEP 3: How much assistance does the patient require from the helper? Only supervision TOILETING - SCORE: 5-SUP BLADDER MANAGEMENT: BLADDER MANAGEMENT - STEP 1: Does the patient control the bladder completely and intentionally without equipment or devices or med ications, and is always continent? No. BLADDER MANAGEMENT - STEP 2: Does the patient require the assistance of a helper? Yes. BLADDER MANAGEMENT - STEP 3: How much assistance does the patient require from the helper? Only set-up of equipment - such as plac ing it within reach of the patient or emptying a device - to maintain either satisfactory voiding pat tern or managing an external device, such as an absorbent pad, ileal device, or catheter BLADDER MANAGEMENT - SCORE: 5-SUP BLADDER MANAGEMENT - FREQUENCY OF ACCIDENTS: BLADDER MANAGEMENT(FA) - STEP 1: How many accidents has the patient had during the current shift? 1 BOWEL MANAGEMENT: Activity did not occur on this shift BOWEL MANAGEMENT - SCORE: 7-IND TRANSFERS: BED, CHAIR, WHEELCHAIR: TRANSFERS: BED, CHAIR, WHEELCHAIR - STEP 1: Does the patient require assistance with bed, chair, or wheelchair transfers? Yes. TRANSFERS: BED, CHAIR, WHEELCHAIR - STEP 2: Does the patient require the assistance of a helper? Yes. TRANSFERS: BED, CHAIR, WHEELCHAIR - STEP 3: How much assistance does the patient require from the helper? Only supervision TRANSFERS: BED, CHAIR, WHEELCHAIR - SCORE: 5-SUP TRANSFERS: TOILET: TRANSFERS: TOILET - STEP 1: Does the patient require assistance with toilet transfers? Yes. TRANSFERS: TOILET - STEP 2: Does the patient require the assistance of a helper? Yes. TRANSFERS: TOILET - STEP 3: How much assistance does the patient require from the helper? Only supervision, cuing, coaxing, OR he lp to set out transfer equipment or to lock brakes and/or lift foot rests TRANSFERS: TOILET - SCORE: 5-SUP TRANSFERS: SHOWER: Activity did not occur on this shift TRANSFERS: SHOWER - SCORE: 0-UNK TRANSFERS: TUB: Activity did not occur on this shift TRANSFERS: TUB - SCORE: 0-UNK LOCOMOTION: WALK: Activity did not occur on this shift LOCOMOTION: WALK - SCORE: 0-UNK LOCOMOTION: WHEELCHAIR: Activity did not occur on this shift LOCOMOTION: WHEELCHAIR - SCORE: 0-UNK COMPREHENSION: COMPREHENSION: TYPE: Both COMPREHENSION - STEP 1: Does the patient require help to understand complex and abstract ideas (such as current events, finan paola, discharge planning, medical issues, relationships, etc)? No. COMPREHENSION - STEP 2: Does the patient need extra time, require an assistive device (such as glasses, hearing aids, or an a ugmentative communication system), OR does s/he have mild difficulty expressing complex and abstract ideas (including mild dysarthria or mild word-finding problems)? Yes. COMPREHENSION - SCORE: 6-PORTER EXPRESSION EXPRESSION: TYPE: Both EXPRESSION - STEP 1: Does the patient require help expressing complex and abstract ideas (such as current events, finances , discharge planning, medical issues, relationships, etc)? No. EXPRESSION - STEP 2: Does the patient need extra time, require an assistive device (such as augmentive communication syste m or a communication board), OR does s/he have mild difficulty expressing complex and abstract ideas (including mild dysarthria or mild word-find problems)? Yes. EXPRESSION - SCORE: 6-PORTER SOCIAL INTERACTION: SOCIAL INTERACTION - STEP 1: Does the patient require a helper to interact with others in social and therapeutic situations? No. SOCIAL INTERACTION - STEP 2: Does the patient need extra time in social situations, OR does s/he interact with staff, other patien ts, and family members ONLY in structured environments, OR does s/he require medication for social in teraction? No. SOCIAL INTERACTION - SCORE: 7-IND PROBLEM SOLVING: PROBLEM SOLVING - STEP 1: Does the patient need help to solve complex problems such as managing a checking account or confronti ng interpersonal problems? No. PROBLEM SOLVING - STEP 2: Does the patient require extra time to make decisions or solve problems, OR does s/he have slight dif ficulty reading, initiating, or self-correcting in unfamiliar situations? Yes, patient needs extra ti me. PROBLEM SOLVING - SCORE: 6-PORTER MEMORY: MEMORY - STEP 1: Does the patient need help to remember frequently encountered people, daily routines, and executing r equests? No. MEMORY - STEP 2: Does the patient have slight difficulty recognizing frequently encountered people, daily routines, or executing requests without the need for repetition or using self-initiated or environmental cues to remember? Yes. MEMORY - SCORE: 6-PORTER
[2017-12-26] MEDS: CARVEDILOL 3.125 MG TAB PO SCH ×2 (05:05→17:01)
[2017-12-26 06:33] LABS: Protime INR 3.17
[2017-12-26] MEDS: LISINOPRIL 10 MG TAB PO SCH (08:00)
[2017-12-26] MEDS: FUROSEMIDE 40 MG TABLET PO SCH (08:24)
[2017-12-26] MEDS: FE SULF/FA/VIT B COMP & C TAB PO SCH (08:24)
[2017-12-26] MEDS: FERROUS SULFATE 325 MG TAB PO SCH (08:24)
[2017-12-26] MEDS: MAGNESIUM OXIDE 400 MG TAB PO SCH ×2 (08:24→20:12)
[2017-12-26] MEDS: ENSURE ENLIVE 237 ML CAN PO SCH ×2 (08:26→20:13)
[2017-12-26] MEDS: HYDROCODONE/APAP 10/325 TAB PO PRN ×2 (09:12→20:15)
[2017-12-26] MEDS: PANTOPRAZOLE 40MG TABLET PO SCH (20:11)
[2017-12-26] MEDS: ATORVASTATIN 10 MG TAB PO SCH (20:12)
[2017-12-26] MEDS: DOCUSATE NA/SENNA CONC 1 TAB PO SCH (20:12)
--- NOTE | 2017-12-27 02:39 | FAST ---
SHIFT START DATE/TIME: 12/26/2017 19:00 (CDT) SHIFT END DATE/TIME: 12/27/2017 07:00 (CDT) NAME OLIVA MARCOS DATE OF : 1930 DATE OF ADMISSION: 12/15/2017 15:31 (CDT) PHONE: AGE: 87 N# [id number] GENDER: Male ENCOUNTER PHYSICIAN: Dr. Sunday Goldberg M.D. ADMISSION DIAGNOSIS: - Orthopaedic Disorders 08 - Unilateral Hip Fracture (08.11) Right hip fracture. EATING: Activity did not occur on this shift EATING - SCORE: 0-UNK GROOMING: Activity did not occur on this shift GROOMING - SCORE: 0-UNK BATHING: Activity did not occur on this shift BATHING - SCORE: 0-UNK DRESSING - UPPER BODY: Patient is not dressing in public clothing ARTICLES SCORE Total number of steps: 0 DRESSING - UPPER BODY - SCORE: 0-UNK DRESSING - LOWER BODY: Patient is not dressing in public clothing ARTICLES SCORE Total number of steps: 0 DRESSING - LOWER BODY - SCORE: 0-UNK TOILETING: TOILETING - STEP 1: Does the patient require assistance with toileting? Yes. TOILETING - STEP 2: Does the patient require the assistance of a helper? Yes. TOILETING - STEP 3: How much assistance does the patient require from the helper? Only supervision TOILETING - SCORE: 5-SUP BLADDER MANAGEMENT: BLADDER MANAGEMENT - STEP 1: Does the patient control the bladder completely and intentionally without equipment or devices or med ications, and is always continent? No. BLADDER MANAGEMENT - STEP 2: Does the patient require the assistance of a helper? Yes. BLADDER MANAGEMENT - STEP 3: How much assistance does the patient require from the helper? Only set-up of equipment - such as plac ing it within reach of the patient or emptying a device - to maintain either satisfactory voiding pat tern or managing an external device, such as an absorbent pad, ileal device, or catheter BLADDER MANAGEMENT - SCORE: 5-SUP BOWEL MANAGEMENT: Activity did not occur on this shift BOWEL MANAGEMENT - SCORE: 7-IND TRANSFERS: BED, CHAIR, WHEELCHAIR: Activity did not occur on this shift TRANSFERS: BED, CHAIR, WHEELCHAIR - SCORE: 0-UNK TRANSFERS: TOILET: Activity did not occur on this shift TRANSFERS: TOILET - SCORE: 0-UNK TRANSFERS: SHOWER: Activity did not occur on this shift TRANSFERS: SHOWER - SCORE: 0-UNK TRANSFERS: TUB: Activity did not occur on this shift TRANSFERS: TUB - SCORE: 0-UNK LOCOMOTION: WALK: Activity did not occur on this shift LOCOMOTION: WALK - SCORE: 0-UNK LOCOMOTION: WHEELCHAIR: Activity did not occur on this shift LOCOMOTION: WHEELCHAIR - SCORE: 0-UNK COMPREHENSION: COMPREHENSION - STEP 1: Does the patient require help to understand complex and abstract ideas (such as current events, finan paola, discharge planning, medical issues, relationships, etc)? No. COMPREHENSION - STEP 2: Does the patient need extra time, require an assistive device (such as glasses, hearing aids, or an a ugmentative communication system), OR does s/he have mild difficulty expressing complex and abstract ideas (including mild dysarthria or mild word-finding problems)? Yes. COMPREHENSION - SCORE: 6-PORTER EXPRESSION EXPRESSION - STEP 1: Does the patient require help expressing complex and abstract ideas (such as current events, finances , discharge planning, medical issues, relationships, etc)? No. EXPRESSION - STEP 2: Does the patient need extra time, require an assistive device (such as augmentive communication syste m or a communication board), OR does s/he have mild difficulty expressing complex and abstract ideas (including mild dysarthria or mild word-find problems)? No. EXPRESSION - SCORE: 7-IND SOCIAL INTERACTION: SOCIAL INTERACTION - STEP 1: Does the patient require a helper to interact with others in social and therapeutic situations? No. SOCIAL INTERACTION - STEP 2: Does the patient need extra time in social situations, OR does s/he interact with staff, other patien ts, and family members ONLY in structured environments, OR does s/he require medication for social in teraction? No. SOCIAL INTERACTION - SCORE: 7-IND PROBLEM SOLVING: PROBLEM SOLVING - STEP 1: Does the patient need help to solve complex problems such as managing a checking account or confronti ng interpersonal problems? No. PROBLEM SOLVING - STEP 2: Does the patient require extra time to make decisions or solve problems, OR does s/he have slight dif ficulty reading, initiating, or self-correcting in unfamiliar situations? Yes, patient needs extra ti me. PROBLEM SOLVING - SCORE: 6-PORTER MEMORY: MEMORY - STEP 1: Does the patient need help to remember frequently encountered people, daily routines, and executing r equests? No. MEMORY - STEP 2: Does the patient have slight difficulty recognizing frequently encountered people, daily routines, or executing requests without the need for repetition or using self-initiated or environmental cues to remember? Yes. MEMORY - SCORE: 6-PORTER SIGNATURE PANEL: The following modified sections: Eating - Score, Grooming - Score, Dressing - Upper Body - Score, Oniel ssing - Lower Body - Score, Toileting - Score, Bladder Management - Score, Bowel Management - Score, Transfers: Bed, Chair, Wheelchair - Score, Transfers: Toilet - Score, Transfers: Shower - Score, Ann sfers: Tub - Score, Locomotion: Walk - Score, Locomotion: Wheelchair - Score, Comprehension - Score, Expression - Score, Social Interaction - Score, Problem Solving - Score, Memory - Score were [electro nically] signed by Zoey Hancock CNA on ThuDec 27 2017 01:41:01 T-0500 (Central Daylight Time)
[2017-12-27] MEDS: CARVEDILOL 3.125 MG TAB PO SCH ×2 (05:34→17:22)
[2017-12-27] MEDS: LISINOPRIL 10 MG TAB PO SCH (08:00)
[2017-12-27] MEDS: MAGNESIUM OXIDE 400 MG TAB PO SCH ×2 (08:29→19:45)
[2017-12-27] MEDS: FERROUS SULFATE 325 MG TAB PO SCH (08:29)
[2017-12-27] MEDS: FUROSEMIDE 40 MG TABLET PO SCH (08:29)
[2017-12-27] MEDS: FE SULF/FA/VIT B COMP & C TAB PO SCH (08:30)
[2017-12-27] MEDS: ENSURE ENLIVE 237 ML CAN PO SCH ×2 (08:31→19:44)
[2017-12-27 12:37] LABS: Protime INR 2.35
[2017-12-27] MEDS: WARFARIN SODIUM 6 MG TAB PO SCH (17:23)
[2017-12-27] MEDS: HYDROCODONE/APAP 10/325 TAB PO PRN (19:45)
[2017-12-27] MEDS: PANTOPRAZOLE 40MG TABLET PO SCH (20:26)
[2017-12-27] MEDS: ATORVASTATIN 10 MG TAB PO SCH (20:26)
[2017-12-27] MEDS: DOCUSATE NA/SENNA CONC 1 TAB PO SCH (20:27)
--- NOTE | 2017-12-28 03:04 | FAST ---
SHIFT START DATE/TIME: 12/27/2017 19:00 (CDT) SHIFT END DATE/TIME: 12/28/2017 07:00 (CDT) NAME OLIVA MARCOS DATE OF : 1930 DATE OF ADMISSION: 12/15/2017 15:31 (CDT) PHONE: AGE: 87 [facility]# [id number] GENDER: Male ENCOUNTER PHYSICIAN: Dr. Sunday Goldberg M.D. ADMISSION DIAGNOSIS: - Orthopaedic Disorders 08 - Unilateral Hip Fracture (08.11) Right hip fracture. EATING: Activity did not occur on this shift EATING - SCORE: 0-UNK GROOMING: Wash, rinse, and dry hands GROOMING - STEP 1: Does the patient require assistance when grooming? Yes. GROOMING - STEP 2: Does the patient require the assistance of a helper? Yes. GROOMING - STEP 3: How much assistance does the patient require from the helper? Cuing, coaxing, instructions, or encour agement for completion of grooming GROOMING - SCORE: 5-SUP BATHING: Activity did not occur on this shift BATHING - SCORE: 0-UNK DRESSING - UPPER BODY: Patient is not dressing in public clothing ARTICLES SCORE Total number of steps: 0 DRESSING - UPPER BODY - SCORE: 0-UNK DRESSING - LOWER BODY: Patient is not dressing in public clothing ARTICLES SCORE Total number of steps: 0 DRESSING - LOWER BODY - SCORE: 0-UNK TOILETING: TOILETING - STEP 1: Does the patient require assistance with toileting? Yes. TOILETING - STEP 2: Does the patient require the assistance of a helper? Yes. TOILETING - STEP 3: How much assistance does the patient require from the helper? Only supervision TOILETING - SCORE: 5-SUP BLADDER MANAGEMENT: BLADDER MANAGEMENT - STEP 1: Does the patient control the bladder completely and intentionally without equipment or devices or med ications, and is always continent? No. BLADDER MANAGEMENT - STEP 2: Does the patient require the assistance of a helper? Yes. BLADDER MANAGEMENT - STEP 3: How much assistance does the patient require from the helper? Only set-up of equipment - such as plac ing it within reach of the patient or emptying a device - to maintain either satisfactory voiding pat tern or managing an external device, such as an absorbent pad, ileal device, or catheter BLADDER MANAGEMENT - SCORE: 5-SUP BOWEL MANAGEMENT: Activity did not occur on this shift BOWEL MANAGEMENT - SCORE: 7-IND TRANSFERS: BED, CHAIR, WHEELCHAIR: Activity did not occur on this shift TRANSFERS: BED, CHAIR, WHEELCHAIR - SCORE: 0-UNK TRANSFERS: TOILET: Activity did not occur on this shift TRANSFERS: TOILET - SCORE: 0-UNK TRANSFERS: SHOWER: Activity did not occur on this shift TRANSFERS: SHOWER - SCORE: 0-UNK TRANSFERS: TUB: Activity did not occur on this shift TRANSFERS: TUB - SCORE: 0-UNK LOCOMOTION: WALK: Activity did not occur on this shift LOCOMOTION: WALK - SCORE: 0-UNK LOCOMOTION: WHEELCHAIR: Activity did not occur on this shift LOCOMOTION: WHEELCHAIR - SCORE: 0-UNK COMPREHENSION: COMPREHENSION - STEP 1: Does the patient require help to understand complex and abstract ideas (such as current events, finan paola, discharge planning, medical issues, relationships, etc)? No. COMPREHENSION - STEP 2: Does the patient need extra time, require an assistive device (such as glasses, hearing aids, or an a ugmentative communication system), OR does s/he have mild difficulty expressing complex and abstract ideas (including mild dysarthria or mild word-finding problems)? Yes. COMPREHENSION - SCORE: 6-PORTER EXPRESSION EXPRESSION - STEP 1: Does the patient require help expressing complex and abstract ideas (such as current events, finances , discharge planning, medical issues, relationships, etc)? No. EXPRESSION - STEP 2: Does the patient need extra time, require an assistive device (such as augmentive communication syste m or a communication board), OR does s/he have mild difficulty expressing complex and abstract ideas (including mild dysarthria or mild word-find problems)? No. EXPRESSION - SCORE: 7-IND SOCIAL INTERACTION: SOCIAL INTERACTION - STEP 1: Does the patient require a helper to interact with others in social and therapeutic situations? No. SOCIAL INTERACTION - STEP 2: Does the patient need extra time in social situations, OR does s/he interact with staff, other patien ts, and family members ONLY in structured environments, OR does s/he require medication for social in teraction? No. SOCIAL INTERACTION - SCORE: 7-IND PROBLEM SOLVING: PROBLEM SOLVING - STEP 1: Does the patient need help to solve complex problems such as managing a checking account or confronti ng interpersonal problems? No. PROBLEM SOLVING - STEP 2: Does the patient require extra time to make decisions or solve problems, OR does s/he have slight dif ficulty reading, initiating, or self-correcting in unfamiliar situations? Yes, patient needs extra ti me. PROBLEM SOLVING - SCORE: 6-PORTER MEMORY: MEMORY - STEP 1: Does the patient need help to remember frequently encountered people, daily routines, and executing r equests? No. MEMORY - STEP 2: Does the patient have slight difficulty recognizing frequently encountered people, daily routines, or executing requests without the need for repetition or using self-initiated or environmental cues to remember? Yes. MEMORY - SCORE: 6-PORTER SIGNATURE PANEL: The following modified sections: Eating - Score, Grooming - Score, Dressing - Upper Body - Score, Oniel ssing - Lower Body - Score, Toileting - Score, Bladder Management - Score, Bowel Management - Score, Transfers: Bed, Chair, Wheelchair - Score, Transfers: Toilet - Score, Transfers: Shower - Score, Ann sfers: Tub - Score, Locomotion: Walk - Score, Locomotion: Wheelchair - Score, Comprehension - Score, Expression - Score, Social Interaction - Score, Problem Solving - Score, Memory - Score were [electro nically] signed by Zoey Hancock CNA on ThuDec 28 2017 02:05:26 GMT-0500 (Central Daylight Time)
[2017-12-28] MEDS: CARVEDILOL 3.125 MG TAB PO SCH ×2 (05:12→17:01)
[2017-12-28 06:21] LABS: Protime INR 2.18
[2017-12-28] MEDS: HYDROCODONE/APAP 10/325 TAB PO PRN ×2 (07:19→20:06)
[2017-12-28] MEDS: LISINOPRIL 10 MG TAB PO SCH (08:00)
[2017-12-28] MEDS: FERROUS SULFATE 325 MG TAB PO SCH (08:08)
[2017-12-28] MEDS: MAGNESIUM OXIDE 400 MG TAB PO SCH ×2 (08:09→20:06)
[2017-12-28] MEDS: FE SULF/FA/VIT B COMP & C TAB PO SCH (08:09)
[2017-12-28] MEDS: FUROSEMIDE 40 MG TABLET PO SCH (08:09)
[2017-12-28] MEDS: ENSURE ENLIVE 237 ML CAN PO SCH ×2 (08:10→20:05)
--- NOTE | 2017-12-28 10:14 | FAST ---
SHIFT START DATE/TIME: 12/28/2017 07:00 (CDT) SHIFT END DATE/TIME: 12/28/2017 19:00 (CDT) NAME OLIVA MARCOS DATE OF : 1930 DATE OF ADMISSION: 12/15/2017 15:31 (CDT) PHONE: AGE: 87 N# [id number] GENDER: Male ENCOUNTER PHYSICIAN: Dr. Sunday Goldberg M.D. ADMISSION DIAGNOSIS: - Orthopaedic Disorders 08 - Unilateral Hip Fracture (08.11) Right hip fracture. EATING: EATING - STEP 1: Does the patient require assistance when eating? Yes. EATING - STEP 2: Does the patient require the assistance of a helper? Yes. EATING - STEP 3: Does the patient perform half or more of the eating tasks? Yes. EATING - STEP 4: Does the patient need only supervision, cuing, coaxing OR help to apply an orthosis OR help to cut fo od, open containers, pour liquids, or butter bread? Yes. EATING - SCORE: 5-SUP GROOMING: Comb/brush hair Oral care Wash, rinse, and dry face Wash, rinse, and dry hands GROOMING - STEP 1: Does the patient require assistance when grooming? Yes. GROOMING - STEP 2: Does the patient require the assistance of a helper? Yes. GROOMING - STEP 3: How much assistance does the patient require from the helper? Only prior equipment preparation/set up from the helper GROOMING - SCORE: 5-SUP BATHING: Activity did not occur on this shift BATHING - SCORE: 0-UNK DRESSING - UPPER BODY: Activity did not occur on this shift ARTICLES SCORE Total number of steps: 0 DRESSING - UPPER BODY - SCORE: 0-UNK DRESSING - LOWER BODY: Activity did not occur on this shift ARTICLES SCORE Total number of steps: 0 DRESSING - LOWER BODY - SCORE: 0-UNK TOILETING: TOILETING - STEP 1: Does the patient require assistance with toileting? Yes. TOILETING - STEP 2: Does the patient require the assistance of a helper? Yes. TOILETING - STEP 3: How much assistance does the patient require from the helper? Hands-on assistance from the helper TOILETING - STEP 4: Of the 3 tasks: 1) Adjusting clothing prior to use, 2) Cleansing of perineal area, 3) Adjusting clot mackenzie after use; How many tasks does the patient perform WITHOUT assistance of the helper? Three tasks with steadying assistance from the helper TOILETING - SCORE: 4-MIN BLADDER MANAGEMENT: BLADDER MANAGEMENT - STEP 1: Does the patient control the bladder completely and intentionally without equipment or devices or med ications, and is always continent? No. BLADDER MANAGEMENT - STEP 2: Does the patient require the assistance of a helper? No, patient requires and independently uses an a ssistive device, such as a urinal, bedpan, bedside commode, catheter, absorbent pad, or collecting de vice BLADDER MANAGEMENT - SCORE: 6-PORTER BOWEL MANAGEMENT: BOWEL MANAGEMENT - STEP 1: Does the patient control bowels completely and intentionally without equipment devices or medications AND is always continent? No. BOWEL MANAGEMENT - STEP 2: Does the patient require the assistance of a helper? No, patient requires and manages independently a n assistive device such as a bedpan, bedside commode, absorbent pad, incontinent device, or collectin g device BOWEL MANAGEMENT - SCORE: 6-PORTER TRANSFERS: BED, CHAIR, WHEELCHAIR: TRANSFERS: BED, CHAIR, WHEELCHAIR - STEP 1: Does the patient require assistance with bed, chair, or wheelchair transfers? Yes. TRANSFERS: BED, CHAIR, WHEELCHAIR - STEP 2: Does the patient require the assistance of a helper? Yes. TRANSFERS: BED, CHAIR, WHEELCHAIR - STEP 3: How much assistance does the patient require from the helper? Steadying/guiding assistance TRANSFERS: BED, CHAIR, WHEELCHAIR - SCORE: 4-MIN TRANSFERS: TOILET: TRANSFERS: TOILET - STEP 1: Does the patient require assistance with toilet transfers? Yes. TRANSFERS: TOILET - STEP 2: Does the patient require the assistance of a helper? Yes. TRANSFERS: TOILET - STEP 3: How much assistance does the patient require from the helper? Patient performs half or more of the tr ansferring tasks TRANSFERS: TOILET - STEP 4: Does the patient need only incidental help such as contact guard or steadying during toilet transfer? Yes. TRANSFERS: TOILET - SCORE: 4-MIN TRANSFERS: SHOWER: Activity did not occur on this shift TRANSFERS: SHOWER - SCORE: 0-UNK TRANSFERS: TUB: Activity did not occur on this shift TRANSFERS: TUB - SCORE: 0-UNK LOCOMOTION: WALK: Activity did not occur on this shift LOCOMOTION: WALK - SCORE: 0-UNK LOCOMOTION: WHEELCHAIR: Activity did not occur on this shift LOCOMOTION: WHEELCHAIR - SCORE: 0-UNK COMPREHENSION: COMPREHENSION - SCORE: 0-UNK EXPRESSION EXPRESSION - SCORE: 0-UNK SOCIAL INTERACTION: SOCIAL INTERACTION - SCORE: 0-UNK PROBLEM SOLVING: PROBLEM SOLVING - SCORE: 0-UNK MEMORY: MEMORY - SCORE: 0-UNK SIGNATURE PANEL: The following modified sections: Eating - Score, Grooming - Score, Bathing - Score, Dressing - Upper Body - Score, Dressing - Lower Body - Score, Toileting - Score, Bladder Management - Score, Bowel Man agement - Score, Transfers: Bed, Chair, Wheelchair - Score, Transfers: Toilet - Score, Transfers: Melissa wer - Score, Transfers: Tub - Score, Locomotion: Walk - Score, Locomotion: Wheelchair - Score, Compre hension - Score, Expression - Score, Social Interaction - Score, Problem Solving - Score, Memory - Sc ore were [electronically] signed by Jonah Figueroa on ThuDec 28 2017 09:15:47 GMT-0500 (Central Daylight Time)
--- NOTE | 2017-12-28 14:29 | RAD REPORT ---
EXAM DESCRIPTION: RAD - Barium Swallow Modified - 12/28/2017 2:23 pm CLINICAL HISTORY: Coughing, choking an aspiration FINDINGS: Laryngeal penetration cleared w/ thin Aspiration cough with thin Moderate to severe residue on vallecular, pyriform with all consistencies Delayed swallow reflex Reduced hyolaryngeal excursion esophageal stasis
--- NOTE | 2017-12-28 16:33 | FAST ---
ENCOUNTER DATE AND TIME: 12/28/2017 08:00 (CDT) NAME OLIVA MARCOS DATE OF : 1930 DATE OF ADMISSION: 12/15/2017 15:31 (CDT) PHONE: AGE: 87 N# [id number] GENDER: Male ENCOUNTER PHYSICIAN: Dr. Sunday Goldberg M.D. ADMISSION DIAGNOSIS: - Orthopaedic Disorders 08 - Unilateral Hip Fracture (08.11) Right hip fracture. EATING: Activity did not occur on this shift EATING - SCORE: 0-UNK GROOMING: Activity did not occur on this shift GROOMING - SCORE: 0-UNK BATHING: Activity did not occur on this shift BATHING - SCORE: 0-UNK DRESSING - UPPER BODY: Activity did not occur on this shift Patient is not dressing in public clothing ARTICLES SCORE Total number of steps: 0 DRESSING - UPPER BODY - SCORE: 0-UNK DRESSING - LOWER BODY: Activity did not occur on this shift Patient is not dressing in public clothing ARTICLES SCORE Total number of steps: 0 DRESSING - LOWER BODY - SCORE: 0-UNK TOILETING: Activity did not occur on this shift TOILETING - SCORE: 0-UNK BLADDER MANAGEMENT: Activity did not occur on this shift BLADDER MANAGEMENT - SCORE: 7-IND BOWEL MANAGEMENT: Activity did not occur on this shift BOWEL MANAGEMENT - SCORE: 7-IND TRANSFERS: BED, CHAIR, WHEELCHAIR: Activity did not occur on this shift TRANSFERS: BED, CHAIR, WHEELCHAIR - SCORE: 0-UNK TRANSFERS: TOILET: Activity did not occur on this shift TRANSFERS: TOILET - SCORE: 0-UNK TRANSFERS: SHOWER: Activity did not occur on this shift TRANSFERS: SHOWER - SCORE: 0-UNK TRANSFERS: TUB: Activity did not occur on this shift TRANSFERS: TUB - SCORE: 0-UNK LOCOMOTION: WALK: Patient walks less than 50 feet LOCOMOTION: WALK - SCORE: 1-DEP LOCOMOTION: WALK - COMMENTS: 20' LOCOMOTION: WHEELCHAIR: LOCOMOTION: WHEELCHAIR - STEP 1: Does the patient need help to go 150 feet in a wheelchair? Yes. LOCOMOTION: WHEELCHAIR - STEP 2: How much assistance does the patient need from the helper? Only supervision, cuing, or coaxing LOCOMOTION: WHEELCHAIR - SCORE: 5-SUP LOCOMOTION: STAIRS: Activity did not occur on this shift LOCOMOTION: STAIRS - SCORE: 0-UNK COMPREHENSION: COMPREHENSION - SCORE: 0-UNK EXPRESSION EXPRESSION - SCORE: 0-UNK SOCIAL INTERACTION: SOCIAL INTERACTION - SCORE: 0-UNK PROBLEM SOLVING: PROBLEM SOLVING - SCORE: 0-UNK MEMORY: MEMORY - SCORE: 0-UNK SIGNATURE PANEL: The following modified sections: Transfers: Bed, Chair, Wheelchair - Score, Transfers: Toilet - Score , Locomotion: Walk - Score, Locomotion: Wheelchair - Score, Locomotion: Walk - Comments:, Locomotion: Stairs - Score were [electronically] signed by Kimberly Ga PTA on ThuDec 28 2017 15:34:38 GMT-0500 (Central Daylight Time)
--- NOTE | 2017-12-28 16:52 | FAST ---
ENCOUNTER DATE AND TIME: 12/28/2017 08:00 (CDT) NAME OLIVA MARCOS DATE OF : 1930 DATE OF ADMISSION: 12/15/2017 15:31 (CDT) PHONE: AGE: 87 N# [id number] GENDER: Male ENCOUNTER PHYSICIAN: Dr. Sunday Goldberg M.D. ADMISSION DIAGNOSIS: - Orthopaedic Disorders 08 - Unilateral Hip Fracture (08.11) Right hip fracture. EATING: Activity did not occur on this shift EATING - SCORE: 0-UNK GROOMING: Comb/brush hair Patient shaved Wash, rinse, and dry face Wash, rinse, and dry hands GROOMING - STEP 1: Does the patient require assistance when grooming? No. GROOMING - SCORE: 7-IND BATHING: Abdomen Buttocks Chest Left arm Left lower leg and foot Left upper leg Perineal area Right arm Right lower leg and foot Right upper leg BATHING - STEP 1: Does the patient require assistance when bathing? Yes. BATHING - STEP 2: Does the patient require the assistance of a helper? No. The patient only requires an assistive devic e such as a bath sierra, OR the patient takes more than reasonable time to bathe, OR there is a concern for safety such as regulating water temperature as the patient bathes. BATHING - SCORE: 6-PORTER DRESSING - UPPER BODY: T-shirt/pullover shirt (four steps) ARTICLES SCORE Total number of steps: 4 DRESSING - UPPER BODY - STEP 1: Does the patient require help when dressing above the waist? No. DRESSING - UPPER BODY - SCORE: 7-IND DRESSING - LOWER BODY: Elastic waist pants (three steps) Slip-on shoe - Left foot (one step) Sock - Left foot (one step) ARTICLES SCORE Total number of steps: 5 DRESSING - LOWER BODY - STEP 1: Does the patient require help when dressing below the waist? Yes. DRESSING - LOWER BODY - STEP 2: Does the patient require the assistance of a helper? No. Patient requires an assistive device such as a senior project architect. OR s/he takes more than reasonable time as s/he dresses the lower body, OR there is a con cern for safety when s/he dresses the lower body DRESSING - LOWER BODY - SCORE: 6-PORTER TOILETING: TOILETING - STEP 1: Does the patient require assistance with toileting? Yes. TOILETING - STEP 2: Does the patient require the assistance of a helper? Yes. TOILETING - STEP 3: How much assistance does the patient require from the helper? Only supervision TOILETING - SCORE: 5-SUP BLADDER MANAGEMENT: Activity did not occur on this shift BLADDER MANAGEMENT - SCORE: 7-IND BOWEL MANAGEMENT: Activity did not occur on this shift BOWEL MANAGEMENT - SCORE: 7-IND TRANSFERS: BED, CHAIR, WHEELCHAIR: Activity did not occur on this shift TRANSFERS: BED, CHAIR, WHEELCHAIR - SCORE: 0-UNK TRANSFERS: TOILET: Activity did not occur on this shift TRANSFERS: TOILET - SCORE: 0-UNK TRANSFERS: SHOWER: TRANSFERS: SHOWER - STEP 1: Does the patient require assistance with shower transfers? Yes. TRANSFERS: SHOWER - STEP 2: Does the patient require the assistance of a helper? No. The patient only uses an assistive device, t akes more than reasonable time, OR there is a concern for safety when s/he performs transfers. TRANSFERS: SHOWER - SCORE: 6-PORTER TRANSFERS: TUB: Activity did not occur on this shift TRANSFERS: TUB - SCORE: 0-UNK LOCOMOTION: WALK: Activity did not occur on this shift LOCOMOTION: WALK - SCORE: 0-UNK LOCOMOTION: WHEELCHAIR: Activity did not occur on this shift LOCOMOTION: WHEELCHAIR - SCORE: 0-UNK LOCOMOTION: STAIRS: Activity did not occur on this shift LOCOMOTION: STAIRS - SCORE: 0-UNK COMPREHENSION: COMPREHENSION - STEP 1: Does the patient require help to understand complex and abstract ideas (such as current events, finan paola, discharge planning, medical issues, relationships, etc)? No. COMPREHENSION - STEP 2: Does the patient need extra time, require an assistive device (such as glasses, hearing aids, or an a ugmentative communication system), OR does s/he have mild difficulty expressing complex and abstract ideas (including mild dysarthria or mild word-finding problems)? No. COMPREHENSION - SCORE: 7-IND EXPRESSION EXPRESSION: TYPE: Non-Vocal EXPRESSION - STEP 1: Does the patient require help expressing complex and abstract ideas (such as current events, finances , discharge planning, medical issues, relationships, etc)? No. EXPRESSION - STEP 2: Does the patient need extra time, require an assistive device (such as augmentive communication syste m or a communication board), OR does s/he have mild difficulty expressing complex and abstract ideas (including mild dysarthria or mild word-find problems)? No. EXPRESSION - SCORE: 7-IND SOCIAL INTERACTION: SOCIAL INTERACTION - STEP 1: Does the patient require a helper to interact with others in social and therapeutic situations? No. SOCIAL INTERACTION - STEP 2: Does the patient need extra time in social situations, OR does s/he interact with staff, other patien ts, and family members ONLY in structured environments, OR does s/he require medication for social in teraction? No. SOCIAL INTERACTION - SCORE: 7-IND PROBLEM SOLVING: PROBLEM SOLVING - STEP 1: Does the patient need help to solve complex problems such as managing a checking account or confronti ng interpersonal problems? No. PROBLEM SOLVING - STEP 2: Does the patient require extra time to make decisions or solve problems, OR does s/he have slight dif ficulty reading, initiating, or self-correcting in unfamiliar situations? No. PROBLEM SOLVING - SCORE: 7-IND MEMORY: MEMORY - STEP 1: Does the patient need help to remember frequently encountered people, daily routines, and executing r equests? No. MEMORY - STEP 2: Does the patient have slight difficulty recognizing frequently encountered people, daily routines, or executing requests without the need for repetition or using self-initiated or environmental cues to remember? No. MEMORY - SCORE: 7-IND SIGNATURE PANEL: The following modified sections: Eating - Score, Grooming - Score, Bathing - Score, Dressing - Upper Body - Score, Dressing - Lower Body - Score, Toileting - Score, Transfers: Bed, Chair, Wheelchair - S core, Transfers: Toilet - Score, Transfers: Shower - Score, Transfers: Tub - Score, Comprehension - S core, Expression - Score, Social Interaction - Score, Problem Solving - Score, Memory - Score were [e lectronically] signed by STEPHANIE Dougherty on ThuDec 28 2017 15:53:18 T-0500 ([facility] Time)
[2017-12-28] MEDS: WARFARIN SODIUM 6 MG TAB PO SCH (16:55)
--- NOTE | 2017-12-28 18:23 | R.PN ---
ENCOUNTER DATE AND TIME: 12/28/2017 17:22 (CDT) NAME OLIVA MARCOS DATE OF : 1930 DATE OF ADMISSION: 12/15/2017 15:31 (CDT) Right hip fractureCHIEF COMPLAINT: Right hip fracture SUBJECTIVE: Pt denied any Shortness of Breath. Pt denied any depression. Pushed wheelchair 200' with with modified independence. Ambulated 145' with contact guard assistance using a rolling walker. VITAL SIGNS Temperature: 97.4 F SBP/DBP: 116/66 Pulse: 81 Resp: 16 MEDICATION ALLERGIES: Penicillin ENVIRONMENTAL ALLERGIES: None Known - Substance Allergies None Known - Other Allergies None Known NURSING: - Shower allowing shower - Skin care per protocol PRECAUTIONS: - Weight Bearing Precaution TTWB right LE - Fall Precaution Bed and chair alarm ACTIVITIES OOB only with supervision THERAPIES: - Occupational Therapy Evaluate and Treat. - Physical Therapy Evaluate and Treat. PHYSICAL EXAM - Gen Alert and awake Lying in bed No apparent distress Oriented to: person, time, and place - Skin No skin breakdown. Normacephalic - Eyes No abnormalities - ENMT No abnormalities - Neck No abnormalities - CVS RRR - Chest Clear - Abd Soft - GI Non distended Deferred - No abnormalities - Ext No significant edema - MSK Unremarkable - Neuro No focal deficits - Psych No abnormalities ASSESSMENT: Pt. is a 87 yo Right-handed white male.On 12/10/2017 he was admitted to [facility] with diagnosis Right hip fracture.His impairment category is Orthopaedic Disorders 08 - Unilater al Hip Fracture (08.11).Pre-morbidly, Pt. was independent/mod-I in Transfers Control, Communication, Social Cognition, Self-Care, Locomotion, and Sphincter Control; and he had good Sphincter Control.Cur rently, he has deficits of Safety Awareness, Transfers Control, Balance, Locomotion, Endurance, and S elf-Care.Pt. is now referred to [facility] for acute in-patient rehabilitation in order to maximize patient's functional independence in activities of daily living, strength, ROM, and mobility.- Rehab Goal Patient has realistic goal of being discharged at assistance level 6-Soren to reside at Home with Fam soumya/Relatives. MDM/PLAN: - Anterior Hip Precaution No abduction No active extension No adduction across midline No external rotation No hip flexion >90 degrees No internal rotation - Physical Therapy Decreased range of motion - to improve, our physical therapists will perform initial evaluation of p t's status upon admission and devise an individualized program for increasing patient's Range of Marciano on. Gait dysfunction - to improve, our physical therapists will perform initial evaluation of pt's statu s upon admission and devise an individualized program for Gait Training, and Wheel Chair mobility Inability to transfer - to improve, our physical therapists will perform initial evaluation of pt's status upon admission and devise an individualized program for Bed mobility Need for home safety evaluation - to improve, our physical therapists will perform initial evaluatio n of pt's status upon admission and devise an individualized program for Home Evaluation Need in caregiver upon discharge - to improve, our physical therapists will perform initial evaluati on of pt's status upon admission and devise an individualized program for Caregiver Training New precaution - to improve, our physical therapists will perform initial evaluation of pt's status upon admission and devise an individualized program for Patient precaution education Edema - to improve, our physical therapists will perform initial evaluation of pt's status upon admi ssion and devise an individualized program for Elevation Training, and Lymphedema Therapy Poor balance - to improve, our physical therapists will perform initial evaluation of pt's status up on admission and devise an individualized program for Balance Training Poor endurance - to improve, our physical therapists will perform initial evaluation of pt's status upon admission and devise an individualized program for Endurance Training Weakness - to improve, our physical therapists will perform initial evaluation of pt's status upon a dmission and devise an individualized program for Aquatic Therapy, Neuromuscular Reeducation, and Str engthening Achieving independence - to improve, our physical therapists will perform initial evaluation of pt's status upon admission and devise an individualized program for Community Reintegration Activities - Diet - Liquid Texture Continue Regular - Tube Feed Continue N/A - Diet Type Continue Regular - Posterior Hip Precaution No adduction across midline No external rotation No hip flexion >90 degrees No internal rotation No wheel chair propulsion - Occupational Therapy ADL deficits - to improve, our occupation therapists will perform initial evaluation of pt's status upon admission and devise an individualized program for Bathing, Bed mobility, Community Reintegratio n, Cooking, Dressing, Eating, Fine Motor Skills, Grooming, Homemaking, Kitchen Mobility, Laundry, Pat ient Education, Safety Awareness, Splinting - Positioning, Transfers(Toilet, Tub, Shower), and Wheel Chair Management Need for career professional - to improve, our occupation therapists will perform initial evaluation of pt's status upon admission and devise an individualized program for Caregiver Training Weakness - to improve, our occupation therapists will perform initial evaluation of pt's status upon admission and devise an individualized program for Aquatic Therapy, Balance, Endurance, UE ROM, and UE strengthening - Weight Bearing Precaution TTWB right LE - Fall Precaution Bed and chair alarm - Skin care per protocol - Diet - Solid Texture Continue Regular - Shower allowing shower FUNCTIONAL STATUS: UPDATED AT WEEKLY TEAM CONFERENCE - Bladder Same accident frequency: 7-Ind - No accidents in the past 7 days - Bowel Same accident frequency: 7-Ind - No accidents in the past 7 days - Walking Same score based on distance walked: 1(<=50ft) - Wheelchair Same score based on distance traveled: 0(N/A) FUNCTIONAL STATUS: - Self-Care A. Eating Ind B. Grooming Soren C. Bathing Ind D. Dressing - Upper Soren E. Dressing - Lower Reza F. Toileting maxA - Sphincter Control G: Bladder control Dep H: Bowel control Ind - Transfers Control I. Bed/Chair/Wheelchair maxA J. Toilet maxA K. Tub/Shower ADNO - Locomotion L. Walk/Wheelchair (C) maxA L. Walk/Wheelchair (W) Ind M. Stairs ADNO - Communication N. Comprehension (B) Soren O. Expression (B) Soren - Social Cognition P. Social Interaction Soren Q. Problem Solving Soren R. Memory Soren - Endurance Fair - Balance Fair - Safety Awareness Fair CURRENT FUNC. DEFICITS: Safety Awareness, Transfers Control, Balance, Locomotion, Endurance, and Self-Care SIGNATURE PANEL: (CDT)
[2017-12-28] MEDS: DOCUSATE NA/SENNA CONC 1 TAB PO SCH (20:06)
[2017-12-28] MEDS: ATORVASTATIN 10 MG TAB PO SCH (20:06)
[2017-12-28] MEDS: PANTOPRAZOLE 40MG TABLET PO SCH (20:06)
[2017-12-29] MEDS: CARVEDILOL 3.125 MG TAB PO SCH (05:07)
[2017-12-29 05:53] VITALS: BMI 24.6
[2017-12-29 06:06] LABS: Protime INR 2.24
[2017-12-29] MEDS: MAGNESIUM OXIDE 400 MG TAB PO SCH (07:51)
[2017-12-29] MEDS: FERROUS SULFATE 325 MG TAB PO SCH (07:51)
[2017-12-29] MEDS: LISINOPRIL 10 MG TAB PO SCH (07:51)
[2017-12-29] MEDS: ENSURE ENLIVE 237 ML CAN PO SCH (07:51)
[2017-12-29] MEDS: FE SULF/FA/VIT B COMP & C TAB PO SCH (07:51)
[2017-12-29] MEDS: FUROSEMIDE 40 MG TABLET PO SCH (07:51)
[2017-12-29] MEDS: HYDROCODONE/APAP 10/325 TAB PO PRN (07:57)
[2017-12-29 07:58] VITALS: BP 107/62
[2017-12-29 08:46] VITALS: TEMP 97.2
--- NOTE | 2018-01-29 14:51 | R.DS ---
FACILITY [facility] MR# [id number] NAME OLIVA MARCOS ADDRESS [address] [place] [address] [address] [place] [address] [address] [id number] PHONE DATE OF 1930 AGE 87 SSN# [id number] GENDER Male DEXTERITY Right-handed MARITAL STATUS RACE White ENCOUNTER PHYSICIAN Dr. Sunday Goldberg M.D. REFERRING DOCTOR Claudia Zuniga REFERRING FACILITY [facility] DISCHARGE DIAGNOSIS: - Orthopaedic Disorders 08 - Unilateral Hip Fracture (08.11) Right hip fracture. DISCHARGE COMORBIDITIES: - Tier 3 Chronic diastolic (congestive) heart failure [I5032] - N/A HTN, Chronic A. fib, moderate pulmonary HTN, prostate cancer DATE OF ADMISSION 12/15/2017 15:31 (CDT) MEDICATION ALLERGIES: Penicillin ENVIRONMENTAL ALLERGIES: None Known - Substance Allergies None Known - Other Allergies None Known NURSING: - Shower allowing shower - Skin care per protocol PRECAUTIONS: - Weight Bearing Precaution TTWB right LE - Fall Precaution Bed and chair alarm ACTIVITIES OOB only with supervision THERAPIES: - Occupational Therapy Evaluate and Treat - Physical Therapy Evaluate and Treat HISTORY OF PRESENT ILLNESS: Pt. is a 87 yo Right-handed white male.On 12/10/2017 he was admitted to [facility] with diagnosis Right hip fracture.His impairment category is Orthopaedic Disorders 08 - Unilater al Hip Fracture (08.11).Pre-morbidly, Pt. was independent/mod-I in Self-Care, Sphincter Control, Gleason motion, Communication, and Social Cognition; and he had good Sphincter Control.Currently, he has defi cits of Safety Awareness, Transfers Control, Balance, Locomotion, Endurance, and Self-Care.Pt. is now referred to [facility] for acute in-patient rehabilitation in order to maximi ze patient's functional independence in activities of daily living, strength, ROM, and mobility.- Cat ab Goal Patient has realistic goal of being discharged at assistance level 2-maxA to reside at Home with Fam soumya/Relatives. HOSPITAL COURSE: On 12/17/2017 the following precautions were removed for the patient: Fall Precaution - Bed and priya r alarm. On 12/17/2017 the following precautions were removed for the patient: Anterior Hip Precaution - No a dduction across midline, Anterior Hip Precaution - No internal rotation, Anterior Hip Precaution - No abduction, Anterior Hip Precaution - No active extension, Anterior Hip Precaution - No hip flexi on >90 degrees, and Anterior Hip Precaution - No external rotation. The following precautions were added for the patient: Anterior Hip Precaution - No adduction across m idline, Anterior Hip Precaution - No active extension, Anterior Hip Precaution - No external rotation , Anterior Hip Precaution - No hip flexion >90 degrees, Anterior Hip Precaution - No internal rotatio n, and Anterior Hip Precaution - No abduction. On 12/21/2017 the following precautions were removed for the patient: Anterior Hip Precaution - No ad duction across midline, Anterior Hip Precaution - No active extension, Anterior Hip Precaution - No e xternal rotation, Anterior Hip Precaution - No hip flexion >90 degrees, Anterior Hip Precaution - No internal rotation, and Anterior Hip Precaution - No abduction. The following precautions were added for the patient: Anterior Hip Precaution - No internal rotation , Anterior Hip Precaution - No abduction, Anterior Hip Precaution - No active extension, Anterior H ip Precaution - No adduction across midline, Anterior Hip Precaution - No external rotation, and An terior Hip Precaution - No hip flexion >90 degrees. The following precautions were removed for the patient: Anterior Hip Precaution - No external rotati on, Anterior Hip Precaution - No adduction across midline, Anterior Hip Precaution - No hip flexion >90 degrees, Anterior Hip Precaution - No internal rotation, Anterior Hip Precaution - No active e xtension, and Anterior Hip Precaution - No abduction. On 12/14/2017 the following precautions were added for the patient: Fall Precaution - Bed and chair a larm. On 12/16/2017 the following precautions were added for the patient: Fall Precaution - Bed and chair alarm. On 12/16/2017 the following precautions were added for the patient: Anterior Hip Precaution - No add uction across midline, Anterior Hip Precaution - No internal rotation, Anterior Hip Precaution - No abduction, Anterior Hip Precaution - No active extension, Anterior Hip Precaution - No hip flexion >90 degrees, and Anterior Hip Precaution - No external rotation. On 12/21/2017 the following precautions were added for the patient: Fall Precaution - Bed and chair alarm. On 12/16/2017 the following precautions were removed for the patient: Fall Precaution - Bed and chair alarm, and Fall Precaution - Bed and chair alarm. The following precautions were added for the patient: Posterior Hip Precaution - No adduction across midline, Posterior Hip Precaution - No external rotation, Posterior Hip Precaution - No hip flexio n >90 degrees, Posterior Hip Precaution - No internal rotation, and Posterior Hip Precaution - No w heel chair propulsion. On 12/17/2017 the following precautions were removed for the patient: Posterior Hip Precaution - No adduction across midline, Posterior Hip Precaution - No external rotation, Posterior Hip Precaution - No hip flexion >90 degrees, Posterior Hip Precaution - No internal rotation, and Posterior Hip Pr ecaution - No wheel chair propulsion. The following precautions were added for the patient: Posterior Hip Precaution - No hip flexion >90 d egrees, Posterior Hip Precaution - No external rotation, Posterior Hip Precaution - No adduction acro ss midline, Posterior Hip Precaution - No internal rotation, and Posterior Hip Precaution - No wheel chair propulsion. On 12/21/2017 the following precautions were removed for the patient: Posterior Hip Precaution - No h ip flexion >90 degrees, Posterior Hip Precaution - No external rotation, Posterior Hip Precaution - N o adduction across midline, Posterior Hip Precaution - No internal rotation, and Posterior Hip Precau tion - No wheel chair propulsion. The following precautions were added for the patient: Posterior Hip Precaution - No internal rotatio n, Posterior Hip Precaution - No external rotation, Posterior Hip Precaution - No wheel chair propu lsion, Posterior Hip Precaution - No adduction across midline, and Posterior Hip Precaution - No hi p flexion >90 degrees. The following precautions were removed for the patient: Posterior Hip Precaution - No hip flexion >9 0 degrees, Posterior Hip Precaution - No wheel chair propulsion, Posterior Hip Precaution - No inte rnal rotation, Posterior Hip Precaution - No adduction across midline, and Posterior Hip Precaution - No external rotation. On 12/14/2017 the following precautions were added for the patient: Weight Bearing Precaution - TTWB right LE. On 12/16/2017 the following precautions were added for the patient: Weight Bearing Precaution - TTWB right LE. On 12/17/2017 the following precautions were removed for the patient: Weight Bearing Precaution - TT WB right LE. On 12/21/2017 the following precautions were added for the patient: Weight Bearing Precaution - TTWB right LE. ANTERIOR HIP PRECAUTION: DIET - LIQUID TEXTURE: On 12/14/2017 Pt was upgraded to Regular Diet - Liquid Texture. DIET - SOLID TEXTURE: On 12/14/2017 Pt was upgraded to Regular Diet - Solid Texture. DIET TYPE: On 12/14/2017 Pt was upgraded to Regular Diet Type. FALL PRECAUTION: POSTERIOR HIP PRECAUTION: TUBE FEED: On 12/14/2017 Pt was changed to N/A Tube Feed. WEIGHT BEARING PRECAUTION: DISCHARGE PHYSICAL EXAM - Gen Alert and awake Lying in bed No apparent distress Oriented to: person, time, and place - Skin No skin breakdown. Normacephalic - Eyes No abnormalities - ENMT No abnormalities - Neck No abnormalities - CVS RRR - Chest Clear - Abd Soft - GI Non distended Deferred - No abnormalities - Ext No significant edema - MSK Unremarkable - Neuro No focal deficits - Psych No abnormalities FUNCTIONAL STATUS: - Self-Care A. Eating 7-Ind 7-Ind B. Grooming 6-Soren 7-Ind C. Bathing 6-Soren 6-Soren D. Dressing - Upper 6-Soren 7-Ind E. Dressing - Lower 4-Reza 6-Soren F. Toileting 2-maxA 6-Soren - Sphincter Control G: Bladder control 1-Dep 5-sup H: Bowel control 7-Ind 7-Ind - Transfers Control I. Bed/Chair/Wheelchair 2-maxA 6-Soren J. Toilet 2-maxA 5-sup K. Tub/Shower 0-ADNO 5-sup - Locomotion L. Walk/Wheelchair (C) 2-maxA 2-maxA L. Walk/Wheelchair (W) 6-Soren 6-Soren M. Stairs 0-ADNO 0-ADNO - Communication N. Comprehension (B) 6-Soren 6-Soren O. Expression (B) 6-Soren 6-Soren - Social Cognition P. Social Interaction 6-Soren 6-Soren Q. Problem Solving 6-Soren 6-Soren R. Memory 6-Soren 6-Soren - Endurance Fair - Balance Fair - Safety Awareness Fair DISCHARGE INSTRUCTIONS: - Followup The patient will continue with INR-PT Weekly. - N/A Coumadin 6 mg daily. DISCHARGE PLAN, FOLLOW UP CARE PROVISIONS: - Estimated Length of Stay (days) 14. - Consensus on plan Discharge plan has been discussed with primary caregiver. Patient/Family is in agreement with the michelle n. Primary caregiver is in agreement with the plan. - Patient/Family Goals Return home with assistance. - Planned Living Setting Upon Discharge Home, to live with Family/Relatives. SIGNATURE PANEL: (CDT)
== END 2017-12-29 15:10 | DRG 560 ==
LOC: 5TH 15:31
PROVIDERS: ADMIT Psychiatry & Neurology Neurology with Special Qualifications in Child Neurology; ATTEND Psychiatry & Neurology Neurology with Special Qualifications in Child Neurology
DX: S72.001D Fracture of unspecified part of neck of right femur, subsequent encounter for closed fracture with routine healing (principal); I50.32 Chronic diastolic (congestive) heart failure; I48.2 Chronic atrial fibrillation; I27.20 Pulmonary hypertension, unspecified; I10 Essential (primary) hypertension
CPT/HCPCS: 36415; 71046; 74220; 74230; 80048; 81001; 82040; 82962; 83735; 84134; 85025; 85610; 87086; 87088; 97542